=== PATIENT | male | born 1950 | race Caucasian/White ===

== ENCOUNTER 2016-08-21 09:06 | Outpatient (CLI) | payer MEDICARE, MEDICAID ==
[~2016-08-21] VITALS: Ht 180.3 cm; Wt 83.9 kg
[~2016-08-21 09:06] MED LIST: ALBU8.5H2 IH; ASP81TEC PO; ASPI-84; BETA15CR3 TP; CALC60CR3 TP; CHOL100011 PO; FISH1CAP15 PO; FLUT1DIS28 IH; NIAC125C3; OMG1KC; PRD20T PO; TMSL.4C PO; VITA400T9 PO
[2016-08-21] MEDS ORDERED: DEXAMETHASONE PF 10 MG/ML (DECADRON) VIAL ONE (09:23)
[2016-08-21 09:55] VITALS: BP 164/111
[2016-08-21 10:28] VITALS: BP 166/106
--- NOTE | 2016-08-21 12:09 | Pain Medicine-Procedure ---
Procedure Pre-Op/Post-Op Diagnosis Diagnosis: disc disorder with radiculopathy, cervical Indications for Operation Neck pain Attending Surgeon Arslan Procedure Date of Service: Aug 21, 2016 Procedure: Cervical Epidural Steroid Injection at the C7-T1 Level under Fluoroscopic Guidance Procedure: Pt was identified in the holding area. After risks, benefits, and alternatives were discussed with the patient, informed consent was obtained. An IV was placed by nursing staff prior to procedure. Patient was brought to the fluoroscopy suite and placed prone on the operating table. A time out was performed. Vital signs were monitored throughout the procedure. The patients neck was prepped and draped in the usual sterile fashion. The patients skin was anesthetized using 1% Lidocaine. A 18 gauge tuohy needle was inserted and advanced to the C7-T1 epidural space under fluoroscopic guidance using the loss of resistance technique. The needle position was confirmed in the AP and lateral view. After negative aspiration 2 ml of non-ionic contrast was injected under live fluoroscopy which showed good spread of the contrast in the epidural space at the appropriate level, there was no intravascular or subarachnoid spread. Again, after negative aspiration, 3 ml of preservative free normal saline and 10 mg of dexamethasone was injected. The needle was removed and the patient was transferred to the recovery area in stable condition. And after a brief period of observation was discharged to home in stable condition with no new neurologic deficits. Complications None KALLIE BERNARD MD Aug 21, 2016 12:08 pm
== END 2016-08-21 10:35 | disposition home or self-care (01) ==
LOC: CARD 09:06
PROVIDERS: ATTEND Pain Medicine Pain Medicine
DX: M50.13 Cervical disc disorder with radiculopathy, cervicothoracic region (principal); Z79.899 Other long term (current) drug therapy
CPT/HCPCS: 62321

== ENCOUNTER 2016-10-21 22:48 | Emergency (ER) | payer MEDICARE, MEDICAID ==
[~2016-10-21] VITALS: Ht 185.4 cm; Wt 85.3 kg
[2016-10-21 23:24] LABS: BASOPHILS % (AUTO) 0 % (0-10); EOSINOPHILS % (AUTO) 0 % (0-10); LYMPHOCYTES % (AUTO) 14 % (12-44); MEAN CORPUSCULAR HEMOGLOBIN 32 PG (25-34); MEAN CORPUSCULAR HGB CONC 35 G/DL (32-36); MEAN CORPUSCULAR VOLUME 90 FL (80-99); MEAN PLATELET VOLUME 10.2 FL (7.4-10.4); MONOCYTES # (AUTO) 0.8 X 10^3 (0.0-1.0); MONOCYTES % (AUTO) 11 % (0-12); NEUTROPHILS # (AUTO) 5.6 X 10^3 (1.8-7.8); NEUTROPHILS % (AUTO) 76 % (42-75); PLATELET COUNT 217 10^3/uL (130-400); RED BLOOD COUNT 5.18 10^6/uL (4.35-5.85); RED CELL DISTRIBUTION WIDTH 12.5 % (10.0-14.5); WHITE BLOOD COUNT 7.4 10^3/uL (4.3-11.0)
[2016-10-21] MEDS ORDERED: SCOPOLAMINE 1.5 MG (TRANSDERM-SCOP) PATCH TD ONE (23:30)
[2016-10-21 23:32] LABS: PROTHROMBIN TIME PATIENT 13.1 SEC (12.2-14.7)
[2016-10-21 23:40] LABS: ALANINE AMINOTRANSFERASE 15 U/L (0-55); ANION GAP 9 MMOL/L (5-14); ASPARTATE AMINO TRANSFERASE 17 U/L (5-34); BILIRUBIN,TOTAL 0.6 MG/DL (0.1-1.0); BLOOD UREA NITROGEN 14 MG/DL (7-18); BUN/CREATININE RATIO 16; CALCIUM 9.1 MG/DL (8.5-10.1); CARBON DIOXIDE 23 MMOL/L (21-32); CHLORIDE 109 MMOL/L (98-107); CREATINE KINASE 51 U/L (30-200); CREATININE SERUM 0.85 MG/DL (0.60-1.30); GFR ESTIMATED > 60; GLUCOSE 113 MG/DL (70-105); POTASSIUM 4.2 MMOL/L (3.6-5.0); SODIUM 141 MMOL/L (135-145); TOTAL PROTEIN 6.7 G/DL (6.4-8.2)
[2016-10-21 23:46] LABS: TROPONIN I < 0.30 NG/ML (<0.30)
[2016-10-22] MEDS ORDERED: cloNIDine 0.1 MG (CATAPRES) TAB PO ONE
[2016-10-22] MEDS ORDERED: SCOP1PAT TD (00:12)
[2016-10-22] MEDS ORDERED: MECL-106 PO (00:12)
--- NOTE | 2016-10-22 00:12 | ED General ---
General Chief Complaint: Cardiac/General Problems Stated Complaint: ELEVATED BLOOD PRESSURE Nursing Triage Note: PT CO OF BEING HYPERTENSION TODAY AT DRS OFFICE AND HAS DIZZINESS FOR A COUPLE MONTHS. PT STATES HAD EARS CLEANED OUT TODAY Nursing Sepsis Screen: No Definite Risk Source of Information: Patient (VERY DIFFICULT HISTORIAN) History of Present Illness Time Seen by Provider: 22:57 Initial Comments PT ARRIVES VIA POV FROM HOME C/O DIZZINESS--STATES "FOR A COUPLE OF MONTHS" , STATES WORSE WHEN BENDING OVER STATES HE SAW ASSISTANT PORTFOLIO MANAGER ANGEL LUIS OVALLE LAST WEDNESDAY FOR THIS AND WAS GIVEN RX FOR PREDNISONE, FOR FLUID IN EARS. NO TESTS DONE WENT BACK TODAY TO [facility] TO HAVE EARS CLEANED OUT, BUT HAD EKG AND LAB DONE TODAY ALSO, BUT PT CANNOT STATE WHY THOSE TESTS WERE DONE. PT HAD BEEN PRESCRIBED MECLIZINE 05/2016 BY [facility] PT STATES HIS BLOOD PRESSURE "HAS BEEN RUNNING HIGH FOR A COUPLE OF MONTHS" STATES HE CHECKED IT TONIGHT AND WAS 160/106 SO CAME HERE HOWEVER, PT HAS NO IDEA WHAT HIS BP NORMALLY RUNS. STATES THAT TODAY THE ASSISTANT PORTFOLIO MANAGER INCREASED HIS BP MEDICATION FROM 10 MG TO 20 MG, BUT HE HAS NO IDEA WHICH MEDICATION THAT IS--?LISINOPRIL?--STATES HE DID TAKE THE HIGHER DOSE THIS EVENING NO HEADACHE NO VISION CHANGES NO CHEST PAIN NO CHANGE IN CHRONIC SHORTNESS OF BREATH--HAS COPD NO NAUSEA/VOMITING NO SWEATS NO SWELLING OF LEGS/FEET OR PAIN IN [place] STATES OCCASIONALLY IT FEELS LIKE HIS HEART IS BEATING FAST, BUT NOT NOW [facility] Allergies and Home Medications Allergies Coded Allergies: No Known Drug Allergies (Unverified , 11/05/09) Home Medications Albuterol 8.5 Gm Hfa.aer.ad, 2 PUFF IH Q6H PRN for SHORTNESS OF BREATH, ( Reported) 2 PUFFS Aspirin 81 Mg Tabec, 81 MG PO DAILY, (Reported) Betamethasone Valerate 15 Gm Cream.gm., 1 APPLIC TP BID ON ,, (Reported) Calcipotriene 60 Gm Cream..g., 1 GM TP BID ,,,,WED, (Reported) Cholecalciferol 1,000 Unit Capsule, 1,000 UNITS PO DAILY, (Reported) Fish Oil/Dha/Epa 1 Each Capsule, 2,400 MG PO DAILY, (Reported) TAKE 2 (1,200 MG) CAPSULES DAILY Fluticasone/Salmeterol 1 Disk Inhp, 1 PUFF IH BID, (Reported) 1 PUFF Meclizine HCl 25 Mg Tablet, 25-50 MG PO Q6H, #30 Prescribed by: TOM MURDOCK on 10/22/16 0012 Prednisone 20 Mg Tab, 40 MG PO UD, #11 40MG EVERY AM AFTER BREAKFAST FOR 4 DAYS; THEN 20MG EVERY AM AFTER BREAKFAST UNTIL GONE Prescribed by: ELIZABETH MARLOW on 06/18/13 1101 Scopolamine 1 Each Patch.td72, 1 EACH TD Q72 HOURS, #3 Prescribed by: TOM MURDOCK on 10/22/16 0012 Tamsulosin Hcl 0.4 Mg Cap, 0.4 MG PO DAILY, (Reported) Vitamin E Mixed 400 Unit Tablet, 800 UNIT PO DAILY, (Reported) TAKE 2 (400 MG) TABLETS DAILY Constitutional: see HPI, No chills, No diaphoresis, dizziness, No fever, No malaise, No weakness EENTM: see HPI Respiratory: see HPI Cardiovascular: no symptoms reported Gastrointestinal: no symptoms reported Genitourinary: no symptoms reported Musculoskeletal: no symptoms reported Skin: no symptoms reported Psychiatric/Neurological: No Symptoms Reported Hematologic/Lymphatic: No Symptoms Reported Immunological/Allergic: no symptoms reported Past Ovoryzg-Ncjsyv-Oaybvy Hx Patient Social History Alcohol Use: Denies Use Recreational Drug Use: No Smoking Status: Former Smoker (2 PPD, QUIT 2 YEARS AGO, PER PT ON 10/21/16) Recent Foreign Travel: No Contact w/Someone Who Travel: No Recent Infectious Disease Expo: No Recent Hopitalizations: No Immunizations Up To Date Tetanus Booster (TDap): More than 5yrs Surgeries HX Surgeries: Yes (LEFT EYE REMOVED. ) Surgeries: Eye Surgery Respiratory Hx Respiratory Disorders: Yes Respiratory Disorders: COPD Cardiovascular Hx Cardiac Disorders: Yes Cardiac Disorders: Hypertension Neurological Hx Neurological Disorders: Yes (DIZZINESS) Neurological Disorders: Vertigo Reproductive System Hx Reproductive Disorders: No Sexually Transmitted Disease: No Genitourinary Hx Genitourinary Disorders: Yes (URGENCY) Genitourinary Disorders: Prostate Problems Gastrointestinal Hx Gastrointestinal Disorders: No Musculoskeletal Hx Musculoskeletal Disorders: Yes (CHRONIC NECK PAIN ) Endocrine Hx Endocrine Disorders: No HEENT HX ENT Disorders: Yes (LEFT GLASS EYE) Cancer Hx Cancer: No Psychosocial Hx Psychiatric Problems: No Integumentary HX Skin/Integumentary Disorder: Yes Skin/Integumentary Disorders: Psoriasis Blood Transfusions Hx Blood Disorders: No Adverse Reaction to a Blood Tr: No Family Medical History Family Medial History: Abdominal aortic aneurysm 03 FATHER, Onset:60 years & older Cancer 03 FATHER (NECK) 03 MOTHER (LUNGS) History of drug abuse DAUGHTERS (DAUGHTER) Physical Exam Vital Signs Vital Sign - Last 12Hours 10/21/16 10/22/16 22:55 01:18 Temp 97.7 Pulse 81 Resp 18 B/P (MAP) 158/109 Pulse Ox 96 O2 Delivery Room Air Capillary Refill : Less Than 3 Seconds General Appearance: No Apparent Distress, WD/WN HEENT: Normal ENT Inspection, Other (PROSTHETIC LEFT EYE) Neck: Full Range of Motion, Normal Inspection, Non Tender, Supple, No Carotid Bruit, No JVD Respiratory: Normal Breath Sounds, No Accessory Muscle Use, No Respiratory Distress Cardiovascular: Regular Rate, Rhythm, No Edema, No JVD, No Murmur, Normal Peripheral Pulses Gastrointestinal: Normal Bowel Sounds, No Organomegaly, No Pulsatile Mass, Non Tender, Soft Extremity: Normal Capillary Refill, Normal Inspection, Normal Range of Motion, Non Tender, No Calf Tenderness, No Pedal Edema Neurologic/Psychiatric: Alert, Oriented x3, No Motor/Sensory Deficits, Normal Mood/Affect, 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 fitter II-XII Norm as Tested, No Abnormal Cerebellar Tests Skin: Normal Color, Warm/Dry Progress/Results/Core Measures Results/Orders Lab Results Laboratory Tests Test 10/21/16 22:57 10/21/16 23:05 Range/Units Prothrombin Time 13.1 12.2-14.7 SEC INR Comment 1.0 0.8-1.4 Activated Partial Thromboplast Time 29 24-35 SEC White Blood Count 7.4 4.3-11.0 10^3/uL Red Blood Count 5.18 4.35-5.85 10^6/uL Hemoglobin 16.4 13.3-17.7 G/DL Hematocrit 47 40-54 % Mean Corpuscular Volume 90 80-99 FL Mean Corpuscular Hemoglobin 32 25-34 PG Mean Corpuscular Hemoglobin Concent 35 32-36 G/DL Red Cell Distribution Width 12.5 10.0-14.5 % Platelet Count 217 130-400 10^3/uL Mean Platelet Volume 10.2 7.4-10.4 FL Neutrophils (%) (Auto) 76 H 42-75 % Lymphocytes (%) (Auto) 14 12-44 % Monocytes (%) (Auto) 11 0-12 % Eosinophils (%) (Auto) 0 0-10 % Basophils (%) (Auto) 0 0-10 % Neutrophils # (Auto) 5.6 1.8-7.8 X 10^3 Lymphocytes # (Auto) 1.0 1.0-4.0 X 10^3 Monocytes # (Auto) 0.8 0.0-1.0 X 10^3 Eosinophils # (Auto) 0.0 0.0-0.3 10^3/uL Basophils # (Auto) 0.0 0.0-0.1 10^3/uL Sodium Level 141 135-145 MMOL/L Potassium Level 4.2 3.6-5.0 MMOL/L Chloride Level 109 H 98-107 MMOL/L Carbon Dioxide Level 23 21-32 MMOL/L Anion Gap 9 5-14 MMOL/L Blood Urea Nitrogen 14 7-18 MG/DL Creatinine 0.85 0.60-1.30 MG/DL Estimat Glomerular Filtration Rate > 60 BUN/Creatinine Ratio 16 Glucose Level 113 H 70-105 MG/DL Calcium Level 9.1 8.5-10.1 MG/DL Total Bilirubin 0.6 0.1-1.0 MG/DL Aspartate Amino Transf (AST/SGOT) 17 5-34 U/L Alanine Aminotransferase (ALT/SGPT) 15 0-55 U/L Alkaline Phosphatase 100 40-136 U/L Total Creatine Kinase 51 30-200 U/L Creatine Kinase MB 1.1 <6.6 NG/ML Troponin I < 0.30 <0.30 NG/ML B-Type Natriuretic Peptide 35.9 <100.0 PG/ML Total Protein 6.7 6.4-8.2 G/DL Albumin 4.0 3.2-4.5 G/DL My Orders Orders - TOM MURDOCK DO Cbc With Automated Diff (10/21/16 22:57) Comprehensive Metabolic Panel (10/21/16 22:57) Creatine Kinase (10/21/16 22:57) Creatine Kinase Mb (10/21/16 22:57) Partial Thromboplastin Time (10/21/16 22:57) Protime With Inr (10/21/16 22:57) Troponin I (10/21/16 22:57) Chest 1 View, Ap/Pa Only (10/21/16 22:57) Ekg Tracing (10/21/16 22:57) BNP (10/21/16 22:57) Monitor-Rhythm Ecg Trace Only (10/21/16 22:57) Scopolamine Patch (Transderm-Scop Patch) (10/21/16 23:30) Clonidine Tablet (Catapres Tablet) (10/22/16 00:00) Ct Head Wo (10/22/16 00:01) Medications Given in ED Current Medications Medications Dose Ordered Sig/Irma Route Start Time Stop Time Status Last Admin Dose Admin Clonidine HCl 0.1 mg ONCE ONCE PO 10/22/16 00:00 10/22/16 00:01 DC 10/22/16 00:08 0.1 MG Scopolamine 1.5 mg ONCE ONCE TD 10/21/16 23:30 10/21/16 23:31 DC 10/21/16 23:53 1.5 MG Vital Signs/I&O Vital Sign - Last 12Hours 10/21/16 10/22/16 22:55 01:18 Temp 97.7 Pulse 81 67 Resp 18 10 B/P (MAP) 158/109 Pulse Ox 96 O2 Delivery Room Air Blood Pressure Mean: 125 Progress Note : Progress Note DIZZINESS IMPROVED WITH SCOPOLAMINE PATCH UNEVENTFUL ER STAY ECG Initial ECG Impression Time: 23:04 Initial ECG Rate: 72 Initial ECG Rhythm: Normal Sinus Initial ECG Comparisson: No Previous ECG Available Diagnostic Imaging Comments CT HEAD-- NO ACUTE PROCESS, 7 MM HYPERDENSE LESION AT LEFT SUPERFRONTAL GYRUS OF UNDETERMINED SIGNIFICANCE. --PER [facility] VIA FAX @ 1051 Reviewed: Reviewed by Me Departure Impression Impression: Primary Impression: HTN (hypertension) Additional Impressions: Vertigo ABNORMAL FINDING ON HEAD CT Disposition: HOME, SELF-CARE Condition: Stable Departure-Patient Inst. Referrals: [facility] (PCP/Family) Primary Care Physician Patient Instructions: DASH Diet, Heart Healthy Diet, High Blood Pressure (DC), VERTIGO Add. Discharge Instructions: CONTINUE YOUR LISINOPRIL AT 20 MG DAILY SLOW POSITION CHANGES FOLLOW UP WITH [facility] IN 2-3 DAYS FOR FURTHER CARE All discharge instructions reviewed with patient and/or family. Voiced understanding. Scripts Meclizine HCl (Meclizine HCl) 25 Mg Tablet 25-50 MG PO Q6H for Dizziness, #30 TAB Prov: TOM MURDOCK DO 10/22/16 Scopolamine (Transderm-Scop) 1 Each Patch.td72 1 EACH TD Q72 HOURS for Dizziness, #3 PATCH Prov: TOM MURDOCK DO 10/22/16 TOM MURDOCK DO Oct 22, 2016 00:12
[2016-10-22 01:18] VITALS: BP 168/99
--- NOTE | 2016-10-22 06:04 | Diagnostic Imaging Report ---
Clinical indication: Patient with hypertension and dizziness. Patient has left glass eye and stents. Exam: Axial CT scan of the brain performed without IV contrast. Comparison: MRI of the brain performed without and with IV contrast dated 07/06/2016. Findings: There is a 7 mm high-density area involving the posterior left frontal lobe parasagittal region seen on series 2, image 28. This area correlates with an area on the comparison MRI of the brain. Otherwise, there is no evidence of acute cerebral infarct, acute lobar intracranial hemorrhage, or gross mass effect. There is normal cochran-white matter distinction. The brain parenchymal volume appears appropriate for patient's age. There is no significant midline shift or herniation. There is no evidence of hydrocephalus. The basal cisterns are unremarkable. The skull, extracranial soft tissue, and orbits are unremarkable. The paranasal sinuses are unremarkable. Impression: 1: There is no evidence of interval acute intracranial process. 2: Stable 7 mm lesion in the parasagittal posterior left frontal lobe which likely represents a cavernous hemangioma versus and area of calcification. I agree with [facility] report. Dictated by: Dictated on workstation # [id number]
--- NOTE | 2016-10-22 06:48 | Diagnostic Imaging Report ---
Clinical indication: Patient with complaints of hypertension and dizziness. Exam: Portable chest x-ray upright view. Comparisons: Chest x-ray dated 06/16/2013. Findings: Lungs/pleura: There is interval mild bibasilar atelectasis or scarring. There is stable scarring in both lung apices. There is no definite interval lung infiltrate seen. Lungs are clear. There is no pneumothorax. There is no pleural effusion. Mediastinum: Unremarkable. Pulmonary vasculature: Unremarkable. Heart: Unremarkable. Bones/extrathoracic soft tissue: Unremarkable. Impression: 1: There is interval development of mild bibasilar atelectasis or scarring. 2: Otherwise, stable chest x-ray exam with no radiographic evidence of acute cardiopulmonary process. Dictated by: Dictated on workstation # [id number]
--- OUTSIDE RECORDS SUMMARY | 2016-11-22 18:26 | XMS REPORT ---
Author Author ANGEL LUIS OVALLE [facility] eClinicalWorks Address Unknown Phone Unavailable Care Team Providers Care Instrument Maker Name Role Phone ANGEL LUIS OVALLE Unavailable Allergies, Adverse Reactions, Alerts Substance Reaction Event Type N.K.D.A. Info Not Available Non Drug Allergy Problems Problem Type Condition ICD-9 Code Onset Dates Condition Status Problem Elevated prostate specific antigen (PSA) 790.93 Active Problem Sleep related hypoventilation/hypoxemia in conditions classifiable elsewhere 327.26 Active Problem Contact dermatitis and other eczema due to plants (except food) 692.6 Active Problem Diabetes with other specified manifestations, type II or unspecified type, not stated as uncontrolled 250.80 Active Assessment Elevated PSA 790.93 Active Problem Hypertrophy (benign) of prostate without urinary obstruction and other lower urinary tract symptoms [LUTS] 600.00 Active Assessment Incontinence of urine 788.30 Active Problem Deviated nasal septum 470 Active Problem Nondependent tobacco use disorder 305.1 Active Problem 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 Active Problem Acute upper respiratory infections of unspecified site 465.9 Active Problem Other and unspecified hyperlipidemia 272.4 Active Assessment Nocturnal hypoxia 327.24 Active Assessment COPD (chronic obstructive pulmonary disease) 496 Active Assessment BPH (benign prostatic hyperplasia) 600.00 Active Assessment Rib pain on left side 786.50 Active Problem Other, multiple, and unspecified sites, insect bite, nonvenomous, without mention of infection 919.4 Active Problem Cervicalgia 723.1 Active Assessment Dizziness 780.4 Active Problem Other malaise and fatigue 780.79 Active Problem Chest pain, unspecified 786.50 Active Problem Loss of weight 783.21 Active Medications Medication Code System Code Instructions Start Date End Date Status Dosage Flomax [facility] [address]-92 0.4 mg May 22, 2014 1 capsule by Oral route 1 time per day Symbicort [facility] [address]-15 160-4.5 mcg/actuation Sep 10, 2014 inhale 2 puffs by inhalation route 2 times per day in the morning and evening Albuterol NDC 0 90 mcg/actuation December 13, 2013 2 puffs by Inhalation route 4 times per day PRN Albuterol Sulfate NDC [address]-04 2.5 mg /3 mL (0.083 %) Sep 10, 2014 1 Each by Inhalation route every 4 hours for cough and wheeze PRN for wheezing or cough Procedures Procedure Coding System Code Date LAB NOT BILLED BY [facility] CPT-4 NOBLL Mar 05, 2015 CHEST X-RAY CPT-4 28862 Mar 05, 2015 ASSAY OF PSA, TOTAL CPT-4 88417 Mar 05, 2015 Office Visit, Est Pt., Level 4 CPT-4 71943 Mar 05, 2015 [facility] VISIT ESTABLISHED PATIENT CPT-4 G0467 Mar 05, 2015 VENIPUNCT, ROUTINE* CPT-4 87232 Mar 05, 2015 Vital Signs Date/Time: Mar 05, 2015 Temperature 96.8 F Weight 155.0 lbs Height 70 in BMI 22.24 Index Blood Pressure Diastolic 78 mmHg Blood Pressure Systolic 118 mmHg Cardiac Monitoring Heart Rate 76 bpm Results Name Result Date Reference Range Unit Abnormality Flag Carotid Ultrasound ROUTINE VENIPUNCTURE CBC Summary Purpose eClinicalWorks Submission
--- OUTSIDE RECORDS SUMMARY | 2016-11-22 18:26 | XMS REPORT ---
Author ANGEL LUIS Maddox Organization e[employer] Address Unknown Phone Unavailable Care Team Providers Care Logistic Manager Name Role Phone ANGEL LUIS OVALLE CP Unavailable Allergies No Known Allergies Problems Problem Type Condition Code Onset Dates Condition Status Problem Enlarged prostate with lower urinary tract symptoms N40.1 Active Problem Elevated PSA R97.2 Active Problem Obstructive sleep apnea G47.33 Active Problem Obstructive sleep apnea syndrome G47.33 Active Problem Diabetes with other specified manifestations, type II or unspecified type, not stated as uncontrolled 250.80 Active Medications No Known Medications Results No Known Results Summary Purpose eClinicalWorks Submission
--- OUTSIDE RECORDS SUMMARY | 2016-11-22 18:26 | XMS REPORT ---
Author Author ANGEL LUIS OVALLE [facility] eClinical[employer] Address Unknown Phone Unavailable Care Team Providers Care Metallic Yarn Slitting Machine Operator Name Role Phone ANGEL LUIS OVALLE Unavailable Allergies, Adverse Reactions, Alerts Substance Reaction Event Type N.K.D.A. Info Not Available Non Drug Allergy Problems Problem Type Condition Code Onset Dates Condition Status Assessment Enlarged prostate with lower urinary tract symptoms N40.1 Active Assessment Elevated PSA R97.2 Active Problem Enlarged prostate with lower urinary tract symptoms N40.1 Active Problem Elevated PSA R97.2 Active Problem Obstructive sleep apnea G47.33 Active Assessment Obstructive sleep apnea G47.33 Active Assessment Hyperkalemia E87.5 Active Problem Obstructive sleep apnea syndrome G47.33 Active Problem Diabetes with other specified manifestations, type II or unspecified type, not stated as uncontrolled 250.80 Active Medications Medication Code System Code Instructions Start Date End Date Status Dosage Symbicort NDC [address]-23 160-4.5 mcg/actuation Sep 10, 2014 inhale 2 puffs by inhalation route 2 times per day in the morning and evening Flomax NDC [address]-56 0.4 mg May 22, 2014 1 capsule by Oral route 1 time per day Albuterol Sulfate NDC [address]-39 2.5 mg /3 mL (0.083 %) Sep 10, 2014 1 Each by Inhalation route every 4 hours for cough and wheeze PRN for wheezing or cough Albuterol NDC 0 90 mcg/actuation December 13, 2013 2 puffs by Inhalation route 4 times per day PRN Procedures Procedure Coding System Code Date VENIPELYSE, ROUTINE* CPT-4 80057 Jun 25, 2015 [facility] VISIT ESTABLISHED PATIENT CPT-4 G0467 Jun 25, 2015 LAB NOT BILLED BY [facility] CPT-4 NOBLL Jun 25, 2015 Office Visit, Est Pt., Level 4 CPT-4 73430 Jun 25, 2015 Vital Signs Date/Time: Jun 25, 2015 Temperature 98.5 F Weight 166.5 lbs Height 70 in BMI 23.89 Index Blood Pressure Diastolic 72 mmHg Blood Pressure Systolic 116 mmHg Cardiac Monitoring Heart Rate 78 bpm Results Name Result Date Reference Range Unit Abnormality Flag ROUTINE VENIPUNCTURE Summary Purpose eClinicalWorks Submission
--- OUTSIDE RECORDS SUMMARY | 2016-11-22 18:27 | XMS REPORT ---
Author Author AILYN SHERWOOD Organization eClinicalWorks Address Unknown Phone Unavailable Care Team Providers Care Aws Software Development Engineer Name Role Phone AILYN SHERWOOD CP Unavailable Allergies No Known Allergies Problems Problem Type Condition ICD-9 Code Onset Dates Condition Status Problem Elevated prostate specific antigen (PSA) 790.93 Active Problem Sleep related hypoventilation/hypoxemia in conditions classifiable elsewhere 327.26 Active Problem Contact dermatitis and other eczema due to plants (except food) 692.6 Active Problem Diabetes with other specified manifestations, type II or unspecified type, not stated as uncontrolled 250.80 Active Problem Hypertrophy (benign) of prostate without urinary obstruction and other lower urinary tract symptoms [LUTS] 600.00 Active Problem Deviated nasal septum 470 Active Problem Nondependent tobacco use disorder 305.1 Active Problem 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 Active Problem Acute upper respiratory infections of unspecified site 465.9 Active Problem Other and unspecified hyperlipidemia 272.4 Active Assessment BPH (benign prostatic hyperplasia) 600.00 Active Problem Other, multiple, and unspecified sites, insect bite, nonvenomous, without mention of infection 919.4 Active Problem Cervicalgia 723.1 Active Assessment Elevated PSA 790.93 Active Problem Other malaise and fatigue 780.79 Active Problem Chest pain, unspecified 786.50 Active Problem Loss of weight 783.21 Active Medications No Known Medications Results No Known Results Summary Purpose eClinicalWorks Submission
--- OUTSIDE RECORDS SUMMARY | 2016-11-22 18:27 | XMS REPORT ---
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 Active Problem Diabetes with other specified manifestations, type II or unspecified type, not stated as uncontrolled 250.80 Active Problem Spinal stenosis in cervical region M48.02 Active Problem Incontinence R32 Active Problem Cyst on ear L72.9 Active Problem Cardiac arrhythmia, unspecified cardiac arrhythmia type I49.9 Active Problem Elevated PSA R97.2 Active Problem Obstructive sleep apnea syndrome G47.33 Active Problem Obstructive sleep apnea G47.33 Active Problem Enlarged prostate with lower urinary tract symptoms N40.1 Active Assessment Cardiac arrhythmia, unspecified cardiac arrhythmia type I49.9 Active Assessment Dizziness R42 Active Problem Abnormal MRI of head R93.0 Active Medications No Known Medications Procedures Procedure Coding System Code Date VENIPUNCT, ROUTINE* CPT-4 46771 Jun 15, 2016 LAB NOT BILLED BY [facility] CPT-4 NOBLL Jun 15, 2016 Results Name Result Date Reference Range Unit Abnormality Flag ROUTINE VENIPUNCTURE CMP ----Sodium, Serum 141 [id number] 136-144 mmol/L ----BUN/Creatinine Ratio 12 [id number] 10-22 ----Chloride, Serum 101 [id number] 97-106 mmol/L ----Potassium, Serum 4.9 34877422 3.5-5.2 mmol/L ----Calcium, Serum 9.3 20160615 8.6-10.2 mg/dL ----Protein, Total, Serum 6.7 23874300 6.0-8.5 g/dL ----Carbon Dioxide, Total 28 20160615 18-29 mmol/L ----A/G Ratio 1.7 20160615 1.1-2.5 ----eGFR If NonAfricn Am 79 [id number] >59 mL/min/1.73 ----Bilirubin, Total 0.4 20160615 0.0-1.2 mg/dL ----eGFR If Africn Am 91 20160615 >59 mL/min/1.73 ----BUN 12 20160615 8-27 mg/dL ----Albumin, Serum 4.2 20160615 3.6-4.8 g/dL ----Globulin, Total 2.5 20160615 1.5-4.5 g/dL ----Creatinine, Serum 1.00 20160615 0.76-1.27 mg/dL ----ALT (SGPT) 20 20160615 0-44 IU/L ----Glucose, Serum 104 20160615 65-99 mg/dL H ----Alkaline Phosphatase, S 98 20160615 39-117 IU/L ----AST (SGOT) 19 20160615 0-40 IU/L Summary Purpose eClinicalWorks Submission
--- OUTSIDE RECORDS SUMMARY | 2016-11-22 18:27 | XMS REPORT ---
Author Author ANGEL LUIS OVALLE Organization [employer] Address Unknown Phone Unavailable Care Team Providers Care Raiser Helper Name Role Phone ANGEL LUIS OVALLE CP [...] Problem Other and unspecified hyperlipidemia 272.4 Active Problem Other, multiple, and unspecified sites, insect bite, nonvenomous, without mention of infection 919.4 Active Problem Cervicalgia 723.1 Active Problem Other malaise and fatigue 780.79 Active Problem Chest pain, unspecified 786.50 Active Problem Loss of weight 783.21 Active Medications No Known Medications Results No Known Results Summary Purpose [employer] Submission
--- OUTSIDE RECORDS SUMMARY | 2016-11-22 18:27 | XMS REPORT ---
Author Author AILYN SHERWOOD Organization [employer] Address Unknown Phone Unavailable Care Team Providers Care Bit Setter Name Role Phone AILYN SHERWOOD CP Unavailable Allergies No Known Allergies Problems Problem Type Condition Code Onset Dates Condition Status Problem Elevated [...]
--- OUTSIDE RECORDS SUMMARY | 2016-11-22 18:27 | XMS REPORT ---
Author Author ANGEL LUIS OVALLE [facility] [employer] Address Unknown Phone Unavailable Care Team Providers Care Practice Billing Associate Name Role Phone ANGEL LUIS OVALLE CP Unavailable Allergies, Adverse Reactions, Alerts Substance Reaction Event Type N.K.D.A. 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 Problem Sleep related hypoventilation/hypoxemia in conditions classifiable elsewhere 327.26 Active Problem Deviated nasal septum 470 Active Problem Diabetes with other specified manifestations, type II or unspecified type, not stated as uncontrolled 250.80 Active Problem Obstructive sleep apnea syndrome G47.33 Active Problem Other and unspecified hyperlipidemia 272.4 Active Problem Nondependent tobacco use disorder 305.1 Active Problem Hypertrophy (benign) of prostate without urinary obstruction and other lower urinary tract symptoms [LUTS] 600.00 Active Problem Acute upper respiratory infections of unspecified site 465.9 Active Assessment Obstructive sleep apnea syndrome G47.33 Active Problem Cervicalgia 723.1 Active Problem Other malaise and fatigue 780.79 Active Problem Chest pain, unspecified 786.50 Active Problem Loss of weight 783.21 Active Problem Other, multiple, and unspecified sites, insect bite, nonvenomous, without mention of infection 919.4 Active Problem Elevated prostate specific antigen (PSA) 790.93 Active Medications Medication Code System Code Instructions Start Date End Date Status Dosage Albuterol NDC 0 90 mcg/actuation December 13, 2013 2 puffs by Inhalation route 4 times per day PRN Symbicort [facility] [address]-08 160-4.5 mcg/actuation Sep 10, 2014 inhale 2 puffs by inhalation route 2 times per day in the [place] [address]-18 0.4 mg May 22, 2014 1 capsule by Oral route 1 time per day Albuterol Sulfate [facility] [address]-96 2.5 mg /3 mL (0.083 %) Sep 10, 2014 1 Each by Inhalation route every 4 hours for cough and wheeze PRN for wheezing or cough Procedures Procedure Coding System Code Date Office Visit, Est Pt., Level 3 CPT-4 21508 May 15, 2015 [facility] V[facility]IT ESTABLISHED PATIENT CPT-4 G0467 May 15, 2015 Vital Signs Date/Time: May 15, 2015 Temperature 98.4 F Weight 156.7 lbs Height 70 in BMI 22.48 Index Blood Pressure Diastolic 68 mmHg Blood Pressure Systolic 112 mmHg Cardiac Monitoring Heart Rate 80 bpm Results No Known Results Summary Purpose [employer] Submission
--- OUTSIDE RECORDS SUMMARY | 2016-11-22 18:27 | XMS REPORT ---
Author Author ANGEL LUIS OVALLE Organization [employer] Address Unknown Phone Unavailable Care Team Providers Care Magisterial District Judge Name Role Phone ANGEL LUIS OVALLE CP [...] Instructions Start Date End Date Status Dosage Oxybutynin Chloride [facility] [address]-85 5 MG Orally Twice a day Aug 06, 2015 Sep 05, 2015 1 tablet Triamcinolone Acetonide [facility] [address]-72 0.5 % Externally Twice a day as needed Aug 06, 2015 1 application to affected area Flomax [facility] [address]-26 0.4 MG May 22, 2014 1 capsule by Oral route 1 time per day Results No Known Results Summary Purpose [employer] Submission
--- OUTSIDE RECORDS SUMMARY | 2016-11-22 18:28 | XMS REPORT ---
Author Author ANGEL LUIS OVALLE Organization [employer] Address Unknown Phone Unavailable Care Team Providers Care Physician Anesthesiologist Name Role Phone ANGEL LUIS OVALLE CP [...]
--- OUTSIDE RECORDS SUMMARY | 2016-11-22 18:28 | XMS REPORT ---
Author Author ANGEL LUIS OVALLE Organization [employer] Address Unknown Phone Unavailable Care Team Providers Care Order Processing Manager Name Role Phone ANGEL LUIS OVALLE CP Unavailable Allergies No Known Allergies Problems Problem Type Condition Code Onset Dates Condition Status Problem Cyst on ear L72.9 Active Problem Obstructive sleep apnea G47.33 Active Problem Incontinence R32 Active Problem Obstructive sleep apnea syndrome G47.33 Active Problem Diabetes with other specified manifestations, type II or unspecified type, not stated as uncontrolled 250.80 Active Problem Enlarged prostate with lower urinary tract symptoms N40.1 Active Problem Elevated PSA R97.2 Active Medications Medication Code System Code Instructions Start Date End Date Status Dosage Oxybutynin Chloride [facility] [address]-53 15 mg ER Oral Once a day 1 tablet Flomax [facility] [address]-21 0.4 MG May 22, 2014 1 capsule by Oral route 1 time per day Results No Known Results Summary Purpose [employer] Submission
--- OUTSIDE RECORDS SUMMARY | 2016-11-22 18:28 | XMS REPORT | Continuity of Care Document ---
Author Author [facility] Address Unknown Phone Unavailable Allergies Active Description Code Type Severity Reaction Onset Reported/Identified Relationship to Patient Clinical Status Yes No Known Drug Allergies [id number] Drug Allergy Mild N/A 11/05/2009 Medications Problems Date Dx Coded Attending Type Code Diagnosis Diagnosed By 10/11/2009 173.9 OTHER MALIGNANT NEOPLASM OF SKIN, SITE UNSPECIFIED 10/11/2009 496 CHRONIC OBSTRUCTIVE PULMONARY DISEASE 10/11/2009 696.1 PSORIASIS 10/11/2009 V76.44 visit for: screening exam malignant neoplasm prostate 10/11/2009 GIORGI SO MD 173.9 OTHER MALIGNANT NEOPLASM OF SKIN, SITE UNSPECIFIED 10/11/2009 GIORGI SO MD 496 CHRONIC OBSTRUCTIVE PULMONARY DISEASE 10/11/2009 GIORGI SO MD 696.1 PSORIASIS 10/11/2009 GIORGI SO MD V76.44 visit for: screening exam malignant neoplasm prostate 10/11/2009 173.9 OTHER MALIGNANT NEOPLASM OF SKIN, SITE UNSPECIFIED 10/11/2009 496 CHRONIC OBSTRUCTIVE PULMONARY DISEASE 10/11/2009 696.1 PSORIASIS 10/11/2009 V76.44 visit for: screening exam malignant neoplasm prostate 10/11/2009 173.9 OTHER MALIGNANT NEOPLASM OF SKIN, SITE UNSPECIFIED 10/11/2009 496 CHRONIC OBSTRUCTIVE PULMONARY DISEASE 10/11/2009 696.1 PSORIASIS 10/11/2009 V76.44 visit for: screening exam malignant neoplasm prostate 10/11/2009 173.9 OTHER MALIGNANT NEOPLASM OF SKIN, SITE UNSPECIFIED 10/11/2009 496 CHRONIC OBSTRUCTIVE PULMONARY DISEASE 10/11/2009 696.1 PSORIASIS 10/11/2009 V76.44 visit for: screening exam malignant neoplasm prostate 10/11/2009 173.9 OTHER MALIGNANT NEOPLASM OF SKIN, SITE UNSPECIFIED 10/11/2009 496 CHRONIC OBSTRUCTIVE PULMONARY DISEASE 10/11/2009 696.1 PSORIASIS 10/11/2009 V76.44 visit for: screening exam malignant neoplasm prostate 10/11/2009 173.9 OTHER MALIGNANT NEOPLASM OF SKIN, SITE UNSPECIFIED 10/11/2009 496 CHRONIC OBSTRUCTIVE PULMONARY DISEASE 10/11/2009 696.1 PSORIASIS 10/11/2009 V76.44 visit for: screening exam malignant neoplasm prostate 10/11/2009 SUZIE PAVON MD 173.9 OTHER MALIGNANT NEOPLASM OF SKIN, SITE UNSPECIFIED 10/11/2009 SUZIE PAVON MD 496 CHRONIC OBSTRUCTIVE PULMONARY DISEASE 10/11/2009 SUZIE PAVON MD 696.1 PSORIASIS 10/11/2009 SUZIE PAVON MD V76.44 visit for: screening exam malignant neoplasm prostate 10/11/2009 GIORGI SO MD 173.9 OTHER MALIGNANT NEOPLASM OF SKIN, SITE UNSPECIFIED 10/11/2009 GIORGI SO MD 496 CHRONIC OBSTRUCTIVE PULMONARY DISEASE 10/11/2009 GIORGI SO MD 696.1 PSORIASIS 10/11/2009 GIORGI SO MD V76.44 visit for: screening exam malignant neoplasm prostate 10/11/2009 MARIE DO, RUPERT K 173.9 OTHER MALIGNANT NEOPLASM OF SKIN, SITE UNSPECIFIED 10/11/2009 MARIE DO, RUPERT K 496 CHRONIC OBSTRUCTIVE PULMONARY DISEASE 10/11/2009 MARIE DO, RUPERT K 696.1 PSORIASIS 10/11/2009 MARIE DO, RUPERT K V76.44 visit for: screening exam malignant neoplasm prostate 10/11/2009 MADL UNDERWATER TRAPPER, ANGEL LUIS L 173.9 OTHER MALIGNANT NEOPLASM OF SKIN, SITE UNSPECIFIED 10/11/2009 MADL UNDERWATER TRAPPER, ANGEL LUIS L 496 CHRONIC OBSTRUCTIVE PULMONARY DISEASE 10/11/2009 MADL UNDERWATER TRAPPER, ANGEL LUIS L 696.1 PSORIASIS 10/11/2009 MADL UNDERWATER TRAPPER, ANGEL LUIS L V76.44 visit for: screening exam malignant neoplasm prostate 10/11/2009 MADL UNDERWATER TRAPPER, ANGEL LUIS L 173.9 OTHER MALIGNANT NEOPLASM OF SKIN, SITE UNSPECIFIED 10/11/2009 MADL UNDERWATER TRAPPER, ANGEL LUIS L 496 CHRONIC OBSTRUCTIVE PULMONARY DISEASE 10/11/2009 MADL UNDERWATER TRAPPER, ANGEL LUIS L 696.1 PSORIASIS 10/11/2009 MADL UNDERWATER TRAPPER, ANGEL LUIS L V76.44 visit for: screening exam malignant neoplasm prostate 10/11/2009 MADL UNDERWATER TRAPPER, ANGEL LUIS L 173.9 OTHER MALIGNANT NEOPLASM OF SKIN, SITE UNSPECIFIED 10/11/2009 MADL UNDERWATER TRAPPER, ANGEL LUIS L 496 CHRONIC OBSTRUCTIVE PULMONARY DISEASE 10/11/2009 MADL UNDERWATER TRAPPER, ANGEL LUIS L 696.1 PSORIASIS 10/11/2009 MADL UNDERWATER TRAPPER, ANGEL LUIS L V76.44 visit for: screening exam malignant neoplasm prostate 10/11/2009 MARIE DO, RUPERT K 173.9 OTHER MALIGNANT NEOPLASM OF SKIN, SITE UNSPECIFIED 10/11/2009 MARIE DO, RUPERT K 496 CHRONIC OBSTRUCTIVE PULMONARY DISEASE 10/11/2009 MARIE DO, RUPERT K 696.1 PSORIASIS 10/11/2009 MARIE DO, RUPERT K V76.44 visit for: screening exam malignant neoplasm prostate 10/11/2009 MARTINEZ UNDERWATER TRAPPER, MARTA R 173.9 OTHER MALIGNANT NEOPLASM OF SKIN, SITE UNSPECIFIED 10/11/2009 MARTINEZ UNDERWATER TRAPPER, MARTA R 496 CHRONIC OBSTRUCTIVE PULMONARY DISEASE 10/11/2009 MARTINEZ UNDERWATER TRAPPER, MARTA R 696.1 PSORIASIS 10/11/2009 MARTINEZ UNDERWATER TRAPPER, MARTA R V76.44 visit for: screening exam malignant neoplasm prostate 10/11/2009 MADL UNDERWATER TRAPPER, ANGEL LUIS L 173.9 OTHER MALIGNANT NEOPLASM OF SKIN, SITE UNSPECIFIED 10/11/2009 MADL UNDERWATER TRAPPER, ANGEL LUIS L 496 CHRONIC OBSTRUCTIVE PULMONARY DISEASE 10/11/2009 MADL UNDERWATER TRAPPER, ANGEL LUIS L 696.1 PSORIASIS 10/11/2009 MADL UNDERWATER TRAPPER, ANGEL LUIS L V76.44 visit for: screening exam malignant neoplasm prostate 10/11/2009 MARIE DO, RUPERT K 173.9 OTHER MALIGNANT NEOPLASM OF SKIN, SITE UNSPECIFIED 10/11/2009 MARIE DO, RUPERT K 496 CHRONIC OBSTRUCTIVE PULMONARY DISEASE 10/11/2009 MARIE DO, RUPERT K 696.1 PSORIASIS 10/11/2009 MARIE DO, RUPERT K V76.44 visit for: screening exam malignant neoplasm prostate 10/15/2009 380.4 IMPACTED CERUMEN 10/15/2009 SARAY MAIER, GIORGI 380.4 IMPACTED CERUMEN 10/15/2009 380.4 IMPACTED CERUMEN 10/15/2009 380.4 IMPACTED CERUMEN 10/15/2009 380.4 IMPACTED CERUMEN 10/15/2009 380.4 IMPACTED CERUMEN 10/15/2009 380.4 IMPACTED CERUMEN 10/15/2009 SAVANAH MAIER, SUZIE M 380.4 IMPACTED CERUMEN 10/15/2009 GIORGI SO MD 380.4 IMPACTED CERUMEN 10/15/2009 MARIE DO, RUPERT K 380.4 IMPACTED CERUMEN 10/15/2009 MADL UNDERWATER TRAPPER, ANGEL LUIS L 380.4 IMPACTED CERUMEN 10/15/2009 MADL UNDERWATER TRAPPER, ANGEL LUIS L 380.4 IMPACTED CERUMEN 10/15/2009 MADL UNDERWATER TRAPPER, ANGEL LUIS L 380.4 IMPACTED CERUMEN 10/15/2009 MARIE DO, RUPERT K 380.4 IMPACTED CERUMEN 10/15/2009 MARTINEZ UNDERWATER TRAPPER, MARTA R 380.4 IMPACTED CERUMEN 10/15/2009 MADL UNDERWATER TRAPPER, ANGEL LUIS L 380.4 IMPACTED CERUMEN 10/15/2009 MARIE DO, RUPERT K 380.4 IMPACTED CERUMEN 11/07/2009 Ot 173.3 MAL JESSI SKIN FACE NEC 12/12/2009 Ot 786.09 12/12/2009 Ot 786.50 12/13/2009 Ot 786.09 12/13/2009 Ot 786.50 12/18/2009 Ot 305.1 12/18/2009 Ot 425.4 12/18/2009 Ot 729.5 12/18/2009 Ot 785.9 12/18/2009 Ot 786.09 12/18/2009 Ot 786.50 12/18/2009 Ot V10.83 12/18/2009 Ot V58.66 12/18/2009 Ot V58.69 04/21/2012 272.4 HYPERLIPIDEMIA 04/21/2012 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 04/21/2012 425.4 CARDIOMYOPATHY 04/21/2012 GIORGI SO MD 272.4 HYPERLIPIDEMIA 04/21/2012 GIORGI SO MD 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 04/21/2012 GIORGI SO MD 425.4 CARDIOMYOPATHY 04/21/2012 272.4 HYPERLIPIDEMIA 04/21/2012 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 04/21/2012 425.4 CARDIOMYOPATHY 04/21/2012 272.4 HYPERLIPIDEMIA 04/21/2012 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 04/21/2012 425.4 CARDIOMYOPATHY 04/21/2012 272.4 HYPERLIPIDEMIA 04/21/2012 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 04/21/2012 425.4 CARDIOMYOPATHY 04/21/2012 272.4 HYPERLIPIDEMIA 04/21/2012 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 04/21/2012 425.4 CARDIOMYOPATHY 04/21/2012 272.4 HYPERLIPIDEMIA 04/21/2012 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 04/21/2012 425.4 CARDIOMYOPATHY 04/21/2012 SUZIE PAVON MD 272.4 HYPERLIPIDEMIA 04/21/2012 SUZIE PAVON MD 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 04/21/2012 SUZIE PAVON MD 425.4 CARDIOMYOPATHY 04/21/2012 GIORGI SO MD 272.4 HYPERLIPIDEMIA 04/21/2012 GIORGI SO MD 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 04/21/2012 GIORGI SO MD 425.4 CARDIOMYOPATHY 04/21/2012 MARIE DO, RUPERT K 272.4 HYPERLIPIDEMIA 04/21/2012 MARIE DO, RUPERT K 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 04/21/2012 MARIE DO, RUPERT K 425.4 CARDIOMYOPATHY 04/21/2012 MADL UNDERWATER TRAPPER, ANGEL LUIS L 272.4 HYPERLIPIDEMIA 04/21/2012 MADL UNDERWATER TRAPPER, ANGEL LUIS L 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 04/21/2012 MADL UNDERWATER TRAPPER, ANGEL LUIS L 425.4 CARDIOMYOPATHY 04/21/2012 MADL UNDERWATER TRAPPER, ANGEL LUIS L 272.4 HYPERLIPIDEMIA 04/21/2012 MADL UNDERWATER TRAPPER, ANGEL LUIS L 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 04/21/2012 MADL UNDERWATER TRAPPER, ANGEL LUIS L 425.4 CARDIOMYOPATHY 04/21/2012 MADL UNDERWATER TRAPPER, ANGEL LUIS L 272.4 HYPERLIPIDEMIA 04/21/2012 MADL UNDERWATER TRAPPER, ANGEL LUIS L 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 04/21/2012 MADL UNDERWATER TRAPPER, ANGEL LUIS L 425.4 CARDIOMYOPATHY 04/21/2012 MARIE DO, RUPERT K 272.4 HYPERLIPIDEMIA 04/21/2012 MARIE DO, RUPERT K 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 04/21/2012 MARIE DO, RUPERT K 425.4 CARDIOMYOPATHY 04/21/2012 MARTINEZ UNDERWATER TRAPPER, MARTA R 272.4 HYPERLIPIDEMIA 04/21/2012 MARTINEZ UNDERWATER TRAPPER, MARTA R 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 04/21/2012 MARTINEZ UNDERWATER TRAPPER, MARTA R 425.4 CARDIOMYOPATHY 04/21/2012 MADL UNDERWATER TRAPPER, ANGEL LUIS L 272.4 HYPERLIPIDEMIA 04/21/2012 MADL UNDERWATER TRAPPER, ANGEL LUIS L 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 04/21/2012 YAMILE UNDERWATER TRAPPER, ANGEL LUIS L 425.4 CARDIOMYOPATHY 04/21/2012 RUPERT MARIE DO K 272.4 HYPERLIPIDEMIA 04/21/2012 RUPERT MARIE DO K 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 04/21/2012 RUPERT MARIE DO K 425.4 CARDIOMYOPATHY 08/02/2012 GIORGI SO MD 784.42 hoarseness 08/02/2012 GIORGI SO MD 790.93 PSA ELEVATED 08/02/2012 784.42 hoarseness 08/02/2012 790.93 PSA ELEVATED 08/02/2012 784.42 hoarseness 08/02/2012 790.93 PSA ELEVATED 08/02/2012 784.42 hoarseness 08/02/2012 790.93 Serology Prostate-specific Antigen (PSA) Elevated 08/02/2012 784.42 hoarseness 08/02/2012 790.93 Serology Prostate-specific Antigen (PSA) Elevated 08/02/2012 784.42 hoarseness 08/02/2012 790.93 Serology Prostate-specific Antigen (PSA) Elevated 08/02/2012 SUZIE PAVON MD 784.42 hoarseness 08/02/2012 SUZIE PAVON MD 790.93 Serology Prostate-specific Antigen ( PSA) Elevated 08/02/2012 GIORGI SO MD 784.42 hoarseness 08/02/2012 GIORGI SO MD 790.93 Serology Prostate-specific Antigen (PSA) Elevated 08/02/2012 RUPERT MARIE DO K 784.42 hoarseness 08/02/2012 RUPERT MARIE DO K 790.93 Serology Prostate-specific Antigen (PSA) Elevated 08/02/2012 MADL UNDERWATER TRAPPER, ANGEL LUIS L 784.42 hoarseness 08/02/2012 MADL UNDERWATER TRAPPER, ANGEL LUIS L 790.93 Serology Prostate-specific Antigen (PSA) Elevated 08/02/2012 MADL UNDERWATER TRAPPER, ANGEL LUIS L 784.42 hoarseness 08/02/2012 MADL UNDERWATER TRAPPER, ANGEL LUIS L 790.93 Serology Prostate-specific Antigen (PSA) Elevated 08/02/2012 MADL UNDERWATER TRAPPER, ANGEL LUIS L 784.42 hoarseness 08/02/2012 MADL UNDERWATER TRAPPER, ANGEL LUIS L 790.93 Serology Prostate-specific Antigen (PSA) Elevated 08/02/2012 MARIE DO, RUPERT K 784.42 hoarseness 08/02/2012 MARIE DO, RUPERT K 790.93 Serology Prostate-specific Antigen (PSA) Elevated 08/02/2012 MARTINEZ UNDERWATER TRAPPER, MARTA R 784.42 hoarseness 08/02/2012 MARTINEZ UNDERWATER TRAPPER, MARTA R 790.93 Serology Prostate-specific Antigen ( PSA) Elevated 08/02/2012 MADL UNDERWATER TRAPPER, ANGEL LUIS L 784.42 hoarseness 08/02/2012 MADL UNDERWATER TRAPPER, ANGEL LUIS L 790.93 Serology Prostate-specific Antigen (PSA) Elevated 08/02/2012 MARIE DO, RUPERT K 784.42 hoarseness 08/02/2012 MARIE DO, RUPERT K 790.93 Serology Prostate-specific Antigen (PSA) Elevated 08/19/2012 250.80 DIABETIC FOOT ULCER 08/19/2012 470 DEVIATED NASAL SEPTUM 08/19/2012 250.80 DIABETIC FOOT ULCER 08/19/2012 470 DEVIATED NASAL SEPTUM 08/19/2012 250.80 DIABETIC FOOT ULCER 08/19/2012 470 DEVIATED NASAL SEPTUM 08/19/2012 250.80 DIABETIC FOOT ULCER 08/19/2012 470 DEVIATED NASAL SEPTUM 08/19/2012 250.80 DIABETIC FOOT ULCER 08/19/2012 470 DEVIATED NASAL SEPTUM 08/19/2012 SUZIE PAVON MD 250.80 DIABETIC FOOT ULCER 08/19/2012 SUZIE PAVON MD 470 DEVIATED NASAL SEPTUM 08/19/2012 GIORGI SO MD 250.80 DIABETIC FOOT ULCER 08/19/2012 GIORGI SO MD 470 DEVIATED NASAL SEPTUM 08/19/2012 MARIE DO, RUPERT K 250.80 DIABETIC FOOT ULCER 08/19/2012 MARIE DO, RUPERT K 470 DEVIATED NASAL SEPTUM 08/19/2012 MADL UNDERWATER TRAPPER, ANGEL LUIS L 250.80 DIABETIC FOOT ULCER 08/19/2012 MADL UNDERWATER TRAPPER, ANGEL LUIS L 470 DEVIATED NASAL SEPTUM 08/19/2012 MADL UNDERWATER TRAPPER, ANGEL LUIS L 250.80 DIABETIC FOOT ULCER 08/19/2012 MADL UNDERWATER TRAPPER, ANGEL LUIS L 470 DEVIATED NASAL SEPTUM 08/19/2012 MADL UNDERWATER TRAPPER, ANGEL LUIS L 250.80 DIABETIC FOOT ULCER 08/19/2012 MADL UNDERWATER TRAPPER, ANGEL LUIS L 470 DEVIATED NASAL SEPTUM 08/19/2012 MARIE DO, RUPERT K 250.80 DIABETIC FOOT ULCER 08/19/2012 MARIE DO, RUPERT K 470 DEVIATED NASAL SEPTUM 08/19/2012 MARTINEZ UNDERWATER TRAPPER, MARTA R 250.80 DIABETIC FOOT ULCER 08/19/2012 MARTINEZ UNDERWATER TRAPPER, MARTA R 470 DEVIATED NASAL SEPTUM 08/19/2012 MADL UNDERWATER TRAPPER, ANGEL LUIS L 250.80 DIABETIC FOOT ULCER 08/19/2012 MADL UNDERWATER TRAPPER, ANGEL LUIS L 470 DEVIATED NASAL SEPTUM 08/19/2012 MARIE DO, RUPERT K 250.80 DIABETIC FOOT ULCER 08/19/2012 MARIE DO, RUPERT K 470 DEVIATED NASAL SEPTUM 01/18/2013 600.00 BPH W/O OBSTRUCTUION 01/18/2013 SAVANAH MAIER, SZUIE Dale 600.00 BPH W/O OBSTRUCTUION 01/18/2013 GIORGI SO MD 600.00 BPH W/O OBSTRUCTUION 01/18/2013 MARIE DO, RUPERT K 600.00 BPH W/O OBSTRUCTUION 01/18/2013 MADL UNDERWATER TRAPPER, ANGEL LUIS L 600.00 BPH W/O OBSTRUCTUION 01/18/2013 MADL UNDERWATER TRAPPER, ANGEL LUIS L 600.00 BPH W/O OBSTRUCTUION 01/18/2013 MADL UNDERWATER TRAPPER, ANGEL LUIS L 600.00 BPH W/O OBSTRUCTUION 01/18/2013 MARIE DO, RUPERT K 600.00 BPH W/O OBSTRUCTUION 01/18/2013 MARTINEZ UNDERWATER TRAPPER, MARTA R 600.00 BPH W/O OBSTRUCTUION 01/18/2013 MADL UNDERWATER TRAPPER, ANGEL LUIS L 600.00 BPH W/O OBSTRUCTUION 01/18/2013 MARIE , RUPERT K 600.00 BPH W/O OBSTRUCTUION 06/16/2013 SAVANAH MAIER, SUZIE Dale 786.50 UNSPECIFIED CHEST PAIN 06/16/2013 GIORGI SO MD 786.50 UNSPECIFIED CHEST PAIN 06/16/2013 RUPERT MARIE DO K 786.50 UNSPECIFIED CHEST PAIN 06/16/2013 MADL UNDERWATER TRAPPER, ANGEL LUIS L 786.50 UNSPECIFIED CHEST PAIN 06/16/2013 SUNGL UNDERWATER TRAPPER, ANGEL LUIS L 786.50 UNSPECIFIED CHEST PAIN 06/16/2013 MADL UNDERWATER TRAPPER, ANGEL LUIS L 786.50 UNSPECIFIED CHEST PAIN 06/16/2013 MARIE DO, RUPERT K 786.50 UNSPECIFIED CHEST PAIN 06/16/2013 MARTA MARTINEZ APRN R 786.50 UNSPECIFIED CHEST PAIN 06/16/2013 MADL UNDERWATER TRAPPEROTILIO MaryANGEL LUIS L 786.50 UNSPECIFIED CHEST PAIN 06/16/2013 MARIE DO, RUPERT K 786.50 UNSPECIFIED CHEST PAIN 06/18/2013 SARAY MAIER, GIORGI Alba Ot 272.4 HYPERLIPIDEMIA NEC/NOS 06/18/2013 SARAY MAIER, GIORGI Alba Ot 305.1 TOBACCO USE DISORDER 06/18/2013 GIORGI SO MD Ot 425.4 PRIM CARDIOMYOPATHY NEC 06/18/2013 GIORGI SO MD Ot 427.89 CARDIAC DYSRHYTHMIAS NEC 06/18/2013 GIORGI SO MD Ot 491.21 OBSTR CHRONIC BRONCHITIS, W (ACUTE) EXAC 06/18/2013 SARAY MAIER, GIORGI Alba Ot 786.50 CHEST PAIN NOS 12/06/2013 MADL UNDERWATER TRAPPER, ANGEL LUIS L 723.1 CERVICALGIA 12/06/2013 MADL UNDERWATER TRAPPER, ANGEL LUIS L 780.79 OTHER MALAISE AND FATIGUE 12/06/2013 MADL UNDERWATER TRAPPER, ANGEL LUIS L 783.21 LOSS OF WEIGHT 12/06/2013 MADL UNDERWATER TRAPPER, ANGEL LUIS L 723.1 CERVICALGIA 12/06/2013 MADL UNDERWATER TRAPPER, ANGEL LUIS L 780.79 OTHER MALAISE AND FATIGUE 12/06/2013 MADL UNDERWATER TRAPPER, ANGEL LUIS L 783.21 LOSS OF WEIGHT 12/06/2013 MADL UNDERWATER TRAPPER, ANGEL LUIS L 723.1 CERVICALGIA 12/06/2013 MADL UNDERWATER TRAPPER, ANGEL LUIS L 780.79 OTHER MALAISE AND FATIGUE 12/06/2013 MADL UNDERWATER TRAPPER, ANGEL LUIS L 783.21 LOSS OF WEIGHT 12/06/2013 MARIE DO, RUPERT K 723.1 CERVICALGIA 12/06/2013 MARIE DO, RUEPRT K 780.79 OTHER MALAISE AND FATIGUE 12/06/2013 MARIE DO, RUPERT K 783.21 LOSS OF WEIGHT 12/06/2013 JUAN BAEZAERIC MaryMARTA R 723.1 CERVICALGIA 12/06/2013 JUAN BAEZATyra MARTA R 780.79 OTHER MALAISE AND FATIGUE 12/06/2013 MARTINEZ UNDERWATER TRAPPER MARTA R 783.21 LOSS OF WEIGHT 12/06/2013 SUNGL UNDERWATER TRAPPER, ANGEL LUIS L 723.1 CERVICALGIA 12/06/2013 SUNGL UNDERWATER TRAPPER, ANGEL LUIS L 780.79 OTHER MALAISE AND FATIGUE 12/06/2013 MADL UNDERWATER TRAPPER, ANGEL LUIS L 783.21 LOSS OF WEIGHT 12/06/2013 MARIE DO, RUPERT K 723.1 CERVICALGIA 12/06/2013 MARIE DO, RUPERT K 780.79 OTHER MALAISE AND FATIGUE 12/06/2013 MARIE DO, RUPERT K 783.21 LOSS OF WEIGHT 12/13/2013 YAMILE BAEZAN, ANGEL LUIS L 919.4 INSECT BITE NONVENOMOUS OF OTHER MULTIPLE AND UNSPECIFIED SITES WITHOUT INFECTION 12/13/2013 SUNGL UNDERWATER TRAPPER, ANGEL LUIS L 919.4 INSECT BITE NONVENOMOUS OF OTHER MULTIPLE AND UNSPECIFIED SITES WITHOUT INFECTION 12/13/2013 MARIE DO, RUPERT K 919.4 INSECT BITE NONVENOMOUS OF OTHER MULTIPLE AND UNSPECIFIED SITES WITHOUT INFECTION 12/13/2013 MARTINEZ UNDERWATER TRAPPERERIC MaryMARTA R 919.4 INSECT BITE NONVENOMOUS OF OTHER MULTIPLE AND UNSPECIFIED SITES WITHOUT INFECTION 12/13/2013 SUNGL UNDERWATER TRAPPER, ANGEL LUIS L 919.4 INSECT BITE NONVENOMOUS OF OTHER MULTIPLE AND UNSPECIFIED SITES WITHOUT INFECTION 12/13/2013 MARIE DO, RUPERT K 919.4 INSECT BITE NONVENOMOUS OF OTHER MULTIPLE AND UNSPECIFIED SITES WITHOUT INFECTION 12/28/2013 ERIC MARTINEZ APRNRICIA R 692.6 CONTACT DERMATITIS AND OTHER ECZEMA DUE TO PLANTS (EXCEPT FOOD) 12/28/2013 SUNGL UNDERWATER TRAPPERNEREIDA MaryNYA L 692.6 CONTACT DERMATITIS AND OTHER ECZEMA DUE TO PLANTS (EXCEPT FOOD) 12/28/2013 MARIE DO, RUPERT K 692.6 CONTACT DERMATITIS AND OTHER ECZEMA DUE TO PLANTS (EXCEPT FOOD) 05/22/2014 SCOTTY OVALLE APRNA L 465.9 UPPER RESPIRATORY INFECTION 05/22/2014 MARIE DO, RUPERT K 465.9 UPPER RESPIRATORY INFECTION 2014 RUPERT MARIE DO 327.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 10/31/2014 Ot 173.3 10/31/2014 Ot V72.81 10/31/2014 Ot V74.8 10/31/2014 Ot 492.8 10/31/2014 Ot 786.05 10/31/2014 Ot 786.50 10/31/2014 Ot 794.39 10/31/2014 Ot V72.63 10/31/2014 Ot V72.81 10/31/2014 Ot V74.8 10/31/2014 Ot 433.10 10/31/2014 Ot 443.9 10/31/2014 Ot 729.5 10/31/2014 Ot V68.01 10/31/2014 Ot V82.89 10/31/2014 Ot V68.01 10/31/2014 Ot V82.89 10/31/2014 Ot 305.1 10/31/2014 Ot 496 11/18/2014 ANDRY YATESISIDRA Ot 305.1 11/18/2014 ANDRY ISIDRA YATES M Ot 496 12/28/2014 ANDRY ISIDRA YATES Ot 305.1 12/28/2014 ANDRY YATESISIDRA M Ot 496 01/23/2015 ANDRY YATESISIDRA Ot 305.1 01/23/2015 ANDRY YATESISIDRA Ot 496 04/02/2015 YAMILE ANGEL LUIS L SOLUTION MANAGER Ot 780.4 04/15/2015 ANGEL LUIS OVALLE SOLUTION MANAGER Ot 780.4 05/08/2015 Ot 492.8 05/08/2015 Ot 786.05 05/08/2015 Ot 786.50 05/08/2015 Ot 794.39 05/08/2015 Ot V72.63 05/08/2015 Ot V72.81 05/08/2015 Ot V74.8 05/08/2015 Ot 433.10 05/08/2015 Ot 443.9 05/08/2015 Ot 729.5 05/08/2015 Ot V68.01 05/08/2015 Ot V82.89 05/08/2015 Ot V68.01 05/08/2015 Ot V82.89 05/08/2015 Ot 305.1 05/08/2015 Ot 496 05/08/2015 ISIDRA WILDE DO Ot 305.1 05/08/2015 ISIDRA WILDE DO Ot 496 05/08/2015 ANGEL LUIS OVALLE L SOLUTION MANAGER Ot 780.4 05/09/2015 MADLOTILIOANGEL LUIS L SOLUTION MANAGER Ot G47.33 OBSTRUCTIVE SLEEP APNEA (ADULT) (PEDIATR 05/09/2015 MADLOTILIOANGEL LUIS L SOLUTION MANAGER Ot I10 ESSENTIAL (PRIMARY) HYPERTENSION 06/12/2015 MADL, ANGEL LUIS L SOLUTION MANAGER Ot G47.33 OBSTRUCTIVE SLEEP APNEA (ADULT) (PEDIATR 01/14/2016 Ot V68.01 DISABILITY EXAMINATION 01/14/2016 Ot V82.89 SCREEN FOR OTH SPECIF CONDITIONS 01/14/2016 Ot V68.01 DISABILITY EXAMINATION 01/14/2016 Ot V82.89 SCREEN FOR OTH SPECIF CONDITIONS 01/14/2016 Ot 305.1 TOBACCO USE DISORDER 01/14/2016 Ot 496 CHR AIRWAY OBSTRUCT NEC 01/14/2016 ISIDRA WILDE DO Ot 305.1 TOBACCO USE DISORDER 01/14/2016 ISIDRA WILDE DO Ot 496 CHR AIRWAY OBSTRUCT NEC 01/14/2016 SCOTTY OVALLEA L SOLUTION MANAGER Ot 780.4 DIZZINESS AND GIDDINESS 01/14/2016 MADL ANGEL LUIS L SOLUTION MANAGER Ot M54.2 CERVICALGIA 01/15/2016 MADL, ANGEL LUIS L SOLUTION MANAGER Ot 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 01/15/2016 MADL, ANGEL LUIS L SOLUTION MANAGER Ot M47.812 SPONDYLOSIS W/O MYELOPATHY OR RADICULOPA 01/15/2016 MADL, ANGEL LUIS L SOLUTION MANAGER Ot M48.02 SPINAL STENOSIS, CERVICAL REGION 01/17/2016 MADL, ANGEL LUIS L SOLUTION MANAGER Ot 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 01/17/2016 MADL, ANGEL LUIS L SOLUTION MANAGER Ot M47.812 SPONDYLOSIS W/O MYELOPATHY OR RADICULOPA 01/17/2016 MADL, ANGEL LUIS L SOLUTION MANAGER Ot M48.02 SPINAL STENOSIS, CERVICAL REGION 02/06/2016 MADL, ANGEL LUIS L SOLUTION MANAGER Ot 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 02/06/2016 MADL, ANGEL LUIS L SOLUTION MANAGER Ot M47.812 SPONDYLOSIS W/O MYELOPATHY OR RADICULOPA 02/06/2016 MADLANGEL LUIS L SOLUTION MANAGER Ot M48.02 SPINAL STENOSIS, CERVICAL REGION 02/14/2016 MADLANGEL LUIS L SOLUTION MANAGER Ot 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 02/14/2016 MADLSCOTTYA L SOLUTION MANAGER Ot M47.812 SPONDYLOSIS W/O MYELOPATHY OR RADICULOPA 02/14/2016 MADLSCOTTYA L SOLUTION MANAGER Ot M48.02 SPINAL STENOSIS, CERVICAL REGION 07/06/2016 Ot 305.1 TOBACCO USE DISORDER 07/06/2016 Ot 496 CHR AIRWAY OBSTRUCT NEC 07/06/2016 ISIDRA WILDE DO Ot 305.1 TOBACCO USE DISORDER 07/06/2016 ISIDRA WILDE DO Ot 496 CHR AIRWAY OBSTRUCT NEC 07/06/2016 MADL, ANGEL LUIS L SOLUTION MANAGER Ot 780.4 DIZZINESS AND GIDDINESS 07/06/2016 MADL, ANGEL LUIS L SOLUTION MANAGER Ot 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 07/06/2016 MADLSCOTTYA L SOLUTION MANAGER Ot M47.812 SPONDYLOSIS W/O MYELOPATHY OR RADICULOPA 07/06/2016 MADLSCOTTYA L SOLUTION MANAGER Ot M48.02 SPINAL STENOSIS, CERVICAL REGION 07/31/2016 MADSCOTTY EdmondsA L SOLUTION MANAGER Ot G93.9 DISORDER OF BRAIN, UNSPECIFIED 07/31/2016 SCOTTY OVALLEA L SOLUTION MANAGER Ot R93.0 ABNORMAL FINDINGS ON DX IMAGING OF SKULL 08/21/2016 Ot 305.1 TOBACCO USE DISORDER 08/21/2016 Ot 496 CHR AIRWAY OBSTRUCT NEC 08/21/2016 ISIDRA WILDE DO Ot 305.1 TOBACCO USE DISORDER 08/21/2016 ISIDRA WILDE DO Ot 496 CHR AIRWAY OBSTRUCT NEC 08/21/2016 MADLSCOTTYA L SOLUTION MANAGER Ot 780.4 DIZZINESS AND GIDDINESS 08/21/2016 MADL, ANGEL LUIS L SOLUTION MANAGER Ot 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 08/21/2016 MADLSCOTTYA L SOLUTION MANAGER Ot M47.812 SPONDYLOSIS W/O MYELOPATHY OR RADICULOPA 08/21/2016 ANGEL LUIS OVALLE SOLUTION MANAGER Ot M48.02 SPINAL STENOSIS, CERVICAL REGION 08/21/2016 ANGEL LUIS OVALLE SOLUTION MANAGER Ot G93.9 DISORDER OF BRAIN, UNSPECIFIED 08/21/2016 ANGEL LUIS OVALLE SOLUTION MANAGER Ot R93.0 ABNORMAL FINDINGS ON DX IMAGING OF SKULL 08/21/2016 KALLIE BERNARD MD Ot M50.13 CERVICAL DISC DISORDER W RADICULOPATHY, 08/21/2016 KALLIE BERNARD MD Ot Z79.899 OTHER ASSORTMENT PLANNER (CURRENT) DRUG THERAPY 10/22/2016 MATHIEU DO TOM K Ot I10 ESSENTIAL (PRIMARY) HYPERTENSION 10/22/2016 MATHIEU DO TOM K Ot J44.9 CHRONIC OBSTRUCTIVE PULMONARY DISEASE, U 10/22/2016 MATHIEU DO TOM K Ot R42 DIZZINESS AND GIDDINESS 10/22/2016 DIMITRIOS MURDOCK DOA K Ot Z79.82 HALFWAY (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 10/22/2016 MATHIEU DIMITRIOS YATESA K Ot Z79.899 OTHER ASSORTMENT PLANNER (CURRENT) DRUG THERAPY 10/22/2016 MATHIEU DO TOM K Ot Z87.891 PERSONAL HISTORY OF NICOTINE DEPENDENCE 11/14/2016 MATHIEU DIMITRIOS YATESA K Ot I10 ESSENTIAL (PRIMARY) HYPERTENSION 11/14/2016 MATHIEU DIMITRIOS YATESA K Ot J44.9 CHRONIC OBSTRUCTIVE PULMONARY DISEASE, U 11/14/2016 MATHIEU DO TOM K Ot R42 DIZZINESS AND GIDDINESS 11/14/2016 MATHIEU DIMITRIOS YATESA K Ot Z79.82 ASSORTMENT PLANNER (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 11/14/2016 MATHIEU DO TOM K Ot Z79.899 OTHER HALFWAY (CURRENT) DRUG THERAPY 11/14/2016 MATHIEU DO TOM K Ot Z87.891 PERSONAL HISTORY OF NICOTINE DEPENDENCE Procedures Code Description [place] [address] ROUTINE VENIPUNCTURE 08/02/2012 98217 MEASURE BLOOD OXYGEN LEVEL 08/02/2012 [facility] Conigianluca Elisa 08/02/2012 81305 A1C (IN-HOUSE) 10035 CBC 08/02/2012 08924 CMP 08/02/2012 74123 LIPID PANEL 08/02 40173 MAGNESIUM 2012 [id number] GFR CALC (RESULT ONLY) 08/02/2012 57099 PSA FREE AND TOTAL 08/03/2012 10890 ROUTINE VENIPUNCTURE 09/02/2012 82309 BMP 09/02/2012 [id number] GFR CALC (RESULT ONLY) 09/02/[address] NECK, SOFT TISSUE NECK W/DYE 09/05/[address] CHEST W/DYE 57632 OXIMETRY 2012 00813 ROUTINE VENIPUNCTURE 11/01/2012 59247 CMP 11/01/2012 37733 LIPID PANEL 11/01 [id number] GFR CALC (RESULT ONLY) 11/01/2012 UROLO Ciarra, [place] 68841 ROUTINE VENIPUNCTURE 01/18/2013 43904 CMP 01/18/2013 62332 MAGNESIUM 2012 [id number] GFR CALC (RESULT ONLY) 01/18/2013 57426 EKG, TRACING (IN-HOUSE) 06/16/2013 42703 ROUTINE VENIPUNCTURE 10/13/2013 [id number] CMP 10/13/2013 57376 MAGNESIUM 2013 [id number] CBC 10/13/2013 14266 ROUTINE VENIPUNCTURE 12/06/2013 50656 XRAY CHEST 2 VIEW 12/06/2013 31310 XRAY CERVICAL SPINE, 2 OR 3 VIEWS 12/06/2013 23740 CBC 12/06/2013 [id number] GFR CALC (RESULT ONLY) 12/06/2013 03456 CMP 12/06/2013 60520 CPK 12/06/2013 29858 TSH 12/06/2013 46966 VITAMIN D 25-HYDROXY (D2,D3, TOTAL) 12/06/2013 54526 ROUTINE VENIPUNCTURE 12/13/2013 32475 LYME EIA W/WEST BLOT 12/13/2013 60588 EHRLICHIA ANTIBODY 12/13/2013 12357 TULAREMIA ANTIBODY 12/13/2013 47865 SAGRARIO MT SPOT FEVER 12/13/2013 57596 OXIMETRY 2013 04675 HEMOCCULT 2013 18241 HEMOCCULT 2013 [id number] DEPO MEDROL 80 MG INJ 12/28/2013 66637 THERAPUTIC INJ SQ/IM 12/28/2013 79224 OXIMETRY 2013 Results Test Result Range PT panel in platelet poor plasma by coagulation assay - 10/21/16 22:57 Prothrombin time (PT) in platelet poor plasma by coagulation assay 13.1 s 12.2-14.7 INR in platelet poor plasma or blood by coagulation assay 1.0 0.8-1.4 Activated partial thromboplastin time (aPTT) in platelet poor plasma bycoagulation assay - 10/21/16 22:57 Activated partial thromboplastin time (aPTT) in platelet poor plasma bycoagulation assay 29 s 24-35 Complete blood count (CBC) with automated white blood cell (WBC) differential - 10/21/16 23:05 Blood leukocytes automated count (number/volume) 7.4 10*3/ uL 4.3-11.0 Blood erythrocytes automated count (number/volume) 5.18 10*6 /uL 4.35-5.85 Venous blood hemoglobin measurement (mass/volume) 16.4 g/dL 13.3-17.7 Blood hematocrit (volume fraction) 47 % 40-54 Automated erythrocyte mean corpuscular volume 90 [foz_us] 80-99 Automated erythrocyte mean corpuscular hemoglobin (mass per erythrocyte) 32 pg 25-34 Automated erythrocyte mean corpuscular hemoglobin concentration measurement ( mass/volume) 35 g/dL 32-36 Automated erythrocyte distribution width ratio 12.5 % 10.0-14.5 Automated blood platelet count (count/volume) 217 10*3/uL 130-400 Automated blood platelet mean volume measurement 10.2 [foz_ us] 7.4-10.4 Automated blood neutrophils/100 leukocytes 76 % 42-75 Automated blood lymphocytes/100 leukocytes 14 % 12-44 Blood monocytes/100 leukocytes 11 % 0-12 Automated blood eosinophils/100 leukocytes 0 % 0-10 Automated blood basophils/100 leukocytes 0 % 0-10 Blood neutrophils automated count (number/volume) 5.6 10*3 1.8-7.8 Blood lymphocytes automated count (number/volume) 1.0 10*3 1.0-4.0 Blood monocytes automated count (number/volume) 0.8 10*3 0.0-1.0 Automated eosinophil count 0.0 10*3/uL 0.0-0.3 Automated blood basophil count (count/volume) 0.0 10*3/uL 0.0-0.1 Comprehensive metabolic panel - 10/21/16 23:05 Serum or plasma sodium measurement (moles/volume) 141 mmol/ L 135-145 Serum or plasma potassium measurement (moles/volume) 4.2 mmol/L 3.6-5.0 Serum or plasma chloride measurement (moles/volume) 109 mmol /L 98-107 Carbon dioxide 23 mmol/L 21-32 Serum or plasma anion gap determination (moles/volume) 9 mmol/L 5-14 Serum or plasma urea nitrogen measurement (mass/volume) 14 mg/dL 7-18 Serum or plasma creatinine measurement (mass/volume) 0.85 mg /dL 0.60-1.30 Serum or plasma urea nitrogen/creatinine mass ratio 16 NRG Serum or plasma creatinine measurement with calculation of estimated glomerular filtration rate > NRG Serum or plasma glucose measurement (mass/volume) 113 mg/dL 70-105 Serum or plasma calcium measurement (mass/volume) 9.1 mg/dL 8.5-10.1 Serum or plasma total bilirubin measurement (mass/volume) 0.6 mg/dL 0.1-1.0 Serum or plasma alkaline phosphatase measurement (enzymatic activity/volume) 100 U/L 40-136 Serum or plasma aspartate aminotransferase measurement (enzymatic activity/ volume) 17 U/L 5-34 Serum or plasma alanine aminotransferase measurement (enzymatic activity/volume ) 15 U/L 0-55 Serum or plasma protein measurement (mass/volume) 6.7 g/dL 6.4-8.2 Serum or plasma albumin measurement (mass/volume) 4.0 g/dL 3.2-4.5 Serum or plasma creatine kinase measurement (enzymatic activity/volume) - 10/21 23:05 Serum or plasma creatine kinase measurement (enzymatic activity/volume) 51 U/L 30-200 Serum or plasma creatine kinase MB measurement (enzymatic activity/volume) - 23:05 Serum or plasma creatine kinase MB measurement (enzymatic activity/volume) 1.1 ng/mL <6.6 Serum or plasma troponin i.cardiac measurement (mass/volume) - 10/21/16 23:05 Serum or plasma troponin i.cardiac measurement (mass/volume) < ng/mL <0.30 Serum or plasma lithium measurement (moles/volume) - 10/21/16 23:05 BNP level 35.9 pg/mL <100.0 Encounters ACCT No. Visit Date/Time Discharge Status Pt. Type Provider Facility Loc./Unit Complaint [id number] 2014 10:29:00 2014 23: 59:59 CLS Outpatient RUPERT MARIE DO [id number] 05/22/2014 15:34:00 05/22/2014 23: 59:59 CLS Outpatient ANGEL LUIS OVALLE APRN [id number] 12/28/2013 13:18:00 12/28/2013 23: 59:59 CLS Outpatient MARTA MARTINEZ APRN [id number] 12/15/2013 11:19:00 12/15/2013 23: 59:59 CLS Outpatient ANGEL LUIS OVALLE APRN [id number] 12/13/2013 11:19:00 12/13/2013 23: 59:59 CLS Outpatient ANGEL LUIS OVALLE APRN [id number] 12/06/2013 14:53:00 12/06/2013 23: 59:59 CLS Outpatient RUPERT MARIE DO [id number] 12/06/2013 14:53:00 12/06/2013 23: 59:59 CLS Outpatient ANGEL LUIS OVALLE APRN [id number] 10/13/2013 09:30:00 10/13/2013 23: 59:59 CLS Outpatient RUPERT MARIE DO [place] [id number] 07/13/2013 10:36:00 07/13/2013 23: 59:59 CLS Outpatient GIORGI SO MD [id number] 06/16/2013 13:49:00 06/16/2013 23: 59:59 CLS Outpatient SUZIE PAVON MD [id number] 09/02/2012 09:47:00 09/02/2012 23: 59:59 CLS Outpatient [id number] 08/19/2012 08:12:00 08/19/2012 23: 59:59 CLS Outpatient [id number] 08/02/2012 11:14:00 08/02/2012 23: 59:59 CLS Outpatient GIORGI SO MD [id number] 04/21/2012 16:12:00 04/21/2012 23: 59:59 CLS Outpatient [id number] 01/18/2013 14:50:00 Document Registration [id number] 11/01/2012 09:32:00 Document Registration [id number] 11/01/2012 09:32:00 Document Registration
--- OUTSIDE RECORDS SUMMARY | 2016-11-22 18:28 | XMS REPORT ---
Author Author ANGEL LUIS OVALLE Organization [employer] Address Unknown Phone Unavailable Care Team Providers Care Brand Representative Name Role Phone ANGEL LUIS OVALLE CP [...] Active Problem Elevated PSA R97.2 Active Medications No Known Medications Results No Known Results Summary Purpose [employer] Submission
--- OUTSIDE RECORDS SUMMARY | 2016-11-22 18:28 | XMS REPORT ---
Author Author AILYN SHERWOOD Organization [employer] Address Unknown Phone Unavailable Care Team Providers Care Rattling Machine Tender Name Role Phone AILYN SHERWOOD CP Unavailable [...] 919.4 Active Problem Cervicalgia 723.1 Active Assessment BPH (benign prostatic hyperplasia) 600.00 Active Problem Other malaise and fatigue 780.79 Active Problem Chest pain, unspecified 786.50 Active Problem Loss of weight 783.21 Active Medications No Known Medications Results No Known Results Summary Purpose [employer] Submission
== END 2016-10-22 01:19 | disposition home or self-care (01) ==
LOC: EDUNIT# 22:48 → ER 22:50
DX: I10 Essential (primary) hypertension (principal); R42 Dizziness and giddiness; J44.9 Chronic obstructive pulmonary disease, unspecified; Z79.82 Long term (current) use of aspirin; Z79.899 Other long term (current) drug therapy; Z87.891 Personal history of nicotine dependence
CPT/HCPCS: 36415; 70450; 71010; 80053; 82550; 82553; 83880; 84484; 85025; 85610; 85730; 93005; 93041

== ENCOUNTER → 2016-12-01 | Outpatient (CLI) | payer MEDICARE, MEDICAID ==
[~2016-12-01] MED LIST changes: +CATHETER FLUSH 10 ML SYR IV PRN; +MECL-106 PO; +REGADENOSON 0.4 MG/5 ML SYR (LEXISCAN) IV ONE; +SCOP1PAT TD
[2016-12-01 13:30] VITALS: BP 129/81
--- NOTE | 2016-12-03 06:14 | STRESS TEST ---
DATE OF SERVICE: 12/01/2016 RESTING AND POST REGADENOSON TECHNETIUM 99M TETROFOSMIN SPECT CT IMAGING DATE OF SERVICE: 12/01/2016 ORDERING PHYSICIAN: Dr. Vargas. PRIMARY PHYSICIAN: [facility]. PROCEDURE: Resting and post regadenoson technetium 99m tetrofosmin spect CT imaging CLINICAL DIAGNOSIS: Chest discomfort. Baseline images were carried out after injection of 10.64 mCi of technetium-99m tetrofosmin. This was followed by 0.4 mg regadenoson and 29.5 mCi of technetium-99m tetrofosmin for stress imaging. The electrocardiogram showed sinus rhythm at baseline. There was subtle nonspecific ST abnormality throughout the study. The electrocardiogram did not change significantly with the regadenoson infusion. Review of images at rest and following stress does not indicate any significant perfusion defects consistent with any significant myocardial ischemia or infarction. Gated images showed normal global left ventricular systolic function with normal regional wall motion. Left ventricular ejection fraction is calculated to be 55%. Left ventricular end-diastolic volume 81 mL. TID is absent (1.16). CONCLUSIONS: 1. No evidence of any significant myocardial ischemia or infarction on this study. 2. Normal regional wall motion. 3. Normal global left ventricular systolic function with a calculated ejection fraction of 55%. 4. Normal left ventricular cavity size. Job ID: [id number] DocumentID: [id number] Dictated Date: 12/02/2016 09:15:54 Riverboat Master Date: 12/02/2016 19:25:26 Dictated By: SHAWN VARGAS MD, MA, FACP, FACC,
== END ==
LOC: CARD 11:55
PROVIDERS: ATTEND Internal Medicine Cardiovascular Disease
DX: R07.89 Other chest pain (principal)
CPT/HCPCS: 78452; 93017

== ENCOUNTER → 2016-12-10 | Outpatient (CLI) | payer MEDICARE, MEDICAID ==
[~2016-12-10] MED LIST changes: -CATHETER FLUSH 10 ML SYR IV PRN; -REGADENOSON 0.4 MG/5 ML SYR (LEXISCAN) IV ONE
--- NOTE | 2016-12-10 13:12 | ECHOCARDIOGRAPHY REPORT ---
DATE OF SERVICE: 12/10/2016 ECHOCARDIOGRAPHY REPORT ORDERING PHYSICIAN: Dr. Vargas. REFERRING PHYSICIAN: [facility]. CLINICAL DIAGNOSES: Shortness of breath, chest discomfort. MEASUREMENTS: LV diameter diastolic 4.7, IVS thickness diastolic 0.9, LVPW thickness diastolic 0.9, aortic root 3.5, left atrium 3.3. DESCRIPTION: Two-dimensional echocardiography shows normal global left ventricular systolic function with normal regional wall motion. There is no significant pericardial effusion. There is mild aortic valve sclerosis and calcification. There appears to be mild mitral annular calcification. Aortic, mitral and tricuspid valve leaflets show good leaflet excursion. Doppler imaging shows mild mitral and tricuspid regurgitation. Pulmonary artery systolic pressure is estimated to be approximately 35 mmHg. There is no Doppler evidence of any significant valvular stenosis. There is no evidence of significant intracardiac shunt on this transthoracic echocardiographic study. Inferior vena cava does not appear to be dilated. CONCLUSIONS: 1. Normal global left ventricular systolic function with an ejection fraction of 60%-65%. 2. Mild mitral and tricuspid regurgitation. 3. Mild aortic valve sclerosis without significant valvular stenosis. 4. Pulmonary artery systolic pressure is estimated to be approximately 35 mmHg. Job ID: [id number] DocumentID: [id number] Dictated Date: 12/10/2016 11:29:09 Hse Advisor Date: 12/10/2016 12:22:47 Dictated By: SHAWN VARGAS MD, MA, FACP, FACC,
== END ==
LOC: CARD 09:42
PROVIDERS: ATTEND Internal Medicine Cardiovascular Disease
DX: R07.89 Other chest pain (principal); I08.3 Combined rheumatic disorders of mitral, aortic and tricuspid valves
CPT/HCPCS: 93306

== ENCOUNTER → 2017-03-30 | Outpatient (CLI) | payer MEDICARE, MEDICAID ==
--- NOTE | 2017-03-30 13:45 | Diagnostic Imaging Report ---
PROCEDURE: CT chest without contrast. TECHNIQUE: Multiple contiguous axial images were obtained through the chest without the use of intravenous contrast. INDICATION: COPD. FINDINGS: There are prominent emphysema changes mostly involving the upper lobes with bulla seen in both apices. There are also areas of chronic consolidation compatible with scarring in the apices unchanged from 2015 exam. There is no significant consolidation, mass or suspicious pulmonary nodule seen. The heart size is normal. There is no pericardial or pleural effusion. There is no mediastinal mass or significantly enlarged mediastinal or axillary lymph node seen. The hilar vessels are not opacified with no obvious hilar mass seen. Sections in the upper abdomen demonstrate no significant abnormality. The osseous structures demonstrate mild right convexity scoliotic curvature in the mid thoracic spine with left convexity curvature in the lower thoracic spine and mild degenerative changes. IMPRESSION: Prominent upper lobe predominant emphysema changes with bilateral apical bullae. Dictated by: Dictated on workstation # [id number]
== END ==
LOC: RAD 09:34
PROVIDERS: ATTEND Nurse Practitioner Family
DX: J43.9 Emphysema, unspecified (principal); F17.201 Nicotine dependence, unspecified, in remission
CPT/HCPCS: 71250

== ENCOUNTER → 2017-04-13 | Outpatient (CLI) | payer MEDICARE, MEDICAID ==
--- NOTE | 2017-04-13 14:07 | Diagnostic Imaging Report ---
CLINICAL INDICATION: Patient is a smoker for 40+ years. EXAM: Ultrasound of the abdominal aorta. COMPARISON STUDY: None. FINDINGS: Of note, proximal abdominal aorta is secured by bowel gas. There are small areas of scattered atherosclerotic plaque involving the abdominal aorta. The abdominal aorta has normal caliber without evidence of aneurysms. The maximum AP and transverse diameters for the mid and distal abdominal aorta are 1.8 cm x 1.7 cm, and 1.3 cm x 1.5 cm, respectively. The proximal abdominal aorta is unable to be evaluated. Both common iliac artery contours are smooth with normal caliber with the right and left measuring 0.6 cm and 0.8 cm in greatest AP dimension. IMPRESSION: 1: Of note, the proximal abdominal aorta is unable to be evaluated due to overlying bowel gas. 2: Otherwise, there is no evidence of aneurysmal dilation of the abdominal aorta or bilateral common iliac arteries. Dictated by: Dictated on workstation # [id number]
== END ==
LOC: RAD 08:04
PROVIDERS: ATTEND Nurse Practitioner Family
DX: F17.210 Nicotine dependence, cigarettes, uncomplicated (principal)
CPT/HCPCS: 93978

== ENCOUNTER 2017-04-20 20:24 | Outpatient (CLI) | payer MEDICARE, MEDICAID | END 2017-04-21 05:50 | disposition home or self-care (01) | LOC: SLEEP 20:24 | PROVIDERS: ATTEND Nurse Practitioner Family | DX: G47.33 Obstructive sleep apnea (adult) (pediatric) (principal) | CPT/HCPCS: 95811 ==

== ENCOUNTER 2017-08-14 15:35 | Emergency (ER) | payer MEDICARE, MEDICAID ==
[~2017-08-14] VITALS: Ht 180.3 cm; Wt 78.9 kg
[~2017-08-14 15:35] MED LIST changes: +CYCL10TA9; +MELO7.5T46; +MIRA50TA; +OMEP40CA36; +PENT400T2; +TRAM50TA2 PO
[2017-08-14] MEDS ORDERED: LIDOCAINE UROJET 2% GEL 10 ML PKG TOP ONE (16:00)
--- NOTE | 2017-08-14 16:05 | ED GI ---
General Chief Complaint: Abdominal/GI Problems Stated Complaint: STOMACH PAIN/GALLSTONES Source of Information: Patient Exam Limitations: No Limitations History of Present Illness Date Seen by Provider: Aug 14, 2017 Time Seen by Provider: 16:03 Initial Comments To ER with suprapubic abdominal pain since yesterday and inability to urinate since yesterday. He has intermittently had this trouble for about 2 months. History of enlarged prostate. His brother has a history of gallstones and he thought this might be the problem. Allergies and Home Medications Allergies Coded Allergies: No Known Drug Allergies (Unverified , 11/05/09) Home Medications Albuterol 8.5 Gm Hfa.aer.ad, 2 PUFF IH Q6H PRN for SHORTNESS OF BREATH, ( Reported) 2 PUFFS Aspirin 81 Mg Tabec, 81 MG PO DAILY, (Reported) Cholecalciferol 1,000 Unit Capsule, 1,000 UNITS PO DAILY, (Reported) Ciprofloxacin HCl 500 Mg Tablet, 500 MG PO BID, #10 Prescribed by: ARMIN EASON on 08/14/17 1707 Cyclobenzaprine HCl 10 Mg Tablet, (Reported) Fish Oil/Dha/Epa 1 Each Capsule, 2,400 MG PO DAILY, (Reported) TAKE 2 (1,200 MG) CAPSULES DAILY Fluticasone/Salmeterol 1 Disk Inhp, 1 PUFF IH BID, (Reported) 1 PUFF Meclizine HCl 25 Mg Tablet, 25-50 MG PO Q6H, #30 Prescribed by: TOM MURDOCK on 10/22/16 0012 Meloxicam 7.5 Mg Tablet, (Reported) Mirabegron 50 Mg Tab.er.24h, (Reported) Omeprazole 40 Mg Capsule.dr, (Reported) Pentoxifylline 400 Mg Tablet.er, (Reported) Scopolamine 1 Each Patch.td72, 1 EACH TD Q72 HOURS, #3 Prescribed by: TOM MURDOCK on 10/22/16 0012 Tamsulosin Hcl 0.4 Mg Cap, 0.4 MG PO DAILY, (Reported) Tramadol HCl 50 Mg Tablet, 50 MG PO Q4H PRN for pain, #14 Ref 0 Prescribed by: MILY ROJAS on 05/21/176 Vitamin E Mixed 400 Unit Tablet, 800 UNIT PO DAILY, (Reported) TAKE 2 (400 MG) TABLETS DAILY Review of Systems Constitutional: see HPI, No chills, No fever EENTM: No Symptoms Reported Respiratory: No Symptoms Reported Cardiovascular: No Symptoms Reported Gastrointestinal: See HPI, Abdominal Pain Genitourinary: No Symptoms Reported Musculoskeletal: no symptoms reported Skin: no symptoms reported Psychiatric/Neurological: No Symptoms Reported Endocrine: No Symptoms Reported Past Grhnlgp-Vrbrqp-Wgvske Hx Patient Social History Former Smoker, Quit: Apr 18, 2015 2nd Hand Smoke Exposure: No Recent Foreign Travel: No Contact w/Someone Who Travel: No Recent Hopitalizations: No Immunizations Up To Date Tetanus Booster (TDap): More than 5yrs Seasonal Allergies Seasonal Allergies: No Surgeries History of Surgeries: Yes (LEFT EYE REMOVED. ) Surgeries: Eye Surgery, Orthopedic Respiratory History of Respiratory Disorde: Yes Respiratory Disorders: COPD Cardiovascular History of Cardiac Disorders: Yes Cardiac Disorders: Hypertension Neurological History of Neurological Disord: Yes (DIZZINESS) Neurological Disorders: Vertigo Reproductive System Hx Reproductive Disorders: No Sexually Transmitted Disease: No Genitourinary History of Genitourinary Disor: Yes Genitourinary Disorders: Prostate Problems Gastrointestinal History of Gastrointestinal Di: Yes Gastrointestinal Disorders: Gastroesophageal Reflux Musculoskeletal History of Musculoskeletal Dis: Yes (CHRONIC NECK PAIN ) Endocrine History of Endocrine Disorders: No HEENT History of HEENT Disorders: Yes Loss of Vision: Left Cancer History of Cancer: No Psychosocial History of Psychiatric Problem: No Integumentary History of Skin or Integumenta: Yes Skin/Integumentary Disorders: Psoriasis Blood Transfusions History of Blood Disorders: No Adverse Reaction to a Blood Tr: No Family Medical History Significant Family History: No Pertinent Family Hx Family Medial History: Abdominal aortic aneurysm 03 FATHER, Onset:60 years & older Cancer 03 FATHER (NECK) 03 MOTHER (LUNGS) History of drug abuse DAUGHTERS (DAUGHTER) Physical Exam Vital Signs VS - Last 72 Hours, by Label 08/14/17 16:07 Temp 98.2 Pulse 98 Resp 20 B/P (MAP) 146/95 (112) Pulse Ox 97 Capillary Refill : General Appearance: WD/WN, no apparent distress HEENT: PERRL/EOMI, normal ENT inspection Neck: non-tender, full range of motion Respiratory: normal breath sounds, no respiratory distress, no accessory muscle use Gastrointestinal: normal bowel sounds, soft, tenderness (suprapubic) Extremities: normal range of motion, non-tender Neurologic/Psychiatric: alert, normal mood/affect, oriented x 3 Skin: normal color, warm/dry Progress/Results/Core Measures Results/Orders Lab Results Laboratory Tests Test 08/14/17 16:04 08/14/17 16:15 Range/Units Urine Color YELLOW Urine Clarity CLEAR Urine pH 6.5 5-9 Urine Specific [place]ier 1.020 1.016-1.022 Urine Protein NEGATIVE NEGATIVE Urine Glucose (UA) NEGATIVE NEGATIVE Urine Ketones NEGATIVE NEGATIVE Urine Nitrite NEGATIVE NEGATIVE Urine Bilirubin NEGATIVE NEGATIVE Urine Urobilinogen NORMAL NORMAL MG/DL Urine Leukocyte Esterase NEGATIVE NEGATIVE Urine RBC (Auto) 1+ H NEGATIVE Urine RBC 2-5 H /HPF Urine WBC NONE /HPF Urine Squamous Epithelial Cells RARE /HPF Urine Crystals NONE /LPF Urine Bacteria NONE /HPF Urine Casts NONE /LPF Urine Mucus NEGATIVE /LPF Urine Culture Indicated NO White Blood Count 8.0 4.3-11.0 10^3/uL Red Blood Count 5.31 4.35-5.85 10^6/uL Hemoglobin 16.7 13.3-17.7 G/DL Hematocrit 48 40-54 % Mean Corpuscular Volume 90 80-99 FL Mean Corpuscular Hemoglobin 32 25-34 PG Mean Corpuscular Hemoglobin Concent 35 32-36 G/DL Red Cell Distribution Width 12.7 10.0-14.5 % Platelet Count 197 130-400 10^3/uL Mean Platelet Volume 10.1 7.4-10.4 FL Neutrophils (%) (Auto) 69 42-75 % Lymphocytes (%) (Auto) 21 12-44 % Monocytes (%) (Auto) 9 0-12 % Eosinophils (%) (Auto) 2 0-10 % Basophils (%) (Auto) 0 0-10 % Neutrophils # (Auto) 5.5 1.8-7.8 X 10^3 Lymphocytes # (Auto) 1.7 1.0-4.0 X 10^3 Monocytes # (Auto) 0.7 0.0-1.0 X 10^3 Eosinophils # (Auto) 0.1 0.0-0.3 10^3/uL Basophils # (Auto) 0.0 0.0-0.1 10^3/uL Sodium Level 140 135-145 MMOL/L Potassium Level 4.3 3.6-5.0 MMOL/L Chloride Level 105 98-107 MMOL/L Carbon Dioxide Level 26 21-32 MMOL/L Anion Gap 9 5-14 MMOL/L Blood Urea Nitrogen 17 7-18 MG/DL Creatinine 0.96 0.60-1.30 MG/DL Estimat Glomerular Filtration Rate > 60 BUN/Creatinine Ratio 18 Glucose Level 104 70-105 MG/DL Calcium Level 9.1 8.5-10.1 MG/DL Total Bilirubin 0.4 0.1-1.0 MG/DL Aspartate Amino Transf (AST/SGOT) 16 5-34 U/L Alanine Aminotransferase (ALT/SGPT) 18 0-55 U/L Alkaline Phosphatase 92 40-136 U/L Total Protein 6.8 6.4-8.2 GM/DL Albumin 4.0 3.2-4.5 GM/DL My Orders Orders - ARMIN EASON APRN Cbc With Automated Diff (08/14/17 15:53) Comprehensive Metabolic Panel (08/14/17 15:53) Ua Culture If Indicated (08/14/17 15:53) Saline Lock/Iv-Start (08/14/17 15:53) Ybarra Cath Insertion (08/14/17 15:53) Lidocaine 2% (Urojet) (Xylocaine Urojet) (08/14/17 16:00) Ct Abdomen/Pelvis W (08/14/17 16:08) Saline Lock/Iv-Start (08/14/17 16:08) Iohexol Injection (Omnipaque 350 Mg/Ml 1 (08/14/17 16:45) Sodium Chloride Flush (Catheter Flush Sy (08/14/17 16:45) Medications Given in ED Current Medications Medications Dose Ordered Sig/Irma Route Start Time Stop Time Status Last Admin Dose Admin Iohexol 100 ml ONCE ONCE IV 08/14/17 16:45 08/14/17 16:46 DC 08/14/17 17:11 100 ML Sodium Chloride 10 ml NEEDED PRN IV 08/14/17 16:45 08/14/17 17:11 10 ML Vital Signs/I&O Vital Sign - Last 12Hours 08/14/17 16:07 Temp 98.2 Pulse 98 Resp 20 B/P (MAP) 146/95 (112) Pulse Ox 97 Diagnostic Imaging Diagonstic Imaging: Xray Comments NAME: LORNA TRUONG [facility] REC#: [id number] PT STATUS: REG ER : 1950 PHYSICIAN: ARMIN EASON APRN ADMIT DATE: 08/14/17/ER Draft Date of Exam:08/14/17 CT ABDOMEN/PELVIS W PROCEDURE: CT abdomen and pelvis with contrast. TECHNIQUE: Multiple contiguous axial images were obtained through the abdomen and pelvis after administration of intravenous contrast. INDICATION: Difficulty urinating. Lower abdominal pain. COMPARISON: 05/21/2017 FINDINGS: Lower chest: Emphysema within lung bases is noted. Otherwise, lungs are clear. Peritoneum: No free intraperitoneal air or fluid. Liver and biliary system: The liver is normal. The gallbladder is normal. No biliary duct dilation. Spleen and Pancreas: Spleen is normal. The pancreas enhances normally without mass lesion or peripancreatic inflammatory changes. Adrenals: Normal. tract: The kidneys enhance normally without suspicious mass or obstruction. Unchanged benign cysts within the left kidney. Urinary bladder is decompressed by Ybarra catheter. The prostate is enlarged, similar to prior exam. GI tract: Stomach is decompressed. No bowel obstruction. No pericolonic inflammatory changes. Appendix is not seen with certainty although there are no inflammatory changes in the right lower quadrant to suggest acute appendicitis. Vasculature and Lymph nodes: Normal caliber aorta with extensive atherosclerotic plaquing. No abdominal or pelvic lymphadenopathy. Musculoskeletal: No concerning osseous lesion. Stable nonaggressive in perforate sclerotic lesion in the right ilium adjacent to SI joint. There are subacute fractures of the right lower 8 through 11th ribs. IMPRESSION: 1. No acute inflammatory or obstructive process in the abdomen and pelvis. 2. Urinary bladder is decompressed by Ybarra catheter. Prostatomegaly is present. 3. Subacute/healing fractures of the right eighth through 11th ribs. Dictated on workstation # [id number] Dict: 08/14/17 1729 Trans: 08/14/17 1737 [id number] Interpreted by: LEONEL STATON MD Electronically signed by: Departure Communication (Admissions) Progress Notes 1702- 16 [place] coud Ybarra catheter placed as we were unable to pass a regular Ybarra catheter with between 900-1,000 mL of clear yellow urine output immediately.. This will be attached to a leg bag, follow up with Dr. Melo. Started on Flomax, Cipro. Impression Impression: Primary Impression: Bladder outlet obstruction Additional Impression: Urinary retention Disposition: HOME, SELF-CARE Condition: Stable Departure-Patient Inst. Referrals: RUPERT MARIE DO (PCP) Primary Care Physician ANGEL LUIS OVALLE (Family) Primary Care Physician DARLEEN MELO MD Patient Instructions: Urinary Retention Add. Discharge Instructions: 1. Leave the Ybarra catheter in place for at least one week. He may have this removed in primary care clinic or in follow-up with Dr. Melo. You should call Dr. Melo on Wednesday morning to make an appointment to be seen. Scripts Ciprofloxacin HCl (Cipro) 500 Mg Tablet 500 MG PO BID, #10 TAB Prov: ARMIN EASON APRN 08/14/17 Copy Copies To 1: RUPERT MARIE DO; DARLEEN MELO MD, PETER J APRN Aug 14, 2017 16:05
[2017-08-14 16:10] LABS: BILIRUBIN,URINE NEGATIVE (NEGATIVE); CLARITY,URINE CLEAR; COLOR,URINE YELLOW; GLUCOSE, URINE (UA) NEGATIVE (NEGATIVE); KETONES,URINE NEGATIVE (NEGATIVE); LEUKOCYTE ESTERASE ,URINE NEGATIVE (NEGATIVE); NITRITE,URINE NEGATIVE (NEGATIVE); PH,URINE 6.5 (5-9); PROTEIN,URINE NEGATIVE (NEGATIVE); UROBILINOGEN,URINE NORMAL (NORMAL)
[2017-08-14 16:16] LABS: SQUAMOUS EPITHELIAL CELL,UR RARE /HPF
[2017-08-14 16:27] LABS: BASOPHILS % (AUTO) 0 % (0-10); EOSINOPHILS # (AUTO) 0.1 10^3/uL (0.0-0.3); EOSINOPHILS % (AUTO) 2 % (0-10); HEMATOCRIT 48 % (40-54); HEMOGLOBIN 16.7 G/DL (13.3-17.7); LYMPHOCYTES # (AUTO) 1.7 X 10^3 (1.0-4.0); LYMPHOCYTES % (AUTO) 21 % (12-44); MEAN CORPUSCULAR HEMOGLOBIN 32 PG (25-34); MEAN CORPUSCULAR HGB CONC 35 G/DL (32-36); MEAN CORPUSCULAR VOLUME 90 FL (80-99); MEAN PLATELET VOLUME 10.1 FL (7.4-10.4); MONOCYTES # (AUTO) 0.7 X 10^3 (0.0-1.0); MONOCYTES % (AUTO) 9 % (0-12); NEUTROPHILS # (AUTO) 5.5 X 10^3 (1.8-7.8); NEUTROPHILS % (AUTO) 69 % (42-75); PLATELET COUNT 197 10^3/uL (130-400); RED BLOOD COUNT 5.31 10^6/uL (4.35-5.85); RED CELL DISTRIBUTION WIDTH 12.7 % (10.0-14.5)
[2017-08-14] MEDS ORDERED: CATHETER FLUSH 10 ML SYR IV PRN (16:45)
[2017-08-14] MEDS ORDERED: IOHEXOL 350 MG/ML 100 ML (OMNIPAQUE 350) VIAL IV ONE (16:45)
[2017-08-14 16:47] LABS: ALANINE AMINOTRANSFERASE 18 U/L (0-55); ALKALINE PHOSPHATASE 92 U/L (40-136); BILIRUBIN,TOTAL 0.4 MG/DL (0.1-1.0); BUN/CREATININE RATIO 18; CALCIUM 9.1 MG/DL (8.5-10.1); CARBON DIOXIDE 26 MMOL/L (21-32); CHLORIDE 105 MMOL/L (98-107); CREATININE SERUM 0.96 MG/DL (0.60-1.30); GFR ESTIMATED > 60; GLUCOSE 104 MG/DL (70-105); POTASSIUM 4.3 MMOL/L (3.6-5.0); SODIUM 140 MMOL/L (135-145); TOTAL PROTEIN 6.8 GM/DL (6.4-8.2)
[2017-08-14] MEDS ORDERED: CIPR-225 PO (17:07)
--- NOTE | 2017-08-14 17:38 | Diagnostic Imaging Report ---
PROCEDURE: CT abdomen and pelvis with contrast. TECHNIQUE: Multiple contiguous axial images were obtained through the abdomen and pelvis after administration of intravenous contrast. INDICATION: Difficulty urinating. Lower abdominal pain. COMPARISON: 05/21/2017 FINDINGS: Lower chest: Emphysema within lung bases is noted. Otherwise, lungs are clear. Peritoneum: No free intraperitoneal air or fluid. Liver and biliary system: The liver is normal. The gallbladder is normal. No biliary duct dilation. Spleen and Pancreas: Spleen is normal. The pancreas enhances normally without mass lesion or peripancreatic inflammatory changes. Adrenals: Normal. tract: The kidneys enhance normally without suspicious mass or obstruction. Unchanged benign cysts within the left kidney. Urinary bladder is decompressed by Ybarra catheter. The prostate is enlarged, similar to prior exam. GI tract: Stomach is decompressed. No bowel obstruction. No pericolonic inflammatory changes. Appendix is not seen with certainty although there are no inflammatory changes in the right lower quadrant to suggest acute appendicitis. Vasculature and Lymph nodes: Normal caliber aorta with extensive atherosclerotic plaquing. No abdominal or pelvic lymphadenopathy. Musculoskeletal: No concerning osseous lesion. Stable nonaggressive in perforate sclerotic lesion in the right ilium adjacent to SI joint. There are subacute fractures of the right lower 8 through 11th ribs. IMPRESSION: 1. No acute inflammatory or obstructive process in the abdomen and pelvis. 2. Urinary bladder is decompressed by Ybarra catheter. Prostatomegaly is present. 3. Subacute/healing fractures of the right eighth through 11th ribs. Dictated by: Dictated on workstation # [id number]
[2017-08-14 17:56] VITALS: BP 154/97
== END 2017-08-14 17:56 | disposition home or self-care (01) ==
LOC: EDUNIT# 15:35 → ER 15:36
DX: N32.0 Bladder-neck obstruction (principal); J44.9 Chronic obstructive pulmonary disease, unspecified; I10 Essential (primary) hypertension; K21.9 Gastro-esophageal reflux disease without esophagitis; Z80.1 Family history of malignant neoplasm of trachea, bronchus and lung; Z80.8 Family history of malignant neoplasm of other organs or systems; Z79.82 Long term (current) use of aspirin
CPT/HCPCS: 36415; 51702; 74177; 80053; 81000; 85025

== ENCOUNTER 2017-08-15 11:37 | Emergency (ER) | payer MEDICARE, MEDICAID ==
[~2017-08-15] VITALS: Ht 177.8 cm; Wt 78.9 kg
[~2017-08-15 11:37] MED LIST changes: +CIPR-225 PO
--- NOTE | 2017-08-15 12:34 | ED GU-Male ---
General Chief Complaint: Catheter/Drain/Tube Problems Stated Complaint: CATHETER FELL OUT Nursing Triage Note: PT TO ROOM 6 PT STATES PULLED CATHETER OUT DURING NITE, PT HAS BEEN VOIDING THIS AM, STATES HURTS WHEN URINATES. DOES NOT KNOW IF NEEDS CATH PUT BACK IN History of Present Illness Date Seen by Provider: Aug 15, 2017 Time Seen by Provider: 12:28 Initial Comments The patient is a 66-year-old white male who was here yesterday with inability to urinate. Ultimately a Ybarra catheter and leg bag were placed. This required daily to pass the Ybarra. He reports that during the night he turned over and it came out. Nursing had interpreted this to mean that the Ybarra had come out. He stated that he had had urine 3 or 4 times. Bladder sonography showed minimum of urine within the bladder. After additional questioning it was determined that the Ybarra had not come out. Timing/Duration: this morning Allergies and Home Medications Allergies Coded Allergies: No Known Drug Allergies (Unverified , 11/05/09) Home Medications Albuterol 8.5 Gm Hfa.aer.ad, 2 PUFF IH Q6H PRN for SHORTNESS OF BREATH, ( Reported) 2 PUFFS Aspirin 81 Mg Tabec, 81 MG PO DAILY, (Reported) Cholecalciferol 1,000 Unit Capsule, 1,000 UNITS PO DAILY, (Reported) Ciprofloxacin HCl 500 Mg Tablet, 500 MG PO BID, #10 Prescribed by: ARMIN EASON on 08/14/17 1707 Cyclobenzaprine HCl 10 Mg Tablet, (Reported) Fish Oil/Dha/Epa 1 Each Capsule, 2,400 MG PO DAILY, (Reported) TAKE 2 (1,200 MG) CAPSULES DAILY Fluticasone/Salmeterol 1 Disk Inhp, 1 PUFF IH BID, (Reported) 1 PUFF Meclizine HCl 25 Mg Tablet, 25-50 MG PO Q6H, #30 Prescribed by: TOM MURDOCK on 10/22/16 001 Meloxicam 7.5 Mg Tablet, (Reported) Mirabegron 50 Mg Tab.er.24h, (Reported) Omeprazole 40 Mg Capsule.dr, (Reported) Pentoxifylline 400 Mg Tablet.er, (Reported) Scopolamine 1 Each Patch.td72, 1 EACH TD Q72 HOURS, #3 Prescribed by: TOM MURDOCK on 10/22/1611 Tamsulosin Hcl 0.4 Mg Cap, 0.4 MG PO DAILY, (Reported) Tramadol HCl 50 Mg Tablet, 50 MG PO Q4H PRN for pain, #14 Ref 0 Prescribed by: MILY ROJAS on 05/21/17 2146 Vitamin E Mixed 400 Unit Tablet, 800 UNIT PO DAILY, (Reported) TAKE 2 (400 MG) TABLETS DAILY Constitutional: see HPI EENTM: no symptoms reported Respiratory: no symptoms reported Cardiovascular: no symptoms reported Genitourinary: see HPI Musculoskeletal: no symptoms reported Skin: no symptoms reported Psychiatric/Neurological: No Symptoms Reported Endocrine: No Symptoms Reported Hematologic/Lymphatic: No Symptoms Reported Past Lonfxta-Atcfex-Fxusyr Hx Patient Social History Alcohol Use: Denies Use Recreational Drug Use: No Smoking Status: Former Smoker Former Smoker, Quit: Apr 18, 2015 2nd Hand Smoke Exposure: No Recent Foreign Travel: No Contact w/Someone Who Travel: No Recent Infectious Disease Expo: No Recent Hopitalizations: No Physical Abuse: No Sexual Abuse: No Immunizations Up To Date Tetanus Booster (TDap): More than 5yrs Seasonal Allergies Seasonal Allergies: No Surgeries History of Surgeries: Yes (LEFT EYE REMOVED. ) Surgeries: Appendectomy, Eye Surgery, Orthopedic Respiratory History of Respiratory Disorde: Yes Respiratory Disorders: COPD Cardiovascular History of Cardiac Disorders: Yes Cardiac Disorders: Hypertension Neurological History of Neurological Disord: Yes (DIZZINESS) Neurological Disorders: Vertigo Reproductive System Hx Reproductive Disorders: No Sexually Transmitted Disease: No Genitourinary History of Genitourinary Disor: Yes Genitourinary Disorders: Prostate Problems Gastrointestinal History of Gastrointestinal Di: Yes Gastrointestinal Disorders: Gastroesophageal Reflux Musculoskeletal History of Musculoskeletal Dis: Yes (CHRONIC NECK PAIN ) Endocrine History of Endocrine Disorders: No HEENT History of HEENT Disorders: Yes Loss of Vision: Left Cancer History of Cancer: No Psychosocial History of Psychiatric Problem: No Suicide Risk Score: 0 Integumentary History of Skin or Integumenta: Yes Skin/Integumentary Disorders: Psoriasis Blood Transfusions History of Blood Disorders: No Adverse Reaction to a Blood Tr: No Family Medical History Significant Family History: No Pertinent Family Hx Family Medial History: Abdominal aortic aneurysm 03 FATHER, Onset:60 years & older Cancer 03 FATHER (NECK) 03 MOTHER (LUNGS) History of drug abuse DAUGHTERS (DAUGHTER) Physical Exam Vital Signs Vital Sign - Last 12Hours 08/15/17 11:40 Temp 98.7 Pulse 103 Resp 18 B/P (MAP) 124/87 (99) Pulse Ox 99 Capillary Refill : Less Than 3 Seconds General Appearance: mild distress HEENT: normal ENT inspection Neck: full range of motion Cardiovascular: normal peripheral pulses, regular rate, rhythm, no edema, no gallop, no JVD, no murmur Comments An attempt was made initially to get further visualization of the penis and catheter. He was wearing tight blue jeans and difficulty was encountered in pulling them down. When this finally was accomplished it was determined that both the Ybarra and the leg bag were intact. The penis and the Ybarra were clearly under traction. Nursing then reorganizes the set up with an anchor and leg bag placement higher on the thigh. There was immediate return of fluid consistent with urine Progress/Results/Core Measures Suspected Sepsis Recent Fever Within 48 Hours: No Infection Criteria Present: None New/Unexplained Altered Menta: No Sepsis Screen: No Definite Risk Sepsis Diagnosis: SIRS Temperature:98.7 Pulse: 103 Respiratory Rate: 18 Blood Pressure 124 /87 Mean: 99 Results/Orders Vital Signs/I&O Vital Sign - Last 12Hours 08/15/17 11:40 Temp 98.7 Pulse 103 Resp 18 B/P (MAP) 124/87 (99) Pulse Ox 99 Capillary Refill : Less Than 3 Seconds Blood Pressure Mean: 99 Departure Impression Impression: Primary Impression: malfunction indwelling Ybarra catheter Disposition: 01 HOME, SELF-CARE Condition: Improved Departure-Patient Inst. Decision time for Depature: 12:33 Referrals: RUPERT MARIE DO (PCP) Primary Care Physician ANGEL LUIS OVALLE (Family) Primary Care Physician Patient Instructions: How to Care for Your Ybarra Catheter, Male Add. Discharge Instructions: All discharge instructions reviewed with patient and/or family. Voiced understanding. Keep appointment with Dr. Lafleur tomorrow DORIE CUEVAS MD Aug 15, 2017 12:34
[2017-08-15 12:48] VITALS: BP 124/87
--- OUTSIDE RECORDS SUMMARY | 2017-08-15 12:55 | XMS REPORT ---
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 Active 57586451 Problem Smoking greater than 40 pack years F17.210 Active 59796581 Problem Carotid disease, bilateral I77.9 Active 356078561 Problem Non-ischemic cardiomyopathy I42.8 Active 69844945 Problem Non-rheumatic mitral regurgitation I34.0 Active 513140778 Problem Non-rheumatic tricuspid valve insufficiency I36.1 Active 814882426 Problem Spinal stenosis in cervical region M48.02 Active 39044986 Problem Obstructive sleep apnea syndrome G47.33 Active 08288812 Problem Abnormal MRI of head R93.0 Active 725121008379382 Problem Mixed stress and urge urinary incontinence N39.46 Active 266714231 Problem Elevated PSA R97.2 Active 970627387 Problem Cyst on ear L72.9 Active 22656265 Problem Obstructive sleep apnea G47.33 Active 43356604 Problem Incontinence R32 Active 25617290 Problem Enlarged prostate with lower urinary tract symptoms N40.1 Active 593284696198836 Problem Cardiac arrhythmia, unspecified cardiac arrhythmia type I49.9 Active 51909627 ALLERGIES No Known Allergies SOCIAL HISTORY Never Assessed PLAN OF CARE Activity Details Follow Up 2 Months Reason:BP VITAL SIGNS Height 70 in 2016-12-09 Weight 181.7 lbs 2016-12-09 Temperature 97.6 degrees Fahrenheit 2016-12-09 Heart Rate 70 bpm 2016-12-09 Respiratory Rate 18 2016-12-09 BMI 26.07 kg/m2 2016-12-09 Blood pressure systolic 116 mmHg 2016-12-09 Blood pressure diastolic 80 mmHg 2016-12-09 MEDICATIONS Medication Instructions Dosage Frequency Start Date End Date Duration Status Symbicort 160-4.5 mcg/act Inhalation Twice a day 2 puffs 12h Active Albuterol 108 (90 Base) mcg/act by inhalation route 4 times a day prn 2 puffs Active Myrbetriq 50 mg Orally Once a day 1 tablet 24h Jul, 30 day(s) Active Gentamicin Sulfate 0.3 % 1 drop intoleft ear 6h November, 07 days Active Triamcinolone Acetonide 0.5 % Externally Twice a day as needed 1 application to affected area Jul, Active Promethazine-Codeine 6.25-10 MG/5ML Orally every 8 hrs prn 5-10 ml as needed Active Meloxicam 7.5 MG Orally Once a day 1 tablet 24h Active Flomax 0.4 MG Orally Once a day 1 capsule 24h May, Active Omeprazole 40 mg Orally Once a day 1 capsule 24h 30 Active Albuterol Sulfate 2.5 mg /3 mL (0.083 %) 1 Each by Inhalation route every 4 hours for cough and wheeze PRN for wheezing or cough Aug, Active RESULTS No Results PROCEDURES Procedure Date Ordered Result [facility] December 09, 2016 IMMUNIZATIONS No Known Immunizations MEDICAL (GENERAL) HISTORY Type Description Date Medical History dysphagia, hoarseness- seen 2013 by ENT Medical History CT neck 10/2012 no mass Medical History cardiomyopathy Medical History emphysema Medical History Elevated PSA 03/[address] Lafleur Medical History BPH Medical History Psoriasis Medical History 10/2010 excision of basal cell carcinoma of the nose Medical History COPD/emphysema Medical History Hypoxia nocturnal Has home oxygen Medical History Deviated nasal septum Medical History Hypertrophy (benign) of prostate without urinary obstruction and other lower urinary tract symptoms [LUTS] Medical History Other and unspecified hyperlipidemia Medical History Nondependent tobacco use disorder Medical History Other primary cardiomyopathies Medical History Elevated prostate specific antigen (PSA) Medical History ISMAEL with CPAP Melissa Surgical History appendectomy Surgical History hemorrhoidectomy Surgical History hernia repair Surgical History eye surgery 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
--- OUTSIDE RECORDS SUMMARY | 2017-08-15 12:55 | XMS REPORT ---
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 Active 39141315 Problem Smoking greater than 40 pack years F17.210 Active 18634927 Problem Carotid disease, bilateral I77.9 Active 921987599 Problem Non-ischemic cardiomyopathy I42.8 Active 59765125 Problem Non-rheumatic mitral regurgitation I34.0 Active 848855860 Problem Non-rheumatic tricuspid valve insufficiency I36.1 Active 384386833 Problem Spinal stenosis in cervical region M48.02 Active 91169078 Problem Obstructive sleep apnea syndrome G47.33 Active 75268383 Problem Abnormal MRI of head R93.0 Active 533122283497086 Problem Mixed stress and urge urinary incontinence N39.46 Active 454979263 Problem Elevated PSA R97.2 Active 535373395 Problem Cyst on ear L72.9 Active 90573887 Problem Obstructive sleep apnea G47.33 Active 10169007 Problem Incontinence R32 Active 63288842 Problem Enlarged prostate with lower urinary tract symptoms N40.1 Active 026768706977736 Problem Cardiac arrhythmia, unspecified cardiac arrhythmia type I49.9 Active 62171975 ALLERGIES No Information SOCIAL HISTORY Never Assessed PLAN OF CARE VITAL SIGNS MEDICATIONS Medication Instructions Dosage Frequency Start Date End Date Duration Status Ciprofloxacin HCl 0.3 % Ophthalmic every 12 hrs 5 drops into the affected ear 12h 30 Nov, 2016 10 days Active RESULTS No Results PROCEDURES No Known procedures IMMUNIZATIONS No Known Immunizations MEDICAL (GENERAL) HISTORY [...]
--- OUTSIDE RECORDS SUMMARY | 2017-08-15 12:57 | XMS REPORT | Continuity of Care Document ---
Author Author [facility] Ctr of [facility] of [facility] Address Unknown Phone Unavailable Allergies Active Description Code Type Severity Reaction Onset Reported/Identified Relationship to Patient Clinical Status Yes No Known Drug Allergies [id number] Drug Allergy Mild N/A 11/05/2009 Medications There is no data. Problems Date Dx Coded Attending Type Code [...] DO, RUPERT K 696.1 PSORIASIS 10/11/2009 MARIE DO RUPERT K V76.44 visit for: screening exam malignant neoplasm prostate 10/11/2009 MADL MARINE CARGO SURVEYOR, ANGEL LUIS L 173.9 OTHER MALIGNANT NEOPLASM OF SKIN, SITE UNSPECIFIED 10/11/2009 MADL MARINE CARGO SURVEYOR, ANGEL LUIS L 496 CHRONIC OBSTRUCTIVE PULMONARY DISEASE 10/11/2009 MADL MARINE CARGO SURVEYOR, ANGEL LUIS L 696.1 PSORIASIS 10/11/2009 MADL MARINE CARGO SURVEYOR, ANGEL LUIS L V76.44 visit for: screening exam malignant neoplasm prostate 10/11/2009 MADL MARINE CARGO SURVEYOR, ANGEL LUIS L 173.9 OTHER MALIGNANT NEOPLASM OF SKIN, SITE UNSPECIFIED 10/11/2009 MADL MARINE CARGO SURVEYOR, ANGEL LUIS L 496 CHRONIC OBSTRUCTIVE PULMONARY DISEASE 10/11/2009 MADL MARINE CARGO SURVEYOR, ANGEL LUIS L 696.1 PSORIASIS 10/11/2009 MADL MARINE CARGO SURVEYOR, ANGEL LUIS L V76.44 visit for: screening exam malignant neoplasm prostate 10/11/2009 MADL MARINE CARGO SURVEYOR, ANGEL LUIS L 173.9 OTHER MALIGNANT NEOPLASM OF SKIN, SITE UNSPECIFIED 10/11/2009 MADL MARINE CARGO SURVEYOR, ANGEL LUIS L 496 CHRONIC OBSTRUCTIVE PULMONARY DISEASE 10/11/2009 MADL MARINE CARGO SURVEYOR, ANGEL LUIS L 696.1 PSORIASIS 10/11/2009 MADL MARINE CARGO SURVEYOR, ANGEL LUIS L V76.44 visit for: screening exam malignant neoplasm prostate 10/11/2009 MARIE DO, RUPERT K 173.9 OTHER MALIGNANT NEOPLASM OF SKIN, SITE UNSPECIFIED 10/11/2009 MARIE DO, RUPERT K 496 CHRONIC OBSTRUCTIVE PULMONARY DISEASE 10/11/2009 MARIE DO, RUPERT K 696.1 PSORIASIS 10/11/2009 MARIE DO, RUPERT K V76.44 visit for: screening exam malignant neoplasm prostate 10/11/2009 MARTINEZ MARINE CARGO SURVEYOR, MARTA R 173.9 OTHER MALIGNANT NEOPLASM OF SKIN, SITE UNSPECIFIED 10/11/2009 MARTINEZ MARINE CARGO SURVEYOR, MARTA R 496 CHRONIC OBSTRUCTIVE PULMONARY DISEASE 10/11/2009 MARTINEZ MARINE CARGO SURVEYOR, MARTA R 696.1 PSORIASIS 10/11/2009 MARTINEZ MARINE CARGO SURVEYOR, MARTA R V76.44 visit for: screening exam malignant neoplasm prostate 10/11/2009 MADL MARINE CARGO SURVEYOR, ANGEL LUIS L 173.9 OTHER MALIGNANT NEOPLASM OF SKIN, SITE UNSPECIFIED 10/11/2009 MADL MARINE CARGO SURVEYOR, ANGEL LUIS L 496 CHRONIC OBSTRUCTIVE PULMONARY DISEASE 10/11/2009 MADL MARINE CARGO SURVEYOR, ANGEL LUIS L 696.1 PSORIASIS 10/11/2009 MADL MARINE CARGO SURVEYOR, ANGEL LUIS L V76.44 visit for: screening exam malignant neoplasm prostate 10/11/2009 MARIE DO, RUPERT K 173.9 OTHER MALIGNANT NEOPLASM OF SKIN, SITE UNSPECIFIED 10/11/2009 MARIE DO, RUPERT K 496 CHRONIC OBSTRUCTIVE PULMONARY DISEASE 10/11/2009 MARIE DO, RUPERT K 696.1 PSORIASIS 10/11/2009 MARIE DO, RUPERT K V76.44 visit for: screening exam malignant neoplasm prostate 10/15/2009 380.4 IMPACTED CERUMEN 10/15/2009 GIORGI SO MD 380.4 IMPACTED CERUMEN 10/15/2009 380.4 IMPACTED CERUMEN 10/15/2009 380.4 IMPACTED CERUMEN 10/15/2009 380.4 IMPACTED CERUMEN 10/15/2009 380.4 IMPACTED CERUMEN 10/15/2009 380.4 IMPACTED CERUMEN 10/15/2009 SAVANAH MAIER, SUZIE Dale 380.4 IMPACTED CERUMEN 10/15/2009 GIORGI SO MD 380.4 IMPACTED CERUMEN 10/15/2009 MARIE DO, RUPERT K 380.4 IMPACTED CERUMEN 10/15/2009 MADL MARINE CARGO SURVEYOR, ANGEL LUIS L 380.4 IMPACTED CERUMEN 10/15/2009 MADL MARINE CARGO SURVEYOR, ANGEL LUIS L 380.4 IMPACTED CERUMEN 10/15/2009 MADL MARINE CARGO SURVEYOR, ANGEL LUIS L 380.4 IMPACTED CERUMEN 10/15/2009 MARIE DO, RUPERT K 380.4 IMPACTED CERUMEN 10/15/2009 MARTINEZ MARINE CARGO SURVEYOR, MARTA R 380.4 IMPACTED CERUMEN 10/15/2009 MADL MARINE CARGO SURVEYOR, ANGEL LUIS L 380.4 IMPACTED CERUMEN 10/15/2009 [...] DO, RUPERT K 425.4 CARDIOMYOPATHY 04/21/2012 MADL MARINE CARGO SURVEYOR, ANGEL LUIS L 272.4 HYPERLIPIDEMIA 04/21/2012 MADL MARINE CARGO SURVEYOR, ANGEL LUIS L 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 04/21/2012 MADL MARINE CARGO SURVEYOR, ANGEL LUIS L 425.4 CARDIOMYOPATHY 04/21/2012 MADL MARINE CARGO SURVEYOR, ANGEL LUIS L 272.4 HYPERLIPIDEMIA 04/21/2012 MADL MARINE CARGO SURVEYOR, ANGEL LUIS L 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 04/21/2012 MADL MARINE CARGO SURVEYOR, ANGEL LUIS L 425.4 CARDIOMYOPATHY 04/21/2012 MADL MARINE CARGO SURVEYOR, ANGEL LUIS L 272.4 HYPERLIPIDEMIA 04/21/2012 MADL MARINE CARGO SURVEYOR, ANGEL LUIS L 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 04/21/2012 MADL MARINE CARGO SURVEYOR, ANGEL LUIS L 425.4 CARDIOMYOPATHY 04/21/2012 MARIE DO, RUPERT K 272.4 HYPERLIPIDEMIA 04/21/2012 MARIE DO, RUPERT K 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 04/21/2012 MARIE DO, RUPERT K 425.4 CARDIOMYOPATHY 04/21/2012 MARTINEZ [employer]INE [employer] SURVEYOR, MARTA R 272.4 HYPERLIPIDEMIA 04/21/2012 MARTINEZ MARINE CARGO SURVEYOR, MARTA R 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 04/21/2012 MARTINEZ MARINE CARGO SURVEYOR, MARTA R 425.4 CARDIOMYOPATHY 04/21/2012 MADL MARINE CARGO SURVEYOR, ANGEL LUIS L 272.4 HYPERLIPIDEMIA 04/21/2012 MADL MARINE CARGO SURVEYOR, ANGEL LUIS L 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 04/21/2012 YAMILE BOWDEN, ANGEL LUIS L 425.4 CARDIOMYOPATHY 04/21/2012 RUPERT [...] SUZIE PAVON MD 790.93 Serology Prostate-specific Antigen (PSA) Elevated 08/02/2012 GIORGI SO MD 784.42 hoarseness 08/02/2012 GIORGI SO MD 790.93 Serology Prostate-specific Antigen (PSA) Elevated 08/02/2012 RUPERT MARIE DO K 784.42 hoarseness 08/02/2012 RUPERT MARIE DO K 790.93 Serology Prostate-specific Antigen (PSA) Elevated 08/02/2012 MADL MARINE CARGO SURVEYOR, ANGEL LUIS L 784.42 hoarseness 08/02/2012 MADL MARINE CARGO SURVEYOR, ANGEL LUIS L 790.93 Serology Prostate-specific Antigen (PSA) Elevated 08/02/2012 MADL MARINE CARGO SURVEYOR, ANGEL LUIS L 784.42 hoarseness 08/02/2012 MADL MARINE CARGO SURVEYOR, ANGEL LUIS L 790.93 Serology Prostate-specific Antigen (PSA) Elevated 08/02/2012 MADL MARINE CARGO SURVEYOR, ANGEL LUIS L 784.42 hoarseness 08/02/2012 MADL MARINE CARGO SURVEYOR, ANGEL LUIS L 790.93 Serology Prostate-specific Antigen (PSA) Elevated 08/02/2012 MARIE DO, RUPERT K 784.42 hoarseness 08/02/2012 MARIE DO, RUPERT K 790.93 Serology Prostate-specific Antigen (PSA) Elevated 08/02/2012 MARTINEZ MARINE CARGO SURVEYOR, MARTA R 784.42 hoarseness 08/02/2012 MARTINEZ MARINE CARGO SURVEYOR, MARTA R 790.93 Serology Prostate-specific Antigen (PSA) Elevated 08/02/2012 MADL MARINE CARGO SURVEYOR, ANGEL LUIS L 784.42 hoarseness 08/02/2012 MADL MARINE CARGO SURVEYOR, ANGEL LUIS L 790.93 Serology Prostate-specific Antigen [...] MD 470 DEVIATED NASAL SEPTUM 08/19/2012 MARIE DO RUPERT K 250.80 DIABETIC FOOT ULCER 08/19/2012 MARIE DO RUPERT K 470 DEVIATED NASAL SEPTUM 08/19/2012 MADL MARINE CARGO SURVEYOR, ANGEL LUIS L 250.80 DIABETIC FOOT ULCER 08/19/2012 MADL MARINE CARGO SURVEYOR, ANGEL LUIS L 470 DEVIATED NASAL SEPTUM 08/19/2012 MADL MARINE CARGO SURVEYOR, ANGEL LUIS L 250.80 DIABETIC FOOT ULCER 08/19/2012 MADL MARINE CARGO SURVEYOR, ANGEL LUIS L 470 DEVIATED NASAL SEPTUM 08/19/2012 MADL MARINE CARGO SURVEYOR, ANGEL LUIS L 250.80 DIABETIC FOOT ULCER 08/19/2012 MADL MARINE CARGO SURVEYOR, ANGEL LUIS L 470 DEVIATED NASAL SEPTUM 08/19/2012 MARIE DO, RUPERT K 250.80 DIABETIC FOOT ULCER 08/19/2012 MARIE DO, RUPERT K 470 DEVIATED NASAL SEPTUM 08/19/2012 MARTINEZ MARINE CARGO SURVEYOR, MARTA R 250.80 DIABETIC FOOT ULCER 08/19/2012 MARTINEZ MARINE CARGO SURVEYOR, MARTA R 470 DEVIATED NASAL SEPTUM 08/19/2012 MADL MARINE CARGO SURVEYOR, ANGEL LUIS L 250.80 DIABETIC FOOT ULCER 08/19/2012 MADL MARINE CARGO SURVEYOR, ANGEL LUIS L 470 DEVIATED NASAL SEPTUM 08/19/2012 MARIE DO, RUPERT K 250.80 DIABETIC FOOT ULCER 08/19/2012 MARIE DO, RUPERT K 470 DEVIATED NASAL SEPTUM 01/18/2013 600.00 BPH W/O OBSTRUCTUION 01/18/2013 SUZIE PAVON MD 600.00 BPH W/O OBSTRUCTUION 01/18/2013 GIORGI OS MD 600.00 BPH W/O OBSTRUCTUION 01/18/2013 MARIE AKI YATESA K 600.00 BPH W/O OBSTRUCTUION 01/18/2013 MADL MARINE CARGO SURVEYOR, ANGEL LUIS L 600.00 BPH W/O OBSTRUCTUION 01/18/2013 MADL MARINE CARGO SURVEYOR, ANGEL LUIS L 600.00 BPH W/O OBSTRUCTUION 01/18/2013 MADL MARINE CARGO SURVEYOR, ANGEL LUIS L 600.00 BPH W/O OBSTRUCTUION 01/18/2013 MARIE , RUPERT K 600.00 BPH W/O OBSTRUCTUION 01/18/2013 MARTINEZ MARINE CARGO SURVEYOR, MARTA R 600.00 BPH W/O OBSTRUCTUION 01/18/2013 MADL MARINE CARGO SURVEYOR, ANGEL LUIS L 600.00 BPH W/O OBSTRUCTUION 01/18/2013 MARIE DO RUPERT K 600.00 BPH W/O OBSTRUCTUION 06/16/2013 SUZIE PAVON MD 786.50 UNSPECIFIED CHEST PAIN 06/16/2013 GIORGI SO MD 786.50 UNSPECIFIED CHEST PAIN 06/16/2013 RUPERT MARIE DO 786.50 UNSPECIFIED CHEST PAIN 06/16/2013 MADL MARINE CARGO SURVEYOR, ANGEL LUIS L 786.50 UNSPECIFIED CHEST PAIN 06/16/2013 MADL MARINE CARGO SURVEYOR, ANGEL LUIS L 786.50 UNSPECIFIED CHEST PAIN 06/16/2013 MADL MARINE CARGO SURVEYOR, ANGEL LUIS L 786.50 UNSPECIFIED CHEST PAIN 06/16/2013 MARIE DO, RUPERT K 786.50 UNSPECIFIED CHEST PAIN 06/16/2013 MARTA MARTINEZ APRN R 786.50 UNSPECIFIED CHEST PAIN 06/16/2013 MADL MARINE CARGO SURVEYOR, ANGEL LUIS L 786.50 UNSPECIFIED CHEST PAIN 06/16/2013 MARIE DO, RUPERT K 786.50 UNSPECIFIED CHEST PAIN 06/18/2013 SARAY MAIER, GIORGI Alba Ot 272.4 HYPERLIPIDEMIA NEC/NOS 06/18/2013 SARAY MAIER, GIORGI Alba Ot 305.1 TOBACCO USE DISORDER 06/18/2013 SARAY MAIER, GIORGI Alba Ot 425.4 PRIM CARDIOMYOPATHY NEC 06/18/2013 SARAY MAIER, GIORGI Alba Ot 427.89 CARDIAC DYSRHYTHMIAS NEC 06/18/2013 SARAY MAIER, GIORGI Alba Ot 491.21 OBSTR CHRONIC BRONCHITIS, W (ACUTE) EXAC 06/18/2013 SARAY MAIER, GIORGI Alba Ot 786.50 CHEST PAIN NOS 12/06/2013 MADL MARINE CARGO SURVEYOR, ANGEL LUIS L 723.1 CERVICALGIA 12/06/2013 MADL MARINE CARGO SURVEYOR, ANGEL LUIS L 780.79 OTHER MALAISE AND FATIGUE 12/06/2013 MADL MARINE CARGO SURVEYOR, ANGEL LUIS L 783.21 LOSS OF WEIGHT 12/06/2013 MADL MARINE CARGO SURVEYOR, ANGEL LUIS L 723.1 CERVICALGIA 12/06/2013 MADL MARINE CARGO SURVEYOR, ANGEL LUIS L 780.79 OTHER MALAISE AND FATIGUE 12/06/2013 MADL MARINE CARGO SURVEYOR, ANGEL LUIS L 783.21 LOSS OF WEIGHT 12/06/2013 MADL MARINE CARGO SURVEYOR, ANGEL LUIS L 723.1 CERVICALGIA 12/06/2013 MADL MARINE CARGO SURVEYOR, ANGEL LUIS L 780.79 OTHER MALAISE AND FATIGUE 12/06/2013 MADL MARINE CARGO SURVEYOR, ANGEL LUIS L 783.21 LOSS OF WEIGHT 12/06/2013 MARIE DO, RUPERT K 723.1 CERVICALGIA 12/06/2013 MARIE DO RUPERT K 780.79 OTHER MALAISE AND FATIGUE 12/06/2013 MARIE DO, RUPERT K 783.21 LOSS OF WEIGHT 12/06/2013 MARTINEZ MARINE CARGO SURVEYOR, MARTA R 723.1 CERVICALGIA 12/06/2013 MARTINEZ MARINE CARGO SURVEYOR, MARTA R 780.79 OTHER MALAISE AND FATIGUE 12/06/2013 MARTINEZ MARINE CARGO SURVEYOR, MARTA R 783.21 LOSS OF WEIGHT 12/06/2013 MADL MARINE CARGO SURVEYOR, ANGEL LUIS L 723.1 CERVICALGIA 12/06/2013 MADL MARINE CARGO SURVEYOR, ANGEL LUIS L 780.79 OTHER MALAISE AND FATIGUE 12/06/2013 MADL MARINE CARGO SURVEYOR, ANGEL LUIS L 783.21 LOSS OF WEIGHT 12/06/2013 MARIE DO, RUPERT K 723.1 CERVICALGIA 12/06/2013 MARIE DO, RUPERT K 780.79 OTHER MALAISE AND FATIGUE 12/06/2013 MARIE DO, RUPERT K 783.21 LOSS OF WEIGHT 12/13/2013 SUNGL MARINE CARGO SURVEYOR, ANGEL LUIS L 919.4 INSECT BITE NONVENOMOUS OF OTHER MULTIPLE AND UNSPECIFIED SITES WITHOUT INFECTION 12/13/2013 MADL MARINE CARGO SURVEYOR, ANGEL LUIS L 919.4 INSECT BITE NONVENOMOUS OF OTHER MULTIPLE AND UNSPECIFIED SITES WITHOUT INFECTION 12/13/2013 MARIE DO, RUPERT K 919.4 INSECT BITE NONVENOMOUS OF OTHER MULTIPLE AND UNSPECIFIED SITES WITHOUT INFECTION 12/13/2013 ERIC MARTINEZ APRNRICIA R 919.4 INSECT BITE NONVENOMOUS OF OTHER MULTIPLE AND UNSPECIFIED SITES WITHOUT INFECTION 12/13/2013 MADL MARINE CARGO SURVEYOR, ANGEL LUIS L 919.4 INSECT BITE NONVENOMOUS OF OTHER MULTIPLE AND UNSPECIFIED SITES WITHOUT INFECTION 12/13/2013 MARIE DO, RUPERT K 919.4 INSECT BITE NONVENOMOUS OF OTHER MULTIPLE AND UNSPECIFIED SITES WITHOUT INFECTION 12/28/2013 ERIC MARTINEZ APRNRICIA R 692.6 CONTACT DERMATITIS AND OTHER ECZEMA DUE TO PLANTS (EXCEPT FOOD) 12/28/2013 SUNGL MARINE CARGO SURVEYORNEREIDA MaryNYA L 692.6 CONTACT DERMATITIS AND OTHER ECZEMA DUE TO PLANTS (EXCEPT FOOD) 12/28/2013 MARIE DO, RUPERT K 692.6 CONTACT DERMATITIS AND OTHER ECZEMA DUE TO PLANTS (EXCEPT FOOD) 05/22/2014 SCOTTY OVALLE APRNA L 465.9 UPPER RESPIRATORY INFECTION 05/22/2014 RUPERT MARIE DO 465.9 UPPER RESPIRATORY INFECTION 2014 RUPERT MARIE [...] YATESISIDRA Ot 305.1 11/18/2014 ANDRY ISIDRA YATES Ot 496 12/28/2014 ANDRY ISIDRA YATES Ot 305.1 12/28/2014 ANDRY ISIDRA YATES M Ot 496 01/23/2015 ANDRY YATESISIDRA Ot 305.1 01/23/2015 ANDRY YATESISIDRA Ot 496 04/02/2015 YAMILE ANGEL LUIS L [employer]ARY [employer] SUPERVISOR Ot 780.4 04/15/2015 ANGEL LUIS OVALLE [employer] SUPERVISOR Ot 780.4 05/08/2015 Ot 492.8 05/08/2015 Ot 786.05 05/08/2015 Ot 786.50 05/08/2015 Ot 794.39 05/08/2015 Ot V72.63 05/08/2015 Ot V72.81 05/08/2015 Ot V74.8 05/08/2015 Ot 433.10 05/08/2015 Ot 443.9 05/08/2015 Ot 729.5 05/08/2015 Ot V68.01 05/08/2015 Ot V82.89 05/08/2015 Ot V68.01 05/08/2015 Ot V82.89 05/08/2015 Ot 305.1 05/08/2015 Ot 496 05/08/2015 ANDRY YATES ISIDRA M Ot 305.1 05/08/2015 ISIDRA WILDE DO Ot 496 05/08/2015 MADANGEL LUIS [place] L [employer] SUPERVISOR Ot 780.4 05/09/2015 MADL, ANGEL LUIS L [employer]IT[employer] SUPERVISOR Ot G47.33 OBSTRUCTIVE SLEEP APNEA (ADULT) (PEDIATR 05/09/2015 MADL, ANGEL LUIS L [employer]IT[employer] SUPERVISOR Ot I10 ESSENTIAL (PRIMARY) HYPERTENSION 06/12/2015 MADL, ANGEL LUIS L [employer]ITARY [employer] SUPERVISOR Ot G47.33 OBSTRUCTIVE SLEEP APNEA (ADULT) (PEDIATR [...] Ot 496 CHR AIRWAY OBSTRUCT NEC 01/14/2016 YAMILESCOTTYA L [employer]ITARY [employer] SUPERVISOR Ot 780.4 DIZZINESS AND GIDDINESS 01/14/2016 MADL, ANGEL LUIS L [employer]IT[employer] SUPERVISOR Ot M54.2 CERVICALGIA 01/15/2016 MADL, ANGEL LUIS L [employer]ITARY [employer] SUPERVISOR Ot 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 01/15/2016 MADL, ANGEL LUIS L [employer]ITARY [employer] SUPERVISOR Ot M47.812 SPONDYLOSIS W/O MYELOPATHY OR RADICULOPA 01/15/2016 MADL, ANGEL LUIS L [employer]IT[employer] SUPERVISOR Ot M48.02 SPINAL STENOSIS, CERVICAL REGION 01/17/2016 MADL, ANGEL LUIS L SANITARY [employer] SUPERVISOR Ot 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 01/17/2016 MADL, ANGEL LUIS L SANITARY [employer] SUPERVISOR Ot M47.812 SPONDYLOSIS W/O MYELOPATHY OR RADICULOPA 01/17/2016 MADL, ANGEL LUIS L SANITARY [employer] SUPERVISOR Ot M48.02 SPINAL STENOSIS, CERVICAL REGION 02/06/2016 MADL, ANGEL LUIS L SANITARY [employer] SUPERVISOR Ot 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 02/06/2016 MADL, ANGEL LUIS L SANITARY [employer] SUPERVISOR Ot M47.812 SPONDYLOSIS W/O MYELOPATHY OR RADICULOPA 02/06/2016 MADLSCOTTYA L SANITARY [employer]ANDFILL SUPERVISOR Ot M48.02 SPINAL STENOSIS, CERVICAL REGION 02/14/2016 MADLSCOTTYA L SANITARY [employer]FI[employer] SUPERVISOR Ot 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 02/14/2016 MADLSCOTTYA L SANITARY [employer] SUPERVISOR Ot M47.812 SPONDYLOSIS W/O MYELOPATHY OR RADICULOPA 02/14/2016 MADLSCOTTYA L SANITARY [employer] SUPERVISOR Ot M48.02 SPINAL STENOSIS, CERVICAL REGION 07/06/2016 Ot 305.1 TOBACCO USE DISORDER 07/06/2016 Ot 496 CHR AIRWAY OBSTRUCT NEC 07/06/2016 ISIDRA WILDE DO Ot 305.1 TOBACCO USE DISORDER 07/06/2016 ISIDRA WILDE DO Ot 496 CHR AIRWAY OBSTRUCT NEC 07/06/2016 MADL, ANGEL LUIS L [employer]IT[employer] SUPERVISOR Ot 780.4 DIZZINESS AND GIDDINESS 07/06/2016 MADL, ANGEL LUIS L SANITARY [employer] SUPERVISOR Ot 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 07/06/2016 MADLSCOTTYA L SANITARY [employer]FILL SUPERVISOR Ot M47.812 SPONDYLOSIS W/O MYELOPATHY OR RADICULOPA 07/06/2016 MADLSCOTTYA L SANITARY [employer]FI[employer] SUPERVISOR Ot M48.02 SPINAL STENOSIS, CERVICAL REGION 07/31/2016 MADSCOTTY EdmondsA L [employer]IT[employer] SUPERVISOR Ot G93.9 DISORDER OF BRAIN, UNSPECIFIED 07/31/2016 SUNGLSCOTTYA L SANITARY [employer] SUPERVISOR Ot R93.0 ABNORMAL FINDINGS ON DX IMAGING OF SKULL 08/21/2016 Ot 305.1 TOBACCO USE DISORDER 08/21/2016 Ot 496 CHR AIRWAY OBSTRUCT NEC 08/21/2016 IISDRA WILDE DO Ot 305.1 TOBACCO USE DISORDER 08/21/2016 ISIDRA WILDE DO Ot 496 CHR AIRWAY OBSTRUCT NEC 08/21/2016 MADL, ANGEL LUIS L SANITARY [employer] SUPERVISOR Ot 780.4 DIZZINESS AND GIDDINESS 08/21/2016 MADL, ANGEL LUIS L SANITARY [employer] SUPERVISOR Ot 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 08/21/2016 MADLSCOTTYA L SANITARY [employer]ANDFILL SUPERVISOR Ot M47.812 SPONDYLOSIS W/O MYELOPATHY OR RADICULOPA 08/21/2016 ANGEL LUIS OVALLE SANITARY LAND[employer]LL SUPERVISOR Ot M48.02 SPINAL STENOSIS, CERVICAL REGION 08/21/2016 ANGEL LUIS OVALLE SANITARY LANDFILL SUPERVISOR Ot G93.9 DISORDER OF BRAIN, UNSPECIFIED 08/21/2016 ANGEL LUIS OVALLE SANITARY [employer]AND[employer]LL SUPERVISOR Ot R93.0 ABNORMAL FINDINGS ON DX IMAGING OF SKULL 08/21/2016 KALLIE BERNARD MD Ot M50.13 CERVICAL DISC DISORDER W RADICULOPATHY, 08/21/2016 KALLIE BERNARD MD Ot Z79.899 OTHER GROUP HOME (CURRENT) DRUG THERAPY 10/22/2016 MATHIEU DO TOM K Ot I10 ESSENTIAL (PRIMARY) HYPERTENSION 10/22/2016 MATHIEU DO TOM K Ot J44.9 CHRONIC OBSTRUCTIVE PULMONARY DISEASE, U 10/22/2016 MATHIEU DO TOM K Ot R42 DIZZINESS AND GIDDINESS 10/22/2016 MATHIEU DO TOM K Ot Z79.82 GROUP HOME (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 10/22/2016 MATHIEU DO TOM K Ot Z79.899 OTHER INSTRUCTOR [employer] (CURRENT) DRUG THERAPY 10/22/2016 MATHIEU DO TOM K Ot Z87.891 PERSONAL HISTORY OF NICOTINE DEPENDENCE 10/22/2016 MATHIEU DO TOM K Ot I10 ESSENTIAL (PRIMARY) HYPERTENSION 10/22/2016 MATHIEU DO TOM K Ot J44.9 CHRONIC OBSTRUCTIVE PULMONARY DISEASE, U 10/22/2016 MATHIEU DO TOM K Ot R42 DIZZINESS AND GIDDINESS 10/22/2016 MATHIEU DO TOM K Ot 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 10/22/2016 MATHIEU DO TOM K Ot Z79.899 OTHER INSTRUCTOR [employer] (CURRENT) DRUG THERAPY 10/22/2016 MATHIEU DO TOM K Ot Z87.891 PERSONAL HISTORY OF NICOTINE DEPENDENCE 11/14/2016 MATHIEU DO TOM K Ot I10 ESSENTIAL (PRIMARY) HYPERTENSION 11/14/2016 MATHIEU DO TOM K Ot J44.9 CHRONIC OBSTRUCTIVE PULMONARY DISEASE, U 11/14/2016 MATHIEU DO TOM K Ot R42 DIZZINESS AND GIDDINESS 11/14/2016 MATHIEU DO TOM K Ot 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 11/14/2016 TOM MURDOCK DO Ot Z79.899 OTHER IN[employer]CTOR [employer] (CURRENT) DRUG THERAPY 11/14/2016 TOM MURDOCK DO Ot Z87.891 PERSONAL HISTORY OF NICOTINE DEPENDENCE 11/26/2016 Ot 305.1 TOBACCO USE DISORDER 11/26/2016 Ot 496 CHR AIRWAY OBSTRUCT NEC 11/26/2016 ISIDRA WILDE DO Ot 305.1 TOBACCO USE DISORDER 11/26/2016 ANDRYISIDRA RIVAS DO Ot 496 CHR AIRWAY OBSTRUCT NEC 11/26/2016 MADL, ANGEL LUIS L [employer] SUPERVISOR Ot 780.4 DIZZINESS AND GIDDINESS 11/26/2016 MADL, ANGEL LUIS L SANITARY [employer] SUPERVISOR Ot 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 11/26/2016 MADL, ANGEL LUIS L SANITARY [employer] SUPERVISOR Ot M47.812 SPONDYLOSIS W/O MYELOPATHY OR RADICULOPA 11/26/2016 MADL, ANGEL LUIS L SANITARY [employer] SUPERVISOR Ot M48.02 SPINAL STENOSIS, CERVICAL REGION 11/26/2016 MADL, ANGEL LUIS L SANITARY [employer] SUPERVISOR Ot G93.9 DISORDER OF BRAIN, UNSPECIFIED 11/26/2016 MADL, ANGEL LUIS L SANITARY [employer] SUPERVISOR Ot R93.0 ABNORMAL FINDINGS ON DX IMAGING OF SKULL 12/03/2016 Ot 305.1 TOBACCO USE DISORDER 12/03/2016 Ot 496 CHR AIRWAY OBSTRUCT NEC 12/03/2016 ISIDRA WILDE DO Ot 305.1 TOBACCO USE DISORDER 12/03/2016 ISIDRA WILDE DO Ot 496 CHR AIRWAY OBSTRUCT NEC 12/03/2016 MADL, ANGEL LUIS L [employer]ITARY [employer] SUPERVISOR Ot 780.4 DIZZINESS AND GIDDINESS 12/03/2016 MADL, ANGEL LUIS L SANITARY [employer] SUPERVISOR Ot 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 12/03/2016 MADL, ANGEL LUSI L SANITARY [employer] SUPERVISOR Ot M47.812 SPONDYLOSIS W/O MYELOPATHY OR RADICULOPA 12/03/2016 MADL, ANGEL LUIS L [employer] SUPERVISOR Ot M48.02 SPINAL STENOSIS, CERVICAL REGION 12/03/2016 MADL, ANGEL LUIS L [employer] SUPERVISOR Ot G93.9 DISORDER OF BRAIN, UNSPECIFIED 12/03/2016 MADL, ANGEL LUIS L [employer] SUPERVISOR Ot R93.0 ABNORMAL FINDINGS ON DX IMAGING OF SKULL 12/03/2016 MELISSA MAIER FACC, SHAWN FACP CCDS Ot R07.89 OTHER CHEST PAIN 12/10/2016 Ot 305.1 TOBACCO USE DISORDER 12/10/2016 Ot 496 CHR AIRWAY OBSTRUCT NEC 12/10/2016 ANDRY ISIDRA YATES Ot 305.1 TOBACCO USE DISORDER 12/10/2016 ANDRYISIDRA RIVAS DO Ot 496 CHR AIRWAY OBSTRUCT NEC 12/10/2016 MADL, ANGEL LUIS L [employer] SUPERVISOR Ot 780.4 DIZZINESS AND GIDDINESS 12/10/2016 MADL, ANGEL LUIS L [employer] SUPERVISOR Ot 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 12/10/2016 MADL, ANGEL LUIS L [employer] SUPERVISOR Ot M47.812 SPONDYLOSIS W/O MYELOPATHY OR RADICULOPA 12/10/2016 MADL, ANGEL LUIS L [employer] SUPERVISOR Ot M48.02 SPINAL STENOSIS, CERVICAL REGION 12/10/2016 MADL, ANGEL LUIS L [employer] SUPERVISOR Ot G93.9 DISORDER OF BRAIN, UNSPECIFIED 12/10/2016 MADL, ANGEL LUIS L [employer] SUPERVISOR Ot R93.0 ABNORMAL FINDINGS ON DX IMAGING OF SKULL 12/10/2016 MELISSA MAIER FACC, SHAWN FACP CCDS Ot R07.89 OTHER CHEST PAIN 12/11/2016 MELISSA MAIER FACC, SHAWN FACP CCDS Ot I08.3 COMB RHEUMATIC DISORD OF MITRAL, AORTIC 12/11/2016 MELISSA MAIER FACC, ALI FACP CCDS Ot R07.89 OTHER CHEST PAIN 12/28/2016 MELISSA MAIER FACC, ALI FACP CCDS Ot R07.89 OTHER CHEST PAIN 12/31/2016 MELISSA MAIER FACC, ALI FACP CCDS Ot I08.3 COMB RHEUMATIC DISORD OF MITRAL, AORTIC 12/31/2016 MELISSA MAIER FACC, ALI FACP CCDS Ot R07.89 OTHER CHEST PAIN 01/08/2017 MELISSA MAIER FACC ALI FACP CCDS Ot I08.3 COMB RHEUMATIC DISORD OF MITRAL, AORTIC 01/08/2017 MELISSA MAIER FACC, ALI FACP CCDS Ot R07.89 OTHER CHEST PAIN 03/31/2017 RICH ADAMS APRN Ot F17.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, UNSPECIFIED, IN REM 03/31/2017 RICH ADAMS APRN Ot J43.9 EMPHYSEMA, UNSPECIFIED 04/08/2017 MADLANGEL LUIS [employer] SUPERVISOR Ot 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 04/08/2017 MADL, ANGEL LUIS L [employer] SUPERVISOR Ot I72.0 ANEURYSM OF CAROTID ARTERY 04/08/2017 RICH ADAMS [employer]INE [employer] SURVEYOR Ot G47.33 OBSTRUCTIVE SLEEP APNEA (ADULT) (PEDIATR 04/12/2017 MADL, ANGEL LUIS L [employer] SUPERVISOR Ot I72.0 ANEURYSM OF CAROTID ARTERY 04/13/2017 MADL, ANGEL LUIS L [employer] SUPERVISOR Ot F17.210 NICOTINE DEPENDENCE, CIGARETTES, UNCOMPL 04/20/2017 RICH ADAMS [employer] SURVEYOR Ot F17.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, UNSPECIFIED, IN REM 04/20/2017 RICH ADAMS APRN Ot J43.9 EMPHYSEMA, UNSPECIFIED 04/21/2017 RICH ADAMS [employer] SURVEYOR Ot G47.33 OBSTRUCTIVE SLEEP APNEA (ADULT) (PEDIATR 04/27/2017 MADL, ANGEL LUIS [place] [employer] SUPERVISOR Ot F17.210 NICOTINE DEPENDENCE, CIGARETTES, UNCOMPL 04/30/2017 RICH ADAMS [employer] SURVEYOR Ot F17.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, UNSPECIFIED, IN REM 04/30/2017 RICH ADAMS APRN Ot J43.9 EMPHYSEMA, UNSPECIFIED 05/21/2017 MILY MAHAN Ot I10 ESSENTIAL (PRIMARY) HYPERTENSION 05/21/2017 MILY MAHAN Ot J44.9 CHRONIC OBSTRUCTIVE PULMONARY DISEASE, U 05/21/2017 MILY MAHAN Ot K21.9 GASTRO-ESOPHAGEAL REFLUX DISEASE WITHOUT 05/21/2017 MILY MAHAN Ot R07.89 OTHER CHEST PAIN 05/21/2017 MILY MAHAN Ot S20.211A CONTUSION OF RIGHT FRONT WALL OF THORAX, 05/21/2017 MILY MAHAN Ot S30.1XXA CONTUSION OF ABDOMINAL WALL, INITIAL ENC 05/21/2017 MILY MAHAN Ot W18.09XA STRIKING AGAINST OTH OBJECT W SUBSEQUENT 05/21/2017 MILY MAHAN Ot 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 05/21/2017 MILY MAHAN Ot Z87.891 PERSONAL HISTORY OF NICOTINE DEPENDENCE Procedures Code Description [place] [address] ROUTINE VENIPUNCTURE 08/02/2012 42950 MEASURE BLOOD OXYGEN LEVEL 08/02/2012 HEIKE GermanKarlene 08/02/2012 Urology Elisa Maciel 08/02/2012 12659 A1C (IN-HOUSE) 08/02/2012 27855 CBC 08/02/2012 57200 CMP 08/02/2012 63224 LIPID PANEL 08/02/2012 10534 MAGNESIUM 08/02/2012 [id number] GFR CALC (RESULT ONLY) 08/02/2012 38419 PSA FREE AND TOTAL 08/03/2012 53860 ROUTINE VENIPUNCTURE 09/02/2012 36841 BMP 09/02/2012 [id number] GFR CALC (RESULT ONLY) 09/02/[address] NECK, SOFT TISSUE NECK W/ DYE 09/05/[address] CHEST W/DYE 09/05/2012 04113 OXIMETRY 09/05/2012 07466 ROUTINE VENIPUNCTURE 11/01/2012 69628 CMP 11/01/2012 52192 LIPID PANEL 11/01/2012 [id number] GFR CALC (RESULT ONLY) 11/01/2012 UROLO Landen Lafleur 11/03/2012 45752 ROUTINE VENIPUNCTURE 01/18/2013 66571 CMP 01/18/2013 99114 MAGNESIUM 01/18/2013 [id number] GFR CALC (RESULT ONLY) 01/18/2013 56023 EKG, TRACING (IN-HOUSE) 06/16/2013 86713 ROUTINE VENIPUNCTURE 10/13/2013 70388 CMP 10/13/2013 70184 MAGNESIUM 10/13/2013 50832 CBC 10/13/2013 88071 ROUTINE VENIPUNCTURE 12/06/2013 87636 XRAY CHEST 2 VIEW 12/06/2013 64005 XRAY CERVICAL SPINE, 2 OR 3 VIEWS 12/06/2013 33676 CBC 12/06/2013 [id number] GFR CALC (RESULT ONLY) 12/06/2013 92954 CMP 12/06/2013 81787 CPK 12/06/2013 32242 TSH 12/06/2013 66680 VITAMIN D 25-HYDROXY (D2,D3 , TOTAL) 12/06/2013 37675 ROUTINE VENIPUNCTURE 12/13/2013 36164 LYME EIA W/WEST BLOT 12/13/2013 90342 EHRLICHIA ANTIBODY 12/13/2013 83450 TULAREMIA ANTIBODY 12/13/2013 21362 SAGRARIO MT SPOT FEVER 12/13/2013 79399 OXIMETRY 12/13/2013 59027 HEMOCCULT 12/15/2013 01819 HEMOCCULT 12/15/2013 J1040 DEPO MEDROL 80 MG INJ 12/28/2013 60581 THERAPUTIC INJ SQ/IM 12/28/2013 33710 OXIMETRY 05/22/2014 Results Test Result Range PT panel in [...] 23:05 Blood leukocytes automated count (number/volume) 7.4 10*3/uL 4.3-11.0 Blood erythrocytes automated count (number/volume) 5.18 10*6/uL 4.35-5.85 Venous blood hemoglobin measurement (mass/volume) 16.4 [...] Automated blood platelet mean volume measurement 10.2 [foz_us] 7.4-10.4 Automated blood neutrophils/100 leukocytes 76 % [...] Serum or plasma sodium measurement (moles/volume) 141 mmol/L 135-145 Serum or plasma potassium measurement (moles/volume) 4.2 mmol/L 3.6-5.0 Serum or plasma chloride measurement (moles/volume) 109 mmol/L 98-107 Carbon dioxide 23 mmol/L 21-32 Serum or plasma anion gap determination (moles/volume) 9 mmol/L 5-14 Serum or plasma urea nitrogen measurement (mass/volume) 14 mg/dL 7-18 Serum or plasma creatinine measurement (mass/volume) 0.85 mg/dL 0.60-1.30 Serum or plasma urea nitrogen/creatinine mass [...] or plasma troponin i.cardiac measurement (mass/volume) < ng/ mL <0.30 Serum or plasma lithium measurement (moles/volume) - 10/21/16 23:05 BNP level 35.9 pg/mL <100.0 Complete blood count (CBC) with automated white blood cell (WBC) differential - 05/21/17 19:50 Blood leukocytes automated count (number/volume) 8.6 10*3/uL 4.3-11.0 Blood erythrocytes automated count (number/volume) 5.07 10*6/uL 4.35-5.85 Venous blood hemoglobin measurement (mass/volume) 16.1 g/dL 13.3-17.7 Blood hematocrit (volume fraction) 47 % 40-54 Automated erythrocyte mean corpuscular volume 93 [foz_us] 80-99 Automated erythrocyte mean corpuscular hemoglobin (mass per erythrocyte) 32 pg 25-34 Automated erythrocyte mean corpuscular hemoglobin concentration measurement ( mass/volume) 34 g/dL 32-36 Automated erythrocyte distribution width ratio 13.1 % 10.0-14.5 Automated blood platelet count (count/volume) 194 10*3/uL 130-400 Automated blood platelet mean volume measurement 10.2 [foz_us] 7.4-10.4 Automated blood neutrophils/100 leukocytes 72 % 42-75 Automated blood lymphocytes/100 leukocytes 19 % 12-44 Blood monocytes/100 leukocytes 8 % 0-12 Automated blood eosinophils/100 leukocytes 1 % 0-10 Automated blood basophils/100 leukocytes 0 % 0-10 Blood neutrophils automated count (number/volume) 6.2 10*3 1.8-7.8 Blood lymphocytes automated count (number/volume) 1.6 10*3 1.0-4.0 Blood monocytes automated count (number/volume) 0.7 10*3 0.0-1.0 Automated eosinophil count 0.1 10*3/uL 0.0-0.3 Automated blood basophil count (count/volume) 0.0 10*3/uL 0.0-0.1 Comprehensive metabolic panel - 05/21/17 19:50 Serum or plasma sodium measurement (moles/volume) 141 mmol/L 135-145 Serum or plasma potassium measurement (moles/volume) 3.9 mmol/L 3.6-5.0 Serum or plasma chloride measurement (moles/volume) 106 mmol/L 98-107 Carbon dioxide 26 mmol/L 21-32 Serum or plasma anion gap determination (moles/volume) 9 mmol/L 5-14 Serum or plasma urea nitrogen measurement (mass/volume) 17 mg/dL 7-18 Serum or plasma creatinine measurement (mass/volume) 0.98 mg/dL 0.60-1.30 Serum or plasma urea nitrogen/creatinine mass ratio 17 NRG Serum or plasma creatinine measurement with calculation of estimated glomerular filtration rate > NRG Serum or plasma glucose measurement (mass/volume) 123 mg/dL 70-105 Serum or plasma calcium measurement (mass/volume) 8.9 mg/dL 8.5-10.1 Serum or plasma total bilirubin measurement (mass/volume) 0.4 mg/dL 0.1-1.0 Serum or plasma alkaline phosphatase measurement (enzymatic activity/volume) 89 U/L 40-136 Serum or plasma aspartate aminotransferase measurement (enzymatic activity/ volume) 15 U/L 5-34 Serum or plasma alanine aminotransferase measurement (enzymatic activity/volume ) 17 U/L 0-55 Serum or plasma protein measurement (mass/volume) 6.6 g/dL 6.4-8.2 Serum or plasma albumin measurement (mass/volume) 3.9 g/dL 3.2-4.5 Complete urinalysis with reflex to culture - 08/14/17 16:04 Urine color determination YELLOW NRG Urine clarity determination CLEAR NRG Urine pH measurement by test strip 6.5 5-9 Specific gravity of urine by test strip 1.020 1.016- 1.022 Urine protein assay by test strip, semi-quantitative NEGATIVE NEGATIVE Urine glucose detection by automated test strip NEGATIVE NEGATIVE Erythrocytes detection in urine sediment by light microscopy 1+ NEGATIVE Urine ketones detection by automated test strip NEGATIVE NEGATIVE Urine nitrite detection by test strip NEGATIVE NEGATIVE Urine total bilirubin detection by test strip NEGATIVE NEGATIVE Urine urobilinogen measurement by automated test strip (mass/volume) NORMAL NORMAL Urine leukocyte esterase detection by dipstick NEGATIVE NEGATIVE Automated urine sediment erythrocyte count by microscopy (number/high power field) [HPF] NRG Automated urine sediment leukocyte count by microscopy (number/high power field ) NONE NRG Bacteria detection in urine sediment by light microscopy NONE NRG Squamous epithelial cells detection in urine sediment by light microscopy RARE NRG Crystals detection in urine sediment by light microscopy NONE NRG Casts detection in urine sediment by light microscopy NONE NRG Mucus detection in urine sediment by light microscopy NEGATIVE NRG Complete urinalysis with reflex to culture NO NRG Complete blood count (CBC) with automated white blood cell (WBC) differential - 08/14/17 16:15 Blood leukocytes automated count (number/volume) 8.0 10*3/uL 4.3-11.0 Blood erythrocytes automated count (number/volume) 5.31 10*6/uL 4.35-5.85 Venous blood hemoglobin measurement (mass/volume) 16.7 g/dL 13.3-17.7 Blood hematocrit (volume fraction) 48 % 40-54 Automated erythrocyte mean corpuscular volume 90 [foz_us] 80-99 Automated erythrocyte mean corpuscular hemoglobin (mass per erythrocyte) 32 pg 25-34 Automated erythrocyte mean corpuscular hemoglobin concentration measurement ( mass/volume) 35 g/dL 32-36 Automated erythrocyte distribution width ratio 12.7 % 10.0-14.5 Automated blood platelet count (count/volume) 197 10*3/uL 130-400 Automated blood platelet mean volume measurement 10.1 [foz_us] 7.4-10.4 Automated blood neutrophils/100 leukocytes 69 % 42-75 Automated blood lymphocytes/100 leukocytes 21 % 12-44 Blood monocytes/100 leukocytes 9 % 0-12 Automated blood eosinophils/100 leukocytes 2 % 0-10 Automated blood basophils/100 leukocytes 0 % 0-10 Blood neutrophils automated count (number/volume) 5.5 10*3 1.8-7.8 Blood lymphocytes automated count (number/volume) 1.7 10*3 1.0-4.0 Blood monocytes automated count (number/volume) 0.7 10*3 0.0-1.0 Automated eosinophil count 0.1 10*3/uL 0.0-0.3 Automated blood basophil count (count/volume) 0.0 10*3/uL 0.0-0.1 Comprehensive metabolic panel - 08/14/17 16:15 Serum or plasma sodium measurement (moles/volume) 140 mmol/L 135-145 Serum or plasma potassium measurement (moles/volume) 4.3 mmol/L 3.6-5.0 Serum or plasma chloride measurement (moles/volume) 105 mmol/L 98-107 Carbon dioxide 26 mmol/L 21-32 Serum or plasma anion gap determination (moles/volume) 9 mmol/L 5-14 Serum or plasma urea nitrogen measurement (mass/volume) 17 mg/dL 7-18 Serum or plasma creatinine measurement (mass/volume) 0.96 mg/dL 0.60-1.30 Serum or plasma urea nitrogen/creatinine mass ratio 18 NRG Serum or plasma creatinine measurement with calculation of estimated glomerular filtration rate > NRG Serum or plasma glucose measurement (mass/volume) 104 mg/dL 70-105 Serum or plasma calcium measurement (mass/volume) 9.1 mg/dL 8.5-10.1 Serum or plasma total bilirubin measurement (mass/volume) 0.4 mg/dL 0.1-1.0 Serum or plasma alkaline phosphatase measurement (enzymatic activity/volume) 92 U/L 40-136 Serum or plasma aspartate aminotransferase measurement (enzymatic activity/ volume) 16 U/L 5-34 Serum or plasma alanine aminotransferase measurement (enzymatic activity/volume ) 18 U/L 0-55 Serum or plasma protein measurement (mass/volume) 6.8 g/dL 6.4-8.2 Serum or plasma albumin measurement (mass/volume) 4.0 g/dL 3.2-4.5 Encounters ACCT No. Visit Date/Time Discharge Status Pt. Type Provider Facility Loc./Unit Complaint [id number] 2014 10:29:00 2014 23:59:59 CLS Outpatient RUPERT MARIE DO [id number] 05/22/2014 15:34:00 05/22/2014 23:59:59 CLS Outpatient ANGEL LUIS OVALLE APRN [id number] 12/28/2013 13:18:00 12/28/2013 23:59:59 CLS Outpatient MRATA MARTINEZ APRN [id number] 12/15/2013 11:19:00 12/15/2013 23:59:59 CLS Outpatient ANGEL LUIS OVALLE APRN [id number] 12/13/2013 11:19:00 12/13/2013 23:59:59 CLS Outpatient ANGEL LUIS OVALLE APRN [id number] 12/06/2013 14:53:00 12/06/2013 23:59:59 CLS Outpatient RUPERT MARIE DO [id number] 12/06/2013 14:53:00 12/06/2013 23:59:59 CLS Outpatient MADANGEL LUIS Edmonds APRN [id number] 10/13/2013 09:30:00 10/13/2013 23:59:59 CLS Outpatient RUPERT MARIE DO [id number] 07/13/2013 10:36:00 07/13/2013 23:59:59 CLS Outpatient GIORGI SO MD [id number] 06/16/2013 13:49:00 06/16/2013 23:59:59 CLS Outpatient SUZIE PAVON MD [id number] 09/02/2012 09:47:00 09/02/2012 23:59:59 CLS Outpatient [id number] 08/19/2012 08:12:00 08/19/2012 23:59:59 CLS Outpatient [id number] 08/02/2012 11:14:00 08/02/2012 23:59:59 CLS Outpatient GIORGI SO MD [id number] 04/21/2012 16:12:00 04/21/2012 23:59:59 CLS Outpatient [id number] 01/18/2013 14:50:00 Document Registration [id number] 11/01/2012 09:32:00 Document Registration [id number] 11/01/2012 09:32:00 Document Registration [id number] 05/21/2017 18:46:00 05/21/2017 21:55:00 DIS Emergency MILY MAHAN [facility] ER PT FELL,RT SIDED RIB PAIN [id number] 04/20/2017 20:24:00 04/21/2017 05:50:00 DIS Outpatient RICH ADAMS APRN [facility] SLEEP G47.33 [id number] 04/14/2017 16:20:00 04/14/2017 23:59:59 CLS Preadmit MADLSCOTTYA L [employer] [facility] RAD SMOKING > 40 PACK YEARS [id number] 04/13/2017 08:04:00 04/13/2017 23:59:59 CLS Outpatient MADL, ANGEL LUIS L [employer] [facility] RAD F17.210 [id number] 03/30/2017 09:34:00 03/30/2017 23:59:59 CLS Outpatient RICH ADAMS APRN [facility] RAD COPD [id number] 12/10/2016 09:42:00 12/10/2016 23:59:59 CLS Outpatient MELISSA AMIER FACC, SHAWN FACP CCDS [facility] CARD R07.89 [id number] 12/01/2016 11:55:00 12/01/2016 23:59:59 CLS Outpatient MELISSA MAIER FACC, SHAWN FACP CCDS [facility] CARD R07.89 [id number] 10/21/2016 22:50:00 10/22/2016 01:19:00 DIS Emergency TOM MURDOCK DO [facility] ER ELEVATED BLOOD PRESSURE [id number] 08/21/2016 09:06:00 08/21/2016 10:35:00 DIS Outpatient KALLIE BERNARD MD [facility] CARD DISC DISORDER [id number] 07/06/2016 15:30:00 07/06/2016 23:59:59 CLS Outpatient MADL, ANGEL LUIS L [employer] [facility] RAD ABNORMAL MRI OF HEAD [id number] 01/14/2016 09:19:00 01/14/2016 23:59:59 CLS Outpatient MADL, ANGEL LUIS L [employer] [facility] RAD NECK PAIN, VERTIGO, FAM HX OF BRAIN CANCER [id number] 06/11/2015 21:00:00 06/12/2015 05:40:00 DIS Outpatient MADL, ANGEL LUIS L [employer] [facility] SLEEP NOCTUNAL HYPOXIA, DIZZINESS [id number] 05/08/2015 20:00:00 05/09/2015 06:20:00 DIS Outpatient MADL, ANGEL LUIS L [employer] [facility] SLEEP CHOKING AND GASPING, HYPERSOMINIA [id number] 03/11/2015 13:19:00 03/11/2015 23:59:59 CLS Outpatient MADL, ANGEL LUIS L [employer] [facility] RAD VERTIGO [id number] 10/31/2014 11:59:00 10/31/2014 23:59:59 CLS Outpatient ISIDRA WILDE DO [facility] RAD COPD,TOBACCO USE [id number] 06/16/2013 16:00:00 06/18/2013 11:30:00 DIS Inpatient SARAY MAIER, GIORGI Alba [facility] 4TH COPD [id number] 02/21/2013 11:19:00 02/21/2013 23:59:59 CLS Outpatient [id number] 08/14/2017 16:17:00 Document Registration [id number] 09/07/2012 08:19:00 Document Registration [id number] 10/29/2010 09:31:00 Document Registration [id number] 09/17/2010 09:15:00 Document Registration [id number] 12/18/2009 05:37:00 Document Registration [id number] 12/17/2009 12:53:00 Document Registration [id number] 12/17/2009 07:58:00 Document Registration [id number] 12/12/2009 14:24:00 Document Registration [id number] 12/11/2009 07:27:00 Document Registration [id number] 12/09/2009 09:18:00 Document Registration [id number] 11/07/2009 05:44:00 Document Registration [id number] 11/05/2009 09:12:00 Document Registration
== END 2017-08-15 12:56 | disposition home or self-care (01) ==
LOC: EDUNIT# 11:37 → ER 11:38
DX: T83.098A Other mechanical complication of other urinary catheter, initial encounter (principal); J44.9 Chronic obstructive pulmonary disease, unspecified; I10 Essential (primary) hypertension; K21.9 Gastro-esophageal reflux disease without esophagitis; Z80.1 Family history of malignant neoplasm of trachea, bronchus and lung; Z80.8 Family history of malignant neoplasm of other organs or systems; Z79.82 Long term (current) use of aspirin; Z87.891 Personal history of nicotine dependence; Z90.49 Acquired absence of other specified parts of digestive tract
CPT/HCPCS: 99281

== ENCOUNTER 2017-08-17 03:22 | Emergency (ER) | payer MEDICARE, MEDICAID ==
[~2017-08-17] VITALS: Ht 177.8 cm; Wt 78.9 kg
--- OUTSIDE RECORDS SUMMARY | 2017-08-17 03:30 | XMS REPORT | Continuity of Care Document ---
Author Author [facility] Address Unknown Phone Unavailable Allergies Active Description Code Type Severity Reaction Onset Reported/Identified Relationship to Patient Clinical Status Yes No Known Drug Allergies [id number] Drug Allergy Mild N/A 11/05/2009 Medications There [...] screening exam malignant neoplasm prostate 10/11/2009 MADL LITERACY CONSULTANT, ANGEL LUIS L 173.9 OTHER MALIGNANT NEOPLASM OF SKIN, SITE UNSPECIFIED 10/11/2009 MADL LITERACY CONSULTANT, ANGEL LUIS L 496 CHRONIC OBSTRUCTIVE PULMONARY DISEASE 10/11/2009 MADL LITERACY CONSULTANT, ANGEL LUIS L 696.1 PSORIASIS 10/11/2009 MADL LITERACY CONSULTANT, ANGEL LUIS L V76.44 visit for: screening exam malignant neoplasm prostate 10/11/2009 MADL LITERACY CONSULTANT, ANGEL LUIS L 173.9 OTHER MALIGNANT NEOPLASM OF SKIN, SITE UNSPECIFIED 10/11/2009 MADL LITERACY CONSULTANT, ANGEL LUIS L 496 CHRONIC OBSTRUCTIVE PULMONARY DISEASE 10/11/2009 MADL LITERACY CONSULTANT, ANGEL LUIS L 696.1 PSORIASIS 10/11/2009 MADL LITERACY CONSULTANT, ANGEL LUIS L V76.44 visit for: screening exam malignant neoplasm prostate 10/11/2009 MADL LITERACY CONSULTANT, ANGEL LUIS L 173.9 OTHER MALIGNANT NEOPLASM OF SKIN, SITE UNSPECIFIED 10/11/2009 MADL LITERACY CONSULTANT, ANGEL LUIS L 496 CHRONIC OBSTRUCTIVE PULMONARY DISEASE 10/11/2009 MADL LITERACY CONSULTANT, ANGEL LUIS L 696.1 PSORIASIS 10/11/2009 MADL LITERACY CONSULTANT, ANGEL LUIS L V76.44 visit for: screening exam malignant neoplasm prostate 10/11/2009 MARIE DO, RUPERT K 173.9 OTHER MALIGNANT NEOPLASM OF SKIN, SITE UNSPECIFIED 10/11/2009 MARIE DO, RUPERT K 496 CHRONIC OBSTRUCTIVE PULMONARY DISEASE 10/11/2009 MARIE DO, RUPERT K 696.1 PSORIASIS 10/11/2009 MARIE DO, RUPERT K V76.44 visit for: screening exam malignant neoplasm prostate 10/11/2009 MARTINEZ LITERACY CONSULTANT, MARTA R 173.9 OTHER MALIGNANT NEOPLASM OF SKIN, SITE UNSPECIFIED 10/11/2009 MARTINEZ LITERACY CONSULTANT, MARTA R 496 CHRONIC OBSTRUCTIVE PULMONARY DISEASE 10/11/2009 MARTINEZ LITERACY CONSULTANT, MARTA R 696.1 PSORIASIS 10/11/2009 MARTINEZ LITERACY CONSULTANT, MARTA R V76.44 visit for: screening exam malignant neoplasm prostate 10/11/2009 MADL LITERACY CONSULTANT, ANGEL LUIS L 173.9 OTHER MALIGNANT NEOPLASM OF SKIN, SITE UNSPECIFIED 10/11/2009 MADL LITERACY CONSULTANT, ANGEL LUIS L 496 CHRONIC OBSTRUCTIVE PULMONARY DISEASE 10/11/2009 MADL LITERACY CONSULTANT, ANGEL LUIS L 696.1 PSORIASIS 10/11/2009 MADL LITERACY CONSULTANT, ANGEL LUIS L V76.44 visit for: screening [...] RUPERT K 380.4 IMPACTED CERUMEN 10/15/2009 MADL LITERACY CONSULTANT, ANGEL LUIS L 380.4 IMPACTED CERUMEN 10/15/2009 MADL LITERACY CONSULTANT, ANGEL LUIS L 380.4 IMPACTED CERUMEN 10/15/2009 MADL LITERACY CONSULTANT, ANGEL LUIS L 380.4 IMPACTED CERUMEN 10/15/2009 MARIE DO, RUPERT K 380.4 IMPACTED CERUMEN 10/15/2009 MARTINEZ LITERACY CONSULTANT, MARTA R 380.4 IMPACTED CERUMEN 10/15/2009 MADL LITERACY CONSULTANT, ANGEL LUIS L 380.4 IMPACTED CERUMEN 10/15/2009 [...] DO, RUPERT K 425.4 CARDIOMYOPATHY 04/21/2012 MADL LITERACY CONSULTANT, ANGEL LUIS L 272.4 HYPERLIPIDEMIA 04/21/2012 MADL LITERACY CONSULTANT, ANGEL LUIS L 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 04/21/2012 MADL LITERACY CONSULTANT, ANGEL LUIS L 425.4 CARDIOMYOPATHY 04/21/2012 MADL LITERACY CONSULTANT, ANGEL LUIS L 272.4 HYPERLIPIDEMIA 04/21/2012 MADL LITERACY CONSULTANT, ANGEL LUIS L 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 04/21/2012 MADL LITERACY CONSULTANT, ANGEL LUIS L 425.4 CARDIOMYOPATHY 04/21/2012 MADL LITERACY CONSULTANT, ANGEL LUIS L 272.4 HYPERLIPIDEMIA 04/21/2012 MADL LITERACY CONSULTANT, ANGEL LUIS L 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 04/21/2012 MADL LITERACY CONSULTANT, ANGEL LUIS L 425.4 CARDIOMYOPATHY 04/21/2012 MARIE DO, RUPERT K 272.4 HYPERLIPIDEMIA 04/21/2012 MARIE DO, RUPERT K 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 04/21/2012 MARIE DO, RUPERT K 425.4 CARDIOMYOPATHY 04/21/2012 MARTINEZ LITERACY CONSULTANT, MARTA R 272.4 HYPERLIPIDEMIA 04/21/2012 MARTINEZ LITERACY CONSULTANT, MARTA R 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 04/21/2012 MARTINEZ LITERACY CONSULTANT, MARTA R 425.4 CARDIOMYOPATHY 04/21/2012 MADL LITERACY CONSULTANT, ANGEL LUIS L 272.4 HYPERLIPIDEMIA 04/21/2012 MADL LITERACY CONSULTANT, ANGEL LUIS L 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 04/21/2012 [...] Serology Prostate-specific Antigen (PSA) Elevated 08/02/2012 MADL LITERACY CONSULTANT, ANGEL LUIS L 784.42 hoarseness 08/02/2012 MADL LITERACY CONSULTANT, ANGEL LUIS L 790.93 Serology Prostate-specific Antigen (PSA) Elevated 08/02/2012 MADL LITERACY CONSULTANT, ANGEL LUIS L 784.42 hoarseness 08/02/2012 MADL LITERACY CONSULTANT, ANGEL LUIS L 790.93 Serology Prostate-specific Antigen (PSA) Elevated 08/02/2012 MADL LITERACY CONSULTANT, ANGEL LUIS L 784.42 hoarseness 08/02/2012 MADL LITERACY CONSULTANT, ANGEL LUIS L 790.93 Serology Prostate-specific Antigen (PSA) Elevated 08/02/2012 MARIE DO, RUPERT K 784.42 hoarseness 08/02/2012 MARIE DO, RUPERT K 790.93 Serology Prostate-specific Antigen (PSA) Elevated 08/02/2012 MARTINEZ LITERACY CONSULTANT, MARTA R 784.42 hoarseness 08/02/2012 MARTINEZ LITERACY CONSULTANT, MARTA R 790.93 Serology Prostate-specific Antigen (PSA) Elevated 08/02/2012 MADL LITERACY CONSULTANT, ANGEL LUIS L 784.42 hoarseness 08/02/2012 MADL LITERACY CONSULTANT, ANGEL LUIS L 790.93 Serology Prostate-specific Antigen [...] 470 DEVIATED NASAL SEPTUM 08/19/2012 MARIE DO RUPRET K 250.80 DIABETIC FOOT ULCER 08/19/2012 MARIE DO RUPERT K 470 DEVIATED NASAL SEPTUM 08/19/2012 MADL LITERACY CONSULTANT, ANGEL LUIS L 250.80 DIABETIC FOOT ULCER 08/19/2012 MADL LITERACY CONSULTANT, ANGEL LUIS L 470 DEVIATED NASAL SEPTUM 08/19/2012 MADL LITERACY CONSULTANT, ANGEL LUIS L 250.80 DIABETIC FOOT ULCER 08/19/2012 MADL LITERACY CONSULTANT, ANGEL LUIS L 470 DEVIATED NASAL SEPTUM 08/19/2012 MADL LITERACY CONSULTANT, ANGEL LUIS L 250.80 DIABETIC FOOT ULCER 08/19/2012 MADL LITERACY CONSULTANT, ANGEL LUIS L 470 DEVIATED NASAL SEPTUM 08/19/2012 MARIE DO, RUPERT K 250.80 DIABETIC FOOT ULCER 08/19/2012 MARIE DO, RUPERT K 470 DEVIATED NASAL SEPTUM 08/19/2012 MARTINEZ LITERACY CONSULTANT, MARTA R 250.80 DIABETIC FOOT ULCER 08/19/2012 MARTINEZ LITERACY CONSULTANT, MARTA R 470 DEVIATED NASAL SEPTUM 08/19/2012 MADL LITERACY CONSULTANT, ANGEL LUIS L 250.80 DIABETIC FOOT ULCER 08/19/2012 MADL LITERACY CONSULTANT, ANGEL LUIS L 470 DEVIATED NASAL SEPTUM 08/19/2012 MARIE DO, RUPERT K 250.80 DIABETIC FOOT ULCER 08/19/2012 MARIE DO, RUPERT K 470 DEVIATED NASAL SEPTUM 01/18/2013 600.00 BPH W/O OBSTRUCTUION 01/18/2013 SUZIE PAVON MD 600.00 BPH W/O OBSTRUCTUION 01/18/2013 GIORGI SO MD 600.00 BPH W/O OBSTRUCTUION 01/18/2013 MARIE AKI YATESA K 600.00 BPH W/O OBSTRUCTUION 01/18/2013 MADL LITERACY CONSULTANT, ANGEL LUIS L 600.00 BPH W/O OBSTRUCTUION 01/18/2013 MADL LITERACY CONSULTANT, ANGEL LUIS L 600.00 BPH W/O OBSTRUCTUION 01/18/2013 MADL LITERACY CONSULTANT, ANGEL LUIS L 600.00 BPH W/O OBSTRUCTUION 01/18/2013 MARIE , RUPERT K 600.00 BPH W/O OBSTRUCTUION 01/18/2013 MARTINEZ LITERACY CONSULTANT, MARTA R 600.00 BPH W/O OBSTRUCTUION 01/18/2013 MADL LITERACY CONSULTANT, ANGEL LUIS L 600.00 BPH W/O OBSTRUCTUION 01/18/2013 MARIE DO RUPERT K 600.00 BPH W/O OBSTRUCTUION 06/16/2013 SUZIE PAVON MD 786.50 UNSPECIFIED CHEST PAIN 06/16/2013 GIORGI SO MD 786.50 UNSPECIFIED CHEST PAIN 06/16/2013 RUPERT MARIE DO 786.50 UNSPECIFIED CHEST PAIN 06/16/2013 MADL LITERACY CONSULTANT, ANGEL LUIS L 786.50 UNSPECIFIED CHEST PAIN 06/16/2013 MADL LITERACY CONSULTANT, ANGEL LUIS L 786.50 UNSPECIFIED CHEST PAIN 06/16/2013 MADL LITERACY CONSULTANT, ANGEL LUIS L 786.50 UNSPECIFIED CHEST PAIN 06/16/2013 MARIE DO, RUPERT K 786.50 UNSPECIFIED CHEST PAIN 06/16/2013 MARTA MARTINEZ APRN R 786.50 UNSPECIFIED CHEST PAIN 06/16/2013 MADL LITERACY CONSULTANT, ANGEL LUIS L 786.50 UNSPECIFIED CHEST PAIN [...] Ot 786.50 CHEST PAIN NOS 12/06/2013 MADL LITERACY CONSULTANT, ANGEL LUIS L 723.1 CERVICALGIA 12/06/2013 MADL LITERACY CONSULTANT, ANGEL LUIS L 780.79 OTHER MALAISE AND FATIGUE 12/06/2013 MADL LITERACY CONSULTANT, ANGEL LUIS L 783.21 LOSS OF WEIGHT 12/06/2013 MADL LITERACY CONSULTANT, ANGEL LUIS L 723.1 CERVICALGIA 12/06/2013 MADL LITERACY CONSULTANT, ANGEL LUIS L 780.79 OTHER MALAISE AND FATIGUE 12/06/2013 MADL LITERACY CONSULTANT, ANGEL LUIS L 783.21 LOSS OF WEIGHT 12/06/2013 MADL LITERACY CONSULTANT, ANGEL LUIS L 723.1 CERVICALGIA 12/06/2013 MADL LITERACY CONSULTANT, ANGEL LUIS L 780.79 OTHER MALAISE AND FATIGUE 12/06/2013 MADL LITERACY CONSULTANT, ANGEL LUIS L 783.21 LOSS OF WEIGHT 12/06/2013 MARIE DO, RUPERT K 723.1 CERVICALGIA 12/06/2013 MARIE DO RUPERT K 780.79 OTHER MALAISE AND FATIGUE 12/06/2013 MARIE DO, RUPERT K 783.21 LOSS OF WEIGHT 12/06/2013 MARTINEZ LITERACY CONSULTANT, MARTA R 723.1 CERVICALGIA 12/06/2013 MARTINEZ LITERACY CONSULTANT, MARTA R 780.79 OTHER MALAISE AND FATIGUE 12/06/2013 MARTINEZ LITERACY CONSULTANT, MARTA R 783.21 LOSS OF WEIGHT 12/06/2013 MADL LITERACY CONSULTANT, ANGEL LUIS L 723.1 CERVICALGIA 12/06/2013 MADL LITERACY CONSULTANT, ANGEL LUIS L 780.79 OTHER MALAISE AND FATIGUE 12/06/2013 MADL LITERACY CONSULTANT, ANGEL LUIS L 783.21 LOSS OF WEIGHT 12/06/2013 MARIE DO, RUPERT K 723.1 CERVICALGIA 12/06/2013 MARIE DO, RUPERT K 780.79 OTHER MALAISE AND FATIGUE 12/06/2013 MARIE DO, RUPERT K 783.21 LOSS OF WEIGHT 12/13/2013 SUNGL LITERACY CONSULTANT, ANGEL LUIS L 919.4 INSECT BITE NONVENOMOUS OF OTHER MULTIPLE AND UNSPECIFIED SITES WITHOUT INFECTION 12/13/2013 MADL LITERACY CONSULTANT, ANGEL LUIS L 919.4 INSECT BITE NONVENOMOUS OF OTHER MULTIPLE AND UNSPECIFIED SITES WITHOUT INFECTION 12/13/2013 MARIE DO, RUPERT K 919.4 INSECT BITE NONVENOMOUS OF OTHER MULTIPLE AND UNSPECIFIED SITES WITHOUT INFECTION 12/13/2013 ERIC MARTINEZ APRNRICIA R 919.4 INSECT BITE NONVENOMOUS OF OTHER MULTIPLE AND UNSPECIFIED SITES WITHOUT INFECTION 12/13/2013 MADL LITERACY CONSULTANT, ANGEL LUIS L 919.4 INSECT BITE NONVENOMOUS OF OTHER MULTIPLE AND UNSPECIFIED SITES WITHOUT INFECTION 12/13/2013 MARIE DO, RUPERT K 919.4 INSECT BITE NONVENOMOUS OF OTHER MULTIPLE AND UNSPECIFIED SITES WITHOUT INFECTION 12/28/2013 ERIC MARTINEZ APRNRICIA R 692.6 CONTACT DERMATITIS AND OTHER ECZEMA DUE TO PLANTS (EXCEPT FOOD) 12/28/2013 SUNGL LITERACY CONSULTANTNEREIDA MaryNYA L 692.6 CONTACT DERMATITIS AND OTHER [...] Ot 496 04/02/2015 YAMILE ANGEL LUIS 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 Ot 780.4 04/15/2015 ANGEL LUIS OVALLE EXTENSION COURSE COORDINATOR Ot 780.4 05/08/2015 Ot 492.8 05/08/2015 Ot [...] Ot 496 05/08/2015 MADANGEL LUIS Edmonds 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 Ot 780.4 05/09/2015 MADL, ANGEL LUIS 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 Ot G47.33 OBSTRUCTIVE SLEEP APNEA (ADULT) (PEDIATR 05/09/2015 MADL, ANGEL LUIS 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 Ot I10 ESSENTIAL (PRIMARY) HYPERTENSION 06/12/2015 MADL, ANGEL LUIS 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 Ot G47.33 OBSTRUCTIVE SLEEP APNEA (ADULT) (PEDIATR [...] CHR AIRWAY OBSTRUCT NEC 01/14/2016 YAMILESCOTTYA 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 Ot 780.4 DIZZINESS AND GIDDINESS 01/14/2016 MADL, ANGEL LUIS 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 Ot M54.2 CERVICALGIA 01/15/2016 MADL, ANGEL LUIS 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 Ot 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 01/15/2016 MADL, ANGEL LUIS 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 Ot M47.812 SPONDYLOSIS W/O MYELOPATHY OR RADICULOPA 01/15/2016 MADL, ANGEL LUIS 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 Ot M48.02 SPINAL STENOSIS, CERVICAL REGION 01/17/2016 MADL, ANGEL LUIS 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 Ot 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 01/17/2016 MADL, ANGEL LUIS 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 Ot M47.812 SPONDYLOSIS W/O MYELOPATHY OR RADICULOPA 01/17/2016 MADL, ANGEL LUIS 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 Ot M48.02 SPINAL STENOSIS, CERVICAL REGION 02/06/2016 MADL, ANGEL LUIS 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 Ot 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 02/06/2016 MADL, ANGEL LUIS 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 Ot M47.812 SPONDYLOSIS W/O MYELOPATHY OR RADICULOPA 02/06/2016 MADLSCOTTYA 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 Ot M48.02 SPINAL STENOSIS, CERVICAL REGION 02/14/2016 MADLSCOTTYA 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 Ot 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 02/14/2016 MADLSCOTTYA 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 Ot M47.812 SPONDYLOSIS W/O MYELOPATHY OR RADICULOPA 02/14/2016 MADLSCOTTYA 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 Ot M48.02 SPINAL STENOSIS, CERVICAL REGION 07/06/2016 Ot 305.1 TOBACCO USE DISORDER 07/06/2016 Ot 496 CHR AIRWAY OBSTRUCT NEC 07/06/2016 ISIDRA WILDE DO Ot 305.1 TOBACCO USE DISORDER 07/06/2016 ISIDRA WILDE DO Ot 496 CHR AIRWAY OBSTRUCT NEC 07/06/2016 MADL, ANGEL LUIS 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 Ot 780.4 DIZZINESS AND GIDDINESS 07/06/2016 MADL, ANGEL LUIS 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 Ot 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 07/06/2016 MADLSCOTTYA 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 Ot M47.812 SPONDYLOSIS W/O MYELOPATHY OR RADICULOPA 07/06/2016 MADLSCOTTYA 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 Ot M48.02 SPINAL STENOSIS, CERVICAL REGION 07/31/2016 MADSCOTTY EdmondsA 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 Ot G93.9 DISORDER OF BRAIN, UNSPECIFIED 07/31/2016 SUNGLSCOTTYA 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 Ot R93.0 ABNORMAL FINDINGS ON DX IMAGING OF SKULL 08/21/2016 Ot 305.1 TOBACCO USE DISORDER 08/21/2016 Ot 496 CHR AIRWAY OBSTRUCT NEC 08/21/2016 ISIDRA WILDE DO Ot 305.1 TOBACCO USE DISORDER 08/21/2016 ISIDRA WILDE DO Ot 496 CHR AIRWAY OBSTRUCT NEC 08/21/2016 MADL, ANGEL LUIS 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 Ot 780.4 DIZZINESS AND GIDDINESS 08/21/2016 MADL, ANGEL LUIS 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 Ot 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 08/21/2016 MADLSCOTTYA 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 Ot M47.812 SPONDYLOSIS W/O MYELOPATHY OR RADICULOPA 08/21/2016 ANGEL LUIS OVALLE EXTENSION COURSE COORDINATOR Ot M48.02 SPINAL STENOSIS, CERVICAL REGION 08/21/2016 ANGEL LUIS OVALLE EXTENSION COURSE COORDINATOR Ot G93.9 DISORDER OF BRAIN, UNSPECIFIED 08/21/2016 ANGEL LUIS OVALLE EXTENSION COURSE COORDINATOR Ot R93.0 ABNORMAL FINDINGS ON DX IMAGING OF SKULL 08/21/2016 KALLIE BERNARD MD Ot M50.13 CERVICAL DISC DISORDER W RADICULOPATHY, 08/21/2016 KALLIE BERNARD MD Ot Z79.899 OTHER ASSISTED (CURRENT) DRUG THERAPY 10/22/2016 MATHIEU DO TOM K Ot I10 ESSENTIAL (PRIMARY) HYPERTENSION 10/22/2016 MATHIEU DO TOM K Ot J44.9 CHRONIC OBSTRUCTIVE PULMONARY DISEASE, U 10/22/2016 MATHIEU DO TOM K Ot R42 DIZZINESS AND GIDDINESS 10/22/2016 MATHIEU DO TOM K Ot Z79.82 ASSISTED (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 10/22/2016 MATHIEU DO TOM K Ot Z79.899 OTHER PATIENT FINANCIAL SERVICES COORDINATOR (CURRENT) DRUG THERAPY 10/22/2016 MATHIEU DO TOM K Ot Z87.891 PERSONAL HISTORY OF NICOTINE DEPENDENCE 10/22/2016 MATHIEU DO TOM K Ot I10 ESSENTIAL (PRIMARY) HYPERTENSION 10/22/2016 MATHIEU DO TOM K Ot J44.9 CHRONIC OBSTRUCTIVE PULMONARY DISEASE, U 10/22/2016 MATHIEU DO TOM K Ot R42 DIZZINESS AND GIDDINESS 10/22/2016 MATHIEU DO TOM K Ot Z79.82 PATIENT FINANCIAL SERVICES COORDINATOR (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 10/22/2016 MATHIEU DO TOM K Ot Z79.899 OTHER PATIENT FINANCIAL SERVICES COORDINATOR (CURRENT) DRUG THERAPY 10/22/2016 MATHIEU DO TOM K Ot Z87.891 PERSONAL HISTORY OF NICOTINE DEPENDENCE 11/14/2016 MATHIEU DO TOM K Ot I10 ESSENTIAL (PRIMARY) HYPERTENSION 11/14/2016 MATHIEU DO TOM K Ot J44.9 CHRONIC OBSTRUCTIVE PULMONARY DISEASE, U 11/14/2016 MATHIEU DO TOM K Ot R42 DIZZINESS AND GIDDINESS 11/14/2016 MATHIEU DO TOM K Ot Z79.82 PATIENT FINANCIAL SERVICES COORDINATOR (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 11/14/2016 TOM MURDOCK DO Ot Z79.899 OTHER PATIENT FINANCIAL SERVICES COORDINATOR (CURRENT) DRUG THERAPY 11/14/2016 TOM MURDOCK DO Ot Z87.891 PERSONAL HISTORY OF NICOTINE DEPENDENCE 11/26/2016 Ot 305.1 TOBACCO USE DISORDER 11/26/2016 Ot 496 CHR AIRWAY OBSTRUCT NEC 11/26/2016 ISIDRA WILDE DO Ot 305.1 TOBACCO USE DISORDER 11/26/2016 ANDRYISIDRA RIVAS DO Ot 496 CHR AIRWAY OBSTRUCT NEC 11/26/2016 MADL, ANGEL LUIS 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 Ot 780.4 DIZZINESS AND GIDDINESS 11/26/2016 MADL, ANGEL LUIS 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 Ot 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 11/26/2016 MADL, ANGEL LUIS 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 Ot M47.812 SPONDYLOSIS W/O MYELOPATHY OR RADICULOPA 11/26/2016 MADL, ANGEL LUIS 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 Ot M48.02 SPINAL STENOSIS, CERVICAL REGION 11/26/2016 MADL, ANGEL LUIS 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 Ot G93.9 DISORDER OF BRAIN, UNSPECIFIED 11/26/2016 MADL, ANGEL LUIS 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 Ot R93.0 ABNORMAL FINDINGS ON DX IMAGING OF SKULL 12/03/2016 Ot 305.1 TOBACCO USE DISORDER 12/03/2016 Ot 496 CHR AIRWAY OBSTRUCT NEC 12/03/2016 ISIDRA WILDE DO Ot 305.1 TOBACCO USE DISORDER 12/03/2016 ISIDRA WILDE DO Ot 496 CHR AIRWAY OBSTRUCT NEC 12/03/2016 MADL, ANGEL LUIS 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 Ot 780.4 DIZZINESS AND GIDDINESS 12/03/2016 MADL, ANGEL LUIS 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 Ot 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 12/03/2016 MADL, ANGEL LUIS 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 Ot M47.812 SPONDYLOSIS W/O MYELOPATHY OR RADICULOPA 12/03/2016 MADL, ANGEL LUIS 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 Ot M48.02 SPINAL STENOSIS, CERVICAL REGION 12/03/2016 MADL, ANGEL LUIS 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 Ot G93.9 DISORDER OF BRAIN, UNSPECIFIED 12/03/2016 MADL, ANGEL LUIS 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 Ot R93.0 ABNORMAL FINDINGS ON DX IMAGING OF SKULL 12/03/2016 MELISSA MAIER FACC, SHAWN FACP CCDS Ot R07.89 OTHER CHEST PAIN 12/10/2016 Ot 305.1 TOBACCO USE DISORDER 12/10/2016 Ot 496 CHR AIRWAY OBSTRUCT NEC 12/10/2016 ANDRY ISIDRA YATES Ot 305.1 TOBACCO USE DISORDER 12/10/2016 ANDRYISIDRA RIVAS DO Ot 496 CHR AIRWAY OBSTRUCT NEC 12/10/2016 MADL, ANGEL LUIS 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 Ot 780.4 DIZZINESS AND GIDDINESS 12/10/2016 MADL, ANGEL LUIS 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 Ot 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 12/10/2016 MADL, ANGEL LUIS 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 Ot M47.812 SPONDYLOSIS W/O MYELOPATHY OR RADICULOPA 12/10/2016 MADL, ANGEL LUIS 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 Ot M48.02 SPINAL STENOSIS, CERVICAL REGION 12/10/2016 MADL, ANGEL LUIS 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 Ot G93.9 DISORDER OF BRAIN, UNSPECIFIED 12/10/2016 MADL, ANGEL LUIS 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 Ot R93.0 ABNORMAL FINDINGS ON DX IMAGING [...] Ot J43.9 EMPHYSEMA, UNSPECIFIED 04/08/2017 MADLANGEL LUIS EXTENSION COURSE COORDINATOR Ot 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 04/08/2017 MADL, ANGEL LUIS 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 Ot I72.0 ANEURYSM OF CAROTID ARTERY 04/08/2017 RICH ADAMS LITERACY CONSULTANT Ot G47.33 OBSTRUCTIVE SLEEP APNEA (ADULT) (PEDIATR 04/12/2017 MADL, ANGEL LUIS 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 Ot I72.0 ANEURYSM OF CAROTID ARTERY 04/13/2017 MADL, ANGEL LUIS 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 Ot F17.210 NICOTINE DEPENDENCE, CIGARETTES, UNCOMPL 04/20/2017 RICH ADAMS LITERACY CONSULTANT Ot F17.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, UNSPECIFIED, IN REM 04/20/2017 RICH ADAMS APRN Ot J43.9 EMPHYSEMA, UNSPECIFIED 04/21/2017 RICH ADAMS LITERACY CONSULTANT Ot G47.33 OBSTRUCTIVE SLEEP APNEA (ADULT) (PEDIATR 04/27/2017 MADL, ANGEL LUIS Edmonds EXTENSION COURSE COORDINATOR Ot F17.210 NICOTINE DEPENDENCE, CIGARETTES, UNCOMPL 04/30/2017 RICH ADAMS LITERACY CONSULTANT Ot F17.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, UNSPECIFIED, IN REM 04/30/2017 RICH ADASM APRN Ot J43.9 EMPHYSEMA, UNSPECIFIED 05/21/2017 MILY [...] W SUBSEQUENT 05/21/2017 MILY MAHAN Ot Z79.82 PATIENT FINANCIAL SERVICES COORDINATOR (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 05/21/2017 MILY MAHAN Ot Z87.891 PERSONAL HISTORY OF NICOTINE DEPENDENCE Procedures Code Description [place] [address] ROUTINE VENIPUNCTURE 08/02/2012 23306 MEASURE BLOOD OXYGEN LEVEL 08/02/2012 HEIKE GermanKarlene 08/02/2012 Urology Elisa Maciel 08/02/2012 63998 A1C (IN-HOUSE) 08/02/2012 53694 CBC 08/02/2012 88878 CMP 08/02/2012 38838 LIPID PANEL 08/02/2012 52185 MAGNESIUM 08/02/2012 0113361 GFR CALC (RESULT ONLY) 08/02/2012 50824 PSA FREE AND TOTAL 08/03/2012 38274 ROUTINE VENIPUNCTURE 09/02/2012 05176 BMP 09/02/2012 4088708 GFR CALC (RESULT ONLY) 09/02/[address] NECK, SOFT TISSUE NECK W/ DYE 09/05/[address] CHEST W/DYE 09/05/2012 61198 OXIMETRY 09/05/2012 78923 ROUTINE VENIPUNCTURE 11/01/2012 87674 CMP 11/01/2012 09801 LIPID PANEL 11/01/2012 9926078 GFR CALC (RESULT ONLY) 11/01/2012 UROLO Landen Lafleur 11/03/2012 10558 ROUTINE VENIPUNCTURE 01/18/2013 42445 CMP 01/18/2013 59956 MAGNESIUM 01/18/2013 8172297 GFR CALC (RESULT ONLY) 01/18/2013 84526 EKG, TRACING (IN-HOUSE) 06/16/2013 24904 ROUTINE VENIPUNCTURE 10/13/2013 34903 CMP 10/13/2013 74473 MAGNESIUM 10/13/2013 13571 CBC 10/13/2013 20784 ROUTINE VENIPUNCTURE 12/06/2013 19430 XRAY CHEST 2 VIEW 12/06/2013 69483 XRAY CERVICAL SPINE, 2 OR 3 VIEWS 12/06/2013 87603 CBC 12/06/2013 6683345 GFR CALC (RESULT ONLY) 12/06/2013 42519 CMP 12/06/2013 88637 CPK 12/06/2013 69684 TSH 12/06/2013 81410 VITAMIN D 25-HYDROXY (D2,D3 , TOTAL) 12/06/2013 23561 ROUTINE VENIPUNCTURE 12/13/2013 00065 LYME EIA W/WEST BLOT 12/13/2013 57410 EHRLICHIA ANTIBODY 12/13/2013 85640 TULAREMIA ANTIBODY 12/13/2013 22659 S[place] MT SPOT FEVER 12/13/2013 71031 OXIMETRY 12/13/2013 58107 HEMOCCULT 12/15/2013 32378 HEMOCCULT 12/15/2013 J1040 DEPO MEDROL 80 MG INJ 12/28/2013 40707 THERAPUTIC INJ SQ/IM 12/28/2013 09561 OXIMETRY 05/22/2014 Results Test Result Range PT [...] Status Pt. Type Provider Facility Loc./Unit Complaint [id number] 2014 10:29:00 2014 23:59:59 CLS Outpatient RUPERT MARIE DO [id number] 05/22/2014 15:34:00 05/22/2014 23:59:59 CLS Outpatient ANGEL LUIS OVALLE APRN [id number] 12/28/2013 13:18:00 12/28/2013 23:59:59 CLS Outpatient MARTA MARTINEZ APRN [id number] 12/15/2013 11:19:00 12/15/2013 23:59:59 CLS Outpatient ANGEL LUIS OVALLE APRN [id number] 12/13/2013 11:19:00 12/13/2013 23:59:59 CLS Outpatient ANGEL LUIS OVALLE APRN [id number] 12/06/2013 14:53:00 12/06/2013 23:59:59 CLS Outpatient RUPERT MARIE DO [id number] 12/06/2013 14:53:00 12/06/2013 23:59:59 CLS Outpatient MADANGEL LUIS Edmonds APRN [id number] 10/13/2013 09:30:00 10/13/2013 23:59:59 CLS Outpatient RUPERT MARIE DO [id number] 07/13/2013 10:36:00 07/13/2013 23:59:59 CLS Outpatient GIORGI SO MD [id number] 06/16/2013 13:49:00 06/16/2013 23:59:59 CLS Outpatient SUZIE PAVON MD [id number] 09/02/2012 09:47:00 09/02/2012 23:59:59 CLS Outpatient [id number] 08/19/2012 08:12:00 08/19/2012 23:59:59 CLS Outpatient [id number] 08/02/2012 11:14:00 08/02/2012 23:59:59 CLS Outpatient GIORGI SO MD [id number] 04/21/2012 16:12:00 04/21/2012 23:59:59 CLS Outpatient [id number] 01/18/2013 14:50:00 Document Registration [id number] 11/01/2012 09:32:00 Document Registration [id number] 11/01/2012 09:32:00 Document Registration [id number] 05/21/2017 18:46:00 05/21/2017 21:55:00 DIS Emergency MILY MAHAN [facility] ER PT FELL,RT SIDED RIB PAIN [id number] 04/20/2017 20:24:00 04/21/2017 05:50:00 DIS Outpatient RICH ADAMS APRN [facility] SLEEP G47.33 [id number] 04/14/2017 16:20:00 04/14/2017 23:59:59 CLS Preadmit MADLSCOTTYA 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 [facility] RAD SMOKING > 40 PACK YEARS [id number] 04/13/2017 08:04:00 04/13/2017 23:59:59 CLS Outpatient MADL, ANGEL LUIS 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 [facility] RAD F17.210 [id number] 03/30/2017 09:34:00 03/30/2017 23:59:59 CLS Outpatient RICH ADAMS APRN [facility] RAD COPD [id number] 12/10/2016 09:42:00 12/10/2016 23:59:59 CLS Outpatient MELISSA MAIER FACC, SHAWN FACP CCDS [facility] CARD R07.89 [id number] 12/01/2016 11:55:00 12/01/2016 23:59:59 CLS Outpatient MELISSA MAIER FACC, SHAWN FACP CCDS [facility] CARD R07.89 [id number] 10/21/2016 22:50:00 10/22/2016 01:19:00 DIS Emergency TOM MURDOCK DO [facility] ER ELEVATED BLOOD PRESSURE [id number] 08/21/2016 09:06:00 08/21/2016 10:35:00 DIS Outpatient KALLIE BERNARD MD [facility] CARD DISC DISORDER [id number] 07/06/2016 15:30:00 07/06/2016 23:59:59 CLS Outpatient MADL, ANGEL LUIS 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 [facility] RAD ABNORMAL MRI OF HEAD [id number] 01/14/2016 09:19:00 01/14/2016 23:59:59 CLS Outpatient MADL, ANGEL LUIS 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 [facility] RAD NECK PAIN, VERTIGO, FAM HX OF BRAIN CANCER [id number] 06/11/2015 21:00:00 06/12/2015 05:40:00 DIS Outpatient MADL, ANGEL LUIS 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 [facility] SLEEP NOCTUNAL HYPOXIA, DIZZINESS [id number] 05/08/2015 20:00:00 05/09/2015 06:20:00 DIS Outpatient MADL, ANGEL LUIS 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 [facility] SLEEP CHOKING AND GASPING, HYPERSOMINIA [id number] 03/11/2015 13:19:00 03/11/2015 23:59:59 CLS Outpatient MADL, ANGEL LUIS 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 [facility] RAD VERTIGO [id number] 10/31/2014 11:59:00 10/31/2014 23:59:59 CLS Outpatient ISIDRA WILDE DO [facility] RAD COPD,TOBACCO USE [id number] 06/16/2013 16:00:00 06/18/2013 11:30:00 DIS Inpatient SARAY MAIER, GIORGI Alba [facility] 4TH COPD [id number] 02/21/2013 11:19:00 02/21/2013 23:59:59 CLS Outpatient [id number] 08/14/2017 16:17:00 Document Registration [id number] 09/07/2012 08:19:00 Document Registration [id number] 10/29/2010 09:31:00 Document Registration [id number] 09/17/2010 09:15:00 Document Registration [id number] 12/18/2009 05:37:00 Document Registration [id number] 12/17/2009 12:53:00 Document Registration [id number] 12/17/2009 07:58:00 Document Registration [id number] 12/12/2009 14:24:00 Document Registration [id number] 12/11/2009 07:27:00 Document Registration [id number] 12/09/2009 09:18:00 Document Registration [id number] 11/07/2009 05:44:00 Document Registration [id number] 11/05/2009 09:12:00 Document Registration
--- NOTE | 2017-08-17 03:37 | ED Abdominal Pain ---
General Stated Complaint: ABD PAIN Source of Information: Patient (PT IS LIMITED HISTORIAN AND APPEARS TO HAVE KNONWLEDGE DEFICIT. NO FAMILY MEMBERS ARE WITH PT OR CALL TO CHECK ON PT DURING ER STAY) History of Present Illness Date Seen by Provider: Aug 17, 2017 Time Seen by Provider: 03:20 Initial Comments PT ARRIVES VIA EMS FROM HOME C/O LOWER ABDOMINAL PAIN AND CRAMPING X 1 HOUR PT SEEN IN ER 08/14/17 FOR INABILITY TO URINATE SINCE Wednesday08/13/17 AND HAD A LOYD CATHETER PLACED. PT RETURNED 08/15 FOR CATHETER MALFUNCTIONING--RELATED TO TIGHT CLOTHING PULLING ON TUBING. PT ARRIVES WITH LEG BAG IN PLACE AND NO CAP ON END, SO URINE IS FREELY FLOWING FROM THE BOTTOM OF THE BAG AND CLOTHING IS SOAKED. THERE IS NO LEAKAGE OF URINE FROM PENIS/AROUND THE CATHETER. URINE IS BLOOD-TINGED PT CLAIMS HE HAS EMPTIED THE LEG BAG 'AT LEAST HALF A DOZEN TIMES TONIGHT" PT STATES HE "NEEDS TO URINATE RIGHT NOW" AND WANTS TO USE TOILET PT ALSO STATES HE HAS NOT HAD A BM SINCE Wednesday08/12/17, BUT HAS NOT TAKEN ANYTHING FOR CONSTIPATION PT ALSO STATES HE NEEDS TO HAVE A BM "RIGHT NOW" --PT NOTED TO HAVE SEEPAGE OF LIQUID/SOFT STOOL FROM [facility] STATE THAT PT IS SUPPOSED TO SEE DR. MELO TODAY PCP: SULAIMAN, PORSHA OVALLE Allergies and Home Medications Allergies Coded Allergies: No Known Drug Allergies (Unverified , 11/05/09) Home Medications Albuterol 8.5 Gm Hfa.aer.ad, 2 PUFF IH Q6H PRN for SHORTNESS OF BREATH, ( Reported) 2 PUFFS Aspirin 81 Mg Tabec, 81 MG PO DAILY, (Reported) Cholecalciferol 1,000 Unit Capsule, 1,000 UNITS PO DAILY, (Reported) Ciprofloxacin HCl 500 Mg Tablet, 500 MG PO BID, #10 Prescribed by: ARMIN EASON on 08/14/17 1707 Cyclobenzaprine HCl 10 Mg Tablet, (Reported) Fish Oil/Dha/Epa 1 Each Capsule, 2,400 MG PO DAILY, (Reported) TAKE 2 (1,200 MG) CAPSULES DAILY Fluticasone/Salmeterol 1 Disk Inhp, 1 PUFF IH BID, (Reported) 1 PUFF Meclizine HCl 25 Mg Tablet, 25-50 MG PO Q6H, #30 Prescribed by: TOM MURDOCK on 10/22/16 0012 Meloxicam 7.5 Mg Tablet, (Reported) Mirabegron 50 Mg Tab.er.24h, (Reported) Omeprazole 40 Mg Capsule.dr, (Reported) Pentoxifylline 400 Mg Tablet.er, (Reported) Scopolamine 1 Each Patch.td72, 1 EACH TD Q72 HOURS, #3 Prescribed by: TOM MURDOCK on 10/22/16 0012 Tamsulosin Hcl 0.4 Mg Cap, 0.4 MG PO DAILY, (Reported) Tramadol HCl 50 Mg Tablet, 50 MG PO Q4H PRN for pain, #14 Ref 0 Prescribed by: MILY ROJAS on 05/21/172145 Vitamin E Mixed 400 Unit Tablet, 800 UNIT PO DAILY, (Reported) TAKE 2 (400 MG) TABLETS DAILY Review of Systems Constitutional: no symptoms reported Cardiovascular: No Symptoms Reported Gastrointestinal: See HPI, Abdominal Pain, Constipated, Denies Diarrhea, Denies Nausea, Denies Poor Fluid Intake, Denies Rectal Bleeding, Denies Vomiting Genitourinary: See HPI Musculoskeletal: no symptoms reported Skin: no symptoms reported Psychiatric/Neurological: Anxiety Endocrine: No Symptoms Reported Hematologic/Lymphatic: No Symptoms Reported Past Rjedvkn-Donpjc-Kxhnov Hx Patient Social History Former Smoker, Quit: Apr 18, 2015 2nd Hand Smoke Exposure: No Recent Foreign Travel: No Contact w/Someone Who Travel: No Recent Hopitalizations: No Immunizations Up To Date Tetanus Booster (TDap): More than 5yrs Seasonal Allergies Seasonal Allergies: No Surgeries History of Surgeries: Yes (LEFT EYE REMOVED. ) Surgeries: Appendectomy, Eye Surgery, Orthopedic Respiratory History of Respiratory Disorde: Yes Respiratory Disorders: COPD Cardiovascular History of Cardiac Disorders: Yes Cardiac Disorders: Hypertension Neurological History of Neurological Disord: Yes (DIZZINESS) Neurological Disorders: Vertigo Reproductive System Hx Reproductive Disorders: No Sexually Transmitted Disease: No Genitourinary History of Genitourinary Disor: Yes Genitourinary Disorders: Prostate Problems Gastrointestinal History of Gastrointestinal Di: Yes Gastrointestinal Disorders: Gastroesophageal Reflux Musculoskeletal History of Musculoskeletal Dis: Yes (CHRONIC NECK PAIN ) Endocrine History of Endocrine Disorders: No HEENT History of HEENT Disorders: Yes Loss of Vision: Left Cancer History of Cancer: No Psychosocial History of Psychiatric Problem: No Integumentary History of Skin or Integumenta: Yes Skin/Integumentary Disorders: Psoriasis Blood Transfusions History of Blood Disorders: No Adverse Reaction to a Blood Tr: No Family Medical History Significant Family History: No Pertinent Family Hx Family Medial History: Abdominal aortic aneurysm 03 FATHER, Onset:60 years & older Cancer 03 FATHER (NECK) 03 MOTHER (LUNGS) History of drug abuse DAUGHTERS (DAUGHTER) Physical Exam Vital Signs VS - Last 72 Hours, by Label 08/17/17 03:40 Temp 98.1 Pulse 82 Resp 16 B/P (MAP) 191/114 (139) Pulse Ox 97 O2 Delivery Room Air Capillary Refill : General Appearance: WD/WN, no apparent distress, other (ANXIOUS. ) Neck: normal inspection Respiratory: normal breath sounds, no respiratory distress Cardiovascular: regular rate, rhythm, no murmur Gastrointestinal: normal bowel sounds, tenderness (DIFFUSE LOWER ABDOMINAL TENDERNESS, AND TENSES ABDOMEN ON EXAM. ), No mass Extremities: normal inspection Back: no CVA tenderness Male: other (LOYD CATHETER IN PLACE AND IS DRAINING WELL. HAS MACERATION/SKIN BREAKDOWN TO RIGHT SCROTAL AREA WITH SLIGHT OOZING OF BLOOD. NO BLOOD FROM PENIS. 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 ) Skin: normal color, warm/dry, rash (PATCHY MACULOPAPULAR RASH ON THIGHS) Progress/Results/Core Measures Results/Orders My Orders Orders - TOM MURDOCK DO Abdomen, Flat & Upright/Decub (08/17/17 03:31) Vital Signs/I&O Vital Sign - Last 12Hours 08/17/17 03:40 Temp 98.1 Pulse 82 Resp 16 B/P (MAP) 191/114 (139) Pulse Ox 97 O2 Delivery Room Air Progress Note : Progress Note LEG BAG REPLACED. SENT TO FLOOR FOR OUTPATIENT SOAP SUDS ENEMAS Diagnostic Imaging Comments ABDOMEN XRAYS--NO OBSTRUCTION. + CONSTIPATION WITH RECTAL IMPACTION Reviewed: Reviewed by Me Departure Impression Impression: Primary Impression: CONSTIPATION WITH IMPACTION Additional Impression: Loyd catheter problem Disposition: 01 HOME, SELF-CARE Condition: Stable Departure-Patient Inst. Referrals: RUPERT MARIE DO (PCP) Primary Care Physician ANGEL LUIS OVALLE (Family) Primary Care Physician Patient Instructions: Constipation, Adult (DC), Fecal Impaction (DC), High Fiber Diet, How to Care for Your Loyd Catheter, Male Add. Discharge Instructions: TAKE MIRALAX EVERY DAY TAKE YOUR REGULAR MEDICATIONS PRESCRIBED FOLLOW UP WITH DR. MELO TODAY PREVIOUSLY ADVISED. TOM MURDOCK DO Aug 17, 2017 03:37
[2017-08-17 05:02] VITALS: BP 147/103
--- NOTE | 2017-08-17 08:14 | Diagnostic Imaging Report ---
INDICATION: Abdominal pain. FINDINGS: The lung bases are clear. Bowel gas pattern is nonspecific. There is no free air. There is moderate amount of retained fecal material in the colon which may reflect constipation. There appears to be either a Ybarra or suprapubic catheter in place. IMPRESSION: Moderate amount of retained fecal material, which may reflect some degree of constipation. Otherwise nonspecific bowel gas pattern. Ybarra catheter or suprapubic catheter in place. Dictated by: Dictated on workstation # [id number]
== END 2017-08-17 05:02 | disposition home or self-care (01) ==
LOC: EDUNIT# 03:22 → ER 03:23
DX: T83.098A Other mechanical complication of other urinary catheter, initial encounter (principal); K59.00 Constipation, unspecified; J44.9 Chronic obstructive pulmonary disease, unspecified; I10 Essential (primary) hypertension; K21.9 Gastro-esophageal reflux disease without esophagitis; Z80.1 Family history of malignant neoplasm of trachea, bronchus and lung; Z79.82 Long term (current) use of aspirin; Z96.0 Presence of urogenital implants; Z87.891 Personal history of nicotine dependence; Z90.49 Acquired absence of other specified parts of digestive tract
CPT/HCPCS: 74019; 99283

== ENCOUNTER 2017-08-17 04:50 | Outpatient (CLI) | payer MEDICARE, MEDICAID ==
[~2017-08-17] VITALS: Ht 177.8 cm; Wt 78.9 kg
[2017-08-17 05:13] VITALS: BP 160/89
[2017-08-17 08:32] VITALS: BP 142/82
== END 2017-08-17 08:40 ==
LOC: 4THo 04:50 → 4TH 04:53 → 4THo 08:40
PROVIDERS: ATTEND Emergency Medicine
DX: K56.41 Fecal impaction (principal)
CPT/HCPCS: 99212

== ENCOUNTER 2017-09-21 11:31 | Outpatient (CLI) | payer MEDICARE, MEDICAID ==
[~2017-09-21] VITALS: Ht 177.8 cm; Wt 77.6 kg
[~2017-09-21 11:31] MED LIST changes: -CYCL10TA9; +CYCL10TA9 PO; -MELO7.5T46; +MELO7.5T46 PO; -MIRA50TA; +MIRA50TA PO; -OMEP40CA36; +OMEP40CA36 PO; -PENT400T2; +PENT400T2 PO; -SCOP1PAT TD; +SCOP1PAT11 TD
[2017-09-21 11:41] VITALS: BP 116/76
[2017-09-21] MEDS ORDERED: BUDE10.2 IH (13:07)
[2017-09-21] MEDS ORDERED: TAMS0.4C2 PO (13:07)
[2017-09-21] MEDS ORDERED: RT-ALBUINH IH ×2 (13:07)
[2017-09-21] MEDS ORDERED: ASPI-999 PO (13:07)
[2017-09-21] MEDS ORDERED: OMG1KC PO (13:07)
[2017-09-21] MEDS ORDERED: CHOL500044 PO (13:07)
[2017-09-21] MEDS ORDERED: CARB1TAB6 PO (13:07)
[2017-09-21] MEDS ORDERED: VITA400T9 PO (13:07)
[2017-09-22] MEDS ORDERED: CARB1TAB40 PO (13:51)
== END 2017-09-21 12:00 | disposition home or self-care (01) ==
LOC: PREOP 11:31
PROVIDERS: ATTEND Urology
DX: Z01.818 Encounter for other preprocedural examination (principal); Z11.2 Encounter for screening for other bacterial diseases; N40.1 Benign prostatic hyperplasia with lower urinary tract symptoms; R33.9 Retention of urine, unspecified
CPT/HCPCS: 87081

== ENCOUNTER 2017-09-22 06:06 | Day surgery (SDC) | payer MEDICARE, MEDICAID ==
[~2017-09-22] VITALS: Ht 177.8 cm; Wt 77.6 kg
[~2017-09-22 06:06] MED LIST changes: +ASPI-999 PO; +BUDE10.2 IH; +CARB1TAB6 PO; +CHOL500044 PO; +OMG1KC PO; +RT-ALBUINH IH; +TAMS0.4C2 PO
--- OUTSIDE RECORDS SUMMARY | 2017-09-22 06:14 | XMS REPORT | Continuity of Care Document ---
Author Author [facility] Address Unknown Phone Unavailable Allergies Active Description Code Type Severity Reaction Onset Reported/Identified Relationship to Patient Clinical Status Yes No Known Drug Allergies [id number] Drug Allergy Mild N/A 11/05/2009 Medications There [...] screening exam malignant neoplasm prostate 10/11/2009 MADL RESIDENCY PROGRAM COORDINATOR, ANGEL LUIS L 173.9 OTHER MALIGNANT NEOPLASM OF SKIN, SITE UNSPECIFIED 10/11/2009 MADL RESIDENCY PROGRAM COORDINATOR, ANGEL LUIS L 496 CHRONIC OBSTRUCTIVE PULMONARY DISEASE 10/11/2009 MADL RESIDENCY PROGRAM COORDINATOR, ANGEL LUIS L 696.1 PSORIASIS 10/11/2009 MADL RESIDENCY PROGRAM COORDINATOR, ANGEL LUIS L V76.44 visit for: screening exam malignant neoplasm prostate 10/11/2009 MADL RESIDENCY PROGRAM COORDINATOR, ANGEL LUIS L 173.9 OTHER MALIGNANT NEOPLASM OF SKIN, SITE UNSPECIFIED 10/11/2009 MADL RESIDENCY PROGRAM COORDINATOR, ANGEL LUIS L 496 CHRONIC OBSTRUCTIVE PULMONARY DISEASE 10/11/2009 MADL RESIDENCY PROGRAM COORDINATOR, ANGEL LUIS L 696.1 PSORIASIS 10/11/2009 MADL RESIDENCY PROGRAM COORDINATOR, ANGEL LUIS L V76.44 visit for: screening exam malignant neoplasm prostate 10/11/2009 MADL RESIDENCY PROGRAM COORDINATOR, ANGEL LUIS L 173.9 OTHER MALIGNANT NEOPLASM OF SKIN, SITE UNSPECIFIED 10/11/2009 MADL RESIDENCY PROGRAM COORDINATOR, ANGEL LUIS L 496 CHRONIC OBSTRUCTIVE PULMONARY DISEASE 10/11/2009 MADL RESIDENCY PROGRAM COORDINATOR, ANGEL LUIS L 696.1 PSORIASIS 10/11/2009 MADL RESIDENCY PROGRAM COORDINATOR, ANGEL LUIS L V76.44 visit for: screening exam malignant neoplasm prostate 10/11/2009 MARIE DO, RUPERT K 173.9 OTHER MALIGNANT NEOPLASM OF SKIN, SITE UNSPECIFIED 10/11/2009 MARIE DO, RUPERT K 496 CHRONIC OBSTRUCTIVE PULMONARY DISEASE 10/11/2009 MARIE DO, RUPERT K 696.1 PSORIASIS 10/11/2009 MARIE DO, RUPERT K V76.44 visit for: screening exam malignant neoplasm prostate 10/11/2009 MARTINEZ RESIDENCY PROGRAM COORDINATOR, MARTA R 173.9 OTHER MALIGNANT NEOPLASM OF SKIN, SITE UNSPECIFIED 10/11/2009 MARTINEZ RESIDENCY PROGRAM COORDINATOR, MARTA R 496 CHRONIC OBSTRUCTIVE PULMONARY DISEASE 10/11/2009 MARTINEZ RESIDENCY PROGRAM COORDINATOR, MARTA R 696.1 PSORIASIS 10/11/2009 MARTINEZ RESIDENCY PROGRAM COORDINATOR, MARTA R V76.44 visit for: screening exam malignant neoplasm prostate 10/11/2009 MADL RESIDENCY PROGRAM COORDINATOR, ANGEL LUIS L 173.9 OTHER MALIGNANT NEOPLASM OF SKIN, SITE UNSPECIFIED 10/11/2009 MADL RESIDENCY PROGRAM COORDINATOR, ANGEL LUIS L 496 CHRONIC OBSTRUCTIVE PULMONARY DISEASE 10/11/2009 MADL RESIDENCY PROGRAM COORDINATOR, ANGEL LUIS L 696.1 PSORIASIS 10/11/2009 MADL RESIDENCY PROGRAM COORDINATOR, ANGEL LUIS L V76.44 visit for: screening [...] RUPERT K 380.4 IMPACTED CERUMEN 10/15/2009 MADL RESIDENCY PROGRAM COORDINATOR, ANGEL LUIS L 380.4 IMPACTED CERUMEN 10/15/2009 MADL RESIDENCY PROGRAM COORDINATOR, ANGEL LUIS L 380.4 IMPACTED CERUMEN 10/15/2009 MADL RESIDENCY PROGRAM COORDINATOR, ANGEL LUIS L 380.4 IMPACTED CERUMEN 10/15/2009 MARIE DO, RUPERT K 380.4 IMPACTED CERUMEN 10/15/2009 MARTINEZ RESIDENCY PROGRAM COORDINATOR, MARTA R 380.4 IMPACTED CERUMEN 10/15/2009 MADL RESIDENCY PROGRAM COORDINATOR, ANGEL LUIS L 380.4 IMPACTED CERUMEN 10/15/2009 [...] DO, RUPERT K 425.4 CARDIOMYOPATHY 04/21/2012 MADL RESIDENCY PROGRAM COORDINATOR, ANGEL LUIS L 272.4 HYPERLIPIDEMIA 04/21/2012 MADL RESIDENCY PROGRAM COORDINATOR, ANGEL LUIS L 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 04/21/2012 MADL RESIDENCY PROGRAM COORDINATOR, ANGEL LUIS L 425.4 CARDIOMYOPATHY 04/21/2012 MADL RESIDENCY PROGRAM COORDINATOR, ANGEL LUIS L 272.4 HYPERLIPIDEMIA 04/21/2012 MADL RESIDENCY PROGRAM COORDINATOR, ANGEL LUIS L 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 04/21/2012 MADL RESIDENCY PROGRAM COORDINATOR, ANGEL LUIS L 425.4 CARDIOMYOPATHY 04/21/2012 MADL RESIDENCY PROGRAM COORDINATOR, ANGEL LUIS L 272.4 HYPERLIPIDEMIA 04/21/2012 MADL RESIDENCY PROGRAM COORDINATOR, ANGEL LUIS L 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 04/21/2012 MADL RESIDENCY PROGRAM COORDINATOR, ANGEL LUIS L 425.4 CARDIOMYOPATHY 04/21/2012 MARIE DO, RUPERT K 272.4 HYPERLIPIDEMIA 04/21/2012 MARIE DO, RUPERT K 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 04/21/2012 MARIE DO, RUPERT K 425.4 CARDIOMYOPATHY 04/21/2012 MARTINEZ RESIDENCY PROGRAM COORDINATOR, MARTA R 272.4 HYPERLIPIDEMIA 04/21/2012 MARTINEZ RESIDENCY PROGRAM COORDINATOR, MARTA R 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 04/21/2012 MARTINEZ RESIDENCY PROGRAM COORDINATOR, MARTA R 425.4 CARDIOMYOPATHY 04/21/2012 MADL RESIDENCY PROGRAM COORDINATOR, ANGEL LUIS L 272.4 HYPERLIPIDEMIA 04/21/2012 MADL RESIDENCY PROGRAM COORDINATOR, ANGEL LUIS L 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 04/21/2012 [...] Serology Prostate-specific Antigen (PSA) Elevated 08/02/2012 MADL RESIDENCY PROGRAM COORDINATOR, ANGEL LUIS L 784.42 hoarseness 08/02/2012 MADL RESIDENCY PROGRAM COORDINATOR, ANGEL LUIS L 790.93 Serology Prostate-specific Antigen (PSA) Elevated 08/02/2012 MADL RESIDENCY PROGRAM COORDINATOR, ANGEL LUIS L 784.42 hoarseness 08/02/2012 MADL RESIDENCY PROGRAM COORDINATOR, ANGEL LUIS L 790.93 Serology Prostate-specific Antigen (PSA) Elevated 08/02/2012 MADL RESIDENCY PROGRAM COORDINATOR, ANGEL LUIS L 784.42 hoarseness 08/02/2012 MADL RESIDENCY PROGRAM COORDINATOR, ANGEL LUIS L 790.93 Serology Prostate-specific Antigen (PSA) Elevated 08/02/2012 MARIE DO, RUPERT K 784.42 hoarseness 08/02/2012 MARIE DO, RUPERT K 790.93 Serology Prostate-specific Antigen (PSA) Elevated 08/02/2012 MARTINEZ RESIDENCY PROGRAM COORDINATOR, MARTA R 784.42 hoarseness 08/02/2012 MARTINEZ RESIDENCY PROGRAM COORDINATOR, MARTA R 790.93 Serology Prostate-specific Antigen (PSA) Elevated 08/02/2012 MADL RESIDENCY PROGRAM COORDINATOR, ANGEL LUIS L 784.42 hoarseness 08/02/2012 MADL RESIDENCY PROGRAM COORDINATOR, ANGEL LUIS L 790.93 Serology Prostate-specific Antigen [...] K 470 DEVIATED NASAL SEPTUM 08/19/2012 MADL RESIDENCY PROGRAM COORDINATOR, ANGEL LUIS L 250.80 DIABETIC FOOT ULCER 08/19/2012 MADL RESIDENCY PROGRAM COORDINATOR, ANGEL LUIS L 470 DEVIATED NASAL SEPTUM 08/19/2012 MADL RESIDENCY PROGRAM COORDINATOR, ANGEL LUIS L 250.80 DIABETIC FOOT ULCER 08/19/2012 MADL RESIDENCY PROGRAM COORDINATOR, ANGEL LUIS L 470 DEVIATED NASAL SEPTUM 08/19/2012 MADL RESIDENCY PROGRAM COORDINATOR, ANGEL LUIS L 250.80 DIABETIC FOOT ULCER 08/19/2012 MADL RESIDENCY PROGRAM COORDINATOR, ANGEL LUIS L 470 DEVIATED NASAL SEPTUM 08/19/2012 MARIE DO, RUPERT K 250.80 DIABETIC FOOT ULCER 08/19/2012 MARIE DO, RUPERT K 470 DEVIATED NASAL SEPTUM 08/19/2012 MARTINEZ RESIDENCY PROGRAM COORDINATOR, MARTA R 250.80 DIABETIC FOOT ULCER 08/19/2012 MARTINEZ RESIDENCY PROGRAM COORDINATOR, MARTA R 470 DEVIATED NASAL SEPTUM 08/19/2012 MADL RESIDENCY PROGRAM COORDINATOR, ANGEL LUIS L 250.80 DIABETIC FOOT ULCER 08/19/2012 MADL RESIDENCY PROGRAM COORDINATOR, ANGEL LUIS L 470 DEVIATED NASAL SEPTUM 08/19/2012 MARIE DO, RUPERT K 250.80 DIABETIC FOOT ULCER 08/19/2012 MARIE DO, RUPERT K 470 DEVIATED NASAL SEPTUM 01/18/2013 600.00 BPH W/O OBSTRUCTUION 01/18/2013 SUZIE PAVON MD 600.00 BPH W/O OBSTRUCTUION 01/18/2013 GIORGI SO MD 600.00 BPH W/O OBSTRUCTUION 01/18/2013 MARIE AKI YATESA K 600.00 BPH W/O OBSTRUCTUION 01/18/2013 MADL RESIDENCY PROGRAM COORDINATOR, ANGEL LUIS L 600.00 BPH W/O OBSTRUCTUION 01/18/2013 MADL RESIDENCY PROGRAM COORDINATOR, ANGEL LUIS L 600.00 BPH W/O OBSTRUCTUION 01/18/2013 MADL RESIDENCY PROGRAM COORDINATOR, ANGEL LUIS L 600.00 BPH W/O OBSTRUCTUION 01/18/2013 MARIE , RUPERT K 600.00 BPH W/O OBSTRUCTUION 01/18/2013 MARTINEZ RESIDENCY PROGRAM COORDINATOR, MARTA R 600.00 BPH W/O OBSTRUCTUION 01/18/2013 MADL RESIDENCY PROGRAM COORDINATOR, ANGEL LUIS L 600.00 BPH W/O OBSTRUCTUION 01/18/2013 MARIE DO RUPERT K 600.00 BPH W/O OBSTRUCTUION 06/16/2013 SUZIE PAVON MD 786.50 UNSPECIFIED CHEST PAIN 06/16/2013 GIORGI SO MD 786.50 UNSPECIFIED CHEST PAIN 06/16/2013 RUPERT MARIE DO 786.50 UNSPECIFIED CHEST PAIN 06/16/2013 MADL RESIDENCY PROGRAM COORDINATOR, ANGEL LUIS L 786.50 UNSPECIFIED CHEST PAIN 06/16/2013 MADL RESIDENCY PROGRAM COORDINATOR, ANGEL LUIS L 786.50 UNSPECIFIED CHEST PAIN 06/16/2013 MADL RESIDENCY PROGRAM COORDINATOR, ANGEL LUIS L 786.50 UNSPECIFIED CHEST PAIN 06/16/2013 MARIE DO, RUPERT K 786.50 UNSPECIFIED CHEST PAIN 06/16/2013 MARTA MARTINEZ APRN R 786.50 UNSPECIFIED CHEST PAIN 06/16/2013 MADL RESIDENCY PROGRAM COORDINATOR, ANGEL LUIS L 786.50 UNSPECIFIED CHEST PAIN 06/16/2013 MARIE DO, RUPERT K 786.50 UNSPECIFIED CHEST PAIN 06/18/2013 SARAY MAIER, GIOGRI Alba Ot 272.4 HYPERLIPIDEMIA NEC/NOS 06/18/2013 SARAY MAIER, GIORGI Alba Ot 305.1 TOBACCO USE DISORDER 06/18/2013 SARAY MAIER, GIORGI Alba Ot 425.4 PRIM CARDIOMYOPATHY NEC 06/18/2013 SARAY MAIER, GIORGI Alba Ot 427.89 CARDIAC DYSRHYTHMIAS NEC 06/18/2013 SARAY MAIER, GIORGI Alba Ot 491.21 OBSTR CHRONIC BRONCHITIS, W (ACUTE) EXAC 06/18/2013 SARAY MAIER, GIORGI Alba Ot 786.50 CHEST PAIN NOS 12/06/2013 MADL RESIDENCY PROGRAM COORDINATOR, ANGEL LUIS L 723.1 CERVICALGIA 12/06/2013 MADL RESIDENCY PROGRAM COORDINATOR, ANGEL LUIS L 780.79 OTHER MALAISE AND FATIGUE 12/06/2013 MADL RESIDENCY PROGRAM COORDINATOR, ANGEL LUIS L 783.21 LOSS OF WEIGHT 12/06/2013 MADL RESIDENCY PROGRAM COORDINATOR, ANGEL LUIS L 723.1 CERVICALGIA 12/06/2013 MADL RESIDENCY PROGRAM COORDINATOR, ANGEL LUIS L 780.79 OTHER MALAISE AND FATIGUE 12/06/2013 MADL RESIDENCY PROGRAM COORDINATOR, ANGEL LUIS L 783.21 LOSS OF WEIGHT 12/06/2013 MADL RESIDENCY PROGRAM COORDINATOR, ANGEL LUIS L 723.1 CERVICALGIA 12/06/2013 MADL RESIDENCY PROGRAM COORDINATOR, ANGEL LUIS L 780.79 OTHER MALAISE AND FATIGUE 12/06/2013 MADL RESIDENCY PROGRAM COORDINATOR, ANGEL LUIS L 783.21 LOSS OF WEIGHT 12/06/2013 MARIE DO, RUPERT K 723.1 CERVICALGIA 12/06/2013 MARIE DO RUPERT K 780.79 OTHER MALAISE AND FATIGUE 12/06/2013 MARIE DO, RUPERT K 783.21 LOSS OF WEIGHT 12/06/2013 MARTINEZ RESIDENCY PROGRAM COORDINATOR, MARTA R 723.1 CERVICALGIA 12/06/2013 MARTINEZ RESIDENCY PROGRAM COORDINATOR, MARTA R 780.79 OTHER MALAISE AND FATIGUE 12/06/2013 MARTINEZ RESIDENCY PROGRAM COORDINATOR, MARTA R 783.21 LOSS OF WEIGHT 12/06/2013 MADL RESIDENCY PROGRAM COORDINATOR, ANGEL LUIS L 723.1 CERVICALGIA 12/06/2013 MADL RESIDENCY PROGRAM COORDINATOR, ANGEL LUIS L 780.79 OTHER MALAISE AND FATIGUE 12/06/2013 MADL RESIDENCY PROGRAM COORDINATOR, ANGEL LUIS L 783.21 LOSS OF WEIGHT 12/06/2013 MARIE DO, RUPERT K 723.1 CERVICALGIA 12/06/2013 MARIE DO, RUPERT K 780.79 OTHER MALAISE AND FATIGUE 12/06/2013 MARIE DO, RUPERT K 783.21 LOSS OF WEIGHT 12/13/2013 SUNGL RESIDENCY PROGRAM COORDINATOR, ANGEL LUIS L 919.4 INSECT BITE NONVENOMOUS OF OTHER MULTIPLE AND UNSPECIFIED SITES WITHOUT INFECTION 12/13/2013 MADL RESIDENCY PROGRAM COORDINATOR, ANGEL LUIS L 919.4 INSECT BITE NONVENOMOUS OF OTHER MULTIPLE AND UNSPECIFIED SITES WITHOUT INFECTION 12/13/2013 MARIE DO, RUPERT K 919.4 INSECT BITE NONVENOMOUS OF OTHER MULTIPLE AND UNSPECIFIED SITES WITHOUT INFECTION 12/13/2013 ERIC MARTINEZ APRNRICIA R 919.4 INSECT BITE NONVENOMOUS OF OTHER MULTIPLE AND UNSPECIFIED SITES WITHOUT INFECTION 12/13/2013 MADL RESIDENCY PROGRAM COORDINATOR, ANGEL LUIS L 919.4 INSECT BITE NONVENOMOUS OF OTHER MULTIPLE AND UNSPECIFIED SITES WITHOUT INFECTION 12/13/2013 MARIE DO, RUPERT K 919.4 INSECT BITE NONVENOMOUS OF OTHER MULTIPLE AND UNSPECIFIED SITES WITHOUT INFECTION 12/28/2013 ERIC MARTINEZ APRNRICIA R 692.6 CONTACT DERMATITIS AND OTHER ECZEMA DUE TO PLANTS (EXCEPT FOOD) 12/28/2013 SUNGL RESIDENCY PROGRAM COORDINATORNEREIDA MaryNYA L 692.6 CONTACT DERMATITIS AND OTHER [...] 305.1 01/23/2015 ANDRY YATESISIDRA Ot 496 04/02/2015 AYMILE ANGEL LUIS L MFT Ot 780.4 04/15/2015 ANGEL LUIS OVALLE MFT Ot 780.4 05/08/2015 Ot 492.8 05/08/2015 Ot [...] Ot 496 05/08/2015 MADANGEL LUIS Edmonds L MFT Ot 780.4 05/09/2015 MADL, ANGEL LUIS L MFT Ot G47.33 OBSTRUCTIVE SLEEP APNEA (ADULT) (PEDIATR 05/09/2015 MADL, ANGEL LUIS L MFT Ot I10 ESSENTIAL (PRIMARY) HYPERTENSION 06/12/2015 MADL, ANGEL LUIS L MFT Ot G47.33 OBSTRUCTIVE SLEEP APNEA (ADULT) (PEDIATR [...] CHR AIRWAY OBSTRUCT NEC 01/14/2016 YAMILESCOTTYA L MFT Ot 780.4 DIZZINESS AND GIDDINESS 01/14/2016 MADL, ANGEL LUIS L MFT Ot M54.2 CERVICALGIA 01/15/2016 MADL, ANGEL LUIS L MFT Ot 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 01/15/2016 MADL, ANGEL LUIS L MFT Ot M47.812 SPONDYLOSIS W/O MYELOPATHY OR RADICULOPA 01/15/2016 MADL, ANGEL LUIS L MFT Ot M48.02 SPINAL STENOSIS, CERVICAL REGION 01/17/2016 MADL, ANGEL LUIS L MFT Ot 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 01/17/2016 MADL, ANGEL LUIS L MFT Ot M47.812 SPONDYLOSIS W/O MYELOPATHY OR RADICULOPA 01/17/2016 MADL, ANGEL LUIS L MFT Ot M48.02 SPINAL STENOSIS, CERVICAL REGION 02/06/2016 MADL, ANGEL LUIS L MFT Ot 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 02/06/2016 MADL, ANGEL LUIS L MFT Ot M47.812 SPONDYLOSIS W/O MYELOPATHY OR RADICULOPA 02/06/2016 MADLSCOTTYA L MFT Ot M48.02 SPINAL STENOSIS, CERVICAL REGION 02/14/2016 MADLSCOTTYA L MFT Ot 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 02/14/2016 MADLSCOTTYA L MFT Ot M47.812 SPONDYLOSIS W/O MYELOPATHY OR RADICULOPA 02/14/2016 MADLSCOTTYA L MFT Ot M48.02 SPINAL STENOSIS, CERVICAL REGION 07/06/2016 Ot 305.1 TOBACCO USE DISORDER 07/06/2016 Ot 496 CHR AIRWAY OBSTRUCT NEC 07/06/2016 ISIDRA WILDE DO Ot 305.1 TOBACCO USE DISORDER 07/06/2016 ISIDRA WILDE DO Ot 496 CHR AIRWAY OBSTRUCT NEC 07/06/2016 MADL, ANGEL LUIS L MFT Ot 780.4 DIZZINESS AND GIDDINESS 07/06/2016 MADL, ANGEL LUIS L MFT Ot 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 07/06/2016 MADLSCOTTYA L MFT Ot M47.812 SPONDYLOSIS W/O MYELOPATHY OR RADICULOPA 07/06/2016 MADLSCOTTYA L MFT Ot M48.02 SPINAL STENOSIS, CERVICAL REGION 07/31/2016 MADSCOTTY EdmondsA L MFT Ot G93.9 DISORDER OF BRAIN, UNSPECIFIED 07/31/2016 SUNGLSCOTTYA L MFT Ot R93.0 ABNORMAL FINDINGS ON DX IMAGING OF SKULL 08/21/2016 Ot 305.1 TOBACCO USE DISORDER 08/21/2016 Ot 496 CHR AIRWAY OBSTRUCT NEC 08/21/2016 ISIDRA WILDE DO Ot 305.1 TOBACCO USE DISORDER 08/21/2016 ISIDRA WILDE DO Ot 496 CHR AIRWAY OBSTRUCT NEC 08/21/2016 MADL, ANGEL LUIS L MFT Ot 780.4 DIZZINESS AND GIDDINESS 08/21/2016 MADL, ANGEL LUIS L MFT Ot 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 08/21/2016 MADLSCOTTYA L MFT Ot M47.812 SPONDYLOSIS W/O MYELOPATHY OR RADICULOPA 08/21/2016 ANGEL LUIS OVALLE MFT Ot M48.02 SPINAL STENOSIS, CERVICAL REGION 08/21/2016 ANGEL LUIS OVALLE MFT Ot G93.9 DISORDER OF BRAIN, UNSPECIFIED 08/21/2016 ANGEL LUIS OVALLE MFT Ot R93.0 ABNORMAL FINDINGS ON DX IMAGING OF SKULL 08/21/2016 KALLIE BERNARD MD Ot M50.13 CERVICAL DISC DISORDER W RADICULOPATHY, 08/21/2016 KALLIE BERNARD MD Ot Z79.899 OTHER [facility] (CURRENT) DRUG THERAPY 10/22/2016 MATHIEU DO TOM K Ot I10 ESSENTIAL (PRIMARY) HYPERTENSION 10/22/2016 MATHIEU DO TOM K Ot J44.9 CHRONIC OBSTRUCTIVE PULMONARY DISEASE, U 10/22/2016 MATHIEU DO TOM K Ot R42 DIZZINESS AND GIDDINESS 10/22/2016 MATHIEU DO TOM K Ot Z79.82 [facility] (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 10/22/2016 MATHIEU DO TOM K Ot Z79.899 OTHER [facility] (CURRENT) DRUG THERAPY 10/22/2016 MATHIEU DO TOM K Ot Z87.891 PERSONAL HISTORY OF NICOTINE DEPENDENCE 10/22/2016 MATHIEU DO TOM K Ot I10 ESSENTIAL (PRIMARY) HYPERTENSION 10/22/2016 MATHIEU DO TOM K Ot J44.9 CHRONIC OBSTRUCTIVE PULMONARY DISEASE, U 10/22/2016 MATHIEU DO TOM K Ot R42 DIZZINESS AND GIDDINESS 10/22/2016 MATHIEU DO TOM K Ot 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 SETTER (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 10/22/2016 MATHIEU DO TOM K Ot Z79.899 OTHER JO[facility]TER (CURRENT) DRUG THERAPY 10/22/2016 MATHIEU DO TOM K Ot Z87.891 PERSONAL HISTORY OF NICOTINE DEPENDENCE 11/14/2016 MATHIEU DO TOM K Ot I10 ESSENTIAL (PRIMARY) HYPERTENSION 11/14/2016 MATHIEU DO TOM K Ot J44.9 CHRONIC OBSTRUCTIVE PULMONARY DISEASE, U 11/14/2016 MATHIEU DO TOM K Ot R42 DIZZINESS AND GIDDINESS 11/14/2016 MATHIEU DO TOM K Ot 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 SETTER (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 11/14/2016 TOM MURDOCK DO Ot Z79.899 OTHER JOINT SETTER (CURRENT) DRUG THERAPY 11/14/2016 TOM MURDOCK DO Ot Z87.891 PERSONAL HISTORY OF NICOTINE DEPENDENCE 11/26/2016 Ot 305.1 TOBACCO USE DISORDER 11/26/2016 Ot 496 CHR AIRWAY OBSTRUCT NEC 11/26/2016 ISIDRA WILDE DO Ot 305.1 TOBACCO USE DISORDER 11/26/2016 ANDRYISIDRA RIVAS DO Ot 496 CHR AIRWAY OBSTRUCT NEC 11/26/2016 MADL, ANGEL LUIS L MFT Ot 780.4 DIZZINESS AND GIDDINESS 11/26/2016 MADL, ANGEL LUIS L MFT Ot 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 11/26/2016 MADL, ANGEL LUIS L MFT Ot M47.812 SPONDYLOSIS W/O MYELOPATHY OR RADICULOPA 11/26/2016 MADL, ANGEL LUIS L MFT Ot M48.02 SPINAL STENOSIS, CERVICAL REGION 11/26/2016 MADL, ANGEL LUIS L MFT Ot G93.9 DISORDER OF BRAIN, UNSPECIFIED 11/26/2016 MADL, ANGEL LUIS L MFT Ot R93.0 ABNORMAL FINDINGS ON DX IMAGING OF SKULL 12/03/2016 Ot 305.1 TOBACCO USE DISORDER 12/03/2016 Ot 496 CHR AIRWAY OBSTRUCT NEC 12/03/2016 ISIDRA WILDE DO Ot 305.1 TOBACCO USE DISORDER 12/03/2016 ISIDRA WILDE DO Ot 496 CHR AIRWAY OBSTRUCT NEC 12/03/2016 MADL, ANGEL LUIS L MFT Ot 780.4 DIZZINESS AND GIDDINESS 12/03/2016 MADL, ANGEL LUIS L MFT Ot 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 12/03/2016 MADL, ANGEL LUIS L MFT Ot M47.812 SPONDYLOSIS W/O MYELOPATHY OR RADICULOPA 12/03/2016 MADL, ANGEL LUIS L MFT Ot M48.02 SPINAL STENOSIS, CERVICAL REGION 12/03/2016 MADL, ANGEL LUIS L MFT Ot G93.9 DISORDER OF BRAIN, UNSPECIFIED 12/03/2016 MADL, ANEGL LUIS L MFT Ot R93.0 ABNORMAL FINDINGS ON DX IMAGING OF SKULL 12/03/2016 MELISSA MAIER FACC, SHAWN FACP CCDS Ot R07.89 OTHER CHEST PAIN 12/10/2016 Ot 305.1 TOBACCO USE DISORDER 12/10/2016 Ot 496 CHR AIRWAY OBSTRUCT NEC 12/10/2016 ANDRY ISIDRA YATES Ot 305.1 TOBACCO USE DISORDER 12/10/2016 ANDRYISIDRA RIVAS DO Ot 496 CHR AIRWAY OBSTRUCT NEC 12/10/2016 MADL, ANGEL LUIS L MFT Ot 780.4 DIZZINESS AND GIDDINESS 12/10/2016 MADL, ANGEL LUIS L MFT Ot 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 12/10/2016 MADL, ANGEL LUIS L MFT Ot M47.812 SPONDYLOSIS W/O MYELOPATHY OR RADICULOPA 12/10/2016 MADL, ANGEL LUIS L MFT Ot M48.02 SPINAL STENOSIS, CERVICAL REGION 12/10/2016 MADL, ANGEL LUIS L MFT Ot G93.9 DISORDER OF BRAIN, UNSPECIFIED 12/10/2016 MADL, ANGEL LUIS L MFT Ot R93.0 ABNORMAL FINDINGS ON DX IMAGING [...] Ot J43.9 EMPHYSEMA, UNSPECIFIED 04/08/2017 MADLANGEL LUIS MFT Ot 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 04/08/2017 MADL, ANGEL LUIS L MFT Ot I72.0 ANEURYSM OF CAROTID ARTERY 04/08/2017 RICH ADAMS RESIDENCY PROGRAM COORDINATOR Ot G47.33 OBSTRUCTIVE SLEEP APNEA (ADULT) (PEDIATR 04/12/2017 MADL, ANGEL LUIS L MFT Ot I72.0 ANEURYSM OF CAROTID ARTERY 04/13/2017 MADL, ANGEL LUIS L MFT Ot F17.210 NICOTINE DEPENDENCE, CIGARETTES, UNCOMPL 04/20/2017 RICH ADAMS APRN Ot F17.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, UNSPECIFIED, IN REM 04/20/2017 RICH ADAMS APRN Ot J43.9 EMPHYSEMA, UNSPECIFIED 04/21/2017 RICH ADAMS APRN Ot G47.33 OBSTRUCTIVE SLEEP APNEA (ADULT) (PEDIATR 04/27/2017 MADL, ANGEL LUIS Edmonds MFT Ot F17.210 NICOTINE DEPENDENCE, CIGARETTES, UNCOMPL 04/30/2017 RICH ADAMS APRN Ot F17.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, [...] W SUBSEQUENT 05/21/2017 MILY MAHAN Ot Z79.82 [facility] (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 05/21/2017 MILY MAHAN Ot Z87.891 PERSONAL HISTORY OF NICOTINE DEPENDENCE 08/14/2017 ARMIN EASON APRN Ot I10 ESSENTIAL (PRIMARY) HYPERTENSION 08/14/2017 ARMIN EASON APRN Ot J44.9 CHRONIC OBSTRUCTIVE PULMONARY DISEASE, U 08/14/2017 ARMIN EASON APRN Ot K21.9 GASTRO-ESOPHAGEAL REFLUX DISEASE WITHOUT 08/14/2017 ARMIN EASON APRN Ot N32.0 BLADDER-NECK OBSTRUCTION 08/14/2017 ARMIN EASON APRN Ot R10.30 LOWER ABDOMINAL PAIN, UNSPECIFIED 08/14/2017 ARMIN EASON APRN Ot Z79.82 [facility] (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 08/14/2017 ARMIN EASON APRN Ot Z80.1 FAMILY HISTORY OF MALIG NEOPLASM OF TRAC 08/14/2017 ARMIN EASON APRN Ot Z80.8 FAMILY HISTORY OF MALIGNANT NEOPLASM OF 08/15/2017 MILY MAHAN Ot I10 ESSENTIAL (PRIMARY) HYPERTENSION 08/15/2017 MILY MAHAN Ot J44.9 CHRONIC OBSTRUCTIVE PULMONARY DISEASE, U 08/15/2017 MILY MAHAN Ot K21.9 GASTRO-ESOPHAGEAL REFLUX DISEASE WITHOUT 08/15/2017 MILY MAHAN Ot T83.098A [facility] COMPL OF OTHER URINARY CATHETER, [place] 08/15/2017 MILY MAHAN Ot Z79.82 [facility] (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 08/15/2017 MILY MAHAN Ot Z80.1 FAMILY HISTORY OF MALIG NEOPLASM OF TRAC 08/15/2017 MILY MAHAN Ot Z80.8 FAMILY HISTORY OF MALIGNANT NEOPLASM OF 08/15/2017 MILY MAHAN Ot Z87.891 PERSONAL HISTORY OF NICOTINE DEPENDENCE 08/15/2017 MILY MAHAN Ot Z90.49 ACQUIRED ABSENCE OF OTHER SPECIFIED PART 08/17/2017 ARMIN EASON APRN Ot I10 ESSENTIAL (PRIMARY) HYPERTENSION 08/17/2017 ARMIN EASON APRN Ot J44.9 CHRONIC OBSTRUCTIVE PULMONARY DISEASE, U 08/17/2017 ARMIN EASON APRN Ot K21.9 GASTRO-ESOPHAGEAL REFLUX DISEASE WITHOUT 08/17/2017 ARMIN EASON APRN Ot N32.0 BLADDER-NECK OBSTRUCTION 08/17/2017 ARMIN EASON APRN Ot R10.30 LOWER ABDOMINAL PAIN, UNSPECIFIED 08/17/2017 ARMIN EASON APRN Ot Z79.82 [facility] (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 08/17/2017 ARMIN EASON APRN Ot Z80.1 FAMILY HISTORY OF MALIG NEOPLASM OF TRAC 08/17/2017 ARMIN EASON RESIDENCY PROGRAM COORDINATOR Ot Z80.8 FAMILY HISTORY OF MALIGNANT NEOPLASM OF 08/17/2017 MATHIEU DO, TOM K Ot I10 ESSENTIAL (PRIMARY) HYPERTENSION 08/17/2017 MATHIEU DO, TOM K Ot J44.9 CHRONIC OBSTRUCTIVE PULMONARY DISEASE, U 08/17/2017 MATHIEU DO, TOM K Ot K21.9 GASTRO-ESOPHAGEAL REFLUX DISEASE WITHOUT 08/17/2017 MATHIEU DO, TOM K Ot K59.00 CONSTIPATION, UNSPECIFIED 08/17/2017 MATHIEU DO, TOM K Ot R10.30 LOWER ABDOMINAL PAIN, UNSPECIFIED 08/17/2017 MATHIEU DO, TOM K Ot T83.098A [facility] COMPL OF OTHER URINARY CATHETER, [place] 08/17/2017 MATHIEU DO, TOM K Ot Z79.82 [facility] (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 08/17/2017 MATHIEU DO, TOM K Ot Z80.1 FAMILY HISTORY OF MALIG NEOPLASM OF TRAC 08/17/2017 MATHIEU DO, TOM K Ot Z87.891 PERSONAL HISTORY OF NICOTINE DEPENDENCE 08/17/2017 MATHIEU DO, TOM K Ot Z90.49 ACQUIRED ABSENCE OF OTHER SPECIFIED PART 08/17/2017 MATHIEU DO, TOM K Ot Z96.0 PRESENCE OF UROGENITAL IMPLANTS 08/17/2017 MILY MAHAN Ot I10 ESSENTIAL (PRIMARY) HYPERTENSION 08/17/2017 MILY MAHAN Ot J44.9 CHRONIC OBSTRUCTIVE PULMONARY DISEASE, U 08/17/2017 MILY MAHAN Ot K21.9 GASTRO-ESOPHAGEAL REFLUX DISEASE WITHOUT 08/17/2017 MILY MAHAN Ot T83.098A [facility] COMPL OF OTHER URINARY CATHETER, [place] 08/17/2017 MILY MAHAN Ot Z79.82 [facility] (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 08/17/2017 MILY MAHAN Ot Z80.1 FAMILY HISTORY OF MALIG NEOPLASM OF TRAC 08/17/2017 MILY MAHAN Ot Z80.8 FAMILY HISTORY OF MALIGNANT NEOPLASM OF 08/17/2017 MILY MAHAN Ot Z87.891 PERSONAL HISTORY OF NICOTINE DEPENDENCE 08/17/2017 MILY MAHAN Ot Z90.49 ACQUIRED ABSENCE OF OTHER SPECIFIED PART 08/17/2017 MATHIEU DO TOM Troy Ot K56.41 FECAL IMPACTION 08/17/2017 MATHIEU TOM K Ot K56.41 FECAL IMPACTION 08/19/2017 MATHIEU TOM K Ot I10 ESSENTIAL (PRIMARY) HYPERTENSION 08/19/2017 MATHIEU DO TOM K Ot J44.9 CHRONIC OBSTRUCTIVE PULMONARY DISEASE, U 08/19/2017 MATHIEU DO TOM K Ot K21.9 GASTRO-ESOPHAGEAL REFLUX DISEASE WITHOUT 08/19/2017 MATHIEU DO TOM K Ot K59.00 CONSTIPATION, UNSPECIFIED 08/19/2017 MATHIEU TOM K Ot R10.30 LOWER ABDOMINAL PAIN, UNSPECIFIED 08/19/2017 MATHIEU TOM K Ot T83.098A [facility] COMPL OF OTHER URINARY CATHETER, [place] 08/19/2017 MATHIEU DO TOM K Ot Z79.82 [facility] (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 08/19/2017 MATHIEU YATES TOM K Ot Z80.1 FAMILY HISTORY OF MALIG NEOPLASM OF TRAC 08/19/2017 MATHIEU YATES TOM K Ot Z87.891 PERSONAL HISTORY OF NICOTINE DEPENDENCE 08/19/2017 MATHIEU YATES TOM K Ot Z90.49 ACQUIRED ABSENCE OF OTHER SPECIFIED PART 08/19/2017 MATHIEU TOM K Ot Z96.0 PRESENCE OF UROGENITAL IMPLANTS 08/23/2017 MATHIEU TOM K Ot K56.41 FECAL IMPACTION Procedures Code Description [place] [address] ROUTINE VENIPUNCTURE 08/02/2012 67740 MEASURE BLOOD OXYGEN LEVEL 08/02/2012 Karlene Mtz 08/02/2012 Urology Elisa Maciel 08/02/2012 45748 A1C (IN-HOUSE) 08/02/2012 07571 CBC 08/02/2012 06189 CMP 08/02/2012 20816 LIPID PANEL 08/02/2012 50503 MAGNESIUM 08/02/2012 [id number] GFR CALC (RESULT ONLY) 08/02/2012 60115 PSA FREE AND TOTAL 08/03/2012 05797 ROUTINE VENIPUNCTURE 09/02/2012 62875 BMP 09/02/2012 [id number] GFR CALC (RESULT ONLY) 09/02/[address] NECK, SOFT TISSUE NECK W/ DYE 09/05/[address] CHEST W/DYE 09/05/2012 11878 OXIMETRY 09/05/2012 [id number] ROUTINE VENIPUNCTURE 11/01/2012 76832 CMP 11/01/2012 52416 LIPID PANEL 11/01/2012 1598877 GFR CALC (RESULT ONLY) 11/01/2012 UROLO Ciarra, Darleen 11/03/2012 42530 ROUTINE VENIPUNCTURE 01/18/2013 00089 CMP 01/18/2013 71549 MAGNESIUM 01/18/2013 8024348 GFR CALC (RESULT ONLY) 01/18/2013 98871 EKG, TRACING (IN-HOUSE) 06/16/2013 71721 ROUTINE VENIPUNCTURE 10/13/2013 10415 CMP 10/13/2013 57689 MAGNESIUM 10/13/2013 94469 CBC 10/13/2013 51113 ROUTINE VENIPUNCTURE 12/06/2013 20892 XRAY CHEST 2 VIEW 12/06/2013 72699 XRAY CERVICAL SPINE, 2 OR 3 VIEWS 12/06/2013 04247 CBC 12/06/2013 8468089 GFR CALC (RESULT ONLY) 12/06/2013 97352 CMP 12/06/2013 85463 CPK 12/06/2013 62127 TSH 12/06/2013 93614 VITAMIN D 25-HYDROXY (D2,D3 , TOTAL) 12/06/2013 99574 ROUTINE VENIPUNCTURE 12/13/2013 74770 LYME EIA W/WEST BLOT 12/13/2013 08979 EHRLICHIA ANTIBODY 12/13/2013 24377 TULAREMIA ANTIBODY 12/13/2013 33451 [facility] SPOT FEVER 12/13/2013 60215 OXIMETRY 12/13/2013 61810 HEMOCCULT 12/15/2013 27265 HEMOCCULT 12/15/2013 J1040 DEPO MEDROL 80 MG INJ 12/28/2013 80140 THERAPUTIC INJ SQ/IM 12/28/2013 99676 OXIMETRY 05/22/2014 Results Test Result Range PT [...] Status Pt. Type Provider Facility Loc./Unit Complaint [id number] 2014 10:29:00 2014 23:59:59 CLS Outpatient RUPERT MARIE DO [id number] 05/22/2014 15:34:00 05/22/2014 23:59:59 CLS Outpatient MADANGEL LUIS Edmonds APRN [place]al [id number] 12/28/2013 13:18:00 12/28/2013 23:59:59 CLS Outpatient MARTA MARTINEZ APRN [id number] 12/15/2013 11:19:00 12/15/2013 23:59:59 CLS Outpatient ANGEL LUIS OVALLE APRN L [id number] 12/13/2013 11:19:00 12/13/2013 23:59:59 CLS Outpatient YAMILE BAEZANANGEL LUIS L [id number] 12/06/2013 14:53:00 12/06/2013 23:59:59 CLS Outpatient RUPERT MARIE DO [id number] 12/06/2013 14:53:00 12/06/2013 23:59:59 CLS Outpatient MADL RESIDENCY PROGRAM COORDINATORSCOTTYA L [id number] 10/13/2013 09:30:00 10/13/2013 23:59:59 CLS Outpatient RUPERT MARIE DO [id number] 07/13/2013 10:36:00 07/13/2013 23:59:59 CLS Outpatient GIORGI SO MD [id number] 06/16/2013 13:49:00 06/16/2013 23:59:59 CLS Outpatient SUZIE PAVON MD [id number] 09/02/2012 09:47:00 09/02/2012 23:59:59 CLS Outpatient [id number] 08/19/2012 08:12:00 08/19/2012 23:59:59 CLS Outpatient [id number] 08/02/2012 11:14:00 08/02/2012 23:59:59 CLS Outpatient GIORGI SO MD [id number] 04/21/2012 16:12:00 04/21/2012 23:59:59 CLS Outpatient [id number] 01/18/2013 14:50:00 Document Registration [id number] 11/01/2012 09:32:00 Document Registration [id number] 11/01/2012 09:32:00 Document Registration [id number] 09/21/2017 11:31:00 09/21/2017 12:00:00 DIS Outpatient DARLEEN MELO MD [facility] PREOP BPH, RETENTION [id number] 08/24/2017 10:00:00 08/24/2017 23:59:59 CLS Preadmit DARLEEN MELO MD [facility] SDC BPH, RETENTION [id number] 08/17/2017 04:50:00 08/17/2017 08:40:00 DIS Outpatient TOM MURDOCK DO [facility] 4THo CONSTIPATION,RECTAL IMPACTION [id number] 08/17/2017 03:23:00 08/17/2017 05:02:00 DIS Emergency TOM MURDOCK DO [facility] ER ABD PAIN [id number] 08/15/2017 11:38:00 08/15/2017 12:56:00 DIS Emergency MILY MAHAN [facility] ER CATHETER FELL OUT [id number] 08/14/2017 15:36:00 08/14/2017 17:56:00 DIS Emergency ARMIN EASON RESIDENCY PROGRAM COORDINATOR [facility] ER STOMACH PAIN/GALLSTONES [id number] 05/21/2017 18:46:00 05/21/2017 21:55:00 DIS Emergency MILY MAHAN [facility] ER PT FELL,RT SIDED RIB PAIN [id number] 04/20/2017 20:24:00 04/21/2017 05:50:00 DIS Outpatient RICH ADAMS RESIDENCY PROGRAM COORDINATOR [facility] SLEEP G47.33 [id number] 04/14/2017 16:20:00 04/14/2017 23:59:59 CLS Preadmit MADL, ANGEL LUIS L MFT [facility] RAD SMOKING > 40 PACK YEARS [id number] 04/13/2017 08:04:00 04/13/2017 23:59:59 CLS Outpatient MADL, ANGEL LUIS L MFT [facility] RAD F17.210 [id number] 03/30/2017 09:34:00 03/30/2017 23:59:59 CLS Outpatient RICH ADAMS APRN [facility] RAD COPD [id number] 12/10/2016 09:42:00 12/10/2016 23:59:59 CLS Outpatient MELISSA MAIER FACC, SHAWN WOLFF CCDS [facility] CARD R07.89 [id number] 12/01/2016 11:55:00 12/01/2016 23:59:59 CLS Outpatient MELISSA MAIER FACC, ALI FACP CCDS [facility] CARD R07.89 [id number] 10/21/2016 22:50:00 10/22/2016 01:19:00 DIS Emergency MATHIEU DOTOM [facility] ER ELEVATED BLOOD PRESSURE [id number] 08/21/2016 09:06:00 08/21/2016 10:35:00 DIS Outpatient KALLIE BERNARD MD [facility] CARD DISC DISORDER [id number] 07/06/2016 15:30:00 07/06/2016 23:59:59 CLS Outpatient MADL, ANGEL LUIS L MFT [facility] RAD ABNORMAL MRI OF HEAD [id number] 01/14/2016 09:19:00 01/14/2016 23:59:59 CLS Outpatient MADL, ANGEL LUIS L MFT [facility] RAD NECK PAIN, VERTIGO, FAM HX OF BRAIN CANCER [id number] 06/11/2015 21:00:00 06/12/2015 05:40:00 DIS Outpatient MADL, ANGEL LUIS L MFT [facility] SLEEP NOCTUNAL HYPOXIA, DIZZINESS [id number] 05/08/2015 20:00:00 05/09/2015 06:20:00 DIS Outpatient ANGEL LUIS OVALLE MFT [facility] SLEEP CHOKING AND GASPING, HYPERSOMINIA [id number] 03/11/2015 13:19:00 03/11/2015 23:59:59 CLS Outpatient ANGEL LUIS OVALLE [facility] RAD VERTIGO [id number] 10/31/2014 11:59:00 10/31/2014 23:59:59 CLS Outpatient ISIDRA WILDE DO [facility] RAD COPD,TOBACCO USE [id number] 06/16/2013 16:00:00 06/18/2013 11:30:00 DIS Inpatient SARAY MAIER, GIORGI Alba [facility] 4TH COPD [id number] 02/21/2013 11:19:00 02/21/2013 23:59:59 CLS Outpatient [id number] 09/07/2012 08:19:00 Document Registration [id number] 10/29/2010 09:31:00 Document Registration [id number] 09/17/2010 09:15:00 Document Registration [id number] 12/18/2009 05:37:00 Document Registration [id number] 12/17/2009 12:53:00 Document Registration [id number] 12/17/2009 07:58:00 Document Registration [id number] 12/12/2009 14:24:00 Document Registration [id number] 12/11/2009 07:27:00 Document Registration [id number] 12/09/2009 09:18:00 Document Registration [id number] 11/07/2009 05:44:00 Document Registration [id number] 11/05/2009 09:12:00 Document Registration
[2017-09-22 06:30] VITALS: BP 158/106
[2017-09-22] MEDS ORDERED: FAMOTIDINE 20MG/2ML IV (PEPCID) ONE (06:37)
[2017-09-22] MEDS ORDERED: FAMOTIDINE 20MG/2ML IV (PEPCID) IV ONE (06:45)
[2017-09-22] MEDS ORDERED: cefTRIAXone INJECTION 1,000 MG in NS (IVPB) 100 ML IV ONE (06:45)
[2017-09-22] MEDS: LACTATED RINGERS 1,000 ML IV PRN ×2 (06:48→07:23)
[2017-09-22] MEDS ORDERED: PROPOFOL INJECTION 50 ML IV ONE (06:56)
[2017-09-22] MEDS ORDERED: MIDAZOLAM 10 MG/2 ML (VERSED) VIAL ONE (06:57)
[2017-09-22] MEDS ORDERED: MIDAZOLAM 2 MG/2 ML (VERSED) VIAL ONE (06:57)
--- NOTE | 2017-09-22 06:57 | Progress Note-Pre Operative ---
Pre-Operative Progress Note H&P Reviewed The H&P was reviewed, patient examined and no changes noted. Date Seen by Provider: Sep 22, 2017 Time Seen by Provider: 06:57 Date H&P Reviewed: Sep 22, 2017 Time H&P Reviewed: 06:57 Pre-Operative Diagnosis: BPH WITH RETENTION AND NEUROGENIC BLADDER DARLEEN MELO MD Sep 22, 2017 6:57 am
--- NOTE | 2017-09-22 06:58 | Progress Note-Post Operative ---
Post-Operative Progess Note Surgeon (s)/Orchestrator (s) Surgeon DARLEEN MELO MD Orchestrator: N/A Pre-Operative Diagnosis BPH WITH RETENTION AND NEUROGENIC BLADDER Post-Operative Diagnosis SAME Procedure & Operative Findings Date of Procedure 09/22/17 Procedure Performed/Findings TURP Anesthesia Type SPINAL Estimated Blood Loss Estimated blood loss (mL): LESS THAN 100CC Specimens/Packing Specimens Removed PROSTATE CHIPS Packing: N/A DARLEEN MELO MD Sep 22, 2017 6:58 am
[2017-09-22] MEDS ORDERED: ZOLPIDEM 5 MG (AMBIEN) TAB PO PRN (07:00)
[2017-09-22] MEDS ORDERED: MILK OF MAGNESIA 400 MG/5 ML 30 ML UDC PO PRN (07:00)
[2017-09-22] MEDS ORDERED: HYDROcodone/APAP 10 MG/325 MG (LORTAB) TAB PO PRN (07:00)
[2017-09-22] MEDS ORDERED: BELLADONNA ALK/OPIUM (B & O) 30 MG SUPP PR PRN (07:00)
[2017-09-22] MEDS ORDERED: fentaNYL INJECTION 100 MCG/2 ML AMP ONE (07:03)
[2017-09-22] MEDS ORDERED: ONDANSETRON 4 MG/2 ML (SDV) Z0FRAN IVP PRN (09:00)
[2017-09-22] MEDS: DOCUSATE SODIUM 100 MG (COLACE) CAP PO SCH ×2 (11:43→21:04)
[2017-09-22] MEDS: LACTATED RINGERS 1,000 ML IV SCH ×3 (11:43→19:49)
[2017-09-22 12:00] VITALS: BP 167/98
[2017-09-22] MEDS ORDERED: INFLUENZA TRIvalent 2017-2018 0.5 ML/45 MCG SYR IM ONE (12:15)
--- NOTE | 2017-09-22 13:35 | OPERATIVE REPORT ---
DATE OF SERVICE: 09/22/2017 PREOPERATIVE DIAGNOSES: Benign prostatic hypertrophy and urinary bladder with retention. POSTOPERATIVE DIAGNOSES: Benign prostatic hypertrophy and urinary bladder with retention. OPERATION PERFORMED: Transurethral resection of the prostate. SURGEON: Darleen Melo MD. ANESTHESIA: Spinal. COMPLICATIONS: None. PROCEDURE: Under satisfactory spinal anesthesia, the patient in lithotomy position, genitalia were prepped and draped in the usual sterile fashion. Urethra was dilated with Karina sound to #30 Israeli easily to accommodate the 27-Israeli EUDOWEB resectoscope. Resection was started first in the medial lobe, which was leveled. Then, the right lateral lobe from 1 to 6 o'clock position and followed by the left one. The capsule was visualized in many areas. Bleeders were cauterized as dissection was proceeding. Prostatic chips were evacuated. Cystoscopy confirmed intact ureteric orifices with uterine sphincter with good reflux. The resection was a very adequate and hemostasis as well. The resectoscope was then removed and a 22-Israeli 3-way 30 mL balloon catheter was inserted. The balloon inflated to 30 mL connected to continuous bladder irrigation with normal saline, the return of which was pinkish. Estimated blood loss less than 100 mL, none of which was replaced. The patient tolerated the procedure and anesthesia well and was sent to recovery room in stable condition. Job ID: [id number] DocumentID: [id number] Dictated Date: 09/22/2017 08:53:12 [employer] Date: 09/22/2017 13:34:40 Dictated By: DARLEEN MELO MD [facility]
[2017-09-22] MEDS ORDERED: CARB1TAB40 PO (13:51)
--- NOTE | 2017-09-22 14:27 | Anesthesia-Regional Post-Op ---
Regional Patient Condition Mental Status: Alert, Oriented x3 Circulation: Same as Pre-Op Headache: Absent Sensation: Full Recovery Motor Block: Absent Post Op Complications Complications None Follow Up Care/Instructions Patient Instructions None needed. Anesthesia/Patient Condition Patient is doing well, no complaints, stable vital signs, no apparent adverse anesthesia problems. No complications reported per nursing. SYLVESTER BOLANOS CRNA Sep 22, 2017 14:27
[2017-09-22 16:48] VITALS: BP 147/80
[2017-09-22 20:25] VITALS: BP 139/89
[2017-09-23 00:09] VITALS: BP 128/91
[2017-09-23 04:00] VITALS: BP 160/100
[2017-09-23] MEDS ORDERED: LEVOFLOXACIN 500 MG/100 ML IV 100 ML IV NR (07:00)
[2017-09-23] MEDS: LACTATED RINGERS 1,000 ML IV SCH ×4 (07:53→16:53)
[2017-09-23 08:00] VITALS: BP 145/88
[2017-09-23] MEDS ORDERED: CYCLOBENZAPRINE 10 MG (FLEXERIL) TAB PO PRN (08:00)
[2017-09-23] MEDS ORDERED: RT-ADVAIR HFA 115/21 MCG PER PUFF IH SCH (08:00)
[2017-09-23] MEDS ORDERED: RT-ALBUTEROL SULF 2.5 MG/3 ML PRE-MIX VIAL IH PRN (08:15)
[2017-09-23] MEDS ORDERED: PANTOPRAZOLE 40 MG (PROTONIX) TAB PO SCH (08:21)
[2017-09-23] MEDS: SINEMET 25/100 (CARBIDOPA/LEVODOPA) TAB PO SCH ×2 (08:43→13:57)
[2017-09-23] MEDS: PENTOXIFYLLINE 400 MG (TRENtal) TAB PO SCH ×2 (08:43→13:57)
[2017-09-23] MEDS: DOCUSATE SODIUM 100 MG (COLACE) CAP PO SCH (08:43)
[2017-09-23] MEDS ORDERED: OMEGA 3 (FISH OIL) 1000 MG CAP PO SCH (09:00)
[2017-09-23] MEDS ORDERED: VITAMIN D3 5,000 UNITS (CHOLECALCIFEROL ) CAPSULE PO SCH (09:00)
--- NOTE | 2017-09-23 10:54 | Progress Note-Urology ---
Progress Note-Urology Progress Notes/Assess & Plan Progress/Assessment & Plan AFEBRILE, VSS. DOING WELL. URINE TINGED, DC LOYD Final Diagnosis BPH, NEUROGENIC BLADDER, AND RETENTION DARLEEN MELO MD Sep 23, 2017 10:54
[2017-09-23 12:00] VITALS: BP 127/92
[2017-09-23 16:24] VITALS: BP 147/89
[2017-09-23] MEDS ORDERED: CIPR-225 PO (17:07)
== END 2017-09-23 17:20 | disposition home or self-care (01) ==
LOC: SDC 06:06 → 4TH 11:38 → SDC 09-23 17:20
PROVIDERS: ATTEND Urology
DX: N40.1 Benign prostatic hyperplasia with lower urinary tract symptoms (principal); R33.9 Retention of urine, unspecified; J44.9 Chronic obstructive pulmonary disease, unspecified; G47.33 Obstructive sleep apnea (adult) (pediatric); E78.00 Pure hypercholesterolemia, unspecified; L40.9 Psoriasis, unspecified; E78.5 Hyperlipidemia, unspecified; Z87.891 Personal history of nicotine dependence; K21.9 Gastro-esophageal reflux disease without esophagitis; Z79.899 Other long term (current) drug therapy
CPT/HCPCS: 86850; 86900; 86901; 94664

== ENCOUNTER → 2018-03-01 | Outpatient (CLI) | payer MEDICARE, MEDICAID ==
[~2018-03-01] MED LIST changes: +CARB1TAB40 PO; +IOHEXOL 350 MG/ML 100 ML (OMNIPAQUE 350) VIAL IV ONE; +NS 250 ML (IVPB) BAG IV ONE; -PENT400T2 PO; +PENT400T9 PO
[2018-03-01 09:54] LABS: BUN/CREATININE RATIO 23; CREATININE SERUM 0.91 MG/DL (0.60-1.30); GFR ESTIMATED > 60
--- NOTE | 2018-03-01 11:18 | Diagnostic Imaging Report ---
PROCEDURE: CT chest with contrast only. TECHNIQUE: Multiple contiguous axial images were obtained through the chest after administration of intravenous contrast. INDICATION: Shortness of breath. Comparison made with prior examination 05/21/2017. FINDINGS: There is minimal scarring and atelectasis in the right lower lobe. There is bullous emphysematous disease and scarring in both lung apices. There is no pleural or pericardial fluid. There is no pneumothorax. Heart size is normal. There is no pathologically enlarged adenopathy in the chest. The visualized intra-abdominal structures are unremarkable. There are mild degenerative changes in the spine. IMPRESSION: Biapical bullous disease with some scarring as well as right basilar atelectasis and pneumonitis. No other acute abnormality in the chest. Dictated by: Dictated on workstation # [id number]
== END ==
LOC: RAD 08:40
PROVIDERS: ATTEND Nurse Practitioner Family
DX: L13.8 Other specified bullous disorders (principal); J44.9 Chronic obstructive pulmonary disease, unspecified; J98.11 Atelectasis; J18.9 Pneumonia, unspecified organism; R49.0 Dysphonia
CPT/HCPCS: 36415; 71260; 82565; 84520

== ENCOUNTER → 2018-03-02 | Outpatient (CLI) | payer MEDICARE, MEDICAID ==
[~2018-03-02] MED LIST changes: -IOHEXOL 350 MG/ML 100 ML (OMNIPAQUE 350) VIAL IV ONE; -NS 250 ML (IVPB) BAG IV ONE; +RT-ALBUTEROL SULF 2.5 MG/3 ML PRE-MIX VIAL INH ONE
== END ==
LOC: RT 12:47
PROVIDERS: ATTEND Nurse Practitioner Family
DX: J44.9 Chronic obstructive pulmonary disease, unspecified (principal)
CPT/HCPCS: 94060; 94726; 94729

== ENCOUNTER 2018-03-28 07:38 | Outpatient (RCR) | payer MEDICARE, MEDICAID ==
[~2018-03-28 07:38] MED LIST changes: -RT-ALBUTEROL SULF 2.5 MG/3 ML PRE-MIX VIAL INH ONE
[2018-04-12 14:00] VITALS: BP 120/60
[2018-04-12 15:00] VITALS: BP 130/60
[2018-04-14 14:00] VITALS: BP 115/50
[2018-04-14 15:00] VITALS: BP 120/87
[2018-04-19 14:00] VITALS: BP 114/60
[2018-04-19 15:00] VITALS: BP 117/60
== END 2018-04-17 | disposition home or self-care (01) ==
LOC: PULM 07:38
PROVIDERS: ATTEND Nurse Practitioner Family
DX: J44.9 Chronic obstructive pulmonary disease, unspecified (principal); R06.02 Shortness of breath
CPT/HCPCS: 99211

== ENCOUNTER 2018-04-21 08:00 | Outpatient (RCR) | payer MEDICARE, MEDICAID ==
[2018-04-21 14:00] VITALS: BP 120/60
[2018-04-21 15:00] VITALS: BP 123/50
[2018-04-26 14:00] VITALS: BP 113/40
[2018-04-26 15:00] VITALS: BP 130/55
[2018-04-28 14:00] VITALS: BP 120/70
[2018-04-28 15:00] VITALS: BP 132/60
[2018-05-03 14:00] VITALS: BP 92/60
[2018-05-03 15:00] VITALS: BP 106/70
[2018-05-05 15:00] VITALS: BP_SYST 100; BP_SYST 120; BP_DIAS 50; BP_DIAS 60
[2018-05-19 14:00] VITALS: BP 116/80
[2018-05-19 14:58] VITALS: BP 120/60
[2018-05-26 14:00] VITALS: BP 130/60
[2018-05-26 15:00] VITALS: BP 140/60
[2018-06-07 14:00] VITALS: BP 116/60
[2018-06-07 14:48] VITALS: BP 91/70
[2018-06-14 14:00] VITALS: BP 120/60
[2018-06-14 15:00] VITALS: BP 115/60
[2018-06-21 14:00] VITALS: BP 115/68
[2018-06-21 15:00] VITALS: BP 110/60
[2018-06-23 14:10] VITALS: BP 131/84
[2018-06-23 14:56] VITALS: BP 130/70
== END 2018-07-20 | disposition home or self-care (01) ==
LOC: PULM 08:00
PROVIDERS: ATTEND Nurse Practitioner Family
DX: J44.9 Chronic obstructive pulmonary disease, unspecified (principal); R06.02 Shortness of breath

== ENCOUNTER → 2018-07-06 | Outpatient (CLI) | payer MEDICARE, MEDICAID ==
--- NOTE | 2018-07-06 15:12 | Diagnostic Imaging Report ---
INDICATION: History of kidney stones. COMPARISON: 07/21/2017 FINDINGS: Single supine radiographic view of the abdomen was obtained. Small bowel loops are nondistended. Thre is no large collection of free intraperitoneal air. No unexpected extraosseous calcifications or radiopaque foreign bodies are seen. Bony structures show no gross acute abnormalities. IMPRESSION: 1. Nonobstructive small bowel gas pattern. 2. No unexpected extraosseous calcifications or radiopaque foreign bodies. Dictated by: Dictated on workstation # [id number]
== END ==
LOC: RAD 14:27
PROVIDERS: ATTEND Urology
DX: N20.1 Calculus of ureter (principal)
CPT/HCPCS: 74018

== ENCOUNTER → 2018-07-07 | Outpatient (CLI) | payer MEDICARE, MEDICAID | END | disposition home or self-care (01) | LOC: PREOP 12:32 | PROVIDERS: ATTEND Urology | DX: Z01.818 Encounter for other preprocedural examination (principal) ==

== ENCOUNTER 2018-07-08 10:14 | Day surgery (SDC) | payer MEDICARE, MEDICAID ==
[~2018-07-08] VITALS: Ht 177.8 cm; Wt 76.7 kg
--- NOTE | 2018-07-08 09:28 | Progress Note-Pre Operative ---
Pre-Operative Progress Note H&P Reviewed The H&P was reviewed, patient examined and no changes noted. Date Seen by Provider: Jul 08, 2018 Time Seen by Provider: 12:16 Date H&P Reviewed: Jul 08, 2018 Time H&P Reviewed: 12:16 Pre-Operative Diagnosis: RT DISTAL URETERAL STONE DARLEEN MELO MD Jul 08, 2018 09:28
--- OUTSIDE RECORDS SUMMARY | 2018-07-08 10:18 | XMS REPORT ---
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 Name Role Phone ANGEL LUIS OVALLE Unavailable PROBLEMS Type Condition ICD9-CM Code CZJ49-MP Code Onset Dates Condition Status SNOMED Code Problem Essential hypertension I10 Active 50609428 Problem Non-ischemic cardiomyopathy I42.8 Active 86617097 Problem Chronic obstructive pulmonary disease, unspecified COPD type J44.9 Active 27792312 Problem Benign prostatic hyperplasia with lower urinary tract symptoms N40.1 Active 699201450 Problem Abnormal MRI of head R93.0 Active 214585932319586 Problem Nocturnal hypoxemia G47.34 Active 891921329 Problem 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 Active 73636116 Problem Non-rheumatic tricuspid valve insufficiency I36.1 Active 070499023 Problem Carotid disease, bilateral I77.9 Active 631164280 Problem Smoking greater than 40 pack years F17.210 Active 83877843 Problem Non-rheumatic mitral regurgitation I34.0 Active 696349074 Problem Obstructive sleep apnea syndrome G47.33 Active 12488989 Problem Obstructive sleep apnea G47.33 Active 81153407 Problem Mixed stress and urge urinary incontinence N39.46 Active 674584859 Problem Spinal stenosis in cervical region M48.02 Active 79127817 Problem Cyst on ear L72.9 Active 51891923 Problem Incontinence R32 Active 94602950 Problem Enlarged prostate with lower urinary tract symptoms N40.1 Active 938792583509944 Problem Cardiac arrhythmia, unspecified cardiac arrhythmia type I49.9 Active 33605075 Problem Elevated PSA R97.2 Active 744166034 Problem GERD without esophagitis K21.9 Active 545299151 ALLERGIES No Information ENCOUNTERS Encounter Location Date Diagnosis [facility] [place] [address] [facility] [id number] [address] 19 Aug, 2017 [facility] [place] [address] [place] [id number] [place] [address] 93202- 8759 12 Aug, 2017 [place] [address] [place] [id number] [place] [address] 40141- 3868 Jul, [facility] [place] [address] [place] [id number] [place] [address] 57532 -9054 Jul, Other retention of urine R33.8 and Benign prostatic hyperplasia with lower urinary tract symptoms N40.1 [place] [address] 61897- 1288 Jul, Enlarged prostate with lower urinary tract symptoms N40.1 [place] [address] 54379- 7188 Jun, Dyspnea on exertion R06.09 ; Obstructive sleep apnea G47.33 ; Chronic obstructive pulmonary disease, unspecified COPD type J44.9 ; Non- rheumatic mitral regurgitation I34.0 and Non-rheumatic tricuspid valve insufficiency I36.1 [place] [address] 25137- 6143 May, [place] [address] [place] [id number] [place] [address] 15774- 5039 May, [facility] [place] [address] [place] [id number] [place] [address] 65957 -6311 May, Chest wall contusion, right, initial encounter S20.211A [place] [address] [place] [id number] [place] [address] 39709- 0497 Apr, Fatigue, unspecified type R53.83 ; Obstructive sleep apnea G47.33 and Nocturnal hypoxemia G47.34 [facility] [address] [place] [id number] [place] [address] 53800 -6247 Apr, [place] [address] [place] [id number] [place] [address] 82439- 6970 Apr, [place] [address] [place] [id number] [place] [address] 39469- 4399 Mar, Medicare welcome exam Z00.00 ; Medicare annual wellness visit, initial Z00.00 ; Medicare annual wellness visit, subsequent Z00.00 ; Smoking greater than 40 pack years F17.210 and Encounter for immunization Z23 [place] [address] 43493- 5542 Feb, Acute bilateral low back pain without sciatica M54.[address] 19183- 0691 Feb, Dyspnea on exertion R06.09 ; Obstructive sleep apnea G47.33 ; Chronic obstructive pulmonary disease, unspecified COPD type J44.9 ; Non- rheumatic mitral regurgitation I34.0 and Non-rheumatic tricuspid valve insufficiency I36.[address] 23732- 9179 14 Dec, 2016 Dyspnea on exertion R06.09 ; Chronic obstructive pulmonary disease, unspecified COPD type J44.9 ; Non-rheumatic mitral regurgitation I34.0 ; Non-rheumatic tricuspid valve insufficiency I36.1 ; Obstructive sleep apnea G47.33 and Carotid disease, bilateral I77.[address] 98616- 6559 November, [address] 77766- 7541 November, Chronic obstructive pulmonary disease, unspecified COPD type J44.9 ; Non-ischemic cardiomyopathy I42.8 and Otitis media, unspecified, left ear H66.[address] 95468- 1315 November, Chest discomfort R07.89 ; Non-ischemic cardiomyopathy I42.8 ; Shortness of breath R06.02 and History of tobacco use Z87.[address] 04389- 2640 Oct, Chronic obstructive pulmonary disease, unspecified COPD type J44.9 ; Essential hypertension I10 and Acute diffuse otitis externa of left ear H60.[address] [place] [address]- 5008 Oct, Chest discomfort R07.89 ; Obstructive sleep apnea G47.33 ; Essential hypertension I10 ; Eustachian tube dysfunction, bilateral H69.83 ; Dyshidrosis L30.1 ; Acute diffuse otitis externa of left ear H60.312 and Mixed stress and urge urinary incontinence N39.[address] 81523- 5036 Oct, [place] [address] [place] [id number]- 0770 Oct, Essential hypertension I10 [place]3562- 9259 Oct, Chest discomfort R07.89 ; Obstructive sleep apnea G47.33 ; Essential hypertension I10 ; Eustachian tube dysfunction, bilateral H69.83 and Bilateral impacted cerumen H61.[address] 49692- 6056 Oct, [place] [address] 69432- 5175 Sep, [place] [address]- [address] Sep, [address] [address]49- 0747 Aug, Noncompliance with medication regimen Z91.[address] 98012- 4070 Aug, Noncompliance with medication regimen Z91.[address] [address] Aug, [place] [address]40698- 5632 Jul, Spinal stenosis in cervical region M48.02 ; GERD without esophagitis K21.9 ; Enlarged prostate with lower urinary tract symptoms N40.1 and Incontinence R32 [place] [address] [place] [id number] [place] [address] 22421- 0258 Jul, Neck pain M54.2 and Dizziness R42 [place] [address] 06231- 1338 Jun, Abnormal MRI of head R93.0 [place] [address] 48378- 3161 14 Jun, 2016 Right ear impacted cerumen H61.21 ; Spinal stenosis in cervical region M48.02 ; Abnormal MRI of head R93.0 and Vertigo R42 [facility] [place] [address] 58363 -7916 07 Jun, 2016 Recurrent acute suppurative otitis media without spontaneous rupture of left tympanic membrane H66.005 [place] [address] [place] [id number] [place] [address] 84202- 5272 May, Dizziness R42 and Cardiac arrhythmia, unspecified cardiac arrhythmia type I49.9 [facility] [place] [address] [place] [id number] [place] [address] 23911 -8370 May, Acute suppurative otitis media of left ear without spontaneous rupture of tympanic membrane, recurrence not specified H66.002 ; Dizziness R42 and Cardiac arrhythmia, unspecified cardiac arrhythmia type I49.9 [place] [address] [place] [id number] [place] [address] 26257- 6286 Mar, [place] [address] [place] [id number] [place] [address] 79563- 1792 Jan, Cervical spinal stenosis M48.02 and Cerebral cavernoma Q28.3 [place] [address] [place] [id number] [place] [address] 58922- 4226 Dec, Neck pain M54.2 ; Vertigo R42 and Family history of brain cancer Z80.8 [facility] [place] [address] [place] [id number] [place] [address] 85038 -0665 Dec, Dizziness R42 [place] [address] [place] [address]- 6783 Dec, [facility] [place] [address] [place] [id number] [place] [address] 68090- 0955 Oct, [facility] [place] [address] 07216- 2727 Oct, [facility] [place] [address] 51540- 1674 Oct, [facility] [place] [address] 81464- 8007 Oct, Sebaceous cyst L72.3 [place] [address] 07288- 3177 Sep, Obstructive sleep apnea G47.33 ; Incontinence R32 and Cyst on ear L72.9 [place] [address] 73586- 6977 Aug, Diarrhea R19.7 and Nausea & vomiting R11.2 [place] [address] [place] [id number] [place] [address] 87418- 0164 Jul, [facility] [place] [address] 77126- 9023 Jun, [place] [address] [place] [id number] [place] [address] 33035- 5945 Jun, Obstructive sleep apnea G47.33 ; Hyperkalemia E87.5 ; Enlarged prostate with lower urinary tract symptoms N40.1 and Elevated PSA R97.2 [facility] [place] [address] [place] [id number] [place] [address] 27902- 9480 Apr, Obstructive sleep apnea syndrome G47.33 [place] [address] 72432- 4875 Apr, [facility] [place] [address] [place] [id number] [place] [address] 62291- 2234 Mar, BPH (benign prostatic hyperplasia) 600.00 [place] [address] [place] [id number] [place] [address] 58448- 9151 Mar, Elevated PSA 790.93 and BPH (benign prostatic hyperplasia) 600.00 [facility] [place] [address] [place] [id number] [place] [address] 05875- 2282 Feb, [facility] [place] [address] [place] [id number] [place] [address] 65150- 9522 Feb, [facility] [place] [address] [place] [id number] [place] [address] 31396- 7020 Feb, Dizziness 780.4 ; COPD (chronic obstructive pulmonary disease) 496 ; Nocturnal hypoxia 327.24 ; Rib pain on left side 786.50 ; BPH ( benign prostatic hyperplasia) 600.00 ; Elevated PSA 790.93 and Incontinence of urine 788.30 [facility] [place] [address] [place] [id number] [place] [address] 19660- 0989 Dec, Upper respiratory infection 465.9 and Psoriasis 696.1 [facility] [place] [address] [place] [id number] [place] [address] 33717- 0784 Oct, [facility] [place] [address] [place] [id number] [place] [address] 13973- 8513 Oct, [facility] [place] [address] [place] [id number] [place] [address] 98569- 1925 Sep, [facility] [place] [address] [place] [id number] [place] [address] 91596- 2719 Sep, [facility] [place] [address] [place] [id number] [place] [address] 13189- 8306 Aug, [facility] [place] [address] [place] [id number] [place] [address] 034135- 2753 Aug, [facility] [place] [address] [place] [id number] [place] [address] 139728- 7100 May, [facility] [place] [address] [place] [id number] [place] [address] 673850- 0999 May, [facility] [place] [facility] [address] [id number] [place] [address]- 2170 Dec, [facility] [place] [facility] [address] [id number] [place] [address]- 1733 Dec, [facility] [place] [facility] [address] [id number] [place] [address]- 9177 Dec, [facility] [place] [facility] [address] [id number] [place] [address]- 9776 Dec, [facility] [place] [facility] [address] [id number] [place] [address]- 4560 Dec, [facility] [place] [facility] [address] [id number] [place] [address]- 7952 Dec, [facility] [place] [facility] [address] [id number] [place] [address]- 9777 Dec, [facility] [place] [facility] [address] [id number] [place] [address]- 9086 November, [facility] [place] [facility] [address] [id number] [place] [address]- 4304 November, [facility] [place] [facility] [address] [id number] [place] [address]- 6849 November, [facility] [place] [facility] [address] [id number] [place] [address]- 9178 November, [facility] [place] [facility] [address] [id number] [place] [address]- 1932 November, [facility] [place] [facility] [address] [id number] [place] [address]- 5580 November, [facility] [place] [facility] [address] [id number] [place] [address]- 6661 November, [facility] [place] [facility] [address] [id number] [place] [address]- 6222 November, [facility] [place] [facility] [address] [id number] [place] [address]- 3919 November, [facility] [place] [facility] [address] [id number] [place] [address]- 4078 November, [facility] [place] [facility] [address] [id number] [place] [address]- 2049 November, [facility] [place] [facility] [address] [id number] [place] [address]- 3024 November, [facility] [place] [facility] [address] [id number] [place] [address]- 1146 November, [facility] [place] [facility] [address] [id number] [place] [address]- 6542 Sep, [facility] [place] [facility] [address] [id number] [place] [address]- 5216 Sep, [facility] [place] [facility] [address] [id number] [place] [address]- 9944 Sep, [facility] [place] [facility] [address] [id number] [place] [address]- 1811 Sep, [facility] [place] [facility] [address] [id number] [place] [address]- 0264 Sep, [facility] [place] [facility] [address] [id number] [place] [address]- 4929 Sep, [facility] [place] [facility] [address] [id number] [place] [address]- 9350 Jun, [facility] [place] [facility] [address] [id number] [place] [address]- 3738 Jun, [facility] [place] [facility] [address] [id number] [place] [address]- 8152 Jun, [facility] [place] [facility] [address] [id number] [place] [address]- 1251 May, [facility] [place] [facility] [address] [id number] [place] [address]- 4244 May, [facility] [place] [facility] [address] [id number] [place] [address]- 9437 05 Jan, 2013 [facility] [facility] [address] [id number] [place] [address]- 5924 Jan, [facility] [place] [facility] [address] [id number] [place] [address]- 6819 05 Dec, 2012 [facility] [address] [id number] [place] [address]- 4416 Oct, [facility] [place] [facility] [address] [id number] [place] [address]- 5922 16 Oct, 2012 [facility] [address] [id number] [place] [address]- 9165 Oct, [facility] [place] [facility] [address] [id number] [place] [address]- 8421 Aug, [facility] [address] [id number] [place] [address]- 9607 Aug, [facility] [address] [id number] [place] [address]- 8505 Jul, [facility] [place] [facility] [address] [id number] [place] [address]- 9451 Jul, [facility] [address] [id number] [place] [address]- 3337 Jul, [facility] [address] [id number] [place] [address]- 1579 Jun, [facility] [place] [facility] [address] [id number] [place] [address]- 3136 Jun, [facility] [place] [facility] [address] [id number] [place] [address]- 6425 Jun, [facility] [place] [facility] [address] [id number] [place] [address]- 2646 Jun, [facility] [place] [facility] [address] [id number] [place] [address]- 3309 Apr, [facility] [place] [address] [facility] [id number] [place] [address]- 4710 Apr, [facility] [place] [address] [facility] [id number] [place] [address]- 3417 Apr, IMMUNIZATIONS No Known Immunizations SOCIAL HISTORY Never Assessed REASON FOR VISIT Phone Call PLAN OF CARE VITAL SIGNS MEDICATIONS Unknown Medications RESULTS No Results PROCEDURES No Known procedures INSTRUCTIONS MEDICATIONS ADMINISTERED No Known Medications MEDICAL (GENERAL) HISTORY Type Description Date Medical [...]
--- OUTSIDE RECORDS SUMMARY | 2018-07-08 10:19 | XMS REPORT ---
Author Author ANGEL LUIS OVALLE [facility] Address [address] [place] [address] Care Team Providers Care Advanced Seal Delivery System Name Role Phone ANGEL LUIS OVALLE Unavailable PROBLEMS Type Condition ICD9-CM Code FWN32-GB Code Onset Dates Condition Status SNOMED Code Problem Essential hypertension I10 Active 07660054 Problem Non-ischemic cardiomyopathy I42.8 Active 73918851 Problem Chronic obstructive pulmonary disease, unspecified COPD type J44.9 Active 51404958 Problem Benign prostatic hyperplasia with lower urinary tract symptoms N40.1 Active 700266739 Problem Abnormal MRI of head R93.0 Active 431268011212199 Problem Nocturnal hypoxemia G47.34 Active 971991517 Problem 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 Active 13030011 Problem Non-rheumatic tricuspid valve insufficiency I36.1 Active 781794935 Problem Carotid disease, bilateral I77.9 Active 059957118 Problem Smoking greater than 40 pack years F17.210 Active 43750956 Problem Non-rheumatic mitral regurgitation I34.0 Active 513109581 Problem Obstructive sleep apnea syndrome G47.33 Active 92509368 Problem Obstructive sleep apnea G47.33 Active 95545400 Problem Mixed stress and urge urinary incontinence N39.46 Active 360147864 Problem Spinal stenosis in cervical region M48.02 Active 75318032 Problem Cyst on ear L72.9 Active 86554120 Problem Incontinence R32 Active 14039506 Problem Enlarged prostate with lower urinary tract symptoms N40.1 Active 939196664618675 Problem Cardiac arrhythmia, unspecified cardiac arrhythmia type I49.9 Active 72938761 Problem Elevated PSA R97.2 Active 156999344 Problem GERD without esophagitis K21.9 Active 204985835 ALLERGIES No Information ENCOUNTERS Encounter Location Date Diagnosis [facility] [address] [facility] [id number] [address] Aug, [facility] [address] [place] [id number] [place] [address] 89795- 9782 12 Aug, 2017 [place] [address] [place] [id number] [place] [address] 43320- 2369 Jul, [facility] [place] [address] [place] [id number] [place] [address]5430 Jul, Other retention of urine R33.8 and Benign prostatic hyperplasia with lower urinary tract symptoms N40.1 [place] [address] [address]- 3490 Jul, Enlarged prostate with lower urinary tract symptoms N40.1 [place] [address] [address]- 8946 Jun, Dyspnea on exertion R06.09 ; Obstructive sleep apnea G47.33 ; Chronic obstructive pulmonary disease, unspecified COPD type J44.9 ; Non- rheumatic mitral regurgitation I34.0 and Non-rheumatic tricuspid valve insufficiency I36.1 [place] [address] [address]- 3558 May, [place] [address] [place] [id number] [place] [address] 21008- 4433 May, [facility] [place] [address] [place] [id number] [place] [address] 82295 -6354 May, Chest wall contusion, right, initial encounter S20.211A [place] [address] [place] [id number] [place] [address] 67918- 5462 Apr, Fatigue, unspecified type R53.83 ; Obstructive sleep apnea G47.33 and Nocturnal hypoxemia G47.34 [facility] [address] [place] [id number] [place] [address] 68098 -7844 Apr, [place] [address] [place] [id number] [place] [address] 99305- 0638 Apr, [place] [address] [place] [id number] [place] [address] 41890- 9141 Mar, Medicare welcome exam Z00.00 ; Medicare annual wellness visit, initial Z00.00 ; Medicare annual wellness visit, subsequent Z00.00 ; Smoking greater than 40 pack years F17.210 and Encounter for immunization Z23 [place] [address] 64[address]- 6760 Feb, Acute bilateral low back pain without sciatica M54.[address] 38589- 9642 Feb, Dyspnea on exertion R06.09 ; Obstructive sleep apnea G47.33 ; Chronic obstructive pulmonary disease, unspecified COPD type J44.9 ; Non- rheumatic mitral regurgitation I34.0 and Non-rheumatic tricuspid valve insufficiency I36.[address] [address]- [address] 14 Dec, 2016 Dyspnea on exertion R06.09 ; Chronic obstructive pulmonary disease, unspecified COPD type J44.9 ; Non-rheumatic mitral regurgitation I34.0 ; Non-rheumatic tricuspid valve insufficiency I36.1 ; Obstructive sleep apnea G47.33 and Carotid disease, bilateral I77.[address] [address]- 4214 November, [address] [address]71- 9911 November, Chronic obstructive pulmonary disease, unspecified COPD type J44.9 ; Non-ischemic cardiomyopathy I42.8 and Otitis media, unspecified, left ear H66.[address] 24556- 6597 November, Chest discomfort R07.89 ; Non-ischemic cardiomyopathy I42.8 ; Shortness of breath R06.02 and History of tobacco use Z87.[address] [address]- 2408 Oct, Chronic obstructive pulmonary disease, unspecified COPD type J44.9 ; Essential hypertension I10 and Acute diffuse otitis externa of left ear H60.[address] [place] [address]- 3686 Oct, Chest discomfort R07.89 ; Obstructive sleep apnea G47.33 ; Essential hypertension I10 ; Eustachian tube dysfunction, bilateral H69.83 ; Dyshidrosis L30.1 ; Acute diffuse otitis externa of left ear H60.312 and Mixed stress and urge urinary incontinence N39.[address] [address]- 58[address] Oct, [place] [address] [place] [id number]- 4480 Oct, Essential hypertension I10 [place]- 2265 Oct, Chest discomfort R07.89 ; Obstructive sleep apnea G47.33 ; Essential hypertension I10 ; Eustachian tube dysfunction, bilateral H69.83 and Bilateral impacted cerumen H61.[address] 30211- 4068 Oct, [place] [address] 98548- 5361 Sep, [place] [id number]- [address]77 Sep, [address] [address]- [address] Aug, Noncompliance with medication regimen Z91.[address] 02206- 6508 Aug, Noncompliance with medication regimen Z91.[address] [address] Aug, [place] [id number]- 9921 Jul, Spinal stenosis in cervical region M48.02 ; GERD without esophagitis K21.9 ; Enlarged prostate with lower urinary tract symptoms N40.1 and Incontinence R32 [place] [address] [place] [id number] [place] [address] 43632- 4191 Jul, Neck pain M54.2 and Dizziness R42 [place] [address] 05287- 6110 Jun, Abnormal MRI of head R93.0 [place] [address] [address]- [address]95 14 Jun, 2016 Right ear impacted cerumen H61.21 ; Spinal stenosis in cervical region M48.02 ; Abnormal MRI of head R93.0 and Vertigo R42 [facility] [place] [address] [address] 07 Jun, 2016 Recurrent acute suppurative otitis media without spontaneous rupture of left tympanic membrane H66.005 [place] [address] [place] [id number] [place] [address] 99122- 8499 May, Dizziness R42 and Cardiac arrhythmia, unspecified cardiac arrhythmia type I49.9 [facility] [place] [address] [place] [id number] [place] [address] May, Acute suppurative otitis media of left ear without spontaneous rupture of tympanic membrane, recurrence not specified H66.002 ; Dizziness R42 and Cardiac arrhythmia, unspecified cardiac arrhythmia type I49.9 [place] [address] [place] [id number] [place] [address] 50222- 2842 Mar, [place] [address] [place] [id number] [place] [address] 83558- 5596 Jan, Cervical spinal stenosis M48.02 and Cerebral cavernoma Q28.3 [place] [address] [place] [id number] [place] [address] 37388- 8731 Dec, Neck pain M54.2 ; Vertigo R42 and Family history of brain cancer Z80.8 [facility] [place] [address] [place] [id number] [place] [address] 60[address]2381 Dec, Dizziness R42 [place] [address] [place] [address]- 1474 Dec, [facility] [address] [place] [id number] [place] [address] 74892- 5124 Oct, [facility] [address] 39263- 5576 Oct, [facility] [address] 14928- 4981 Oct, [facility] [address] 73711- 9406 Oct, Sebaceous cyst L72.3 [place] [address] 95592- 7061 Sep, Obstructive sleep apnea G47.33 ; Incontinence R32 and Cyst on ear L72.9 [place] [address] 10824- 9791 Aug, Diarrhea R19.7 and Nausea & vomiting R11.2 [place] [address] [place] [id number] [place] [address] 43411- 5766 Jul, [facility] [address] 69468- 2638 Jun, [place] [address] [place] [id number] [place] [address] 62087- 0668 Jun, Obstructive sleep apnea G47.33 ; Hyperkalemia E87.5 ; Enlarged prostate with lower urinary tract symptoms N40.1 and Elevated PSA R97.2 [facility] [address] [place] [id number] [place] [address] 17604- 7802 Apr, Obstructive sleep apnea syndrome G47.33 [place] [address] 86195- 4038 Apr, [facility] [address] [place] [id number] [place] [address] 17301- 9930 Mar, BPH (benign prostatic hyperplasia) 600.00 [place] [address] [place] [id number] [place] [address] 37979- 8428 Mar, Elevated PSA 790.93 and BPH (benign prostatic hyperplasia) 600.00 [facility] [address] [place] [id number] [place] [address] 62622- 9127 Feb, [facility] [address] [place] [id number] [place] [address] 02032- 1642 Feb, [facility] [address] [place] [id number] [place] [address] 73523- 0606 Feb, Dizziness 780.4 ; COPD (chronic obstructive pulmonary disease) 496 ; Nocturnal hypoxia 327.24 ; Rib pain on left side 786.50 ; BPH ( benign prostatic hyperplasia) 600.00 ; Elevated PSA 790.93 and Incontinence of urine 788.30 [facility] [address] [place] [id number] [place] [address] 31642- 6823 Dec, Upper respiratory infection 465.9 and Psoriasis 696.1 [facility] [address] [place] [id number] [place] [address] 85133- 4318 Oct, [facility] [address] [place] [id number] [place] [address] 91482- 4673 Oct, [facility] [address] [place] [id number] [place] [address] 66983- 5953 Sep, [facility] [address] [place] [id number] [place] [address] 85093- 7381 Sep, [facility] [address] [place] [id number] [place] [address] 42692- 4155 Aug, [facility] [address] [place] [id number] [place] [address] 334015- 2682 Aug, [facility] [address] [place] [id number] [place] [address] 166525- 0673 May, [facility] [address] [place] [id number] [place] [address] 371631- 4696 May, [facility] [place] [facility] [address] [id number] [place] [address]- 1703 Dec, [facility] [place] [facility] [address] [id number] [place] [address]- 9329 Dec, [facility] [place] [facility] [address] [id number] [place] [address]- 8666 Dec, [facility] [place] [facility] [address] [id number] [place] [address]- 1273 Dec, [facility] [place] [facility] [address] [id number] [place] [address]- 6010 Dec, [facility] [place] [facility] [address] [id number] [place] [address]- 1730 Dec, [facility] [place] [facility] [address] [id number] [place] [address]- 1033 Dec, [facility] [place] [facility] [address] [id number] [place] [address]- 1524 November, [facility] [place] [facility] [address] [id number] [place] [address]- 1545 November, [facility] [place] [facility] [address] [id number] [place] [address]- 5068 November, [facility] [place] [facility] [address] [id number] [place] [address]- 1826 November, [facility] [place] [facility] [address] [id number] [place] [address]- 6953 November, [facility] [place] [facility] [address] [id number] [place] [address]- 0743 November, [facility] [place] [facility] [address] [id number] [place] [address]- 3467 November, [facility] [place] [facility] [address] [id number] [place] [address]- 0427 November, [facility] [place] [facility] [address] [id number] [place] [address]- 5509 November, [facility] [place] [facility] [address] [id number] [place] [address]- 9584 November, [facility] [place] [facility] [address] [id number] [place] [address]- 0748 November, [facility] [place] [facility] [address] [id number] [place] [address]- 4829 November, [facility] [place] [facility] [address] [id number] [place] [address]- 0689 November, [facility] [place] [facility] [address] [id number] [place] [address]- 6346 Sep, [facility] [place] [facility] [address] [id number] [place] [address]- 8703 Sep, [facility] [place] [facility] [address] [id number] [place] [address]- 5568 Sep, [facility] [place] [facility] [address] [id number] [place] [address]- 8249 Sep, [facility] [place] [facility] [address] [id number] [place] [address]- 0931 Sep, [facility] [place] [facility] [address] [id number] [place] [address]- 1506 Sep, [facility] [place] [facility] [address] [id number] [place] [address]- 3528 Jun, [facility] [place] [facility] [address] [id number] [place] [address]- 7832 Jun, [facility] [place] [facility] [address] [id number] [place] [address]- 4603 Jun, [facility] [place] [facility] [address] [id number] [place] [address]- 8181 May, [facility] [place] [facility] [address] [id number] [place] [address]- 7613 May, [facility] [place] [facility] [address] [id number] [place] [address]- 5508 05 Jan, 2013 [facility] [place] [facility] [address] [id number] [place] [address]- 1341 Jan, [facility] [place] [facility] [address] [id number] [place] [address]- 3779 05 Dec, 2012 [facility] [place] [facility] [address] [id number] [place] [address]- 9481 Oct, [facility] [place] [facility] [address] [id number] [place] [address]- 7578 16 Oct, 2012 [facility] [place] [facility] [address] [id number] [place] [address]- 9943 Oct, [facility] [place] [facility] [address] [id number] [place] [address]- 2509 Aug, [facility] [place] [facility] [address] [id number] [place] [address]- 7042 Aug, [facility] [place] [facility] [address] [id number] [place] [address]- 9604 Jul, [facility] [place] [facility] [address] [id number] [place] [address]- 2522 Jul, [facility] [place] [facility] [address] [id number] [place] [address]- 1685 Jul, [facility] [address] [id number] [place] [address]- 0337 Jun, [facility] [place] [facility] [address] [id number] [place] [address]- 4101 Jun, [facility] [place] [facility] [address] [id number] [place] [address]- 8634 Jun, [facility] [place] [facility] [address] [id number] [place] [address]- 2166 Jun, [facility] [place] [facility] [address] [id number] [place] [address]- 7849 Apr, [facility] [address] [facility] [id number] [place] [address]- 1699 Apr, [facility] [address] [facility] [id number] [place] [address]- 8037 Apr, IMMUNIZATIONS No Known Immunizations SOCIAL HISTORY Never Assessed REASON FOR VISIT Triage PLAN OF CARE VITAL SIGNS MEDICATIONS Unknown [...]
--- OUTSIDE RECORDS SUMMARY | 2018-07-08 10:19 | XMS REPORT ---
Author Author ANGEL LUIS OVALLE [facility] Address [address] [place] [address] Care Team Providers Care Marketing Production Coordinator Name Role Phone ANGEL LUIS OVALLE Unavailable PROBLEMS Type Condition ICD9-CM Code BAS04-YK Code Onset Dates Condition Status SNOMED Code Problem Essential hypertension I10 Active 29198929 Problem Non-ischemic cardiomyopathy I42.8 Active 11633649 Problem Chronic obstructive pulmonary disease, unspecified COPD type J44.9 Active 84388568 Problem Benign prostatic hyperplasia with lower urinary tract symptoms N40.1 Active 519203554 Problem Abnormal MRI of head R93.0 Active 887904439793480 Problem Nocturnal hypoxemia G47.34 Active 482738883 Problem 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 Active 71745961 Problem Non-rheumatic tricuspid valve insufficiency I36.1 Active 287500605 Problem Carotid disease, bilateral I77.9 Active 241740477 Problem Smoking greater than 40 pack years F17.210 Active 47545899 Problem Non-rheumatic mitral regurgitation I34.0 Active 889592304 Problem Obstructive sleep apnea syndrome G47.33 Active 11280180 Problem Obstructive sleep apnea G47.33 Active 99555133 Problem Mixed stress and urge urinary incontinence N39.46 Active 864546464 Problem Spinal stenosis in cervical region M48.02 Active 59444505 Problem Cyst on ear L72.9 Active 95824181 Problem Incontinence R32 Active 23286907 Problem Enlarged prostate with lower urinary tract symptoms N40.1 Active 047585808102816 Problem Cardiac arrhythmia, unspecified cardiac arrhythmia type I49.9 Active 70021374 Problem Elevated PSA R97.2 Active 866132626 Problem GERD without esophagitis K21.9 Active 062435593 ALLERGIES No Information ENCOUNTERS Encounter Location Date Diagnosis [facility] [address] [facility] [id number] [address] 19 Aug, 2017 [facility] [address] [place] [id number] [place] [address] 08321- 6550 12 Aug, 2017 [place] [address] [place] [id number] [place] [address] 64787- 7384 Jul, [facility] [place] [address] [place] [id number] [place] [address] 19798 -7616 Jul, Other retention of urine R33.8 and Benign prostatic hyperplasia with lower urinary tract symptoms N40.1 [place] [address] 8[address]54- 0098 Jul, Enlarged prostate with lower urinary tract symptoms N40.1 [place] [address] 30359- 7137 Jun, Dyspnea on exertion R06.09 ; Obstructive sleep apnea G47.33 ; Chronic obstructive pulmonary disease, unspecified COPD type J44.9 ; Non- rheumatic mitral regurgitation I34.0 and Non-rheumatic tricuspid valve insufficiency I36.1 [place] [address] [address]697- 5429 May, [place] [address] [place] [id number] [place] [address] 03023- 4129 May, [facility] [place] [address] [place] [id number] [place] [address] 92179 -0805 May, Chest wall contusion, right, initial encounter S20.211A [place] [address] [place] [id number] [place] [address] 05538- 8988 Apr, Fatigue, unspecified type R53.83 ; Obstructive sleep apnea G47.33 and Nocturnal hypoxemia G47.[address] [facility] [address] [place] [id number] [place] [address] 13265 -6622 Apr, [place] [address] [place] [id number] [place] [address] 12401- 0038 Apr, [place] [address] [place] [id number] [place] [address] 19472- 5546 Mar, Medicare welcome exam Z00.00 ; Medicare annual wellness visit, initial Z00.00 ; Medicare annual wellness visit, subsequent Z00.00 ; Smoking greater than 40 pack years F17.210 and Encounter for immunization Z23 [place] [address] [address]85- [address]77 Feb, Acute bilateral low back pain without sciatica M54.[address] 559[address]- 0378 Feb, Dyspnea on exertion R06.09 ; Obstructive sleep apnea G47.33 ; Chronic obstructive pulmonary disease, unspecified COPD type J44.9 ; Non- rheumatic mitral regurgitation I34.0 and Non-rheumatic tricuspid valve insufficiency I36.[address] [address]- 7846 14 Dec, 2016 Dyspnea on exertion R06.09 ; Chronic obstructive pulmonary disease, unspecified COPD type J44.9 ; Non-rheumatic mitral regurgitation I34.0 ; Non-rheumatic tricuspid valve insufficiency I36.1 ; Obstructive sleep apnea G47.33 and Carotid disease, bilateral I77.[address] 38[address]- 5838 November, [address] [address]- 5212 November, Chronic obstructive pulmonary disease, unspecified COPD type J44.9 ; Non-ischemic cardiomyopathy I42.8 and Otitis media, unspecified, left ear H66.[address] 66795- 6931 November, Chest discomfort R07.89 ; Non-ischemic cardiomyopathy I42.8 ; Shortness of breath R06.02 and History of tobacco use Z87.[address] 17[address]- 1415 Oct, Chronic obstructive pulmonary disease, unspecified COPD type J44.9 ; Essential hypertension I10 and Acute diffuse otitis externa of left ear H60.[address] [place] [address]- 3587 Oct, Chest discomfort R07.89 ; Obstructive sleep apnea G47.33 ; Essential hypertension I10 ; Eustachian tube dysfunction, bilateral H69.83 ; Dyshidrosis L30.1 ; Acute diffuse otitis externa of left ear H60.312 and Mixed stress and urge urinary incontinence N39.[address] 84263- 5187 Oct, [place] [address] [place] [id number]- 6864 Oct, Essential hypertension I10 [place] 267742- 7475 Oct, Chest discomfort R07.89 ; Obstructive sleep apnea G47.33 ; Essential hypertension I10 ; Eustachian tube dysfunction, bilateral H69.83 and Bilateral impacted cerumen H61.[address] 46[address]- 5434 Oct, [place] [address] 30967- 3824 Sep, [place] [id number]- [address]90 Sep, [address] [address]- 8920 Aug, Noncompliance with medication regimen Z91.[address] 37254- 6732 Aug, Noncompliance with medication regimen Z91.[address] [address] Aug, [place] [id number]- 6604 Jul, Spinal stenosis in cervical region M48.02 ; GERD without esophagitis K21.9 ; Enlarged prostate with lower urinary tract symptoms N40.1 and Incontinence R32 [place] [address] [place] [id number] [place] [address] 49865- 1163 Jul, Neck pain M54.2 and Dizziness R42 [place] [address] 07980- 5543 Jun, Abnormal MRI of head R93.0 [place] [address] 78884- 0345 14 Jun, 2016 Right ear impacted cerumen H61.21 ; Spinal stenosis in cervical region M48.02 ; Abnormal MRI of head R93.0 and Vertigo R42 [facility] [place] [address] 9[address]81 -4914 07 Jun, 2016 Recurrent acute suppurative otitis media without spontaneous rupture of left tympanic membrane H66.005 [place] [address] [place] [id number] [place] [address] 84372- 7261 May, Dizziness R42 and Cardiac arrhythmia, unspecified cardiac arrhythmia type I49.9 [facility] [place] [address] [place] [id number] [place] [address] 83000 -9583 May, Acute suppurative otitis media of left ear without spontaneous rupture of tympanic membrane, recurrence not specified H66.002 ; Dizziness R42 and Cardiac arrhythmia, unspecified cardiac arrhythmia type I49.9 [place] [address] [place] [id number] [place] [address] 26729- 7071 Mar, [place] [address] [place] [id number] [place] [address] 97615- 8819 Jan, Cervical spinal stenosis M48.02 and Cerebral cavernoma Q28.3 [place] [address] [place] [id number] [place] [address] 97493- 5126 Dec, Neck pain M54.2 ; Vertigo R42 and Family history of brain cancer Z80.8 [facility] [place] [address] [place] [id number] [place] [address] 32957 -3241 Dec, Dizziness R42 [place] [address] [place] [address]- 2018 Dec, [facility] [address] [place] [id number] [place] [address] 52191- 5014 Oct, [facility] [address] 43104- 4463 Oct, [facility] [address] 03702- 5681 Oct, [facility] [address] [address]114- 4740 Oct, Sebaceous cyst L72.3 [place] [address] 97978- 8668 Sep, Obstructive sleep apnea G47.33 ; Incontinence R32 and Cyst on ear L72.9 [place] [address] 05196- 7196 Aug, Diarrhea R19.7 and Nausea & vomiting R11.2 [place] [address] [place] [id number] [place] [address] 99325- 0696 Jul, [facility] [address] 59063- 2554 Jun, [place] [address] [place] [id number] [place] [address] 95768- 4759 Jun, Obstructive sleep apnea G47.33 ; Hyperkalemia E87.5 ; Enlarged prostate with lower urinary tract symptoms N40.1 and Elevated PSA R97.2 [facility] [address] [place] [id number] [place] [address] 85971- 9145 Apr, Obstructive sleep apnea syndrome G47.33 [place] [address] 15000- 9010 Apr, [facility] [address] [place] [id number] [place] [address] 60750- 2973 Mar, BPH (benign prostatic hyperplasia) 600.00 [place] [address] [place] [id number] [place] [address] 16067- 4991 Mar, Elevated PSA 790.93 and BPH (benign prostatic hyperplasia) 600.00 [facility] [address] [place] [id number] [place] [address] 41281- 2232 Feb, [facility] [address] [place] [id number] [place] [address] 89746- 2531 Feb, [facility] [address] [place] [id number] [place] [address] 29606- 2739 Feb, Dizziness 780.4 ; COPD (chronic obstructive pulmonary disease) 496 ; Nocturnal hypoxia 327.24 ; Rib pain on left side 786.50 ; BPH ( benign prostatic hyperplasia) 600.00 ; Elevated PSA 790.93 and Incontinence of urine 788.30 [facility] [address] [place] [id number] [place] [address] 44101- 0432 Dec, Upper respiratory infection 465.9 and Psoriasis 696.1 [facility] [address] [place] [id number] [place] [address] 74403- 7583 Oct, [facility] [address] [place] [id number] [place] [address] 57627- 1561 Oct, [facility] [address] [place] [id number] [place] [address] 01062- 0107 Sep, [facility] [address] [place] [id number] [place] [address] 78459- 2310 Sep, [facility] [address] [place] [id number] [place] [address] 58819- 4461 Aug, [facility] [address] [place] [id number] [place] [address] 244496- 8941 Aug, [facility] [address] [place] [id number] [place] [address] 199307- 9033 May, [facility] [address] [place] [id number] [place] [address] 386583- 8226 May, [facility] [place] [facility] [address] [id number] [place] [address]- 8697 Dec, [facility] [place] [facility] [address] [id number] [place] [address]- 9534 Dec, [facility] [place] [facility] [address] [id number] [place] [address]- 5072 Dec, [facility] [place] [facility] [address] [id number] [place] [address]- 2125 Dec, [facility] [place] [facility] [address] [id number] [place] [address]- 1574 Dec, [facility] [place] [facility] [address] [id number] [place] [address]- 1596 Dec, [facility] [place] [facility] [address] [id number] [place] [address]- 8444 Dec, [facility] [place] [facility] [address] [id number] [place] [address]- 7973 November, [facility] [place] [facility] [address] [id number] [place] [address]- 8233 November, [facility] [place] [facility] [address] [id number] [place] [address]- 4371 November, [facility] [place] [facility] [address] [id number] [place] [address]- 2132 November, [facility] [place] [facility] [address] [id number] [place] [address]- 4414 November, [facility] [place] [facility] [address] [id number] [place] [address]- 0254 November, [facility] [place] [facility] [address] [id number] [place] [address]- 0538 November, [facility] [place] [facility] [address] [id number] [place] [address]- 9411 November, [facility] [place] [facility] [address] [id number] [place] [address]- 6089 November, [facility] [place] [facility] [address] [id number] [place] [address]- 6146 November, [facility] [place] [facility] [address] [id number] [place] [address]- 5522 November, [facility] [place] [facility] [address] [id number] [place] [address]- 1523 November, [facility] [place] [facility] [address] [id number] [place] [address]- 6204 November, [facility] [place] [facility] [address] [id number] [place] [address]- 0815 Sep, [facility] [place] [facility] [address] [id number] [place] [address]- 8499 Sep, [facility] [place] [facility] [address] [id number] [place] [address]- 7835 Sep, [facility] [place] [facility] [address] [id number] [place] [address]- 4495 Sep, [facility] [place] [facility] [address] [id number] [place] [address]- 2762 Sep, [facility] [place] [facility] [address] [id number] [place] [address]- 1069 Sep, [facility] [place] [facility] [address] [id number] [place] [address]- 8030 Jun, [facility] [place] [facility] [address] [id number] [place] [address]- 6976 Jun, [facility] [place] [facility] [address] [id number] [place] [address]- 2869 Jun, [facility] [place] [facility] [address] [id number] [place] [address]- 9431 May, [facility] [place] [facility] [address] [id number] [place] [address]- 5532 May, [facility] [place] [facility] [address] [id number] [place] [address]- 4471 05 Jan, 2013 [facility] [place] [facility] [address] [id number] [place] [address]- 6484 Jan, [facility] [place] [facility] [address] [id number] [place] [address]- 3983 05 Dec, 2012 [facility] [place] [facility] [address] [id number] [place] [address]- 4112 Oct, [facility] [place] [facility] [address] [id number] [place] [address]- 0780 16 Oct, 2012 [facility] [place] [facility] [address] [id number] [place] [address]- 4469 Oct, [facility] [place] [facility] [address] [id number] [place] [address]- 9298 Aug, [facility] [place] [facility] [address] [id number] [place] [address]- 0824 Aug, [facility] [place] [facility] [address] [id number] [place] [address]- 4030 Jul, [facility] [place] [facility] [address] [id number] [place] [address]- 4876 Jul, [facility] [place] [facility] [address] [id number] [place] [address]- 0808 Jul, [facility] [address] [id number] [place] [address]- 8007 Jun, [facility] [place] [facility] [address] [id number] [place] [address]- 1362 Jun, [facility] [place] [facility] [address] [id number] [place] [address]- 7198 Jun, [facility] [place] [facility] [address] [id number] [place] [address]- 9216 Jun, [facility] [place] [facility] [address] [id number] [place] [address]- 6637 Apr, [facility] [address] [facility] [id number] [place] [address]- 4519 Apr, [facility] [address] [facility] [id number] [place] [address]- 3358 Apr, IMMUNIZATIONS No Known Immunizations SOCIAL HISTORY Never Assessed REASON FOR VISIT Inhaler note PLAN OF CARE VITAL SIGNS MEDICATIONS Medication Instructions Dosage Frequency Start Date End Date Duration Status Ventolin HFA 108 (90 Base) MCG/ACT Inhalation every 6 hrs 2 puffs as needed 6h Aug, Active RESULTS No Results PROCEDURES No Known [...]
--- OUTSIDE RECORDS SUMMARY | 2018-07-08 10:20 | XMS REPORT ---
Author Author ANGEL LUIS OVALLE [facility] Address [address] [place] [address] Care Team Providers Care Process Engineering Manager Name Role Phone ANGEL LUIS OVALLE Unavailable PROBLEMS Type Condition ICD9-CM Code SYE81-BN Code Onset Dates Condition Status SNOMED Code Problem Essential hypertension I10 Active 90377187 Problem Non-ischemic cardiomyopathy I42.8 Active 57949534 Problem Chronic obstructive pulmonary disease, unspecified COPD type J44.9 Active 34474595 Problem Benign prostatic hyperplasia with lower urinary tract symptoms N40.1 Active 616562317 Problem Abnormal MRI of head R93.0 Active 936241877428474 Problem Nocturnal hypoxemia G47.34 Active 258208100 Problem 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 Active 71869062 Problem Non-rheumatic tricuspid valve insufficiency I36.1 Active 353727250 Problem Carotid disease, bilateral I77.9 Active 315421634 Problem Smoking greater than 40 pack years F17.210 Active 47640416 Problem Non-rheumatic mitral regurgitation I34.0 Active 176526510 Problem Obstructive sleep apnea syndrome G47.33 Active 56747645 Problem Obstructive sleep apnea G47.33 Active 85072352 Problem Mixed stress and urge urinary incontinence N39.46 Active 054544427 Problem Spinal stenosis in cervical region M48.02 Active 88643916 Problem Cyst on ear L72.9 Active 00330677 Problem Incontinence R32 Active 77662570 Problem Enlarged prostate with lower urinary tract symptoms N40.1 Active 039894975652799 Problem Cardiac arrhythmia, unspecified cardiac arrhythmia type I49.9 Active 82122893 Problem Elevated PSA R97.2 Active 850510992 Problem GERD without esophagitis K21.9 Active 076917656 ALLERGIES No Known Allergies ENCOUNTERS Encounter Location Date Diagnosis [facility] [address] [facility] [id number] [address] Aug, [facility] [address] [place] [id number] [place] [address] 31284- 4305 12 Aug, 2017 [facility] [id number] [place] [address] 09047- 4290 Jul, [facility] [address] [place] [id number] [place] [address]65 -4713 Jul, Other retention of urine R33.8 and Benign prostatic hyperplasia with lower urinary tract symptoms N40.1 [place] [address] [address]- 8294 Jul, Enlarged prostate with lower urinary tract symptoms N40.1 [place] [address] 59326- 5548 Jun, Dyspnea on exertion R06.09 ; Obstructive sleep apnea G47.33 ; Chronic obstructive pulmonary disease, unspecified COPD type J44.9 ; Non- rheumatic mitral regurgitation I34.0 and Non-rheumatic tricuspid valve insufficiency I36.1 [place] [id number] [place] [address] 36143- 4856 May, [place] [id number] [place] [address] 54257- 0689 May, [facility] [place] [address] [id number] [place] [address] 26705 -3739 May, Chest wall contusion, right, initial encounter S20.211A [place] [id number] [place] [address] 96912- 7213 Apr, Fatigue, unspecified type R53.83 ; Obstructive sleep apnea G47.33 and Nocturnal hypoxemia G47.34 [facility] [address] [place] [id number] [place] [address] 68330 -1891 Apr, [place] [address] 47675- 2185 Apr, [place] [address] [id number] [place] [address] 68880- 5840 Mar, Medicare welcome exam Z00.00 ; Medicare annual wellness visit, initial Z00.00 ; Medicare annual wellness visit, subsequent Z00.00 ; Smoking greater than 40 pack years F17.210 and Encounter for immunization Z23 [place] [id number] [place] [address] 26760- 3784 09 Feb, 2017 Acute bilateral low back pain without sciatica M54.[address] [address]- [address] Feb, Dyspnea on exertion R06.09 ; Obstructive sleep apnea G47.33 ; Chronic obstructive pulmonary disease, unspecified COPD type J44.9 ; Non- rheumatic mitral regurgitation I34.0 and Non-rheumatic tricuspid valve insufficiency I36.[address] [address]81- 8474 14 Dec, 2016 Dyspnea on exertion R06.09 ; Chronic obstructive pulmonary disease, unspecified COPD type J44.9 ; Non-rheumatic mitral regurgitation I34.0 ; Non-rheumatic tricuspid valve insufficiency I36.1 ; Obstructive sleep apnea G47.33 and Carotid disease, bilateral I77.[address] [address]- 5903 November, [address] 65[address]- 4726 November, Chronic obstructive pulmonary disease, unspecified COPD type J44.9 ; Non-ischemic cardiomyopathy I42.8 and Otitis media, unspecified, left ear H66.[address] 05198- 1029 November, Chest discomfort R07.89 ; Non-ischemic cardiomyopathy I42.8 ; Shortness of breath R06.02 and History of tobacco use Z87.[address] 61352- 9536 Oct, Chronic obstructive pulmonary disease, unspecified COPD type J44.9 ; Essential hypertension I10 and Acute diffuse otitis externa of left ear H60.[address] [place] [address]- 1410 Oct, Chest discomfort R07.89 ; Obstructive sleep apnea G47.33 ; Essential hypertension I10 ; Eustachian tube dysfunction, bilateral H69.83 ; Dyshidrosis L30.1 ; Acute diffuse otitis externa of left ear H60.312 and Mixed stress and urge urinary incontinence N39.[address] 03328- 6899 Oct, [place] [address] 6[address]00- 0467 Oct, Essential hypertension I10 [place]4712- 3735 Oct, Chest discomfort R07.89 ; Obstructive sleep apnea G47.33 ; Essential hypertension I10 ; Eustachian tube dysfunction, bilateral H69.83 and Bilateral impacted cerumen H61.23 [place] [address] 54663- 4346 Oct, [place] [address] 45408- 3943 Sep, [place] [address] [place] [id number] 5379 Sep, [address] [address]- 2453 Aug, Noncompliance with medication regimen Z91.14 [place] [address] 01959- 3043 Aug, Noncompliance with medication regimen Z91.14 [place] [address] [place] [address] Aug, [place] [id number]- 1560 Jul, Spinal stenosis in cervical region M48.02 ; GERD without esophagitis K21.9 ; Enlarged prostate with lower urinary tract symptoms N40.1 and Incontinence R32 [place] [address] [id number] [place] [address] 83182- 4533 Jul, Neck pain M54.2 and Dizziness R42 [place] [address] [address] [id number] [place] [address] 75346- 2454 Jun, Abnormal MRI of head R93.0 [place] [address] [address] [id number] [place] [address] 89379- 7442 14 Jun, 2016 Right ear impacted cerumen H61.21 ; Spinal stenosis in cervical region M48.02 ; Abnormal MRI of head R93.0 and Vertigo R42 [facility] [place] [address] 58926 -9228 07 Jun, 2016 Recurrent acute suppurative otitis media without spontaneous rupture of left tympanic membrane H66.005 [place] [address] [address] [id number] [place] [address] 31063- 7182 May, Dizziness R42 and Cardiac arrhythmia, unspecified cardiac arrhythmia type I49.9 [facility] [place] [address] [address] [id number] [place] [address] 60889 -4946 May, Acute suppurative otitis media of left ear without spontaneous rupture of tympanic membrane, recurrence not specified H66.002 ; Dizziness R42 and Cardiac arrhythmia, unspecified cardiac arrhythmia type I49.9 [place] [address] [id number] [place] [address] 04568- 7374 Mar, [place] [address] [address] [id number] [place] [address] 81647- 8830 Jan, Cervical spinal stenosis M48.02 and Cerebral cavernoma Q28.3 [place] [address] [address] [id number] [place] [address] 18163- 7766 Dec, Neck pain M54.2 ; Vertigo R42 and Family history of brain cancer Z80.8 [facility] WALK IN [facility] [id number] [place] [address] 23671 -2674 Dec, Dizziness R42 [place] [address] [place] [address]- 3833 Dec, [facility] [id number] [place] [address] 94150- 1647 Oct, [facility] [address] [address] [id number] [place] [address] 61946- 7557 Oct, [facility] [address] 91639- 3032 Oct, [facility] [address] 07992- 4494 Oct, Sebaceous cyst L72.3 [place] [address] 71362- 3592 Sep, Obstructive sleep apnea G47.33 ; Incontinence R32 and Cyst on ear L72.9 [place] [address] 28257- 4531 Aug, Diarrhea R19.7 and Nausea & vomiting R11.2 [place] [address] 94695- 2162 Jul, [place] [address] 96560- 0565 Jun, [place] [address] [place] [id number] [place] [address] 21463- 7337 Jun, Obstructive sleep apnea G47.33 ; Hyperkalemia E87.5 ; Enlarged prostate with lower urinary tract symptoms N40.1 and Elevated PSA R97.2 [facility] [address] [address] [id number] [place] [address] 51392- 0486 Apr, Obstructive sleep apnea syndrome G47.33 [place] [address] 64477- 6769 Apr, [facility] [address] [address] [id number] [place] [address] 28108- 3969 Mar, BPH (benign prostatic hyperplasia) 600.00 [place] [address] [id number] [address] 0607 Mar, Elevated PSA 790.93 and BPH (benign prostatic hyperplasia) 600.00 [facility] [id number] [place] [address] 88023- 7298 Feb, [facility] [id number] [place] [address] 13156- 9919 Feb, [facility] [id number] [place] [address] 63105- 7647 Feb, Dizziness 780.4 ; COPD (chronic obstructive pulmonary disease) 496 ; Nocturnal hypoxia 327.24 ; Rib pain on left side 786.50 ; BPH ( benign prostatic hyperplasia) 600.00 ; Elevated PSA 790.93 and Incontinence of urine 788.30 [facility] [id number] [place] [address] 58246- 6239 Dec, Upper respiratory infection 465.9 and Psoriasis 696.1 [facility] [address] [id number] [place] [address] 43076- 4280 Oct, [facility] [id number] [place] [address] 71295- 4924 Oct, [facility] [id number] [place] [address] 82815- 0961 Sep, [facility] [address] [address] [id number] [place] [address] 75806- 3025 Sep, [facility] [id number] [place] [address] 03424- 7297 Aug, [facility] [id number] [place] [address] 115446- 7337 Aug, [facility] [id number] [place] [address] 775793- 2700 May, [facility] [id number] [place] [address] 482600- 3215 May, [facility] [place] [facility] [address] [id number] [place] [address]- 0689 Dec, [facility] [place] [facility] [address] [id number] [place] [address]- 6194 Dec, [facility] [place] [facility] [address] [id number] [place] [address]- 9701 Dec, [facility] [place] [facility] [address] [id number] [place] [address]- 8079 Dec, [facility] [place] [facility] [address] [id number] [place] [address]- 1615 Dec, [facility] [place] [facility] [address] [id number] [place] [address]- 9929 Dec, [facility] [place] [facility] [address] [id number] [place] [address]- 6738 Dec, [facility] [place] [facility] [address] [id number] [place] [address]- 1316 November, [facility] [place] [facility] [address] [id number] [place] [address]- 0677 November, [facility] [place] [facility] [address] [id number] [place] [address]- 9752 November, [facility] [place] [facility] [address] [id number] [place] [address]- 4204 November, [facility] [place] [facility] [address] [id number] [place] [address]- 4298 November, [facility] [place] [facility] [address] [id number] [place] [address]- 2203 November, [facility] [place] [facility] [address] [id number] [place] [address]- 0379 November, [facility] [place] [facility] [address] [id number] [place] [address]- 6510 November, [facility] [place] [facility] [address] [id number] [place] [address]- 1787 November, [facility] [place] [facility] [address] [id number] [place] [address]- 1724 November, [facility] [place] [facility] [address] [id number] [place] [address]- 2501 November, [facility] [place] [facility] [address] [id number] [place] [address]- 0853 November, [facility] [place] [facility] [address] [id number] [place] [address]- 7517 November, [facility] [place] [facility] [address] [id number] [place] [address]- 9324 Sep, [facility] [place] [facility] [address] [id number] [place] [address]- 6110 Sep, [facility] [place] [facility] [address] [id number] [place] [address]- 2966 Sep, [facility] [place] [facility] [address] [id number] [place] [address]- 8702 Sep, [facility] [place] [facility] [address] [id number] [place] [address]- 6973 Sep, [facility] [place] [facility] [address] [id number] [place] [address]- 8080 Sep, [facility] [place] [facility] [address] [id number] [place] [address]- 4702 Jun, [facility] [place] [facility] [address] [id number] [place] [address]- 6527 Jun, [facility] [place] [facility] [address] [id number] [place] [address]- 4528 Jun, [facility] [place] [facility] [address] [id number] [place] [address]- 8287 May, [facility] [place] [facility] [address] [id number] [place] [address]- 9613 May, [facility] [place] [facility] [address] [id number] [place] [address]- 3042 05 Jan, 2013 [facility] [address] [id number] [place] [address]- 8525 Jan, [facility] [address] [id number] [place] [address]- 4283 Dec, [facility] [address] [id number] [place] [address]- 3266 Oct, [facility] [address] [id number] [place] [address]- 6108 Oct, [facility] [address] [id number] [place] [address]- 6842 Oct, [facility] [address] [id number] [place] [address]- 8096 Aug, [facility] [address] [id number] [place] [address]- 0331 Aug, [facility] [address] [id number] [place] [address]- 2571 Jul, [facility] [address] [id number] [place] [address]- 6301 Jul, [facility] [address] [id number] [place] [address]- 4393 Jul, [facility] [address] [id number] [place] [address]- 7722 Jun, [facility] [address] [id number] [place] [address]- 0578 Jun, [facility] [address] [id number] [place] [address]- 1097 Jun, [facility] [address] [id number] [place] [address]- 3056 Jun, [facility] [address] [id number] [place] [address]- 2128 Apr, [facility] [address] [facility] [id number] [place] [address]- 4677 Apr, [facility] [address] [facility] [id number] [place] 2779 Apr, IMMUNIZATIONS No Known Immunizations SOCIAL HISTORY Never Assessed REASON FOR VISIT Worsening Fatigue, spouse feels that he needs oxygen, he is getting disoriented at night-Juliann PLAN OF CARE Activity Details Follow Up pending lab or with Dr. Torres Reason: VITAL SIGNS Height 70 in 2017-05-12 Weight 176.3 lbs 2017-05-12 Temperature 98.1 degrees Fahrenheit 2017-05-12 Heart Rate 78 bpm 2017-05-12 Respiratory Rate 20 2017-05-12 BMI 25.29 kg/m2 2017-05-12 Blood pressure systolic 130 mmHg 2017-05-12 Blood pressure diastolic 88 mmHg 2017-05-12 MEDICATIONS Medication Instructions Dosage Frequency Start Date End Date Duration Status Flomax 0.4 MG Orally Once a day 1 capsule 24h May, Active Triamcinolone Acetonide 0.5 % Externally Twice a day as needed 1 application to affected area Jul, Active Albuterol 108 (90 Base) mcg/act by inhalation route 4 times a day prn 2 puffs Active Albuterol Sulfate 2.5 mg /3 mL (0.083 %) 1 Each by Inhalation route every 4 hours for cough and wheeze PRN for wheezing or cough Aug, Active Omeprazole 40 mg Orally Once a day 1 capsule 24h 30 Active Symbicort 160-4.5 mcg/act Inhalation Twice a day 2 puffs 12h Active Oxygen 2 nasal hs Active Myrbetriq 50 mg Orally Once a day 1 tablet 24h 30 Active Ibuprofen 800 MG Orally Three times a day 1 tablet with food or milk 8h Active RESULTS Name Result Date Reference Range CMP 2017-05-12 Glucose, Serum 93 65-99 BUN 18 8-27 Creatinine, Serum 0.97 0.76-1.27 eGFR If NonAfricn Am 81 >59 eGFR If Africn Am 94 >59 BUN/Creatinine Ratio 19 10-24 Sodium, Serum 142 134-144 Potassium, Serum 4.3 3.5-5.2 Chloride, Serum 102 96-106 Carbon Dioxide, Total 25 18-29 Calcium, Serum 9.1 8.6-10.2 Protein, Total, Serum 6.6 6.0-8.5 Albumin, Serum 4.1 3.6-4.8 Globulin, Total 2.5 1.5-4.5 A/G Ratio 1.6 1.2-2.2 Bilirubin, Total 0.4 0.0-1.2 Alkaline Phosphatase, S 87 39-117 AST (SGOT) 15 0-40 ALT (SGPT) 15 0-44 CBC 2017-05-12 WBC 6.0 3.4-10.8 RBC 5.19 4.14-5.80 Hemoglobin 16.2 12.6-17.7 Hematocrit 46.7 37.5-51.0 MCV 90 79-97 MCH 31.2 26.6-33.0 MCHC 34.7 31.5-35.7 RDW 13.0 12.3-15.4 Platelets 192 150-379 Neutrophils 66 Not Estab. Lymphs 24 Not Estab. Monocytes 9 Not Estab. Eos 1 Not Estab. Basos 0 Not Estab. Neutrophils (Absolute) 4.0 1.4-7.0 Lymphs (Absolute) 1.4 0.7-3.1 Monocytes(Absolute) 0.6 0.1-0.9 Eos (Absolute) 0.1 0.0-0.4 Baso (Absolute) 0.0 0.0-0.2 Immature Granulocytes 0 Not Estab. Immature Grans (Abs) 0.0 0.0-0.1 TSH 2017-05-12 TSH 2.610 0.450-4.500 PROCEDURES Procedure Date Ordered Result Body Site [facility] May 12, 2017 VENIPUNCT, ROUTINE* May 12, 2017 [facility] VISIT ESTABLISHED PATIENT May 12, 2017 INSTRUCTIONS MEDICATIONS ADMINISTERED No Known Medications MEDICAL [...]
--- OUTSIDE RECORDS SUMMARY | 2018-07-08 10:20 | XMS REPORT ---
Author Author JAS SHAH [facility] Address [address] [place] [address] Care Team Providers Care Supervisor [employer] Name Role Phone JAS SHAH Unavailable PROBLEMS Type Condition ICD9-CM Code GAU72-KD Code Onset Dates Condition Status SNOMED Code Problem Essential hypertension I10 Active 89068395 Problem Non-ischemic cardiomyopathy I42.8 Active 49439068 Problem Chronic obstructive pulmonary disease, unspecified COPD type J44.9 Active 27570544 Problem Benign prostatic hyperplasia with lower urinary tract symptoms N40.1 Active 673777575 Problem Abnormal MRI of head R93.0 Active 417636525783437 Problem Nocturnal hypoxemia G47.34 Active 008881848 Problem 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 Active 34402283 Problem Non-rheumatic tricuspid valve insufficiency I36.1 Active 973466730 Problem Carotid disease, bilateral I77.9 Active 846683060 Problem Smoking greater than 40 pack years F17.210 Active 11200853 Problem Non-rheumatic mitral regurgitation I34.0 Active 291706613 Problem Obstructive sleep apnea syndrome G47.33 Active 70291835 Problem Obstructive sleep apnea G47.33 Active 17963098 Problem Mixed stress and urge urinary incontinence N39.46 Active 653186177 Problem Spinal stenosis in cervical region M48.02 Active 52116236 Problem Cyst on ear L72.9 Active 77791652 Problem Incontinence R32 Active 35311644 Problem Enlarged prostate with lower urinary tract symptoms N40.1 Active 524852561669034 Problem Cardiac arrhythmia, unspecified cardiac arrhythmia type I49.9 Active 96077910 Problem Elevated PSA R97.2 Active 054086405 Problem GERD without esophagitis K21.9 Active 875940369 ALLERGIES No Known Allergies ENCOUNTERS Encounter Location Date Diagnosis [facility] [address] [facility] [id number] [address] Aug, [facility] [id number] [place] [address] 63538- 1887 12 Aug, 2017 [place] [address] [id number] [place] [address] 10797- 0531 Jul, [facility] WALK [facility] [place] [address] [place] [id number] [place] [address] 29906 -1728 Jul, Other retention of urine R33.8 and Benign prostatic hyperplasia with lower urinary tract symptoms N40.1 [place] [address] [place] [id number] [place] [address] 35153- 1407 Jul, Enlarged prostate with lower urinary tract symptoms N40.1 [place] [address] [place] [id number] [place] [address] 94712- 4262 Jun, Dyspnea on exertion R06.09 ; Obstructive sleep apnea G47.33 ; Chronic obstructive pulmonary disease, unspecified COPD type J44.9 ; Non- rheumatic mitral regurgitation I34.0 and Non-rheumatic tricuspid valve insufficiency I36.1 [place] [address] [place] [id number] [place] [address] 98850- 0759 May, [place] [address] [place] [id number] [place] [address] 60541- 4802 May, [facility] [place] [address] [place] [id number] [place] [address] 63967 -2702 May, Chest wall contusion, right, initial encounter S20.211A [place] [address] [place] [id number] [place] [address] 40137- 4588 Apr, Fatigue, unspecified type R53.83 ; Obstructive sleep apnea G47.33 and Nocturnal hypoxemia G47.34 [facility] [address] [place] [address] 82814 -3518 Apr, [place] [id number] [place] [address] 28927- 5714 Apr, [place] [address] [place] [address] 93566- 2561 Mar, Medicare welcome exam Z00.00 ; Medicare annual wellness visit, initial Z00.00 ; Medicare annual wellness visit, subsequent Z00.00 ; Smoking greater than 40 pack years F17.210 and Encounter for immunization Z23 [place] [address] 20463- 9298 Feb, Acute bilateral low back pain without sciatica M54.[address] [address]- [address]30 Feb, Dyspnea on exertion R06.09 ; Obstructive sleep apnea G47.33 ; Chronic obstructive pulmonary disease, unspecified COPD type J44.9 ; Non- rheumatic mitral regurgitation I34.0 and Non-rheumatic tricuspid valve insufficiency I36.[address] [address]87- 6905 14 Dec, 2016 Dyspnea on exertion R06.09 ; Chronic obstructive pulmonary disease, unspecified COPD type J44.9 ; Non-rheumatic mitral regurgitation I34.0 ; Non-rheumatic tricuspid valve insufficiency I36.1 ; Obstructive sleep apnea G47.33 and Carotid disease, bilateral I77.9 [place] [address] [address]41- 7234 November, [address] 58239- 0058 November, Chronic obstructive pulmonary disease, unspecified COPD type J44.9 ; Non-ischemic cardiomyopathy I42.8 and Otitis media, unspecified, left ear H66.92 [place] [address] 03084- 3169 November, Chest discomfort R07.89 ; Non-ischemic cardiomyopathy I42.8 ; Shortness of breath R06.02 and History of tobacco use Z87.[address] 7[address]13- 9071 Oct, Chronic obstructive pulmonary disease, unspecified COPD type J44.9 ; Essential hypertension I10 and Acute diffuse otitis externa of left ear H60.[address] 55257- 5899 Oct, Chest discomfort R07.89 ; Obstructive sleep apnea G47.33 ; Essential hypertension I10 ; Eustachian tube dysfunction, bilateral H69.83 ; Dyshidrosis L30.1 ; Acute diffuse otitis externa of left ear H60.312 and Mixed stress and urge urinary incontinence N39.[address] 948064- 7584 Oct, [place] [address] [place] [address]81106- 2519 Oct, Essential hypertension I10 [place]776- 3052 Oct, Chest discomfort R07.89 ; Obstructive sleep apnea G47.33 ; Essential hypertension I10 ; Eustachian tube dysfunction, bilateral H69.83 and Bilateral impacted cerumen H61.[address] 81038- 4548 Oct, [place] [address] 59430- 9656 Sep, [place] [id number]- [address]33 Sep, [address] 90748- 1269 Aug, Noncompliance with medication regimen Z91.[address] 55169- 9610 Aug, Noncompliance with medication regimen Z91.[address] [address] Aug, [place]771- 1229 Jul, Spinal stenosis in cervical region M48.02 ; GERD without esophagitis K21.9 ; Enlarged prostate with lower urinary tract symptoms N40.1 and Incontinence R32 [id number] [place] [address] 86948- 8572 11 Jul, 2016 Neck pain M54.2 and Dizziness R42 [place] [address] 36118- 5526 Jun, Abnormal MRI of head R93.0 [place] [address] [place] [id number] [place] [address] 22958- 4430 14 Jun, 2016 Right ear impacted cerumen H61.21 ; Spinal stenosis in cervical region M48.02 ; Abnormal MRI of head R93.0 and Vertigo R42 [facility] WALK IN [place] [address] 0[address]13 -3935 07 Jun, 2016 Recurrent acute suppurative otitis media without spontaneous rupture of left tympanic membrane H66.005 [place] [address] [place] [id number] [place] [address] 84245- 2414 May, Dizziness R42 and Cardiac arrhythmia, unspecified cardiac arrhythmia type I49.9 [facility] WALK [place] [address] [place] [id number] [place] [address] 07931 -1046 May, Acute suppurative otitis media of left ear without spontaneous rupture of tympanic membrane, recurrence not specified H66.002 ; Dizziness R42 and Cardiac arrhythmia, unspecified cardiac arrhythmia type I49.9 [place] [address] [place] [id number] [place] [address] 32620- 3465 Mar, [place] [address] [place] [id number] [place] [address] 32922- 2483 Jan, Cervical spinal stenosis M48.02 and Cerebral cavernoma Q28.3 [place] [address] [place] [id number] [place] [address] 76926- 6975 Dec, Neck pain M54.2 ; Vertigo R42 and Family history of brain cancer Z80.8 [facility] WALK [place] [address] [place] [id number] [place] [address] 87474 -0387 Dec, Dizziness R42 [place] [address] 55603- 7246 Dec, [facility] [address] [place] [id number] [place] [address] 44268- 6855 Oct, [facility] [address] 10459- 3247 Oct, [facility] [address] 47785- 3948 Oct, [facility] [address] 79030- 1908 Oct, Sebaceous cyst L72.3 [place] [address] 05776- 4310 Sep, Obstructive sleep apnea G47.33 ; Incontinence R32 and Cyst on ear L72.9 [place] [address] 26988- 0301 Aug, Diarrhea R19.7 and Nausea & vomiting R11.2 [place] [address] [place] [id number] [place] [address] 26253- 9367 Jul, [facility] [address] 79251- 2224 Jun, [place] [address] [place] [id number] [place] [address] 43467- 0466 Jun, Obstructive sleep apnea G47.33 ; Hyperkalemia E87.5 ; Enlarged prostate with lower urinary tract symptoms N40.1 and Elevated PSA R97.2 [facility] [address] [place] [id number] [place] [address] 68725- 0553 Apr, Obstructive sleep apnea syndrome G47.33 [facility] [address] 91970- 9002 Apr, [facility] [address] [place] [id number] [place] [address] 40051- 3574 Mar, BPH (benign prostatic hyperplasia) 600.00 [place] [address] [place] [id number] [place] [address] 18683- 1326 Mar, Elevated PSA 790.93 and BPH (benign prostatic hyperplasia) 600.00 [facility] [address] [place] [id number] [place] [address] 94759- 2477 Feb, [facility] [address] [place] [id number] [place] [address] 03943- 2346 Feb, [facility] [address] [place] [id number] [place] [address] 53526- 9347 Feb, Dizziness 780.4 ; COPD (chronic obstructive pulmonary disease) 496 ; Nocturnal hypoxia 327.24 ; Rib pain on left side 786.50 ; BPH ( benign prostatic hyperplasia) 600.00 ; Elevated PSA 790.93 and Incontinence of urine 788.30 [facility] [address] [place] [id number] [place] [address] 63492- 4185 Dec, Upper respiratory infection 465.9 and Psoriasis 696.1 [facility] [address] [place] [id number] [place] [address] 33437- 0889 Oct, [facility] [address] [place] [id number] [place] [address] 56742- 9440 Oct, [facility] [address] [place] [id number] [place] [address] 55779- 1274 Sep, [facility] [address] [place] [address] 12882- 8014 Sep, [facility] [address] [place] [id number] [place] [address] [id number]- 0851 Aug, [facility] [address] [place] [address] 393827- 1196 Aug, [facility] [address] [place] [id number] [place] [address] 88368- 6258 May, [facility] [address] [address]- 0665 May, [facility] [address] [place] [address]- 0030 Dec, [facility] [place] [facility] [address] [id number] [place] [address]- 0107 Dec, [facility] [place] [facility] [address] [id number] [place] [address]- 8913 Dec, [facility] [place] [facility] [address] [id number] [place] [address]- 4561 Dec, [facility] [place] [facility] [address] [id number] [place] [address]- 8710 Dec, [facility] [place] [facility] [address] [id number] [place] [address]- 1357 Dec, [facility] [place] [facility] [address] [id number] [place] [address]- 5804 Dec, [facility] [place] [facility] [address] [id number] [place] [address]- 5398 November, [facility] [place] [facility] [address] [id number] [place] [address]- 4996 November, [facility] [place] [facility] [address] [id number] [place] [address]- 8128 November, [facility] [place] [facility] [address] [id number] [place] [address]- 7561 November, [facility] [place] [facility] [address] [id number] [place] [address]- 6993 November, [facility] [place] [facility] [address] [id number] [place] [address]- 7563 November, [facility] [place] [facility] [address] [id number] [place] [address]- 9475 November, [facility] [place] [facility] [address] [id number] [place] [address]- 4888 November, [facility] [place] [facility] [address] [id number] [place] [address]- 0188 November, [facility] [place] [facility] [address] [id number] [place] [address]- 7799 November, [facility] [place] [facility] [address] [id number] [place] [address]- 7768 November, [facility] [place] [facility] [address] [id number] [place] [address]- 4773 November, [facility] [place] [facility] [address] [id number] [place] [address]- 9108 November, [facility] [place] [facility] [address] [id number] [place] [address]- 1938 Sep, [facility] [place] [facility] [address] [id number] [place] [address]- 4566 Sep, [facility] [place] [facility] [address] [id number] [place] [address]- 5318 Sep, [facility] [place] [facility] [address] [id number] [place] [address]- 8377 Sep, [facility] [place] [facility] [address] [id number] [place] [address]- 9179 Sep, [facility] [place] [facility] [address] [id number] [place] [address]- 0270 Sep, [facility] [place] [facility] [address] [id number] [place] [address]- 3623 Jun, [facility] [place] [facility] [address] [id number] [place] [address]- 7567 Jun, [facility] [place] [facility] [address] [id number] [place] [address]- 1646 Jun, [facility] [place] [facility] [address] [id number] [place] [address]- 0275 May, [facility] [place] [facility] [address] [id number] [place] [address]- 2620 May, [facility] [place] [facility] [address] [id number] [place] [address]- 9813 05 Jan, 2013 [facility] [address] [id number] [place] [address]- 2633 Jan, [facility] [address] [id number] [place] [address]- 0105 Dec, [facility] [address] [facility] [id number] [place] [address]- 9831 17 Oct, 2012 [facility] [address] [id number] [place] [address]- 9802 16 Oct, 2012 [facility] [address] [id number] [place] [address]- 2225 Oct, [facility] [address] [facility] [id number] [place] [address]- 5986 Aug, [facility] [address] [facility] [id number] [place] [address]- 4393 Aug, [facility] [address] [facility] [id number] [place] [address]- 3536 Jul, [facility] [address] [facility] [id number] [place] [address]- 6724 Jul, [facility] [address] [facility] [id number] [place] [address]- 3262 Jul, [facility] [address] [facility] [id number] [place] [address]- 5413 Jun, [facility] [address] [id number] [place] [address]- 8366 Jun, [facility] [place] [facility] [address] [id number] [place] [address]- 2370 Jun, [facility] [place] [facility] [address] [facility] [id number] [place] [address]- 9086 Jun, [facility] [address] [facility] [id number] [place] [address]- 6874 Apr, [facility] [address] [facility] [id number] [place] [address]- 9410 Apr, [facility] [address] [facility] [id number] [place] [address]- 4927 Apr, IMMUNIZATIONS No Known Immunizations SOCIAL HISTORY Never Assessed REASON FOR VISIT 2 mo f/u PLAN OF CARE Activity Details Follow Up 4 Months Reason: VITAL SIGNS Height 70 in 2017-02-24 Weight 180 lbs 2017-02-24 Heart Rate 70 bpm 2017-02-24 Respiratory Rate 18 2017-02-24 Oximetry 98 % 2017-02-24 BMI 25.82 kg/m2 2017-02-24 Blood pressure systolic 114 mmHg 2017-02-24 Blood pressure diastolic 70 mmHg 2017-02-24 MEDICATIONS Medication Instructions Dosage Frequency Start Date End Date Duration Status Promethazine-Codeine 6.25-10 MG/5ML Orally every 8 hrs prn 5-10 ml as needed Active Triamcinolone Acetonide 0.5 % Externally Twice a day as needed 1 application to affected area Jul, Active Flomax 0.4 MG Orally Once a day 1 capsule 24h May, Active Ibuprofen 800 MG Orally Three times a day 1 tablet with food or milk 8h Active Omeprazole 40 mg Orally Once a [...] PRN for wheezing or cough Aug, Active Myrbetriq 50 mg Orally Once a day 1 tablet 24h Jul, 30 Active Oxygen 2 nasal hs Active RESULTS No Results PROCEDURES Procedure Date Ordered Result Body Site MEASURE BLOOD OXYGEN LEVEL Feb 24, 2017 [facility] VISIT ESTABLISHED PATIENT Feb 24, 2017 INSTRUCTIONS MEDICATIONS ADMINISTERED No Known Medications [...]
--- OUTSIDE RECORDS SUMMARY | 2018-07-08 10:21 | XMS REPORT ---
Author Author SHA MARTIN [facility] Address [address] [place] [address] Care Team Providers Care Tool And Die Supervisor Name Role Phone SHA MARTIN Unavailable PROBLEMS Type Condition ICD9-CM Code GBC68-AK Code Onset Dates Condition Status SNOMED Code Problem Essential hypertension I10 Active 05684853 Problem Non-ischemic cardiomyopathy I42.8 Active 54467690 Problem Chronic obstructive pulmonary disease, unspecified COPD type J44.9 Active 73928361 Problem Benign prostatic hyperplasia with lower urinary tract symptoms N40.1 Active 242962475 Problem Abnormal MRI of head R93.0 Active 093061843920675 Problem Nocturnal hypoxemia G47.34 Active 014966517 Problem 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 Active 61795728 Problem Non-rheumatic tricuspid valve insufficiency I36.1 Active 032093666 Problem Carotid disease, bilateral I77.9 Active 863116148 Problem Smoking greater than 40 pack years F17.210 Active 27952472 Problem Non-rheumatic mitral regurgitation I34.0 Active 361270870 Problem Obstructive sleep apnea syndrome G47.33 Active 43808734 Problem Obstructive sleep apnea G47.33 Active 72846617 Problem Mixed stress and urge urinary incontinence N39.46 Active 220304139 Problem Spinal stenosis in cervical region M48.02 Active 46927405 Problem Cyst on ear L72.9 Active 55374731 Problem Incontinence R32 Active 13208585 Problem Enlarged prostate with lower urinary tract symptoms N40.1 Active 805174129122005 Problem Cardiac arrhythmia, unspecified cardiac arrhythmia type I49.9 Active 55514282 Problem Elevated PSA R97.2 Active 737135207 Problem GERD without esophagitis K21.9 Active 471045009 ALLERGIES No Known Allergies ENCOUNTERS Encounter Location Date Diagnosis [facility] [address] [facility] [id number] [address] 19 Aug, 2017 [facility] [id number] [place] [address] 52361- 1643 12 Aug, 2017 [place] [address] [place] [id number] [place] [address] 68610- 4855 Jul, [facility] [place] [address] [id number] [place] [address] 34329 -5551 Jul, Other retention of urine R33.8 and Benign prostatic hyperplasia with lower urinary tract symptoms N40.1 [place] [address] [id number] [place] [address] 02476- 2834 Jul, Enlarged prostate with lower urinary tract symptoms N40.1 [place] [address] [address]30- 6491 Jun, Dyspnea on exertion R06.09 ; Obstructive sleep apnea G47.33 ; Chronic obstructive pulmonary disease, unspecified COPD type J44.9 ; Non- rheumatic mitral regurgitation I34.0 and Non-rheumatic tricuspid valve insufficiency I36.1 [place] [address] [place] [id number] [place] [address] 93773- 1951 May, [place] [address] [address] [id number] [place] [address] 99812- 4503 May, [facility] [place] [address] [id number] [place] [address] 02896 -7722 May, Chest wall contusion, right, initial encounter S20.211A [place] [address] [id number] [place] [address] 27702- 7226 Apr, Fatigue, unspecified type R53.83 ; Obstructive sleep apnea G47.33 and Nocturnal hypoxemia G47.34 [facility] [address] [place] [id number] [place] [address] 57341 -6581 Apr, [place] [address] [place] [id number] [place] [address] 58851- 3824 Apr, [place] [address] [id number] [place] [address] 24408- 3778 20 Sep, 2017 Medicare welcome exam Z00.00 ; Medicare annual wellness visit, initial Z00.00 ; Medicare annual wellness visit, subsequent Z00.00 ; Smoking greater than 40 pack years F17.210 and Encounter for immunization Z23 [place] [address] [id number] [place] [address] 11842- 0117 Feb, Acute bilateral low back pain without sciatica M54.[address] 89993- 2340 Feb, Dyspnea on exertion R06.09 ; Obstructive sleep apnea G47.33 ; Chronic obstructive pulmonary disease, unspecified COPD type J44.9 ; Non- rheumatic mitral regurgitation I34.0 and Non-rheumatic tricuspid valve insufficiency I36.1 [place] [id number] [place] [address] 98191- 3450 14 Dec, 2016 Dyspnea on exertion R06.09 ; Chronic obstructive pulmonary disease, unspecified COPD type J44.9 ; Non-rheumatic mitral regurgitation I34.0 ; Non-rheumatic tricuspid valve insufficiency I36.1 ; Obstructive sleep apnea G47.33 and Carotid disease, bilateral I77.9 [place] [id number] [place] [address] 15192- 8551 November, [place] [id number] [place] [address] 96436- 7490 November, Chronic obstructive pulmonary disease, unspecified COPD type J44.9 ; Non-ischemic cardiomyopathy I42.8 and Otitis media, unspecified, left ear H66.92 [place] [id number] [place] [address] 57411- 0933 November, Chest discomfort R07.89 ; Non-ischemic cardiomyopathy I42.8 ; Shortness of breath R06.02 and History of tobacco use Z87.891 [place] [address] [id number] [place] [address] 53231- 6993 Oct, Chronic obstructive pulmonary disease, unspecified COPD type J44.9 ; Essential hypertension I10 and Acute diffuse otitis externa of left ear H60.312 [place] [id number] [place] [address] 59503- 2192 Oct, Chest discomfort R07.89 ; Obstructive sleep apnea G47.33 ; Essential hypertension I10 ; Eustachian tube dysfunction, bilateral H69.83 ; Dyshidrosis L30.1 ; Acute diffuse otitis externa of left ear H60.312 and Mixed stress and urge urinary incontinence N39.[address] 70628- 6150 Oct, [address] 8[address]- 2002 Oct, Essential hypertension I10 [id number]- 5603 Oct, Chest discomfort R07.89 ; Obstructive sleep apnea G47.33 ; Essential hypertension I10 ; Eustachian tube dysfunction, bilateral H69.83 and Bilateral impacted cerumen H61.[address] 08519- 5008 Oct, [place] [address] 88747- 8934 Sep, [id number]- 5011 Sep, [place] [id number] [place] [address] 34295- 8749 Aug, Noncompliance with medication regimen Z91.14 [place] [address] [place] [id number] [place] [address] 53544- 5937 Aug, Noncompliance with medication regimen Z91.14 [place] [address] [place] [address] Aug, [place] [id number]- 4423 Jul, Spinal stenosis in cervical region M48.02 ; GERD without esophagitis K21.9 ; Enlarged prostate with lower urinary tract symptoms N40.1 and Incontinence R32 [place] [address] [place] [id number] [place] [address] 50341- 6859 Jul, Neck pain M54.2 and Dizziness R42 [place] [address] [place] [id number] [place] [address] 05854- 5668 Jun, Abnormal MRI of head R93.0 [place] [address] [place] [id number] [place] [address] 07634- 4448 14 Jun, 2016 Right ear impacted cerumen H61.21 ; Spinal stenosis in cervical region M48.02 ; Abnormal MRI of head R93.0 and Vertigo R42 [facility] [place] [address] 52711 -6130 07 Jun, 2016 Recurrent acute suppurative otitis media without spontaneous rupture of left tympanic membrane H66.005 [place] [address] [place] [id number] [place] [address] 90322- 0055 May, Dizziness R42 and Cardiac arrhythmia, unspecified cardiac arrhythmia type I49.9 [facility] [place] [address] [id number] [place] [address] 61624 -9916 May, Acute suppurative otitis media of left ear without spontaneous rupture of tympanic membrane, recurrence not specified H66.002 ; Dizziness R42 and Cardiac arrhythmia, unspecified cardiac arrhythmia type I49.9 [place] [address] [place] [id number] [place] [address] 29136- 9849 Mar, [place] [address] [place] [id number] [place] [address] 08980- 5894 Jan, Cervical spinal stenosis M48.02 and Cerebral cavernoma Q28.3 [place] [address] [place] [id number] [place] [address] 05204- 1129 Dec, Neck pain M54.2 ; Vertigo R42 and Family history of brain cancer Z80.8 [facility] [place] [address] [address] [id number] [place] [address] 57503 -9332 Dec, Dizziness R42 [place] [address] [place] [id number] [place] [address] 19576- 1599 Dec, [facility] [address] 47451- 6657 Oct, [facility] [address] [place] [id number] [place] [address] 71963- 4380 Oct, [facility] [address] 17690- 2329 Oct, [facility] [address] 15027- 8137 Oct, Sebaceous cyst L72.3 [place] [address] 81381- 8299 Sep, Obstructive sleep apnea G47.33 ; Incontinence R32 and Cyst on ear L72.9 [place] [address] 63970- 2198 Aug, Diarrhea R19.7 and Nausea & vomiting R11.2 [place] [address] [place] [id number] [place] [address] 19503- 3688 Jul, [place] [address] 24374- 7254 Jun, [facility] [address] [place] [id number] [place] [address] 07825- 0027 Jun, Obstructive sleep apnea G47.33 ; Hyperkalemia E87.5 ; Enlarged prostate with lower urinary tract symptoms N40.1 and Elevated PSA R97.2 [facility] [address] [place] [id number] [place] [address] 78917- 4832 Apr, Obstructive sleep apnea syndrome G47.33 [facility] [address] [place] [id number] [place] [address] 91732- 3315 Apr, [facility] [address] [place] [id number] [place] [address] 61890- 7131 Mar, BPH (benign prostatic hyperplasia) 600.00 [facility] [address] [place] [address] 54533- 0815 Mar, Elevated PSA 790.93 and BPH (benign prostatic hyperplasia) 600.00 [facility] [address] [place] [id number] [place] [address] 76040- 7541 Feb, [facility] [address] [place] [id number] [place] [address] 81312- 1542 Feb, [facility] [address] [place] [id number] [place] [address] 131061- 7449 Feb, Dizziness 780.4 ; COPD (chronic obstructive pulmonary disease) 496 ; Nocturnal hypoxia 327.24 ; Rib pain on left side 786.50 ; BPH ( benign prostatic hyperplasia) 600.00 ; Elevated PSA 790.93 and Incontinence of urine 788.30 [facility] [address] [place] [id number] [place] [address] 23277- 9851 Dec, Upper respiratory infection 465.9 and Psoriasis 696.1 [facility] [address] [place] [id number] [place] [address] 28362- 5790 Oct, [facility] [address] [place] [id number] [place] [address] 45352- 7636 Oct, [facility] [address] [id number] [address]- 4652 Sep, [facility] [address] [place] [id number] [place] [address] 88506- 5329 Sep, [facility] [address] [place] [id number] [place] [address] 46867- 1356 Aug, [facility] [address] [place] [id number] [place] [address] 43948- 6032 Aug, [facility] [address] [place] [id number] [place] [address] 664919- 6110 May, [facility] [address] [place] [id number] [place] [address] 072354- 4254 May, [facility] [place] [facility] [address] [id number] [place] [address]- 0694 Dec, [facility] [place] [facility] [address] [id number] [place] [address]- 8908 Dec, [facility] [place] [facility] [address] [id number] [place] [address]- 5344 Dec, [facility] [place] [facility] [address] [id number] [place] [address]- 2800 Dec, [facility] [place] [facility] [address] [id number] [place] [address]- 8656 Dec, [facility] [place] [facility] [address] [id number] [place] [address]- 7065 Dec, [facility] [place] [facility] [address] [id number] [place] [address]- 0838 Dec, [facility] [place] [facility] [address] [id number] [place] [address]- 5774 November, [facility] [place] [facility] [address] [id number] [place] [address]- 8989 November, [facility] [place] [facility] [address] [id number] [place] [address]- 4065 November, [facility] [place] [facility] [address] [id number] [place] [address]- 4455 November, [facility] [place] [facility] [address] [id number] [place] [address]- 6587 November, [facility] [place] [facility] [address] [id number] [place] [address]- 2452 November, [facility] [place] [facility] [address] [id number] [place] [address]- 8530 November, [facility] [place] [facility] [address] [id number] [place] [address]- 7230 November, [facility] [place] [facility] [address] [id number] [place] [address]- 2546 November, [facility] [place] [facility] [address] [id number] [place] [address]- 0310 November, [facility] [place] [facility] [address] [id number] [place] 9567 November, [facility] [place] [facility] [address] [id number] [place] [address]- 8766 November, [facility] [place] [facility] [address] [id number] [place] [address]- 1101 November, [facility] [place] [facility] [address] [id number] [place] [address]- 8996 Sep, [facility] [place] [facility] [address] [id number] [place] [address]- 8126 Sep, [facility] [place] [facility] [address] [id number] [place] [address]- 5108 Sep, [facility] [place] [facility] [address] [id number] [place] [address]- 7712 Sep, [facility] [place] [facility] [address] [id number] [place] [address]- 7212 Sep, [facility] [place] [facility] [address] [id number] [place] [address]- 2440 Sep, [facility] [place] [facility] [address] [id number] [place] [address]- 7419 Jun, [facility] [place] [facility] [address] [id number] [place] [address]- 4694 Jun, [facility] [place] [facility] [address] [id number] [place] [address]- 3874 Jun, [facility] [place] [facility] [address] [id number] [place] [address]- 1417 May, [facility] [place] [facility] [address] [id number] [place] 0373 May, [facility] [place] [facility] [address] [id number] [place] [address]- 2546 05 Jan, 2013 [facility] [address] [id number] [place] [address]- 0172 Jan, [facility] [address] [id number] [place] [address]- 2546 Dec, [facility] [address] [id number] [place] [address]- 9306 Oct, [facility] [address] [id number] [place] [address]- 2546 Oct, [facility] [address] [id number] [place] [address]- 5786 Oct, [facility] [address] [id number] [place] [address]- 5306 Aug, [facility] [address] [id number] [place] [address]- 2096 Aug, [facility] [address] [id number] [place] [address]- 3718 Jul, [facility] [address] [id number] [place] [address]- 6076 Jul, [facility] [address] [id number] [place] [address]- 2226 Jul, [facility] [address] [id number] [place] [address]- 0456 Jun, [facility] [address] [id number] [place] [address]- 8036 Jun, [facility] [place] [facility] [address] [id number] [place] [address]- 2546 Jun, [facility] [address] [id number] [place] [address]- 2546 Jun, [facility] [address] [id number] [place] [address]- 8525 Apr, [facility] [address] [facility] [id number] [place] 8115 Apr, [facility] [address] [facility] [id number] [place] [address]- 3942 Apr, IMMUNIZATIONS No Known Immunizations SOCIAL HISTORY Never Assessed REASON FOR VISIT Painful urination, unable to void but very small amounts started last night Nikita Diaz out of flomax but thinks he has a kidney stone it hurts so bad PLAN OF CARE Activity Details Follow Up 4 Weeks Reason: VITAL SIGNS Height 70 in 2017-08-14 Weight 184.6 lbs 2017-08-14 Temperature 98.4 degrees Fahrenheit 2017-08-14 Heart Rate 78 bpm 2017-08-14 Respiratory Rate 20 2017-08-14 BMI 26.48 kg/m2 2017-08-14 Blood pressure systolic 120 mmHg 2017-08-14 Blood pressure diastolic 80 mmHg 2017-08-14 MEDICATIONS Medication Instructions Dosage Frequency Start Date End Date Duration Status Myrbetriq 50 mg Orally Once a day 1 tablet 24h 30 Active Flomax 0.4 MG Orally Once a day TAKE ONE CAPSULE BY MOUTH ONCE DAILY 24h 30 Active Albuterol 108 (90 Base) mcg/act by inhalation route 4 times a day prn 2 puffs Active Meloxicam 7.5 MG TAKE ONE TABLET BY MOUTH TWICE DAILY WITH FOOD FOR PAIN 30 Active Triamcinolone Acetonide 0.5 % Externally Twice a day as needed 1 application to affected area Jul, Active Oxygen 2 nasal hs Active Meclizine HCl 12.5 MG Orally 2 times a day prn Take one tablet as needed Dec, 30 day(s) Not-Taking Albuterol Sulfate 2.5 mg /3 mL (0.083 %) 1 Each by Inhalation route every 4 hours for cough and wheeze PRN for wheezing or cough Aug, Active Symbicort 160-4.5 mcg/act Inhalation Twice a day 2 puffs 12h Active Ibuprofen 800 MG Orally Three times a day 1 tablet with food or milk 8h Not-Taking Omeprazole 40 mg Orally Once a day 1 capsule 24h 30 Active RESULTS No Results PROCEDURES Procedure Date Ordered Result Body Site [facility] VISIT ESTABLISHED PATIENT Aug 14, 2017 INSTRUCTIONS MEDICATIONS ADMINISTERED No Known Medications [...]
--- OUTSIDE RECORDS SUMMARY | 2018-07-08 10:21 | XMS REPORT ---
Author Author ANGEL LUIS OVALLE [facility] Address [address] [place] [address] Care Team Providers Care Kosher Dietary Service Supervisor Name Role Phone ANGEL LUIS OVALLE Unavailable PROBLEMS Type Condition ICD9-CM Code YQW63-LK Code Onset Dates Condition Status SNOMED Code Problem Essential hypertension I10 Active 53305784 Problem Non-ischemic cardiomyopathy I42.8 Active 41563690 Problem Chronic obstructive pulmonary disease, unspecified COPD type J44.9 Active 45618074 Problem Benign prostatic hyperplasia with lower urinary tract symptoms N40.1 Active 793182521 Problem Abnormal MRI of head R93.0 Active [id number] Problem Nocturnal hypoxemia G47.34 Active 039117190 Problem 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 Active 47606061 Problem Non-rheumatic tricuspid valve insufficiency I36.1 Active 491531323 Problem Carotid disease, bilateral I77.9 Active 317210971 Problem Smoking greater than 40 pack years F17.210 Active 88661457 Problem Non-rheumatic mitral regurgitation I34.0 Active 586135503 Problem Obstructive sleep apnea syndrome G47.33 Active 93316509 Problem Obstructive sleep apnea G47.33 Active 78095100 Problem Mixed stress and urge urinary incontinence N39.46 Active 258757048 Problem Spinal stenosis in cervical region M48.02 Active 74996912 Problem Cyst on ear L72.9 Active 00369155 Problem Incontinence R32 Active 04141976 Problem Enlarged prostate with lower urinary tract symptoms N40.1 Active 723126234893758 Problem Cardiac arrhythmia, unspecified cardiac arrhythmia type I49.9 Active 39706746 Problem Elevated PSA R97.2 Active 986382297 Problem GERD without esophagitis K21.9 Active 654753050 ALLERGIES No Information ENCOUNTERS Encounter Location Date Diagnosis [facility] [place] [address] [facility] [id number] [address] Aug, [facility] [place] [address] [place] [id number] [place] [address]122- 3533 12 Aug, 2017 [place] [address] [place] [id number] [place] [address] 09078- 6281 Jul, [facility] [place] [address] [place] [id number] [place] [address]758 -2770 Jul, Other retention of urine R33.8 and Benign prostatic hyperplasia with lower urinary tract symptoms N40.1 [place] [address] [address]- 4414 Jul, Enlarged prostate with lower urinary tract symptoms N40.1 [place] [address] [address]18- 9778 Jun, Dyspnea on exertion R06.09 ; Obstructive sleep apnea G47.33 ; Chronic obstructive pulmonary disease, unspecified COPD type J44.9 ; Non- rheumatic mitral regurgitation I34.0 and Non-rheumatic tricuspid valve insufficiency I36.1 [place] [address] [address]- 5274 May, [place] [address] [place] [id number] [place] [address] 09086- 4557 May, [facility] [place] [address] [place] [id number] [place] [address]2611 -3119 May, Chest wall contusion, right, initial encounter S20.211A [place] [address] [place] [id number] [place] [address] 47469- 1074 Apr, Fatigue, unspecified type R53.83 ; Obstructive sleep apnea G47.33 and Nocturnal hypoxemia G47.34 [facility] [address] [place] [id number] [place] [address] 42384 -4917 Apr, [place] [address] [place] [id number] [place] [address] 72160- 5570 Apr, [place] [address] [place] [id number] [place] [address] 60192- 6583 Mar, Medicare welcome exam Z00.00 ; Medicare annual wellness visit, initial Z00.00 ; Medicare annual wellness visit, subsequent Z00.00 ; Smoking greater than 40 pack years F17.210 and Encounter for immunization Z23 [place] [address] 25554- 3309 Feb, Acute bilateral low back pain without sciatica M54.[address] [address]- [address] Feb, Dyspnea on exertion R06.09 ; Obstructive sleep apnea G47.33 ; Chronic obstructive pulmonary disease, unspecified COPD type J44.9 ; Non- rheumatic mitral regurgitation I34.0 and Non-rheumatic tricuspid valve insufficiency I36.[address] [address]- [address]88 14 Dec, 2016 Dyspnea on exertion R06.09 ; Chronic obstructive pulmonary disease, unspecified COPD type J44.9 ; Non-rheumatic mitral regurgitation I34.0 ; Non-rheumatic tricuspid valve insufficiency I36.1 ; Obstructive sleep apnea G47.33 and Carotid disease, bilateral I77.[address] [address]- [address] November, [address] 6[address]- 9292 November, Chronic obstructive pulmonary disease, unspecified COPD type J44.9 ; Non-ischemic cardiomyopathy I42.8 and Otitis media, unspecified, left ear H66.[address] [address]- [address] November, Chest discomfort R07.89 ; Non-ischemic cardiomyopathy I42.8 ; Shortness of breath R06.02 and History of tobacco use Z87.[address] 9[address]25- 6258 Oct, Chronic obstructive pulmonary disease, unspecified COPD type J44.9 ; Essential hypertension I10 and Acute diffuse otitis externa of left ear H60.[address] [place] [address]- 2142 Oct, Chest discomfort R07.89 ; Obstructive sleep apnea G47.33 ; Essential hypertension I10 ; Eustachian tube dysfunction, bilateral H69.83 ; Dyshidrosis L30.1 ; Acute diffuse otitis externa of left ear H60.312 and Mixed stress and urge urinary incontinence N39.[address] 7[address]88- 5476 Oct, [place] [address] [place] [id number]- 2360 Oct, Essential hypertension I10 [place]6875- 7610 Oct, Chest discomfort R07.89 ; Obstructive sleep apnea G47.33 ; Essential hypertension I10 ; Eustachian tube dysfunction, bilateral H69.83 and Bilateral impacted cerumen H61.[address] [address]00- 3610 Oct, [place] [address] 81662- 2704 Sep, [place] [address]- [address]176 Sep, [address] [address]- 9823 Aug, Noncompliance with medication regimen Z91.[address] 6[address]28- 2309 Aug, Noncompliance with medication regimen Z91.[address] [address] Aug, [place] [address]- [address]227 Jul, Spinal stenosis in cervical region M48.02 ; GERD without esophagitis K21.9 ; Enlarged prostate with lower urinary tract symptoms N40.1 and Incontinence R32 [place] [address] [place] [id number] [place] [address] 10344- 5565 Jul, Neck pain M54.2 and Dizziness R42 [place] [address] 17889- 4969 Jun, Abnormal MRI of head R93.0 [place] [address] 19354- 9671 14 Jun, 2016 Right ear impacted cerumen H61.21 ; Spinal stenosis in cervical region M48.02 ; Abnormal MRI of head R93.0 and Vertigo R42 [facility] [place] [address] [address]98 [address] 07 Jun, 2016 Recurrent acute suppurative otitis media without spontaneous rupture of left tympanic membrane H66.005 [place] [address] [place] [id number] [place] [address]83- 1455 May, Dizziness R42 and Cardiac arrhythmia, unspecified cardiac arrhythmia type I49.9 [facility] [place] [address] [place] [id number] [place] [address]70 [address]2584 May, Acute suppurative otitis media of left ear without spontaneous rupture of tympanic membrane, recurrence not specified H66.002 ; Dizziness R42 and Cardiac arrhythmia, unspecified cardiac arrhythmia type I49.9 [place] [address] [place] [id number] [place] [address] 00643- 5526 Mar, [place] [address] [place] [id number] [place] [address] 36287- 4089 Jan, Cervical spinal stenosis M48.02 and Cerebral cavernoma Q28.3 [place] [address] [place] [id number] [place] [address] 40455- 5830 Dec, Neck pain M54.2 ; Vertigo R42 and Family history of brain cancer Z80.8 [facility] [place] [address] [place] [id number] [place] [address]6772 -3536 Dec, Dizziness R42 [place] [address] [place] [address] Dec, [facility] [place] [address] [place] [id number] [place] [address] 93752- 4033 Oct, [facility] [place] [address] 28795- 5273 Oct, [facility] [place] [address] 36491- 8338 Oct, [facility] [place] [address] 7[address]13- 8535 Oct, Sebaceous cyst L72.3 [place] [address] 77336- 0924 Sep, Obstructive sleep apnea G47.33 ; Incontinence R32 and Cyst on ear L72.9 [place] [address] 65036- 3449 Aug, Diarrhea R19.7 and Nausea & vomiting R11.2 [place] [address] [place] [id number] [place] [address] 49201- 7829 Jul, [facility] [place] [address] 8[address]35- 5062 Jun, [place] [address] [place] [id number] [place] [address] 98290- 9415 Jun, Obstructive sleep apnea G47.33 ; Hyperkalemia E87.5 ; Enlarged prostate with lower urinary tract symptoms N40.1 and Elevated PSA R97.2 [facility] [place] [address] [place] [id number] [place] [address] 96731- 3194 Apr, Obstructive sleep apnea syndrome G47.33 [place] [address] 86151- 0976 Apr, [facility] [place] [address] [place] [id number] [place] [address] 54871- 8389 Mar, BPH (benign prostatic hyperplasia) 600.00 [place] [address] [place] [id number] [place] [address] 71061- 6815 Mar, Elevated PSA 790.93 and BPH (benign prostatic hyperplasia) 600.00 [facility] [place] [address] [place] [id number] [place] [address] 14042- 0426 Feb, [facility] [place] [address] [place] [id number] [place] [address] 19583- 3019 Feb, [facility] [place] [address] [place] [id number] [place] [address] 99104- 1148 Feb, Dizziness 780.4 ; COPD (chronic obstructive pulmonary disease) 496 ; Nocturnal hypoxia 327.24 ; Rib pain on left side 786.50 ; BPH ( benign prostatic hyperplasia) 600.00 ; Elevated PSA 790.93 and Incontinence of urine 788.30 [facility] [place] [address] [place] [id number] [place] [address] 88235- 1471 Dec, Upper respiratory infection 465.9 and Psoriasis 696.1 [facility] [place] [address] [place] [id number] [place] [address] 87554- 3285 Oct, [facility] [place] [address] [place] [id number] [place] [address] 94418- 0590 Oct, [facility] [place] [address] [place] [id number] [place] [address] 92603- 5690 Sep, [facility] [place] [address] [place] [id number] [place] [address] 90328- 1003 Sep, [facility] [place] [address] [place] [id number] [place] [address] 91035- 0379 Aug, [facility] [place] [address] [place] [id number] [place] [address] 833597- 4896 Aug, [facility] [place] [address] [place] [id number] [place] [address] 125754- 1847 May, [facility] [place] [address] [place] [id number] [place] [address] 192098- 1882 May, [facility] [place] [facility] [address] [id number] [place] [address]- 5375 Dec, [facility] [place] [facility] [address] [id number] [place] [address]- 5425 Dec, [facility] [place] [facility] [address] [id number] [place] [address]- 9785 Dec, [facility] [place] [facility] [address] [id number] [place] [address]- 3221 Dec, [facility] [place] [facility] [address] [id number] [place] [address]- 3186 Dec, [facility] [place] [facility] [address] [id number] [place] [address]- 4290 Dec, [facility] [place] [facility] [address] [id number] [place] [address]- 7517 Dec, [facility] [place] [facility] [address] [id number] [place] [address]- 7657 November, [facility] [place] [facility] [address] [id number] [place] [address]- 8547 November, [facility] [place] [facility] [address] [id number] [place] [address]- 9492 November, [facility] [place] [facility] [address] [id number] [place] [address]- 4103 November, [facility] [place] [facility] [address] [id number] [place] [address]- 6441 November, [facility] [place] [facility] [address] [id number] [place] [address]- 6993 November, [facility] [place] [facility] [address] [id number] [place] [address]- 8866 November, [facility] [place] [facility] [address] [id number] [place] [address]- 4768 November, [facility] [place] [facility] [address] [id number] [place] [address]- 2809 November, [facility] [place] [facility] [address] [id number] [place] [address]- 1031 November, [facility] [place] [facility] [address] [id number] [place] [address]- 9123 November, [facility] [place] [facility] [address] [id number] [place] [address]- 0734 November, [facility] [place] [facility] [address] [id number] [place] [address]- 7604 November, [facility] [place] [facility] [address] [id number] [place] [address]- 3312 Sep, [facility] [place] [facility] [address] [id number] [place] [address]- 3214 Sep, [facility] [place] [facility] [address] [id number] [place] [address]- 2036 Sep, [facility] [place] [facility] [address] [id number] [place] [address]- 7141 Sep, [facility] [place] [facility] [address] [id number] [place] [address]- 1063 Sep, [facility] [place] [facility] [address] [id number] [place] [address]- 8562 Sep, [facility] [place] [facility] [address] [id number] [place] [address]- 1904 Jun, [facility] [place] [facility] [address] [id number] [place] [address]- 0687 Jun, [facility] [place] [facility] [address] [id number] [place] [address]- 4126 Jun, [facility] [place] [facility] [address] [id number] [place] [address]- 9148 May, [facility] [place] [facility] [address] [id number] [place] [address]- 4226 May, [facility] [place] [facility] [address] [id number] [place] [address]- 9070 05 Jan, 2013 [facility] [place] [facility] [address] [id number] [place] [address]- 8649 Jan, [facility] [place] [facility] [address] [id number] [place] [address]- 8193 05 Dec, 2012 [facility] [place] [facility] [address] [id number] [place] [address]- 5385 Oct, [facility] [place] [facility] [address] [id number] [place] [address]- 5588 16 Oct, 2012 [facility] [place] [facility] [address] [id number] [place] [address]- 5884 Oct, [facility] [place] [facility] [address] [id number] [place] [address]- 1530 Aug, [facility] [place] [facility] [address] [id number] [place] [address]- 0478 Aug, [facility] [place] [facility] [address] [id number] [place] [address]- 3555 Jul, [facility] [place] [facility] [address] [id number] [place] [address]- 9727 Jul, [facility] [place] [facility] [address] [id number] [place] [address]- 4647 Jul, [facility] [address] [id number] [place] [address]- 8600 Jun, [facility] [place] [facility] [address] [id number] [place] [address]- 3202 Jun, [facility] [place] [facility] [address] [id number] [place] [address]- 7970 Jun, [facility] [place] [facility] [address] [id number] [place] [address]- 5966 Jun, [facility] [place] [facility] [address] [id number] [place] [address]- 7516 Apr, [facility] [place] [address] [facility] [id number] [place] [address]- 5668 Apr, [facility] [place] [address] [facility] [id number] [place] [address]094 Apr, IMMUNIZATIONS No Known Immunizations SOCIAL HISTORY Never Assessed REASON FOR VISIT Medication refill request PLAN OF CARE VITAL SIGNS MEDICATIONS Medication Instructions Dosage Frequency Start Date End Date Duration Status Flomax 0.4 mg Orally Once a day 1 capsule 24h May, 30 days Active RESULTS No Results PROCEDURES No [...]
--- OUTSIDE RECORDS SUMMARY | 2018-07-08 10:22 | XMS REPORT ---
Author Author UMAIR Banuelos [facility] WALK IN [facility] Address [address] [place] [address] Care Team Providers Care Mysql Database Developer Name Role Phone UMAIR Banuelos Unavailable PROBLEMS Type Condition ICD9-CM Code [id number] Code Onset Dates Condition Status SNOMED Code Problem Essential hypertension I10 Active 90467718 Problem Non-ischemic cardiomyopathy I42.8 Active 22951599 Problem Chronic obstructive pulmonary disease, unspecified COPD type J44.9 Active 78832541 Problem Benign prostatic hyperplasia with lower urinary tract symptoms N40.1 Active 025858962 Problem Abnormal MRI of head R93.0 Active 124111698680360 Problem Nocturnal hypoxemia G47.34 Active 654766189 Problem 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 Active 67471389 Problem Non-rheumatic tricuspid valve insufficiency I36.1 Active 047061052 Problem Carotid disease, bilateral I77.9 Active 234669364 Problem Smoking greater than 40 pack years F17.210 Active 89335149 Problem Non-rheumatic mitral regurgitation I34.0 Active 537613972 Problem Obstructive sleep apnea syndrome G47.33 Active 62510691 Problem Obstructive sleep apnea G47.33 Active 25687989 Problem Mixed stress and urge urinary incontinence N39.46 Active 653064387 Problem Spinal stenosis in cervical region M48.02 Active 24245244 Problem Cyst on ear L72.9 Active 87225745 Problem Incontinence R32 Active 72130110 Problem Enlarged prostate with lower urinary tract symptoms N40.1 Active 894401216843456 Problem Cardiac arrhythmia, unspecified cardiac arrhythmia type I49.9 Active 04244904 Problem Elevated PSA R97.2 Active 409207174 Problem GERD without esophagitis K21.9 Active 992484175 ALLERGIES No Known Allergies ENCOUNTERS Encounter Location Date Diagnosis [facility] [address] [facility] [id number] [address] 19 Aug, 2017 [facility] [address] [place] [id number] [place] [address] 35510- 8643 12 Aug, 2017 [facility] [id number] [place] [address] 22295- 9673 Jul, [facility] WALK IN [place] [id number] [place] [address] 08035 -0397 Jul, Other retention of urine R33.8 and Benign prostatic hyperplasia with lower urinary tract symptoms N40.1 [place] [address] [id number] [place] [address] 05766- 4251 Jul, Enlarged prostate with lower urinary tract symptoms N40.1 [place] [address] [address]- 2604 Jun, Dyspnea on exertion R06.09 ; Obstructive sleep apnea G47.33 ; Chronic obstructive pulmonary disease, unspecified COPD type J44.9 ; Non- rheumatic mitral regurgitation I34.0 and Non-rheumatic tricuspid valve insufficiency I36.1 [place] [address] [place] [id number] [place] [address] 04993- 2931 May, [place] [address] [place] [id number] [place] [address] 12782- 4891 May, [facility] WALK IN [place] [address] [id number] [place] [address] 46581 -2957 May, Chest wall contusion, right, initial encounter S20.211A [place] [id number] [place] [address] 76435- 0257 Apr, Fatigue, unspecified type R53.83 ; Obstructive sleep apnea G47.33 and Nocturnal hypoxemia G47.34 [facility] [address] [place] [id number] [place] [address] 69889 -7746 Apr, [place] [address] 25567- 9255 Apr, [place] [address] [place] [id number] [place] [address] 44749- 4842 20 Sep, 2017 Medicare welcome exam Z00.00 ; Medicare annual wellness visit, initial Z00.00 ; Medicare annual wellness visit, subsequent Z00.00 ; Smoking greater than 40 pack years F17.210 and Encounter for immunization Z23 [place] [id number] [place] [address] 63758- 6310 Feb, Acute bilateral low back pain without sciatica M54.[address] [address]- 0187 Feb, Dyspnea on exertion R06.09 ; Obstructive sleep apnea G47.33 ; Chronic obstructive pulmonary disease, unspecified COPD type J44.9 ; Non- rheumatic mitral regurgitation I34.0 and Non-rheumatic tricuspid valve insufficiency I36.1 [place] [id number] [place] [address] 45087- 5711 14 Dec, 2016 Dyspnea on exertion R06.09 ; Chronic obstructive pulmonary disease, unspecified COPD type J44.9 ; Non-rheumatic mitral regurgitation I34.0 ; Non-rheumatic tricuspid valve insufficiency I36.1 ; Obstructive sleep apnea G47.33 and Carotid disease, bilateral I77.9 [place] [id number] [place] [address] 06325- 2907 November, [place] [id number] [place] [address] 96004- 3239 November, Chronic obstructive pulmonary disease, unspecified COPD type J44.9 ; Non-ischemic cardiomyopathy I42.8 and Otitis media, unspecified, left ear H66.92 [place] [id number] [place] [address] 07555- 3575 November, Chest discomfort R07.89 ; Non-ischemic cardiomyopathy I42.8 ; Shortness of breath R06.02 and History of tobacco use Z87.891 [place] [id number] [place] [address] 49480- 8242 Oct, Chronic obstructive pulmonary disease, unspecified COPD type J44.9 ; Essential hypertension I10 and Acute diffuse otitis externa of left ear H60.312 [place] [id number] [place] [address]- 9695 Oct, Chest discomfort R07.89 ; Obstructive sleep apnea G47.33 ; Essential hypertension I10 ; Eustachian tube dysfunction, bilateral H69.83 ; Dyshidrosis L30.1 ; Acute diffuse otitis externa of left ear H60.312 and Mixed stress and urge urinary incontinence N39.[address] 33564- 7148 Oct, [place] [address] 64480- 2742 Oct, Essential hypertension I10 [place]104- 4485 Oct, Chest discomfort R07.89 ; Obstructive sleep apnea G47.33 ; Essential hypertension I10 ; Eustachian tube dysfunction, bilateral H69.83 and Bilateral impacted cerumen H61.23 [place] [address] 72649- 0065 Oct, [place] [address] 03487- 9534 Sep, [place] [address] [place] [id number]- 3866 Sep, [place] [address] [id number] [place] [address] 24126- 6550 Aug, Noncompliance with medication regimen Z91.14 [place] [address] [address] [id number] [place] [address] 66444- 4911 Aug, Noncompliance with medication regimen Z91.14 [place] [address] [place] [address] Aug, [place] [id number]- 9102 Jul, Spinal stenosis in cervical region M48.02 ; GERD without esophagitis K21.9 ; Enlarged prostate with lower urinary tract symptoms N40.1 and Incontinence R32 [place] [address] [place] [id number] [place] [address] 67209- 7252 Jul, Neck pain M54.2 and Dizziness R42 [place] [address] [id number] [place] [address] 61111- 9035 Jun, Abnormal MRI of head R93.0 [place] [address] [id number] [place] [address] 65211- 0129 14 Jun, 2016 Right ear impacted cerumen H61.21 ; Spinal stenosis in cervical region M48.02 ; Abnormal MRI of head R93.0 and Vertigo R42 [facility] WALK IN [place] [address] 36755 -7352 07 Jun, 2016 Recurrent acute suppurative otitis media without spontaneous rupture of left tympanic membrane H66.005 [place] [address] [place] [id number] [place] [address] 33955- 6220 May, Dizziness R42 and Cardiac arrhythmia, unspecified cardiac arrhythmia type I49.9 [facility] WALK IN [place] [address] [id number] [place] [address] 38489 -4591 May, Acute suppurative otitis media of left ear without spontaneous rupture of tympanic membrane, recurrence not specified H66.002 ; Dizziness R42 and Cardiac arrhythmia, unspecified cardiac arrhythmia type I49.9 [place] [id number] [place] [address] 39898- 9825 Mar, [place] [address] 72067- 1580 Jan, Cervical spinal stenosis M48.02 and Cerebral cavernoma Q28.3 [place] [address] [place] [id number] [place] [address] 87829- 0038 Dec, Neck pain M54.2 ; Vertigo R42 and Family history of brain cancer Z80.8 [facility] WALK IN [facility] [id number] [place] [address] 65318 -1009 Dec, Dizziness R42 [place] [address] [place] [id number] [place] [address] 06835- 0227 Dec, [facility] [id number] [place] [address] 67894- 5603 Oct, [facility] [id number] [place] [address] 57621- 3266 Oct, [facility] [address] 35202- 3941 Oct, [facility] [address] 86954- 7999 Oct, Sebaceous cyst L72.3 [place] [address] 52521- 8072 Sep, Obstructive sleep apnea G47.33 ; Incontinence R32 and Cyst on ear L72.9 [place] [address] 60064- 7423 Aug, Diarrhea R19.7 and Nausea & vomiting R11.2 [place] [address] [place] [id number] [place] [address] 84347- 1475 Jul, [place] [address] 81222- 2096 Jun, [facility] [id number] [place] [address] 28326- 3676 Jun, Obstructive sleep apnea G47.33 ; Hyperkalemia E87.5 ; Enlarged prostate with lower urinary tract symptoms N40.1 and Elevated PSA R97.2 [facility] [address] [id number] [place] [address] 55343- 9672 Apr, Obstructive sleep apnea syndrome G47.33 [facility] [address] [place] [id number] [place] [address] 13595- 0078 Apr, [facility] [address] [id number] [place] [address] 45548- 9296 Mar, BPH (benign prostatic hyperplasia) 600.00 [facility] [id number] [place] [address] 47630- 8199 Mar, Elevated PSA 790.93 and BPH (benign prostatic hyperplasia) 600.00 [facility] [id number] [place] [address] 47286- 4804 Feb, [facility] [id number] [place] [address] 23335- 0201 Feb, [facility] [id number] [place] [address] 46642- 7682 Feb, Dizziness 780.4 ; COPD (chronic obstructive pulmonary disease) 496 ; Nocturnal hypoxia 327.24 ; Rib pain on left side 786.50 ; BPH ( benign prostatic hyperplasia) 600.00 ; Elevated PSA 790.93 and Incontinence of urine 788.30 [facility] [id number] [place] [address] 34721- 1079 Dec, Upper respiratory infection 465.9 and Psoriasis 696.1 [facility] [id number] [place] [address] 84537- 2339 Oct, [facility] [id number] [place] [address] 25588- 9410 Oct, [facility] [id number] [place] [address] 78163- 0265 Sep, [facility] [id number] [place] [address] 14542- 1054 Sep, [facility] [id number] [place] [address] 10410- 9029 Aug, [facility] [id number] [place] [address] 715351- 9727 Aug, [facility] [id number] [place] [address] 859607- 7253 May, [facility] [id number] [place] [address] 953762- 0078 May, [facility] [place] [facility] [address] [id number] [place] [address]- 4492 Dec, [facility] [place] [facility] [address] [id number] [place] [address]- 7492 Dec, [facility] [place] [facility] [address] [id number] [place] [address]- 1200 Dec, [facility] [place] [facility] [address] [id number] [place] [address]- 9833 Dec, [facility] [place] [facility] [address] [id number] [place] [address]- 6632 Dec, [facility] [place] [facility] [address] [id number] [place] [address]- 0991 Dec, [facility] [place] [facility] [address] [id number] [place] [address]- 3234 Dec, [facility] [place] [facility] [address] [id number] [place] [address]- 4815 November, [facility] [place] [facility] [address] [id number] [place] [address]- 6140 November, [facility] [place] [facility] [address] [id number] [place] [address]- 8465 November, [facility] [place] [facility] [address] [id number] [place] [address]- 8583 November, [facility] [place] [facility] [address] [id number] [place] [address]- 1496 November, [facility] [place] [facility] [address] [id number] [place] [address]- 0219 November, [facility] [place] [facility] [address] [id number] [place] [address]- 3434 November, [facility] [place] [facility] [address] [id number] [place] [address]- 5242 November, [facility] [place] [facility] [address] [id number] [place] [address]- 8976 November, [facility] [place] [facility] [address] [id number] [place] [address]- 8073 November, [facility] [place] [facility] [address] [id number] [place] 9677 November, [facility] [place] [facility] [address] [id number] [place] [address]- 0557 November, [facility] [place] [facility] [address] [id number] [place] [address]- 9391 November, [facility] [place] [facility] [address] [id number] [place] [address]- 6331 Sep, [facility] [place] [facility] [address] [id number] [place] [address]- 5855 Sep, [facility] [place] [facility] [address] [id number] [place] [address]- 3065 Sep, [facility] [place] [facility] [address] [id number] [place] [address]- 2936 Sep, [facility] [place] [facility] [address] [id number] [place] [address]- 0817 Sep, [facility] [place] [facility] [address] [id number] [place] [address]- 9007 Sep, [facility] [place] [facility] [address] [id number] [place] [address]- 6624 Jun, [facility] [place] [facility] [address] [id number] [place] [address]- 2609 Jun, [facility] [place] [facility] [address] [id number] [place] [address]- 7712 Jun, [facility] [place] [facility] [address] [id number] [place] [address]- 5863 May, [facility] [place] [facility] [address] [id number] [place] [address]- 6079 May, [facility] [place] [facility] [address] [id number] [place] [address] 2546 05 Jan, 2013 [facility] [address] [id number] [place] [address]- 5284 Jan, [facility] [address] [id number] [place] [address]- 0416 Dec, [facility] [address] [id number] [place] [address]- 2816 Oct, [facility] [address] [id number] [place] [address]- 2402 Oct, [facility] [address] [id number] [place] [address]- 3135 Oct, [facility] [address] [id number] [place] [address]- 5666 Aug, [facility] [address] [id number] [place] [address]- 1702 Aug, [facility] [address] [id number] [place] [address]- 2049 Jul, [facility] [address] [id number] [place] [address]- 9756 Jul, [facility] [address] [id number] [place] [address]- 1307 Jul, [facility] [address] [id number] [place] [address]- 4497 Jun, [facility] [address] [id number] [place] [address]- 5460 Jun, [facility] [address] [id number] [place] [address]- 6160 Jun, [facility] [address] [id number] [place] [address]- 2546 Jun, [facility] [address] [id number] [place] [address]- 2336 Apr, [facility] [address] [facility] [id number] [place] [address]- 4648 Apr, [facility] [address] [facility] [id number] [place] [address]- 9406 Apr, IMMUNIZATIONS No Known Immunizations SOCIAL HISTORY Never Assessed REASON FOR VISIT side pain-fell on wednesday evening on right side PLAN OF CARE Activity Details Follow Up prn Reason: VITAL SIGNS Height 70 in 2017-05-21 Weight 176 lbs 2017-05-21 Temperature 99.1 degrees Fahrenheit 2017-05-21 Heart Rate 82 bpm 2017-05-21 Respiratory Rate 18 2017-05-21 BMI 25.25 kg/m2 2017-05-21 Blood pressure systolic 126 mmHg 2017-05-21 Blood pressure diastolic 86 mmHg 2017-05-21 MEDICATIONS Medication Instructions Dosage Frequency Start Date End Date Duration Status Ibuprofen 800 MG Orally Three times a day 1 tablet with food or milk 8h Active Oxygen 2 nasal hs Active Symbicort 160-4.5 mcg/act Inhalation Twice a day 2 puffs 12h Active Albuterol Sulfate 2.5 mg /3 mL (0.083 %) 1 Each by Inhalation route every 4 hours for cough and wheeze PRN for wheezing or cough Aug, Active Albuterol 108 (90 Base) mcg/act by inhalation route 4 times a day prn 2 puffs Active Myrbetriq 50 mg Orally Once a day 1 tablet 24h 30 Active Triamcinolone Acetonide 0.5 % Externally Twice a day as needed 1 application to affected area Jul, Active Omeprazole 40 mg Orally Once a day 1 capsule 24h 30 Active Flomax 0.4 MG Orally Once a day 1 capsule 24h May, Active RESULTS No Results PROCEDURES Procedure Date Ordered Result Body Site [facility] VISIT ESTABLISHED PATIENT May 21, 2017 INSTRUCTIONS MEDICATIONS ADMINISTERED No Known Medications [...]
--- OUTSIDE RECORDS SUMMARY | 2018-07-08 10:22 | XMS REPORT ---
Author Author JAS SHAH [facility] Address [address] [place] [address] Care Team Providers Care Center Line Cutter Operator Name Role Phone JAS SHAH Unavailable PROBLEMS Type Condition ICD9-CM Code WYC54-DM Code Onset Dates Condition Status SNOMED Code Problem Essential hypertension I10 Active 67817925 Problem Non-ischemic cardiomyopathy I42.8 Active 39755435 Problem Chronic obstructive pulmonary disease, unspecified COPD type J44.9 Active 86896006 Problem Benign prostatic hyperplasia with lower urinary tract symptoms N40.1 Active 798447041 Problem Abnormal MRI of head R93.0 Active 073279964903757 Problem Nocturnal hypoxemia G47.34 Active 097628632 Problem 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 Active 13477704 Problem Non-rheumatic tricuspid valve insufficiency I36.1 Active 382336622 Problem Carotid disease, bilateral I77.9 Active 616199932 Problem Smoking greater than 40 pack years F17.210 Active 37696305 Problem Non-rheumatic mitral regurgitation I34.0 Active 468805688 Problem Obstructive sleep apnea syndrome G47.33 Active 44155925 Problem Obstructive sleep apnea G47.33 Active 20138432 Problem Mixed stress and urge urinary incontinence N39.46 Active 829685900 Problem Spinal stenosis in cervical region M48.02 Active 87229566 Problem Cyst on ear L72.9 Active 75547851 Problem Incontinence R32 Active 83763600 Problem Enlarged prostate with lower urinary tract symptoms N40.1 Active 202659279482316 Problem Cardiac arrhythmia, unspecified cardiac arrhythmia type I49.9 Active 96072464 Problem Elevated PSA R97.2 Active 521227636 Problem GERD without esophagitis K21.9 Active 329602453 ALLERGIES No Known Allergies ENCOUNTERS Encounter Location Date Diagnosis [facility] [place] [address] [facility] [id number] [address] 19 Aug, 2017 [facility] [place] [id number] [place] [address] 53716- 9436 12 Aug, 2017 [place] [id number] [place] [address] 73169- 7344 Jul, [facility] [place] [address] [place] [id number] [place] [address]30 -7030 Jul, Other retention of urine R33.8 and Benign prostatic hyperplasia with lower urinary tract symptoms N40.1 [place] [address] [place] [id number] [place] [address] 51447- 0752 Jul, Enlarged prostate with lower urinary tract symptoms N40.1 [place] [address] [place] [id number] [place] [address] 92085- 8044 Jun, Dyspnea on exertion R06.09 ; Obstructive sleep apnea G47.33 ; Chronic obstructive pulmonary disease, unspecified COPD type J44.9 ; Non- rheumatic mitral regurgitation I34.0 and Non-rheumatic tricuspid valve insufficiency I36.1 [place] [address] [place] [id number] [place] [address] 68723- 3860 May, [place] [address] [place] [id number] [place] [address] 09174- 5626 May, [facility] [place] [address] [place] [id number] [place] [address] 64232 -8539 May, Chest wall contusion, right, initial encounter S20.211A [place] [address] [place] [id number] [place] [address] 03050- 5793 Apr, Fatigue, unspecified type R53.83 ; Obstructive sleep apnea G47.33 and Nocturnal hypoxemia G47.34 [facility] [id number] [place] [address] 79848 -8540 Apr, [place] [id number] [place] [address] 52078- 8709 Apr, [place] [id number] [place] [address] 07456- 4360 Mar, Medicare welcome exam Z00.00 ; Medicare annual wellness visit, initial Z00.00 ; Medicare annual wellness visit, subsequent Z00.00 ; Smoking greater than 40 pack years F17.210 and Encounter for immunization Z23 [place] [address] 84073- 0960 Feb, Acute bilateral low back pain without sciatica M54.[address] 7[address]- 4[address] Feb, Dyspnea on exertion R06.09 ; Obstructive sleep apnea G47.33 ; Chronic obstructive pulmonary disease, unspecified COPD type J44.9 ; Non- rheumatic mitral regurgitation I34.0 and Non-rheumatic tricuspid valve insufficiency I36.[address] 46053- 1554 14 Dec, 2016 Dyspnea on exertion R06.09 ; Chronic obstructive pulmonary disease, unspecified COPD type J44.9 ; Non-rheumatic mitral regurgitation I34.0 ; Non-rheumatic tricuspid valve insufficiency I36.1 ; Obstructive sleep apnea G47.33 and Carotid disease, bilateral I77.9 [place] [address] 90762- 5883 November, [address] 11990- 0900 November, Chronic obstructive pulmonary disease, unspecified COPD type J44.9 ; Non-ischemic cardiomyopathy I42.8 and Otitis media, unspecified, left ear H66.92 [place] [address] 46696- 9137 November, Chest discomfort R07.89 ; Non-ischemic cardiomyopathy I42.8 ; Shortness of breath R06.02 and History of tobacco use Z87.[address] 98875- 9370 Oct, Chronic obstructive pulmonary disease, unspecified COPD type J44.9 ; Essential hypertension I10 and Acute diffuse otitis externa of left ear H60.[address] 95943- 7119 Oct, Chest discomfort R07.89 ; Obstructive sleep apnea G47.33 ; Essential hypertension I10 ; Eustachian tube dysfunction, bilateral H69.83 ; Dyshidrosis L30.1 ; Acute diffuse otitis externa of left ear H60.312 and Mixed stress and urge urinary incontinence N39.[address] 296513- 7583 Oct, [place] [address] [place] 758689- 3081 Oct, Essential hypertension I10 [place] 168527- 7815 Oct, Chest discomfort R07.89 ; Obstructive sleep apnea G47.33 ; Essential hypertension I10 ; Eustachian tube dysfunction, bilateral H69.83 and Bilateral impacted cerumen H61.[address] 10523- 2407 Oct, [place] [address] 65262- 8772 Sep, [place] [id number]- [address]054 Sep, [address] 84551- 3208 Aug, Noncompliance with medication regimen Z91.[address] 11282- 9552 Aug, Noncompliance with medication regimen Z91.[address] [address] Aug, [place] 168527- 5508 Jul, Spinal stenosis in cervical region M48.02 ; GERD without esophagitis K21.9 ; Enlarged prostate with lower urinary tract symptoms N40.1 and Incontinence R32 [id number] [place] [address] 63195- 5153 11 Jul, 2016 Neck pain M54.2 and Dizziness R42 [place] [address] 79795- 6016 Jun, Abnormal MRI of head R93.0 [place] [address] [place] [id number] [place] [address] 07092- 0933 14 Jun, 2016 Right ear impacted cerumen H61.21 ; Spinal stenosis in cervical region M48.02 ; Abnormal MRI of head R93.0 and Vertigo R42 [facility] [place] [address] 81319 -9875 07 Jun, 2016 Recurrent acute suppurative otitis media without spontaneous rupture of left tympanic membrane H66.005 [place] [address] [place] [id number] [place] [address] 10895- 6705 May, Dizziness R42 and Cardiac arrhythmia, unspecified cardiac arrhythmia type I49.9 [facility] [place] [address] [place] [id number] [place] [address] 85001 -1182 May, Acute suppurative otitis media of left ear without spontaneous rupture of tympanic membrane, recurrence not specified H66.002 ; Dizziness R42 and Cardiac arrhythmia, unspecified cardiac arrhythmia type I49.9 [place] [address] [place] [id number] [place] [address] 88234- 3793 Mar, [place] [address] [place] [id number] [place] [address] 71057- 3865 Jan, Cervical spinal stenosis M48.02 and Cerebral cavernoma Q28.3 [place] [address] [place] [id number] [place] [address] 53048- 9283 Dec, Neck pain M54.2 ; Vertigo R42 and Family history of brain cancer Z80.8 [facility] [place] [address] [place] [id number] [place] [address] 51815 -3058 Dec, Dizziness R42 [place] [address] 94432- 9931 Dec, [facility] [place] [address] [place] [id number] [place] [address] 08901- 1489 Oct, [facility] [place] [address] 19402- 7694 Oct, [facility] [place] [address] 96180- 4084 Oct, [facility] [place] [address] 99036- 5861 Oct, Sebaceous cyst L72.3 [place] [address] 70323- 8580 Sep, Obstructive sleep apnea G47.33 ; Incontinence R32 and Cyst on ear L72.9 [place] [address] 87680- 3814 Aug, Diarrhea R19.7 and Nausea & vomiting R11.2 [place] [address] [place] [id number] [place] [address] 70144- 1569 Jul, [facility] [place] [address] 17132- 4260 Jun, [place] [address] [place] [id number] [place] [address] 24646- 3849 Jun, Obstructive sleep apnea G47.33 ; Hyperkalemia E87.5 ; Enlarged prostate with lower urinary tract symptoms N40.1 and Elevated PSA R97.2 [facility] [place] [address] [place] [id number] [place] [address] 07755- 9414 Apr, Obstructive sleep apnea syndrome G47.33 [facility] [place] [address] 41727- 8398 Apr, [facility] [place] [address] [place] [id number] [place] [address] 31384- 3870 Mar, BPH (benign prostatic hyperplasia) 600.00 [place] [address] [place] [id number] [place] [address] 72405- 6963 Mar, Elevated PSA 790.93 and BPH (benign prostatic hyperplasia) 600.00 [facility] [place] [address] [place] [id number] [place] [address] 81983- 6266 Feb, [facility] [place] [address] [place] [id number] [place] [address] 48724- 0869 Feb, [facility] [place] [address] [place] [id number] [place] [address] 05386- 0067 Feb, Dizziness 780.4 ; COPD (chronic obstructive pulmonary disease) 496 ; Nocturnal hypoxia 327.24 ; Rib pain on left side 786.50 ; BPH ( benign prostatic hyperplasia) 600.00 ; Elevated PSA 790.93 and Incontinence of urine 788.30 [facility] [place] [address] [place] [id number] [place] [address] 00204- 5887 Dec, Upper respiratory infection 465.9 and Psoriasis 696.1 [facility] [place] [address] [place] [id number] [place] [address] 62632- 8452 Oct, [facility] [place] [address] [place] [id number] [place] [address] 51021- 8896 Oct, [facility] [place] [address] [place] [id number] [place] [address] 42548- 5357 Sep, [facility] [place] [address] [place] [address] 50044- 1226 Sep, [facility] [place] [address] [place] [id number] [place] [address] [id number]- 3184 Aug, [facility] [place] [address] [place] [address] 291654- 7909 Aug, [facility] [place] [address] [place] [id number] [place] [address] 48439- 9874 May, [facility] [place] [address] [address]- 8013 May, [facility] [place] [address] [place] [address]- 6809 Dec, [facility] [place] [facility] [address] [id number] [place] [address]- 0710 Dec, [facility] [place] [facility] [address] [id number] [place] [address]- 7994 Dec, [facility] [place] [facility] [address] [id number] [place] [address]- 1685 Dec, [facility] [place] [facility] [address] [id number] [place] [address]- 6622 Dec, [facility] [place] [facility] [address] [id number] [place] [address]- 1370 Dec, [facility] [place] [facility] [address] [id number] [place] [address]- 3696 Dec, [facility] [place] [facility] [address] [id number] [place] [address]- 0790 November, [facility] [place] [facility] [address] [id number] [place] [address]- 2467 November, [facility] [place] [facility] [address] [id number] [place] [address]- 8943 November, [facility] [place] [facility] [address] [id number] [place] [address]- 7519 November, [facility] [place] [facility] [address] [id number] [place] [address]- 3682 November, [facility] [place] [facility] [address] [id number] [place] [address]- 7622 November, [facility] [place] [facility] [address] [id number] [place] [address]- 0502 November, [facility] [place] [facility] [address] [id number] [place] [address]- 5523 November, [facility] [place] [facility] [address] [id number] [place] [address]- 7529 November, [facility] [place] [facility] [address] [id number] [place] [address]- 7907 November, [facility] [place] [facility] [address] [id number] [place] [address]- 7674 November, [facility] [place] [facility] [address] [id number] [place] [address]- 9884 November, [facility] [place] [facility] [address] [id number] [place] [address]- 8034 November, [facility] [place] [facility] [address] [id number] [place] [address]- 8285 Sep, [facility] [place] [facility] [address] [id number] [place] [address]- 0599 Sep, [facility] [place] [facility] [address] [id number] [place] [address]- 6328 Sep, [facility] [place] [facility] [address] [id number] [place] [address]- 0970 Sep, [facility] [place] [facility] [address] [id number] [place] [address]- 2960 Sep, [facility] [place] [facility] [address] [id number] [place] [address]- 3748 Sep, [facility] [place] [facility] [address] [id number] [place] [address]- 0819 Jun, [facility] [place] [facility] [address] [id number] [place] [address]- 6969 Jun, [facility] [place] [facility] [address] [id number] [place] [address]- 8183 Jun, [facility] [place] [facility] [address] [id number] [place] [address]- 7261 May, [facility] [place] [facility] [address] [id number] [place] [address]- 3442 May, [facility] [place] [facility] [address] [id number], [place] [address]- 3707 05 Jan, 2013 [facility] [address] [id number] [place] [address]- 5516 Jan, [facility] [address] [id number] [place] [address]- 5747 Dec, [facility] [address] [facility] [id number] [place] [address]- 7375 17 Oct, 2012 [facility] [address] [id number] [place] [address]- 4967 16 Oct, 2012 [facility] [address] [id number] [place] [address]- 7675 Oct, [facility] [address] [facility] [id number] [place] [address]- 0699 Aug, [facility] [address] [facility] [id number] [place] [address]- 1355 Aug, [facility] [address] [facility] [id number] [place] [address]- 7898 Jul, [facility] [address] [facility] [id number] [place] [address]- 5886 Jul, [facility] [address] [facility] [id number] [place] [address]- 1357 Jul, [facility] [address] [facility] [id number] [place] [address]- 2854 Jun, [facility] [address] [id number], [place] [address]- 3647 Jun, [facility] [place] [facility] [address] [id number] [place] [address]- 1316 Jun, [facility] [place] [facility] [address] [facility] [id number] [place] [address]- 7406 Jun, [facility] [address] [facility] [id number], [place] [address]- 4162 Apr, [facility] [place] [address] [facility] [id number] [place] [address]- 2117 Apr, [facility] [place] [address] [facility] [id number] [place] [address]- 1835 Apr, IMMUNIZATIONS No Known Immunizations SOCIAL HISTORY Never Assessed REASON FOR VISIT 4 mo f/u PLAN OF CARE Activity Details Follow Up 6 Months Reason: VITAL SIGNS Height 70 in 2017-06-30 Weight 176 lbs 2017-06-30 Heart Rate 78 bpm 2017-06-30 Respiratory Rate 20 2017-06-30 Oximetry 94 % 2017-06-30 BMI 25.25 kg/m2 2017-06-30 Blood pressure systolic 128 mmHg 2017-06-30 Blood pressure diastolic 70 mmHg 2017-06-30 MEDICATIONS Medication Instructions Dosage Frequency Start Date End Date Duration Status Triamcinolone Acetonide 0.5 % Externally Twice a day as needed 1 application to affected area Jul, Active Albuterol 108 (90 Base) mcg/act by inhalation route 4 times a day prn 2 puffs Active Flomax 0.4 MG Orally Once a day 1 capsule 24h May, Active Omeprazole 40 mg Orally Once a day 1 capsule 24h 30 Active Albuterol Sulfate 2.5 mg /3 mL (0.083 %) 1 Each by Inhalation route every 4 hours for cough and wheeze PRN for wheezing or cough Aug, Active Symbicort 160-4.5 mcg/act Inhalation Twice a day 2 puffs 12h Active Myrbetriq 50 mg Orally Once a day 1 tablet 24h 30 Active Ibuprofen 800 MG Orally Three times a day 1 tablet with food or milk 8h Not-Taking Oxygen 2 nasal hs Active Meloxicam 7.5 MG TAKE ONE TABLET BY MOUTH TWICE DAILY WITH FOOD FOR PAIN 30 Active Meclizine HCl 12.5 MG Orally 2 times a day prn Take one tablet as needed Dec, 30 day(s) Not-Taking RESULTS No Results PROCEDURES Procedure Date Ordered Result Body Site MEASURE BLOOD OXYGEN LEVEL Jun 30, 2017 [facility] VISIT ESTABLISHED PATIENT Jun 30, 2017 INSTRUCTIONS MEDICATIONS ADMINISTERED No Known Medications MEDICAL (GENERAL) HISTORY Type Description Date Medical History dysphagia, hoarseness- seen 2013 by ENT Medical History CT neck 10/2012 no mass Medical History cardiomyopathy Medical History emphysema Medical History Elevated PSA 03/[address] Ciarra Medical History BPH Medical History Psoriasis Medical [...]
--- OUTSIDE RECORDS SUMMARY | 2018-07-08 10:25 | XMS REPORT | Continuity of Care Document ---
Author Author [facility] Address Unknown Phone Unavailable Allergies Active Description Code Type Severity Reaction Onset Reported/Identified Relationship to Patient Clinical Status Yes NO KNOWN DRUG ALLERGIES UNKNOWN NO KNOWN DRUG ALLERG Yes No Known Drug Allergies [id number] Drug Allergy Mild N/A 11/05/2009 Medications Medication Packaging Start Date Stop Date Route Dosage Sig NORMAL SALINE 1000CC IV BAG INJ 0.9 % (NS 1000CC IV BAG) ml 08/17/2017 08/17/2017 ONCE&2023 Meropenem-0.9% sodium chloride IV piggyback 1 Gm GM 08/17/2017 08/17/2017 ONCE&2046 NORMAL SALINE 1000CC IV BAG INJ 0.9 % (NS 1000CC IV BAG) ml 08/17/2017 08/17/2017 ONCE&2250 LACTATED RINGERS 1000CC IV BAG INJ ml 08/30/2017 09/06/2017 CONTINUOUSEVERY 0 Hour CARBI/LEVO 25/100 CR TAB (SINEMET 25/100 CR) Dose(s) 08/30/2017 09/29/2017 TID&0800,1400,2000 ACETAMINOPHEN ORAL TABLET 325mg(Tylenol) MG 08/30/2017 09/29/2017 PRN EVERY 6 Hour LACTATED RINGERS 1000CC IV BAG INJ ml 08/30/2017 09/06/2017 CONTINUOUSEVERY 0 Hour IPRATROPIUM/ALBUTEROL INH SOLN (DUO-NEB INH SOLN) MLS 08/30/2017 09/06/2017 QID&0600,1100,1600,2100 CEFTRIAXONE PREMIX IV BAG IV 1 GM/50CC (ROCEPHIN PREMIX IV BAG) GM 08/30/2017 09/05/2017 Daily&2100 PANTOPAZOLE VIAL INJ 40 MG (PROTONIX IV) MG 08/30/2017 09/08/2017 Daily&2100 CYCLOBENZAPRINE TAB 10 MG (FLEXERIL) Dose(s) 08/30/2017 09/06/2017 PRN Q8H PHENAZOPYRIDINE TAB 100 MG (PYRIDIUM) MG 08/30/2017 08/30/2017 ONCE&2227 CEFEPIME PREMIX BAG IV 1 GM/50CC (MAXIPIME PREMIX BAG) GM 08/31/2017 09/06/2017 BID&0800,2000,2200 TAMSULOSIN CAP 0.4 MG (FLOMAX) MG 08/31/2017 09/06/2017 QPM&1800 MELOXICAM TAB 7.5 MG (MOBIC) MG 09/07/2017 BID&0800,2000 NORMAL SALINE 50CC IV BAG INJ (NS 50CC MINI-BAG) ml 08/31/2017 09/07/2017 BID&0800,2000 POTASSIUM CHLORIDE TAB 20 MEQ (K-DUR) MEQ 09/01/2017 09/02/2017 BID&2100 BUDESONIDE/FORMOTEROL INH 160 /4.5MCG (SYMBICORT) PUFF 09/03/2017 09/09/2017 BID&0800,2000 FLUTICASONE INHALER MDI 110 MCG (FLOVENT INHALER) PUFFS 09/03/2017 09/09/2017 BID&0900,2100 ALBUTEROL INHALER MDI 8 GM (VENTOLIN HFA) PUFF (S) 09/03/2017 09/13/2017 QID&0600,1100,1600,2100 CEFEPIME PREMIX BAG IV 1 GM/50CC (MAXIPIME PREMIX BAG) GM 09/03/2017 09/10/2017 BID&0800,2000 NORMAL SALINE 500CC IV BAG INJ 0.9 % (NS 500CC IV BAG) ml 11/24/2017 11/24/2017 ONCE&0950 KETOROLAC VIAL INJ 60 MG/2CC (TORADOL VIAL) MG 03/28/2018 03/28/2018 ONCE&1144 CARBI/LEVO 25/100 CR TAB (SINEMET 25/100 CR) tab 04/21/2018 05/21/2018 TID&0800,1400,2000 CYCLOBENZAPRINE TAB 10 MG (FLEXERIL) MG 04/21/2018 04/28/2018 PRN Q8H MELOXICAM TAB 7.5 MG (MOBIC) MG 10/201704/28/2018 BID&0800,2000 AZITHROMYCIN TAB 250 MG (ZITHROMAX) MG 05/17/2018 05/17/2018 ONCE&2205 KETOROLAC VIAL INJ 30 MG/CC (TORADOL VIAL) MG 07/05/2018 07/05/2018 ONCE&2226 NORMAL SALINE 500CC IV BAG INJ 0.9 % (NS 500CC IV BAG) ml 07/05/2018 07/05/2018 ONCE&2226 Problems Date Dx Coded Attending Type Code [...] 496 CHRONIC OBSTRUCTIVE PULMONARY DISEASE 10/11/2009 MARIE DO RUPERT K 696.1 PSORIASIS 10/11/2009 MARIE DO RUPERT K V76.44 visit for: screening exam malignant neoplasm prostate 10/11/2009 MADL AUTOMOTIVE SERVICE WRITER, ANGEL LUIS L 173.9 OTHER MALIGNANT NEOPLASM OF SKIN, SITE UNSPECIFIED 10/11/2009 MADL AUTOMOTIVE SERVICE WRITER, ANGEL LUIS L 496 CHRONIC OBSTRUCTIVE PULMONARY DISEASE 10/11/2009 MADL AUTOMOTIVE SERVICE WRITER, ANGEL LUIS L 696.1 PSORIASIS 10/11/2009 MADL AUTOMOTIVE SERVICE WRITER, ANGEL LUIS L V76.44 visit for: screening exam malignant neoplasm prostate 10/11/2009 MADL AUTOMOTIVE SERVICE WRITER, ANGEL LUIS L 173.9 OTHER MALIGNANT NEOPLASM OF SKIN, SITE UNSPECIFIED 10/11/2009 MADL AUTOMOTIVE SERVICE WRITER, ANGEL LUIS L 496 CHRONIC OBSTRUCTIVE PULMONARY DISEASE 10/11/2009 MADL AUTOMOTIVE SERVICE WRITER, ANGEL LUIS L 696.1 PSORIASIS 10/11/2009 MADL AUTOMOTIVE SERVICE WRITER, ANGEL LUIS L V76.44 visit for: screening exam malignant neoplasm prostate 10/11/2009 MADL AUTOMOTIVE SERVICE WRITER, ANGEL LUIS L 173.9 OTHER MALIGNANT NEOPLASM OF SKIN, SITE UNSPECIFIED 10/11/2009 MADL AUTOMOTIVE SERVICE WRITER, ANGEL LUIS L 496 CHRONIC OBSTRUCTIVE PULMONARY DISEASE 10/11/2009 MADL AUTOMOTIVE SERVICE WRITER, ANGEL LUIS L 696.1 PSORIASIS 10/11/2009 MADL AUTOMOTIVE SERVICE WRITER, ANGEL LUIS L V76.44 visit for: screening exam malignant neoplasm prostate 10/11/2009 MARIE DO, RUPERT K 173.9 OTHER MALIGNANT NEOPLASM OF SKIN, SITE UNSPECIFIED 10/11/2009 MARIE DO, RUPERT K 496 CHRONIC OBSTRUCTIVE PULMONARY DISEASE 10/11/2009 MARIE DO, RUPERT K 696.1 PSORIASIS 10/11/2009 MARIE DO, RUPERT K V76.44 visit for: screening exam malignant neoplasm prostate 10/11/2009 MARTINEZ AUTOMOTIVE SERVICE WRITER, MARTA R 173.9 OTHER MALIGNANT NEOPLASM OF SKIN, SITE UNSPECIFIED 10/11/2009 MARTINEZ AUTOMOTIVE SERVICE WRITER, MARTA R 496 CHRONIC OBSTRUCTIVE PULMONARY DISEASE 10/11/2009 MARTINEZ AUTOMOTIVE SERVICE WRITER, MARTA R 696.1 PSORIASIS 10/11/2009 MARTINEZ AUTOMOTIVE SERVICE WRITER, MARTA R V76.44 visit for: screening exam malignant neoplasm prostate 10/11/2009 MADL AUTOMOTIVE SERVICE WRITER, ANGEL LUIS L 173.9 OTHER MALIGNANT NEOPLASM OF SKIN, SITE UNSPECIFIED 10/11/2009 MADL AUTOMOTIVE SERVICE WRITER, ANGEL LUIS L 496 CHRONIC OBSTRUCTIVE PULMONARY DISEASE 10/11/2009 MADL AUTOMOTIVE SERVICE WRITER, ANGEL LUIS L 696.1 PSORIASIS 10/11/2009 MADL AUTOMOTIVE SERVICE WRITER, ANGEL LUIS L V76.44 visit for: screening [...] RUPERT K 380.4 IMPACTED CERUMEN 10/15/2009 MADL AUTOMOTIVE SERVICE WRITER, ANGEL LUIS L 380.4 IMPACTED CERUMEN 10/15/2009 MADL AUTOMOTIVE SERVICE WRITER, ANGEL LUIS L 380.4 IMPACTED CERUMEN 10/15/2009 MADL AUTOMOTIVE SERVICE WRITER, ANGEL LUIS L 380.4 IMPACTED CERUMEN 10/15/2009 MARIE DO, RUPERT K 380.4 IMPACTED CERUMEN 10/15/2009 MARTINEZ AUTOMOTIVE SERVICE WRITER, MARTA R 380.4 IMPACTED CERUMEN 10/15/2009 MADL AUTOMOTIVE SERVICE WRITER, ANGEL LUIS L 380.4 IMPACTED CERUMEN 10/15/2009 [...] DO, RUPERT K 425.4 CARDIOMYOPATHY 04/21/2012 MADL AUTOMOTIVE SERVICE WRITER, ANGEL LUIS L 272.4 HYPERLIPIDEMIA 04/21/2012 MADL AUTOMOTIVE SERVICE WRITER, ANGEL LUIS L 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 04/21/2012 MADL AUTOMOTIVE SERVICE WRITER, ANGEL LUIS L 425.4 CARDIOMYOPATHY 04/21/2012 MADL AUTOMOTIVE SERVICE WRITER, ANGEL LUIS L 272.4 HYPERLIPIDEMIA 04/21/2012 MADL AUTOMOTIVE SERVICE WRITER, ANGEL LUIS L 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 04/21/2012 MADL AUTOMOTIVE SERVICE WRITER, ANGEL LUIS L 425.4 CARDIOMYOPATHY 04/21/2012 MADL AUTOMOTIVE SERVICE WRITER, ANGEL LUIS L 272.4 HYPERLIPIDEMIA 04/21/2012 MADL AUTOMOTIVE SERVICE WRITER, ANGEL LUIS L 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 04/21/2012 MADL AUTOMOTIVE SERVICE WRITER, ANGEL LUIS L 425.4 CARDIOMYOPATHY 04/21/2012 MARIE DO, RUPERT K 272.4 HYPERLIPIDEMIA 04/21/2012 MARIE DO, RUPERT K 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 04/21/2012 MARIE DO, RUPERT K 425.4 CARDIOMYOPATHY 04/21/2012 MARTINEZ AUTOMOTIVE SERVICE WRITER, MARTA R 272.4 HYPERLIPIDEMIA 04/21/2012 MARTINEZ AUTOMOTIVE SERVICE WRITER, MARTA R 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 04/21/2012 MARTINEZ AUTOMOTIVE SERVICE WRITER, MARTA R 425.4 CARDIOMYOPATHY 04/21/2012 MADL AUTOMOTIVE SERVICE WRITER, ANGEL LUIS L 272.4 HYPERLIPIDEMIA 04/21/2012 MADL AUTOMOTIVE SERVICE WRITER, ANGEL LUIS L 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 04/21/2012 MADL AUTOMOTIVE SERVICE WRITER, ANGEL LUIS L 425.4 CARDIOMYOPATHY 04/21/2012 MARIE DO, RUPERT K 272.4 HYPERLIPIDEMIA 04/21/2012 MARIE DO, RUPERT K 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 04/21/2012 RUPERT MARIE [...] Antigen (PSA) Elevated 08/02/2012 RUPERT MARIE DO 784.42 hoarseness 08/02/2012 RUPERT MARIE DO K 790.93 Serology Prostate-specific Antigen (PSA) Elevated 08/02/2012 MADL AUTOMOTIVE SERVICE WRITER, ANGEL LUIS L 784.42 hoarseness 08/02/2012 MADL AUTOMOTIVE SERVICE WRITER, ANGEL LUIS L 790.93 Serology Prostate-specific Antigen (PSA) Elevated 08/02/2012 MADL AUTOMOTIVE SERVICE WRITER, ANGEL LUIS L 784.42 hoarseness 08/02/2012 MADL AUTOMOTIVE SERVICE WRITER, ANGEL LUIS L 790.93 Serology Prostate-specific Antigen (PSA) Elevated 08/02/2012 MADL AUTOMOTIVE SERVICE WRITER, ANGEL LUIS L 784.42 hoarseness 08/02/2012 MADL AUTOMOTIVE SERVICE WRITER, ANGEL LUIS L 790.93 Serology Prostate-specific Antigen (PSA) Elevated 08/02/2012 RUPERT MARIE DO 784.42 hoarseness 08/02/2012 MARIE DO, RUPERT K 790.93 Serology Prostate-specific Antigen (PSA) Elevated 08/02/2012 MARTINEZ AUTOMOTIVE SERVICE WRITER, MARTA R 784.42 hoarseness 08/02/2012 MARTINEZ AUTOMOTIVE SERVICE WRITER, MARTA R 790.93 Serology Prostate-specific Antigen (PSA) Elevated 08/02/2012 MADL AUTOMOTIVE SERVICE WRITER, ANGEL LUIS L 784.42 hoarseness 08/02/2012 MADL AUTOMOTIVE SERVICE WRITER, ANGEL LUIS L 790.93 Serology Prostate-specific Antigen (PSA) Elevated 08/02/2012 CYNTHIA DO RUPERT K 784.42 hoarseness 08/02/2012 MARIE DO RUPERT K 790.93 Serology Prostate-specific Antigen (PSA) [...] SO MD 470 DEVIATED NASAL SEPTUM 08/19/2012 AKI MARIE DOA K 250.80 DIABETIC FOOT ULCER 08/19/2012 CYNTHIA YATES RUPERT K 470 DEVIATED NASAL SEPTUM 08/19/2012 MADL AUTOMOTIVE SERVICE WRITER, ANGEL LUIS L 250.80 DIABETIC FOOT ULCER 08/19/2012 MADL AUTOMOTIVE SERVICE WRITER, ANGEL LUIS L 470 DEVIATED NASAL SEPTUM 08/19/2012 MADL AUTOMOTIVE SERVICE WRITER, ANGEL LUIS L 250.80 DIABETIC FOOT ULCER 08/19/2012 MADL AUTOMOTIVE SERVICE WRITER, ANGEL LUIS L 470 DEVIATED NASAL SEPTUM 08/19/2012 MADL AUTOMOTIVE SERVICE WRITER, ANGEL LUIS L 250.80 DIABETIC FOOT ULCER 08/19/2012 MADL AUTOMOTIVE SERVICE WRITER, ANGEL LUIS L 470 DEVIATED NASAL SEPTUM 08/19/2012 CYNTHIA YATES RUPERT K 250.80 DIABETIC FOOT ULCER 08/19/2012 CYNTHIA YATES, RUPETR K 470 DEVIATED NASAL SEPTUM 08/19/2012 MARTINEZ AUTOMOTIVE SERVICE WRITER, MARAT R 250.80 DIABETIC FOOT ULCER 08/19/2012 MARTINEZ AUTOMOTIVE SERVICE WRITER, MARTA R 470 DEVIATED NASAL SEPTUM 08/19/2012 MADL AUTOMOTIVE SERVICE WRITER, ANGEL LUIS L 250.80 DIABETIC FOOT ULCER 08/19/2012 MADL AUTOMOTIVE SERVICE WRITER, ANGEL LUIS L 470 DEVIATED NASAL SEPTUM 08/19/2012 MARIE DO, RUPERT K 250.80 DIABETIC FOOT ULCER 08/19/2012 MARIE DO, RUPERT K 470 DEVIATED NASAL SEPTUM 01/18/2013 600.00 BPH W/O OBSTRUCTUION 01/18/2013 SAVANAH MAIER, SUZIE Dale 600.00 BPH W/O OBSTRUCTUION 01/18/2013 GIORGI SO MD 600.00 BPH W/O OBSTRUCTUION 01/18/2013 RUPERT MARIE DO K 600.00 BPH W/O OBSTRUCTUION 01/18/2013 MADL AUTOMOTIVE SERVICE WRITER, ANGEL LUIS L 600.00 BPH W/O OBSTRUCTUION 01/18/2013 MADL AUTOMOTIVE SERVICE WRITER, ANGEL LUIS L 600.00 BPH W/O OBSTRUCTUION 01/18/2013 MADL AUTOMOTIVE SERVICE WRITER, ANGEL LUIS L 600.00 BPH W/O OBSTRUCTUION 01/18/2013 AKI MARIE DOA K 600.00 BPH W/O OBSTRUCTUION 01/18/2013 JUAN BOWDEN, MARTA R 600.00 BPH W/O OBSTRUCTUION 01/18/2013 MADL AUTOMOTIVE SERVICE WRITER, ANGEL LUIS L 600.00 BPH W/O OBSTRUCTUION 01/18/2013 AKI MARIE DOA K 600.00 BPH W/O OBSTRUCTUION 06/16/2013 SUZIE PAVON MD 786.50 UNSPECIFIED CHEST PAIN 06/16/2013 GIORGI SO MD 786.50 UNSPECIFIED CHEST PAIN 06/16/2013 RUPERT MARIE DO K 786.50 UNSPECIFIED CHEST PAIN 06/16/2013 MADL AUTOMOTIVE SERVICE WRITER, ANGEL LUIS L 786.50 UNSPECIFIED CHEST PAIN 06/16/2013 MADL AUTOMOTIVE SERVICE WRITER, ANGEL LUIS L 786.50 UNSPECIFIED CHEST PAIN 06/16/2013 MADL AUTOMOTIVE SERVICE WRITER, ANGEL LUIS L 786.50 UNSPECIFIED CHEST PAIN 06/16/2013 MARIE DO, RUPERT K 786.50 UNSPECIFIED CHEST PAIN 06/16/2013 MARTINEZ AUTOMOTIVE SERVICE WRITER, MARTA R 786.50 UNSPECIFIED CHEST PAIN 06/16/2013 SCOTTY OVALLE APRNA L 786.50 UNSPECIFIED CHEST PAIN 06/16/2013 MARIE DO, RUPERT K 786.50 UNSPECIFIED CHEST PAIN 06/18/2013 SARAY MAIER, GIORGI Alba Ot 272.4 HYPERLIPIDEMIA NEC/NOS 06/18/2013 GIORGI SO MD Ot 305.1 TOBACCO USE DISORDER 06/18/2013 GIORGI SO MD Ot 425.4 PRIM CARDIOMYOPATHY NEC 06/18/2013 GIORGI SO MD Ot 427.89 CARDIAC DYSRHYTHMIAS NEC 06/18/2013 GIORGI SO MD Ot 491.21 OBSTR CHRONIC BRONCHITIS, W (ACUTE) EXAC 06/18/2013 GIORGI SO MD Ot 786.50 CHEST PAIN NOS 12/06/2013 YAMILE BOWDEN, ANGEL LUIS L 723.1 CERVICALGIA 12/06/2013 YAMILE BAEZAN, ANGEL LUIS L 780.79 OTHER MALAISE AND FATIGUE 12/06/2013 MADL AUTOMOTIVE SERVICE WRITER, ANGEL LUIS L 783.21 LOSS OF WEIGHT 12/06/2013 MADL AUTOMOTIVE SERVICE WRITER, ANGEL LUIS L 723.1 CERVICALGIA 12/06/2013 MADL AUTOMOTIVE SERVICE WRITER, ANGEL LUIS L 780.79 OTHER MALAISE AND FATIGUE 12/06/2013 MADL AUTOMOTIVE SERVICE WRITER, ANGEL LUIS L 783.21 LOSS OF WEIGHT 12/06/2013 MADL AUTOMOTIVE SERVICE WRITER, ANGEL LUIS L 723.1 CERVICALGIA 12/06/2013 MADL AUTOMOTIVE SERVICE WRITER, ANGEL LUIS L 780.79 OTHER MALAISE AND FATIGUE 12/06/2013 MADL AUTOMOTIVE SERVICE WRITER, ANGEL LUIS L 783.21 LOSS OF WEIGHT 12/06/2013 MARIE DO, RUPERT K 723.1 CERVICALGIA 12/06/2013 MARIE DO, RUPERT K 780.79 OTHER MALAISE AND FATIGUE 12/06/2013 MARIE DO, RUPERT K 783.21 LOSS OF WEIGHT 12/06/2013 MARTINEZ AUTOMOTIVE SERVICE WRITER, MARTA R 723.1 CERVICALGIA 12/06/2013 JUAN BOWDEN MARTA R 780.79 OTHER MALAISE AND FATIGUE 12/06/2013 MARTA MARTINEZ APRN R 783.21 LOSS OF WEIGHT 12/06/2013 SUNGL AUTOMOTIVE SERVICE WRITEROTILIO MaryANGEL LUIS L 723.1 CERVICALGIA 12/06/2013 MADL AUTOMOTIVE SERVICE WRITER, ANGEL LUIS L 780.79 OTHER MALAISE AND FATIGUE 12/06/2013 MADL AUTOMOTIVE SERVICE WRITER, ANGEL LUIS L 783.21 LOSS OF WEIGHT 12/06/2013 MARIE DO, RUPERT K 723.1 CERVICALGIA 12/06/2013 MARIE DO, RUPERT K 780.79 OTHER MALAISE AND FATIGUE 12/06/2013 MARIE DO, RUPERT K 783.21 LOSS OF WEIGHT 12/13/2013 OTILIO OVALLE APRNWNYA L 919.4 INSECT BITE NONVENOMOUS OF OTHER MULTIPLE AND UNSPECIFIED SITES WITHOUT INFECTION 12/13/2013 MADL AUTOMOTIVE SERVICE WRITER, ANGEL LUIS L 919.4 INSECT BITE NONVENOMOUS OF OTHER MULTIPLE AND UNSPECIFIED SITES WITHOUT INFECTION 12/13/2013 MARIE DO, RUPERT K 919.4 INSECT BITE NONVENOMOUS OF OTHER MULTIPLE AND UNSPECIFIED SITES WITHOUT INFECTION 12/13/2013 JOVANA MARTINEZ APRNIA R 919.4 INSECT BITE NONVENOMOUS OF OTHER MULTIPLE AND UNSPECIFIED SITES WITHOUT INFECTION 12/13/2013 SUNGL AUTOMOTIVE SERVICE WRITER, ANGEL LUIS L 919.4 INSECT BITE NONVENOMOUS OF OTHER MULTIPLE AND UNSPECIFIED SITES WITHOUT INFECTION 12/13/2013 MARIE DO, RUPERT K 919.4 INSECT BITE NONVENOMOUS OF OTHER MULTIPLE AND UNSPECIFIED SITES WITHOUT INFECTION 12/28/2013 MARTA MARTINEZ APRN R 692.6 CONTACT DERMATITIS AND OTHER ECZEMA DUE TO PLANTS (EXCEPT FOOD) 12/28/2013 SUNGL AUTOMOTIVE SERVICE WRITER, ANGEL LUIS L 692.6 CONTACT DERMATITIS AND OTHER ECZEMA DUE TO PLANTS (EXCEPT FOOD) 12/28/2013 MARIE DO, RUPERT K 692.6 CONTACT DERMATITIS AND OTHER ECZEMA DUE TO PLANTS (EXCEPT FOOD) 05/22/2014 YAMILE BAEZASCOTTY MaryA L 465.9 UPPER RESPIRATORY INFECTION 05/22/2014 MARIE DO, RUPERT K 465.9 UPPER RESPIRATORY INFECTION 2014 MARIE DO, RUPERT K 327.26 SLEEP RELATED HYPOVENTILATION/HYPOXEMIA IN CONDITIONS CLASSIFIABLE [...] 10/31/2014 Ot 305.1 10/31/2014 Ot 496 11/18/2014 ISIDRA WILDE DO Ot 305.1 11/18/2014 ANDRY YATES ISIDRA Dale Ot 496 12/28/2014 ANDRY YATES ISIDRA Dale Ot 305.1 12/28/2014 ISIDRA WILDE DO Ot 496 01/23/2015 ISIDRA WILDE DO Ot 305.1 01/23/2015 FRANK WILDE DOCHU Dale Ot 496 04/02/2015 ANGEL LUIS OVALLE BRICKLAYER TENDER Ot 780.4 04/15/2015 ANGEL LUIS OVALLE BRICKLAYER TENDER Ot 780.4 05/08/2015 Ot 492.8 05/08/2015 Ot [...] DO Ot 496 05/08/2015 ANGEL LUIS OVALLE BRICKLAYER TENDER Ot 780.4 05/09/2015 ANGEL LUIS OVALLE BRICKLAYER TENDER Ot G47.33 OBSTRUCTIVE SLEEP APNEA (ADULT) (PEDIATR 05/09/2015 MADLOTILIOANGEL LUIS L BRICKLAYER TENDER Ot I10 ESSENTIAL (PRIMARY) HYPERTENSION 06/12/2015 MADLANGEL LUIS L BRICKLAYER TENDER Ot G47.33 OBSTRUCTIVE SLEEP APNEA (ADULT) (PEDIATR [...] Ot 496 CHR AIRWAY OBSTRUCT NEC 01/14/2016 YAMILE ANGEL LUIS L BRICKLAYER TENDER Ot 780.4 DIZZINESS AND GIDDINESS 01/14/2016 SCOTTY OVALLEA L BRICKLAYER TENDER Ot M54.2 CERVICALGIA 01/15/2016 MADLOTILIOANGEL LUIS L BRICKLAYER TENDER Ot 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 01/15/2016 MADLNEREIDAANEGL LUIS L BRICKLAYER TENDER Ot M47.812 SPONDYLOSIS W/O MYELOPATHY OR RADICULOPA 01/15/2016 MADLOTILIOANGEL LUIS L BRICKLAYER TENDER Ot M48.02 SPINAL STENOSIS, CERVICAL REGION 01/17/2016 MADLNEREIDAANGEL LUIS L BRICKLAYER TENDER Ot 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 01/17/2016 MADLSCOTTYA L BRICKLAYER TENDER Ot M47.812 SPONDYLOSIS W/O MYELOPATHY OR RADICULOPA 01/17/2016 MADL, ANGEL LUIS L BRICKLAYER TENDER Ot M48.02 SPINAL STENOSIS, CERVICAL REGION 02/06/2016 MADL, ANGEL LUIS L BRICKLAYER TENDER Ot 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 02/06/2016 MADL ANGEL LUIS L BRICKLAYER TENDER Ot M47.812 SPONDYLOSIS W/O MYELOPATHY OR RADICULOPA 02/06/2016 MADLSCOTTYA L BRICKLAYER TENDER Ot M48.02 SPINAL STENOSIS, CERVICAL REGION 02/14/2016 MADL, ANGEL LUIS L BRICKLAYER TENDER Ot 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 02/14/2016 MADL, ANGEL LUIS L BRICKLAYER TENDER Ot M47.812 SPONDYLOSIS W/O MYELOPATHY OR RADICULOPA 02/14/2016 MADL, ANGEL LUIS L BRICKLAYER TENDER Ot M48.02 SPINAL STENOSIS, CERVICAL REGION 07/06/2016 Ot 305.1 TOBACCO USE DISORDER 07/06/2016 Ot 496 CHR AIRWAY OBSTRUCT NEC 07/06/2016 ISIDRA WILDE DO Ot 305.1 TOBACCO USE DISORDER 07/06/2016 ISIDRA WIDLE DO Ot 496 CHR AIRWAY OBSTRUCT NEC 07/06/2016 MADL, ANGEL LUIS L BRICKLAYER TENDER Ot 780.4 DIZZINESS AND GIDDINESS 07/06/2016 MADL, ANGEL LUIS L BRICKLAYER TENDER Ot 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 07/06/2016 MADL, ANGEL LUIS L BRICKLAYER TENDER Ot M47.812 SPONDYLOSIS W/O MYELOPATHY OR RADICULOPA 07/06/2016 MADL, ANGEL LUIS L BRICKLAYER TENDER Ot M48.02 SPINAL STENOSIS, CERVICAL REGION 07/31/2016 MADL, ANGEL LUIS L BRICKLAYER TENDER Ot G93.9 DISORDER OF BRAIN, UNSPECIFIED 07/31/2016 MADL, ANGEL LUIS L BRICKLAYER TENDER Ot R93.0 ABNORMAL FINDINGS ON DX IMAGING OF SKULL 08/21/2016 Ot 305.1 TOBACCO USE DISORDER 08/21/2016 Ot 496 CHR AIRWAY OBSTRUCT NEC 08/21/2016 ISIDRA WILDE DO Ot 305.1 TOBACCO USE DISORDER 08/21/2016 ISIDRA WILDE DO Ot 496 CHR AIRWAY OBSTRUCT NEC 08/21/2016 MADL, ANGEL LUIS L BRICKLAYER TENDER Ot 780.4 DIZZINESS AND GIDDINESS 08/21/2016 MADL, ANGEL LUIS L BRICKLAYER TENDER Ot 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 08/21/2016 MADL, ANGEL LUIS L BRICKLAYER TENDER Ot M47.812 SPONDYLOSIS W/O MYELOPATHY OR RADICULOPA 08/21/2016 MADL, ANGEL LUIS L BRICKLAYER TENDER Ot M48.02 SPINAL STENOSIS, CERVICAL REGION 08/21/2016 MADL, ANGEL LUIS L BRICKLAYER TENDER Ot G93.9 DISORDER OF BRAIN, UNSPECIFIED 08/21/2016 MADLANGEL LUIS BRICKLAYER TENDER Ot R93.0 ABNORMAL FINDINGS ON DX IMAGING OF SKULL 08/21/2016 MARCO ANTONIO MAIER, KALLIE Rosenberg Ot M50.13 CERVICAL DISC DISORDER W RADICULOPATHY, 08/21/2016 KALLIE BERNARD MD Ot Z79.899 OTHER ONLINE CONTENT DEVELOPER (CURRENT) DRUG THERAPY 10/22/2016 MATHIEU DO YARITZA K Ot I10 ESSENTIAL (PRIMARY) HYPERTENSION 10/22/2016 MATHIEU DO YARITZA K Ot J44.9 CHRONIC OBSTRUCTIVE PULMONARY DISEASE, U 10/22/2016 MATHIEU DO, YARITZA K Ot R42 DIZZINESS AND GIDDINESS 10/22/2016 MATHIEU DO YARITZA K Ot Z79.82 ONLINE CONTENT DEVELOPER (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 10/22/2016 MATHIEU DO YARITZA K Ot Z79.899 OTHER ONLINE CONTENT DEVELOPER (CURRENT) DRUG THERAPY 10/22/2016 MATHIEU DO YARITZA K Ot Z87.891 PERSONAL HISTORY OF NICOTINE DEPENDENCE 10/22/2016 MATHIEU DO YARITZA K Ot I10 ESSENTIAL (PRIMARY) HYPERTENSION 10/22/2016 MATHIEU DO YARITZA K Ot J44.9 CHRONIC OBSTRUCTIVE PULMONARY DISEASE, U 10/22/2016 MATHIEU DO, YARITZA K Ot R42 DIZZINESS AND GIDDINESS 10/22/2016 MATHIEU DO YARITZA K Ot Z79.82 RESIDENTIAL (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 10/22/2016 MATHIEU DO YARITZA K Ot Z79.899 OTHER ONLINE CONTENT DEVELOPER (CURRENT) DRUG THERAPY 10/22/2016 MATHIEU DO YARITZA K Ot Z87.891 PERSONAL HISTORY OF NICOTINE DEPENDENCE 11/14/2016 MATHIEU DO YARITZA K Ot I10 ESSENTIAL (PRIMARY) HYPERTENSION 11/14/2016 MATHIEU DO YARITZA K Ot J44.9 CHRONIC OBSTRUCTIVE PULMONARY DISEASE, U 11/14/2016 MATHIEU DO YARITZA K Ot R42 DIZZINESS AND GIDDINESS 11/14/2016 MATHIEU DO YARITZA K Ot Z79.82 RESIDENTIAL (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 11/14/2016 MATHIEU DO YARITZA K Ot Z79.899 OTHER RESIDENTIAL (CURRENT) DRUG THERAPY 11/14/2016 MATHIEU DO YARITZA K Ot Z87.891 PERSONAL HISTORY OF NICOTINE DEPENDENCE 11/26/2016 Ot 305.1 TOBACCO USE DISORDER 11/26/2016 Ot 496 CHR AIRWAY OBSTRUCT NEC 11/26/2016 ISIDRA WILDE DO Ot 305.1 TOBACCO USE DISORDER 11/26/2016 ISIDRA WILDE DO Ot 496 CHR AIRWAY OBSTRUCT NEC 11/26/2016 MADL, ANGEL LUIS L BRICKLAYER TENDER Ot 780.4 DIZZINESS AND GIDDINESS 11/26/2016 MADL, ANGEL LUIS L BRICKLAYER TENDER Ot 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 11/26/2016 MADL, ANGEL LUIS L BRICKLAYER TENDER Ot M47.812 SPONDYLOSIS W/O MYELOPATHY OR RADICULOPA 11/26/2016 MADL, ANGEL LUIS L BRICKLAYER TENDER Ot M48.02 SPINAL STENOSIS, CERVICAL REGION 11/26/2016 MADL, ANGEL LUIS L BRICKLAYER TENDER Ot G93.9 DISORDER OF BRAIN, UNSPECIFIED 11/26/2016 MADL, ANGEL LUIS L BRICKLAYER TENDER Ot R93.0 ABNORMAL FINDINGS ON DX IMAGING OF SKULL 12/03/2016 Ot 305.1 TOBACCO USE DISORDER 12/03/2016 Ot 496 CHR AIRWAY OBSTRUCT NEC 12/03/2016 ISIDRA WILDE DO Ot 305.1 TOBACCO USE DISORDER 12/03/2016 ISIDRA WILDE DO Ot 496 CHR AIRWAY OBSTRUCT NEC 12/03/2016 MADL, ANGEL LUIS L BRICKLAYER TENDER Ot 780.4 DIZZINESS AND GIDDINESS 12/03/2016 MADL, ANGEL LUIS L BRICKLAYER TENDER Ot 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 12/03/2016 MADL, ANGEL LUIS L BRICKLAYER TENDER Ot M47.812 SPONDYLOSIS W/O MYELOPATHY OR RADICULOPA 12/03/2016 MADL, ANGEL LUIS L BRICKLAYER TENDER Ot M48.02 SPINAL STENOSIS, CERVICAL REGION 12/03/2016 MADL, ANGEL LUIS L BRICKLAYER TENDER Ot G93.9 DISORDER OF BRAIN, UNSPECIFIED 12/03/2016 MADL, ANGEL LUIS L BRICKLAYER TENDER Ot R93.0 ABNORMAL FINDINGS ON DX IMAGING OF SKULL 12/03/2016 MELISSA MAIER FACC, SHAWN WOLFF CCDS Ot R07.89 OTHER CHEST PAIN 12/10/2016 Ot 305.1 TOBACCO USE DISORDER 12/10/2016 Ot 496 CHR AIRWAY OBSTRUCT NEC 12/10/2016 ISIDRA WILDE DO Ot 305.1 TOBACCO USE DISORDER 12/10/2016 ISIDRA WILDE DO M Ot 496 CHR AIRWAY OBSTRUCT NEC 12/10/2016 MADL, ANGEL LUIS L BRICKLAYER TENDER Ot 780.4 DIZZINESS AND GIDDINESS 12/10/2016 MADL, ANGEL LUIS L BRICKLAYER TENDER Ot 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 12/10/2016 MADL, ANGEL LUIS L BRICKLAYER TENDER Ot M47.812 SPONDYLOSIS W/O MYELOPATHY OR RADICULOPA 12/10/2016 MADL, ANGEL LUIS L BRICKLAYER TENDER Ot M48.02 SPINAL STENOSIS, CERVICAL REGION 12/10/2016 MADL, ANGEL LUIS L BRICKLAYER TENDER Ot G93.9 DISORDER OF BRAIN, UNSPECIFIED 12/10/2016 MADL, ANGEL LUIS L BRICKLAYER TENDER Ot R93.0 ABNORMAL FINDINGS ON DX IMAGING OF SKULL 12/10/2016 MELISSA MAIER FACC, SHAWN FACP CCDS Ot R07.89 OTHER CHEST PAIN 12/11/2016 MELISSA MAIER FACC, ALI FACP CCDS [...] R07.89 OTHER CHEST PAIN 01/08/2017 MELISSA MAIER FACC, ALI FACP CCDS Ot I08.3 COMB RHEUMATIC DISORD OF MITRAL, AORTIC 01/08/2017 MELISSA MAIER FACC, ALI FACP CCDS Ot R07.89 OTHER CHEST PAIN 03/31/2017 RICH ADAMS APRN Ot F17.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, UNSPECIFIED, IN REM 03/31/2017 RICH ADAMS APRN Ot J43.9 EMPHYSEMA, UNSPECIFIED 04/08/2017 ANGEL LUIS OVALLE BRICKLAYER TENDER Ot 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 04/08/2017 SCOTTY OVALLEA L BRICKLAYER TENDER Ot I72.0 ANEURYSM OF CAROTID ARTERY 04/08/2017 BRYAN, RICH E AUTOMOTIVE SERVICE WRITER Ot G47.33 OBSTRUCTIVE SLEEP APNEA (ADULT) (PEDIATR 04/12/2017 MADLANGEL LUIS BRICKLAYER TENDER Ot I72.0 ANEURYSM OF CAROTID ARTERY 04/13/2017 MADLANGEL LUIS BRICKLAYER TENDER Ot F17.210 NICOTINE DEPENDENCE, CIGARETTES, UNCOMPL 04/20/2017 RICH ADAMS AUTOMOTIVE SERVICE WRITER Ot F17.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, UNSPECIFIED, IN REM 04/20/2017 RICH ADAMS APRN Ot J43.9 EMPHYSEMA, UNSPECIFIED 04/21/2017 RICH ADAMS AUTOMOTIVE SERVICE WRITER Ot G47.33 OBSTRUCTIVE SLEEP APNEA (ADULT) (PEDIATR 04/27/2017 MADLANGEL LUIS BRICKLAYER TENDER Ot F17.210 NICOTINE DEPENDENCE, CIGARETTES, UNCOMPL 04/30/2017 [...] W SUBSEQUENT 05/21/2017 MILY MAHAN Ot Z79.82 ONLINE CONTENT DEVELOPER (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 05/21/2017 MILY MAHAN [...] UNSPECIFIED 08/14/2017 ARMIN EASON APRN Ot Z79.82 ONLINE CONTENT DEVELOPER (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 08/14/2017 ARMIN EASON APRN Ot Z80.1 FAMILY HISTORY OF MALIG NEOPLASM OF TRAC 08/14/2017 ARMIN EASON APRN Ot Z80.8 FAMILY HISTORY OF MALIGNANT NEOPLASM OF 08/15/2017 MILY MAHAN Ot I10 ESSENTIAL (PRIMARY) HYPERTENSION 08/15/2017 MILY MAHAN Ot J44.9 CHRONIC OBSTRUCTIVE PULMONARY DISEASE, U 08/15/2017 MILY MAHAN Ot K21.9 GASTRO-ESOPHAGEAL REFLUX DISEASE WITHOUT 08/15/2017 MILY MAHAN Ot T83.098A [facility] COMPL OF OTHER URINARY CATHETER, IN 08/15/2017 MILY MAHAN Ot Z79.82 ONLINE CONTENT DEVELOPER (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 08/15/2017 MILY MAHAN [...] CHRONIC OBSTRUCTIVE PULMONARY DISEASE, U 08/17/2017 ARMIN ESAON APRN Ot K21.9 GASTRO-ESOPHAGEAL REFLUX DISEASE WITHOUT 08/17/2017 ARMIN EASON APRN Ot N32.0 BLADDER-NECK OBSTRUCTION 08/17/2017 ARMIN EASON APRN Ot R10.30 LOWER ABDOMINAL PAIN, UNSPECIFIED 08/17/2017 ARMIN EASON APRN Ot Z79.82 RESIDENTIAL (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 08/17/2017 ARMIN EASON APRN Ot Z80.1 FAMILY HISTORY OF MALIG NEOPLASM OF TRAC 08/17/2017 EASON, PETER J AUTOMOTIVE SERVICE WRITER Ot Z80.8 FAMILY HISTORY OF MALIGNANT NEOPLASM OF 08/17/2017 MATHIEU DO, YARITZA K Ot I10 ESSENTIAL (PRIMARY) HYPERTENSION 08/17/2017 MATHIEU DO YARITZA K Ot J44.9 CHRONIC OBSTRUCTIVE PULMONARY DISEASE, U 08/17/2017 MATHIEU DO YARITZA K Ot K21.9 GASTRO-ESOPHAGEAL REFLUX DISEASE WITHOUT 08/17/2017 MATHIEU DO, YARITZA K Ot K59.00 CONSTIPATION, UNSPECIFIED 08/17/2017 MATHIEU DO, YARITZA K Ot R10.30 LOWER ABDOMINAL PAIN, UNSPECIFIED 08/17/2017 MATHIEU DO, YARITZA K Ot T83.098A [facility] COMPL OF OTHER URINARY CATHETER, IN 08/17/2017 MATHIEU DO, YARITZA K Ot Z79.82 ONLINE CONTENT DEVELOPER (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 08/17/2017 MATHIEU DO, YARITZA K Ot Z80.1 FAMILY HISTORY OF MALIG NEOPLASM OF TRAC 08/17/2017 MATHIEU DO, YARITZA K Ot Z87.891 PERSONAL HISTORY OF NICOTINE DEPENDENCE 08/17/2017 MATHIEU DO, YARITZA K Ot Z90.49 ACQUIRED ABSENCE OF OTHER SPECIFIED PART 08/17/2017 MATHIEU DO, YARITZA K Ot Z96.0 PRESENCE OF UROGENITAL IMPLANTS 08/17/2017 MILY MAHAN Ot I10 ESSENTIAL (PRIMARY) HYPERTENSION 08/17/2017 MILY MAHAN Ot J44.9 CHRONIC OBSTRUCTIVE PULMONARY DISEASE, U 08/17/2017 MILY MAHAN Ot K21.9 GASTRO-ESOPHAGEAL REFLUX DISEASE WITHOUT 08/17/2017 MILY MAHAN Ot T83.098A [facility] COMPL OF OTHER URINARY CATHETER, IN 08/17/2017 MILY MAHAN Ot Z79.82 ONLINE CONTENT DEVELOPER (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 08/17/2017 MILY MAHAN Ot Z80.1 FAMILY HISTORY OF MALIG NEOPLASM OF TRAC 08/17/2017 MILY MAHAN Ot Z80.8 FAMILY HISTORY OF MALIGNANT NEOPLASM OF 08/17/2017 MILY MAHAN Ot Z87.891 PERSONAL HISTORY OF NICOTINE DEPENDENCE 08/17/2017 MILY MAHAN Ot Z90.49 ACQUIRED ABSENCE OF OTHER SPECIFIED PART 08/17/2017 MATHIEU DO, YARITZA K Ot K56.41 FECAL IMPACTION 08/17/2017 DIMITRIOS MURDOCK DOA Troy Ot K56.41 FECAL IMPACTION 08/17/2017 Alexander Beckford 276.51 08/17/2017 Alexander Beckford 288.6 ELEVATED WHITE BLOOD CELL COUNT 08/17/2017 Alexander Beckford 401.0 MALIGNANT ESSENTIAL HYPERTENSION 08/17/2017 Alexander Beckford 491.20 OBSTRUCTIVE CHRONIC BRONCHITIS, WITHOUT EXACERBATION 08/17/2017 Alexander Beckford 530.81 ESOPHAGEAL REFLUX 08/17/2017 Alexander Beckford 599.0 08/17/2017 Alexander Beckford 780.97 08/17/2017 Alexander Beckford 786.05 08/17/2017 Alexander Beckford 789.07 08/17/2017 Alexander Beckford D72.828 OTHER ELEVATED WHITE BLOOD CELL COUNT 08/17/2017 Alexander Beckford E86.0 DEHYDRATION 08/17/2017 Alexander Beckford I10 ESSENTIAL (PRIMARY) HYPERTENSION 08/17/2017 Alexander Beckford J44.9 CHRONIC OBSTRUCTIVE PULMONARY DISEASE, UNSPECIFIED 08/17/2017 Alexander Beckford K21.9 GASTRO-ESOPHAGEAL REFLUX DISEASE WITHOUT ESOPHAGITIS 08/17/2017 Alexander Beckford N39.0 URINARY TRACT INFECTION, SITE NOT SPECIFIED 08/17/2017 Alexander Beckford R06.02 SHORTNESS OF BREATH 08/17/2017 Alexander Beckford R10.84 GENERALIZED ABDOMINAL PAIN 08/17/2017 Alexander Beckford R41.82 ALTERED MENTAL STATUS, UNSPECIFIED 08/19/2017 MATHIEU YATES YARITZA Troy Ot I10 ESSENTIAL (PRIMARY) HYPERTENSION 08/19/2017 MATHIEU DO YARITZA K Ot J44.9 CHRONIC OBSTRUCTIVE PULMONARY DISEASE, U 08/19/2017 MATHIEU DO YARITZA K Ot K21.9 GASTRO-ESOPHAGEAL REFLUX DISEASE WITHOUT 08/19/2017 MATHIEU DO YARITZA K Ot K59.00 CONSTIPATION, UNSPECIFIED 08/19/2017 MATHIEU DO YARITZA K Ot R10.30 LOWER ABDOMINAL PAIN, UNSPECIFIED 08/19/2017 MATHIEU DO YARITZA K Ot T83.098A [facility] COMPL OF OTHER URINARY CATHETER, IN 08/19/2017 MATHIEU DO YARITZA K Ot Z79.82 RESIDENTIAL (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 08/19/2017 YARITZA MURDOCK DO Ot Z80.1 FAMILY HISTORY OF MALIG NEOPLASM OF TRAC 08/19/2017 YARITZA MURDOCK DO Ot Z87.891 PERSONAL HISTORY OF NICOTINE DEPENDENCE 08/19/2017 YARITZA MURDOCK DO Ot Z90.49 ACQUIRED ABSENCE OF OTHER SPECIFIED PART 08/19/2017 YARITZA MURDOCK DO Ot Z96.0 PRESENCE OF UROGENITAL IMPLANTS 08/23/2017 YARITZA MURDOCK DO Troy Ot K56.41 FECAL IMPACTION 08/30/2017 Jak, Yaritza W 799.02 HYPOXEMIA 08/30/2017 [facility], Yaritza W R09.02 HYPOXEMIA 08/30/2017 [facility], Yaritza W 288.60 LEUKOCYTOSIS, UNSPECIFIED 08/30/2017 [facility], Yaritza W 332.0 PARALYSIS AGITANS 08/30/2017 [facility], Yaritza W 799.02 HYPOXEMIA 08/30/2017 Jak, Yaritza W D72.829 ELEVATED WHITE BLOOD CELL COUNT, UNSPECIFIED 08/30/2017 [facility], Yaritza W G20 PARKINSON'S DISEASE 08/30/2017 [facility], Yaritza W R09.02 HYPOXEMIA 08/31/2017 [facility], Yaritza W 288.60 LEUKOCYTOSIS, UNSPECIFIED 08/31/2017 [facility], Yaritza W 332.0 PARALYSIS AGITANS 08/31/2017 [facility], Yaritza W 799.02 HYPOXEMIA 08/31/2017 [facility], Yaritza W D72.829 ELEVATED WHITE BLOOD CELL COUNT, UNSPECIFIED 08/31/2017 [facility], Yaritza W G20 PARKINSON'S DISEASE 08/31/2017 [facility], Yaritza W R09.02 HYPOXEMIA 09/04/2017 [facility], Yaritza W 276.8 HYPOPOTASSEMIA 09/04/2017 [facility], Yaritza W 288.60 LEUKOCYTOSIS, UNSPECIFIED 09/04/2017 [facility], Yaritza W 332.0 PARALYSIS AGITANS 09/04/2017 [facility], Yaritza W 486 09/04/2017 [facility], Yaritza A 491.22 09/04/2017 [facility], Yaritza W 596.54 09/04/2017 [facility], Yaritza W 600.21 09/04/2017 [facility], Yaritza W 788.29 09/04/2017 Yaritza Benedict W 799.02 HYPOXEMIA 09/04/2017 Yaritza Benedict D72.829 ELEVATED WHITE BLOOD CELL COUNT, UNSPECIFIED 09/04/2017 Yaritza Benedict Donny E87.6 HYPOKALEMIA 09/04/2017 Yaritza Benedict G20 PARKINSON'S DISEASE 09/04/2017 Yaritza Benedict Donny J18.9 PNEUMONIA, UNSPECIFIED ORGANISM 09/04/2017 Dimitrios Benedicta Eduardo J44.0 CHRONIC OBSTRUCTIVE PULMON DISEASE W ACUTE LOWER RESP INFCT 09/04/2017 Yaritza Benedict Donny N31.9 NEUROMUSCULAR DYSFUNCTION OF BLADDER, UNSPECIFIED 09/04/2017 Dimitrios Benedicteduardo Hines N40.1 BENIGN PROSTATIC HYPERPLASIA WITH LOWER URINARY TRACT SYMP 09/04/2017 Yaritza Benedict Donny R09.02 HYPOXEMIA 09/04/2017 Yaritza Benedict Donny R33.8 OTHER RETENTION OF URINE 09/06/2017 KELLE ALANIS 996.31 MECHANICAL COMPLICATION DUE TO URETHRAL [INDWELLING] CATHETER 09/06/2017 KELLE AALNIS T83.091A [facility] COMPL OF INDWELLING URETHRAL CATHETER, INIT 09/10/2017 Alexander Beckford 996.09 OTHER MECHANICAL COMPLICATION OF CARDIAC DEVICE, IMPLANT, AND GRAFT 09/10/2017 Alexander Beckford T83.038A LEAKAGE OF OTHER URINARY CATHETER, INITIAL ENCOUNTER 09/12/2017 MAHAD MOON 996.31 MECHANICAL COMPLICATION DUE TO URETHRAL [INDWELLING] CATHETER 09/12/2017 MAHAD MOON R33.9 RETENTION OF URINE, UNSPECIFIED 09/12/2017 MAHAD MOON T83.091A [facility] COMPL OF INDWELLING URETHRAL CATHETER, INIT 09/22/2017 DARLEEN MELO MD Ot N40.1 BENIGN PROSTATIC HYPERPLASIA WITH LOWER 09/22/2017 DARLEEN MELO MD Ot R33.9 RETENTION OF URINE, UNSPECIFIED 09/22/2017 DARLEEN MELO MD Ot Z01.818 ENCOUNTER FOR OTHER PREPROCEDURAL EXAMIN 09/22/2017 DARLEEN MELO MD Ot Z11.2 ENCOUNTER FOR SCREENING FOR OTHER BACTER 09/22/2017 DARLEEN MELO MD Ot N40.1 BENIGN PROSTATIC HYPERPLASIA WITH LOWER 09/22/2017 DARLEEN MELO MD Ot R33.9 RETENTION OF URINE, UNSPECIFIED 09/22/2017 DARLEEN MELO MD Ot Z01.818 ENCOUNTER FOR OTHER PREPROCEDURAL EXAMIN 09/22/2017 DARLEEN MELO MD, Ot Z11.2 ENCOUNTER FOR SCREENING FOR OTHER BACTER 09/23/2017 DARLEEN MELO MD Ot E78.00 PURE HYPERCHOLESTEROLEMIA, UNSPECIFIED 09/23/2017 DARLEEN MELO MD Ot E78.5 HYPERLIPIDEMIA, UNSPECIFIED 09/23/2017 DARLEEN MELO MD Ot G47.33 OBSTRUCTIVE SLEEP APNEA (ADULT) (PEDIATR 09/23/2017 DARLEEN MELO MD Ot J44.9 CHRONIC OBSTRUCTIVE PULMONARY DISEASE, U 09/23/2017 DARLEEN MELO MD Ot K21.9 GASTRO-ESOPHAGEAL REFLUX DISEASE WITHOUT 09/23/2017 DARLEEN MELO MD Ot L40.9 PSORIASIS, UNSPECIFIED 09/23/2017 DARLEEN MELO MD Ot N40.1 BENIGN PROSTATIC HYPERPLASIA WITH LOWER 09/23/2017 DARLEEN MELO MD Ot R33.9 RETENTION OF URINE, UNSPECIFIED 09/23/2017 DARLEEN MELO MD Ot Z79.899 OTHER ONLINE CONTENT DEVELOPER (CURRENT) DRUG THERAPY 09/23/2017 DARLEEN MELO MD Ot Z87.891 PERSONAL HISTORY OF NICOTINE DEPENDENCE 09/23/2017 DARLEEN MELO MD Ot E78.00 PURE HYPERCHOLESTEROLEMIA, UNSPECIFIED 09/23/2017 DARLEEN MELO MD Ot E78.5 HYPERLIPIDEMIA, UNSPECIFIED 09/23/2017 DARLEEN MELO MD Ot G47.33 OBSTRUCTIVE SLEEP APNEA (ADULT) (PEDIATR 09/23/2017 DARLEEN MELO MD Ot J44.9 CHRONIC OBSTRUCTIVE PULMONARY DISEASE, U 09/23/2017 DARLEEN MELO MD Ot K21.9 GASTRO-ESOPHAGEAL REFLUX DISEASE WITHOUT 09/23/2017 DARLEEN MELO MD Ot L40.9 PSORIASIS, UNSPECIFIED 09/23/2017 DARLEEN MELO MD Ot N40.1 BENIGN PROSTATIC HYPERPLASIA WITH LOWER 09/23/2017 DARLEEN MELO MD Ot R33.9 RETENTION OF URINE, UNSPECIFIED 09/23/2017 KAMERON MAIER, DARLEEN Garcia Ot Z79.899 OTHER ONLINE CONTENT DEVELOPER (CURRENT) DRUG THERAPY 09/23/2017 KAMERON MAIER, DARLEEN Garcia Ot Z87.891 PERSONAL HISTORY OF NICOTINE DEPENDENCE 11/24/2017 Beatriz Caruso W 466.0 ACUTE BRONCHITIS 11/24/2017 BroglennabBeatriz A 599.0 URINARY TRACT INFECTION, SITE NOT SPECIFIED 11/24/2017 Farrukhb, Beatriz W 780.97 ALTERED MENTAL STATUS 11/24/2017 Farrukhb, Beatriz W J20.9 ACUTE BRONCHITIS, UNSPECIFIED 11/24/2017 Brokob, Beatriz A N39.0 URINARY TRACT INFECTION, SITE NOT SPECIFIED 11/24/2017 Farrukhb, Beatriz W R41.0 DISORIENTATION, UNSPECIFIED 12/02/2017 Jak, Yaritza W 780.1 HALLUCINATIONS 12/02/2017 Jak, Yaritza W R44.3 HALLUCINATIONS, UNSPECIFIED 12/02/2017 Jak, Yaritza W 780.1 HALLUCINATIONS 12/02/2017 Jak, Yaritza W R44.3 HALLUCINATIONS, UNSPECIFIED 03/28/2018 Alexander Beckford 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 03/28/2018 Alexander Beckford M51.36 OTHER INTERVERTEBRAL DISC DEGENERATION, LUMBAR REGION 04/06/2018 Ot J44.9 CHRONIC OBSTRUCTIVE PULMONARY DISEASE, U 04/06/2018 Ot J18.9 PNEUMONIA, UNSPECIFIED ORGANISM 04/06/2018 Ot J44.9 CHRONIC OBSTRUCTIVE PULMONARY DISEASE, U 04/06/2018 Ot J98.11 ATELECTASIS 04/06/2018 Ot L13.8 OTHER SPECIFIED BULLOUS DISORDERS 04/06/2018 Ot R49.0 DYSPHONIA 04/12/2018 RICH ADAMS APRN Ot J44.9 CHRONIC OBSTRUCTIVE PULMONARY DISEASE, U 04/12/2018 RICH ADAMS APRN Ot R06.02 SHORTNESS OF BREATH 04/14/2018 RICH ADAMS APRN Ot J44.9 CHRONIC OBSTRUCTIVE PULMONARY DISEASE, U 04/14/2018 RICH ADAMS APRN Ot R06.02 SHORTNESS OF BREATH 04/15/2018 Ot J44.9 CHRONIC OBSTRUCTIVE PULMONARY DISEASE, U 04/15/2018 Ot J18.9 PNEUMONIA, UNSPECIFIED ORGANISM 04/15/2018 Ot J44.9 CHRONIC OBSTRUCTIVE PULMONARY DISEASE, U 04/15/2018 Ot J98.11 ATELECTASIS 04/15/2018 Ot L13.8 OTHER SPECIFIED BULLOUS DISORDERS 04/15/2018 Ot R49.0 DYSPHONIA 04/17/2018 RICH ADAMS APRN Ot J44.9 CHRONIC OBSTRUCTIVE PULMONARY DISEASE, U 04/17/2018 RICH ADAMS AUTOMOTIVE SERVICE WRITER Ot R06.02 SHORTNESS OF BREATH 04/20/2018 RICH ADAMS AUTOMOTIVE SERVICE WRITER Ot J44.9 CHRONIC OBSTRUCTIVE PULMONARY DISEASE, U 04/20/2018 RICH ADAMS AUTOMOTIVE SERVICE WRITER Ot R06.02 SHORTNESS OF BREATH 04/21/2018 Alexander Beckford 491.20 OBSTRUCTIVE CHRONIC BRONCHITIS, WITHOUT EXACERBATION 04/21/2018 Alexander Beckford 786.05 SHORTNESS OF BREATH 04/21/2018 Alexander Beckford J44.9 CHRONIC OBSTRUCTIVE PULMONARY DISEASE, UNSPECIFIED 04/21/2018 Alexadner Beckford W R06.02 SHORTNESS OF BREATH 04/21/2018 RICH ADAMS AUTOMOTIVE SERVICE WRITER Ot J44.9 CHRONIC OBSTRUCTIVE PULMONARY DISEASE, U 04/21/2018 RICH ADAMS AUTOMOTIVE SERVICE WRITER Ot R06.02 SHORTNESS OF BREATH 04/26/2018 RICH ADAMS AUTOMOTIVE SERVICE WRITER Ot J44.9 CHRONIC OBSTRUCTIVE PULMONARY DISEASE, U 04/26/2018 RICH ADAMS AUTOMOTIVE SERVICE WRITER Ot R06.02 SHORTNESS OF BREATH 04/28/2018 RICH ADAMS AUTOMOTIVE SERVICE WRITER Ot J44.9 CHRONIC OBSTRUCTIVE PULMONARY DISEASE, U 04/28/2018 RICH ADAMS AUTOMOTIVE SERVICE WRITER Ot R06.02 SHORTNESS OF BREATH 05/03/2018 RICH ADAMS AUTOMOTIVE SERVICE WRITER Ot J44.9 CHRONIC OBSTRUCTIVE PULMONARY DISEASE, U 05/03/2018 RICH ADAMS AUTOMOTIVE SERVICE WRITER Ot R06.02 SHORTNESS OF BREATH 05/05/2018 RICH ADAMS AUTOMOTIVE SERVICE WRITER Ot J44.9 CHRONIC OBSTRUCTIVE PULMONARY DISEASE, U 05/05/2018 RICH ADAMS AUTOMOTIVE SERVICE WRITER Ot R06.02 SHORTNESS OF BREATH 05/17/2018 Tabitha Mckeon A W 466.0 ACUTE BRONCHITIS 05/17/2018 Tabitha Mckeon A 491.22 OBSTRUCTIVE CHRONIC BRONCHITIS WITH ACUTE BRONCHITIS 05/17/2018 Tabitha Mckeon W 791.9 OTHER NONSPECIFIC FINDINGS ON EXAMINATION OF URINE 05/17/2018 Tabitha Mckeon W J20.8 ACUTE BRONCHITIS DUE TO OTHER SPECIFIED ORGANISMS 05/17/2018 Tabitha Mckeon A J44.0 CHRONIC OBSTRUCTIVE PULMON DISEASE W ACUTE LOWER RESP INFCT 05/17/2018 Tabitha Mckeon W R82.998 OTHER ABNORMAL FINDINGS IN URINE 05/19/2018 RICH ADAMS AUTOMOTIVE SERVICE WRITER Ot J44.9 CHRONIC OBSTRUCTIVE PULMONARY DISEASE, U 05/19/2018 RICH ADAMS AUTOMOTIVE SERVICE WRITER Ot R06.02 SHORTNESS OF BREATH 05/26/2018 RICH ADAMS AUTOMOTIVE SERVICE WRITER Ot J44.9 CHRONIC OBSTRUCTIVE PULMONARY DISEASE, U 05/26/2018 RICH ADAMS AUTOMOTIVE SERVICE WRITER Ot R06.02 SHORTNESS OF BREATH 06/07/2018 RICH ADAMS AUTOMOTIVE SERVICE WRITER Ot J44.9 CHRONIC OBSTRUCTIVE PULMONARY DISEASE, U 06/07/2018 RAQUEL ADAMSINE Opal AUTOMOTIVE SERVICE WRITER Ot R06.02 SHORTNESS OF BREATH 06/14/2018 RAQUEL ADAMSINE E AUTOMOTIVE SERVICE WRITER Ot J44.9 CHRONIC OBSTRUCTIVE PULMONARY DISEASE, U 06/14/2018 RAQUEL ADAMSINE E AUTOMOTIVE SERVICE WRITER Ot R06.02 SHORTNESS OF BREATH 06/21/2018 RICH ADAMS AUTOMOTIVE SERVICE WRITER Ot J44.9 CHRONIC OBSTRUCTIVE PULMONARY DISEASE, U 06/21/2018 RAQUEL ADAMSINE Opal AUTOMOTIVE SERVICE WRITER Ot R06.02 SHORTNESS OF BREATH 06/23/2018 RICH ADAMS AUTOMOTIVE SERVICE WRITER Ot J44.9 CHRONIC OBSTRUCTIVE PULMONARY DISEASE, U 06/23/2018 RAQUEL ADAMSINE Opal AUTOMOTIVE SERVICE WRITER Ot R06.02 SHORTNESS OF BREATH 06/24/2018 RAQUEL ADAMSINE Opal AUTOMOTIVE SERVICE WRITER Ot J44.9 CHRONIC OBSTRUCTIVE PULMONARY DISEASE, U 06/24/2018 RAQUEL ADAMSINE Opal AUTOMOTIVE SERVICE WRITER Ot R06.02 SHORTNESS OF BREATH 07/08/2018 KAMERON MAIER, DARLEEN Garcia Ot Z01.818 ENCOUNTER FOR OTHER PREPROCEDURAL EXAMIN Procedures Code Description [place] [address] ROUTINE VENIPUNCTURE 08/02/2012 06058 MEASURE BLOOD OXYGEN LEVEL 08/02/2012 Karlene Mtz 08/02/2012 Urology Elisa Maciel 08/02/2012 65916 A1C (IN-HOUSE) 08/02/2012 47273 CBC 08/02/2012 03247 CMP 08/02/2012 95137 LIPID PANEL 08/02/2012 13714 MAGNESIUM 08/02/2012 3991016 GFR CALC (RESULT ONLY) 08/02/2012 12395 PSA FREE AND TOTAL 08/03/2012 12248 ROUTINE VENIPUNCTURE 09/02/2012 66855 BMP 09/02/2012 2662121 GFR CALC (RESULT ONLY) 09/02/[address] NECK, SOFT TISSUE NECK W/ DYE 09/05/[address] CHEST W/DYE 09/05/2012 90373 OXIMETRY 09/05/2012 22379 ROUTINE VENIPUNCTURE 11/01/2012 15095 CMP 11/01/2012 95039 LIPID PANEL 11/01/2012 2311388 GFR CALC (RESULT ONLY) 11/01/2012 Darleen Ruiz 11/03/2012 22630 ROUTINE VENIPUNCTURE 01/18/2013 81076 CMP 01/18/2013 95741 MAGNESIUM 01/18/2013 2239930 GFR CALC (RESULT ONLY) 01/18/2013 39202 EKG, TRACING (IN-HOUSE) 06/16/2013 17980 ROUTINE VENIPUNCTURE 10/13/2013 58029 CMP 10/13/2013 34028 MAGNESIUM 10/13/2013 05526 CBC 10/13/2013 86902 ROUTINE VENIPUNCTURE 12/06/2013 38086 XRAY CHEST 2 VIEW 12/06/2013 08478 XRAY CERVICAL SPINE, 2 OR 3 VIEWS 12/06/2013 31794 CBC 12/06/2013 2687703 GFR CALC (RESULT ONLY) 12/06/2013 98765 CMP 12/06/2013 67170 CPK 12/06/2013 92078 TSH 12/06/2013 33810 VITAMIN D 25-HYDROXY (D2,D3 , TOTAL) 12/06/2013 61367 ROUTINE VENIPUNCTURE 12/13/2013 64715 LYME EIA W/WEST BLOT 12/13/2013 60854 EHRLICHIA ANTIBODY 12/13/2013 22094 TULAREMIA ANTIBODY 12/13/2013 31137 SAGRARIO MT SPOT FEVER 12/13/2013 05326 OXIMETRY 12/13/2013 75306 HEMOCCULT 12/15/2013 75843 HEMOCCULT 12/15/2013 J1040 DEPO MEDROL 80 MG INJ 12/28/2013 76539 THERAPUTIC INJ SQ/IM 12/28/2013 59561 OXIMETRY 05/22/2014 Results Test Result Range Comp. Metabolic Panel (14) - 06/15/16 10:45 Glucose, Serum 104 mg/dL 65-99 BUN 12 mg/dL 8-27 Creatinine, Serum 1.00 mg/dL 0.76-1.27 eGFR If NonAfricn Am 79 mL/min/1.73 >59 eGFR If Africn Am 91 mL/min/1.73 >59 BUN/Creatinine Ratio 12 10-22 Sodium, Serum 141 mmol/L 136-144 Potassium, Serum 4.9 mmol/L 3.5-5.2 Chloride, Serum 101 mmol/L 97-106 Carbon Dioxide, Total 28 mmol/L 18-29 Calcium, Serum 9.3 mg/dL 8.6-10.2 Protein, Total, Serum 6.7 g/dL 6.0-8.5 Albumin, Serum 4.2 g/dL 3.6-4.8 Globulin, Total 2.5 g/dL 1.5-4.5 A/G Ratio 1.7 1.1-2.5 Bilirubin, Total 0.4 mg/dL 0.0-1.2 Alkaline Phosphatase, S 98 IU/L 39-117 AST (SGOT) 19 IU/L 0-40 ALT (SGPT) 20 IU/L 0-44 CBC With Differential/Platelet - 08/26/16 10:50 WBC 7.7 x10E3/uL 3.4-10.8 RBC 5.06 x10E6/uL 4.14-5.80 Hemoglobin 15.8 g/dL 12.6-17.7 Hematocrit 46.2 % 37.5-51.0 MCV 91 fL 79-97 MCH 31.2 pg 26.6-33.0 MCHC 34.2 g/dL 31.5-35.7 RDW 13.3 % 12.3-15.4 Platelets 184 x10E3/uL 150-379 Neutrophils 69 % Lymphs 20 % Monocytes 10 % Eos 1 % Basos 0 % Neutrophils (Absolute) 5.3 x10E3/uL 1.4-7.0 Lymphs (Absolute) 1.5 x10E3/uL 0.7-3.1 Monocytes(Absolute) 0.8 x10E3/uL 0.1-0.9 Eos (Absolute) 0.1 x10E3/uL 0.0-0.4 Baso (Absolute) 0.0 x10E3/uL 0.0-0.2 Immature Granulocytes 0 % Immature Grans (Abs) 0.0 x10E3/uL 0.0-0.1 Comp. Metabolic Panel (14) - 08/26/16 10:50 Glucose, Serum 104 mg/dL 65-99 BUN 14 mg/dL 8-27 Creatinine, Serum 0.83 mg/dL 0.76-1.27 eGFR If NonAfricn Am 92 mL/min/1.73 >59 eGFR If Africn Am 107 mL/min/1.73 >59 BUN/Creatinine Ratio 17 10-22 Sodium, Serum 140 mmol/L 134-144 Potassium, Serum 4.0 mmol/L 3.5-5.2 Chloride, Serum 101 mmol/L 96-106 Carbon Dioxide, Total 27 mmol/L 18-29 Calcium, Serum 8.8 mg/dL 8.6-10.2 Protein, Total, Serum 6.3 g/dL 6.0-8.5 Albumin, Serum 4.1 g/dL 3.6-4.8 Globulin, Total 2.2 g/dL 1.5-4.5 A/G Ratio 1.9 1.1-2.5 Bilirubin, Total 0.5 mg/dL 0.0-1.2 Alkaline Phosphatase, S 97 IU/L 39-117 AST (SGOT) 19 IU/L 0-40 ALT (SGPT) 21 IU/L 0-44 CBC With Differential/Platelet - 10/21/16 11:45 WBC 7.2 x10E3/uL 3.4-10.8 RBC 5.33 x10E6/uL 4.14-5.80 Hemoglobin 16.7 g/dL 12.6-17.7 Hematocrit 48.4 % 37.5-51.0 MCV 91 fL 79-97 MCH 31.3 pg 26.6-33.0 MCHC 34.5 g/dL 31.5-35.7 RDW 12.6 % 12.3-15.4 Platelets 232 x10E3/uL 150-379 Neutrophils 67 % Lymphs 23 % Monocytes 9 % Eos 1 % Basos 0 % Neutrophils (Absolute) 4.8 x10E3/uL 1.4-7.0 Lymphs (Absolute) 1.6 x10E3/uL 0.7-3.1 Monocytes(Absolute) 0.7 x10E3/uL 0.1-0.9 Eos (Absolute) 0.1 x10E3/uL 0.0-0.4 Baso (Absolute) 0.0 x10E3/uL 0.0-0.2 Immature Granulocytes 0 % Immature Grans (Abs) 0.0 x10E3/uL 0.0-0.1 Comp. Metabolic Panel (14) - 10/21/16 11:45 Glucose, Serum 90 mg/dL 65-99 BUN 11 mg/dL 8-27 Creatinine, Serum 0.91 mg/dL 0.76-1.27 eGFR If NonAfricn Am 88 mL/min/1.73 >59 eGFR If Africn Am 101 mL/min/1.73 >59 BUN/Creatinine Ratio 12 10-24 Sodium, Serum 142 mmol/L 134-144 Potassium, Serum 4.6 mmol/L 3.5-5.2 Chloride, Serum 100 mmol/L 96-106 Carbon Dioxide, Total 25 mmol/L 18-29 Calcium, Serum 9.3 mg/dL 8.6-10.2 Protein, Total, Serum 7.0 g/dL 6.0-8.5 Albumin, Serum 4.5 g/dL 3.6-4.8 Globulin, Total 2.5 g/dL 1.5-4.5 A/G Ratio 1.8 1.2-2.2 Bilirubin, Total 0.6 mg/dL 0.0-1.2 Alkaline Phosphatase, S 103 IU/L 39-117 AST (SGOT) 15 IU/L 0-40 ALT (SGPT) 15 IU/L 0-44 Lipid Panel - 10/21/16 11:45 Cholesterol, Total 208 mg/dL 100-199 Triglycerides 68 mg/dL 0-149 HDL Cholesterol 60 mg/dL >39 VLDL Cholesterol Jake 14 mg/dL 5-40 LDL Cholesterol Calc 134 mg/dL 0-99 Magnesium, Serum - 10/21/16 11:45 Magnesium, Serum 2.1 mg/dL 1.6-2.3 PT panel in platelet poor plasma by [...] 10/21/16 23:05 BNP level 35.9 pg/mL <100.0 Upper Respiratory Culture - 12/09/16 08:56 Upper Respiratory Culture Note TSH - 05/12/17 08:50 TSH 2.610 uIU/mL 0.450-4.500 CBC With Differential/Platelet - 05/12/17 08:50 WBC 6.0 x10E3/uL 3.4-10.8 RBC 5.19 x10E6/uL 4.14-5.80 Hemoglobin 16.2 g/dL 12.6-17.7 Hematocrit 46.7 % 37.5-51.0 MCV 90 fL 79-97 MCH 31.2 pg 26.6-33.0 MCHC 34.7 g/dL 31.5-35.7 RDW 13.0 % 12.3-15.4 Platelets 192 x10E3/uL 150-379 Neutrophils 66 % Not Estab. Lymphs 24 % Not Estab. Monocytes 9 % Not Estab. Eos 1 % Not Estab. Basos 0 % Not Estab. Neutrophils (Absolute) 4.0 x10E3/uL 1.4-7.0 Lymphs (Absolute) 1.4 x10E3/uL 0.7-3.1 Monocytes(Absolute) 0.6 x10E3/uL 0.1-0.9 Eos (Absolute) 0.1 x10E3/uL 0.0-0.4 Baso (Absolute) 0.0 x10E3/uL 0.0-0.2 Immature Granulocytes 0 % Not Estab. Immature Grans (Abs) 0.0 x10E3/uL 0.0-0.1 Comp. Metabolic Panel (14) - 05/12/17 08:50 Glucose, Serum 93 mg/dL 65-99 BUN 18 mg/dL 8-27 Creatinine, Serum 0.97 mg/dL 0.76-1.27 eGFR If NonAfricn Am 81 mL/min/1.73 >59 eGFR If Africn Am 94 mL/min/1.73 >59 BUN/Creatinine Ratio 19 10-24 Sodium, Serum 142 mmol/L 134-144 Potassium, Serum 4.3 mmol/L 3.5-5.2 Chloride, Serum 102 mmol/L 96-106 Carbon Dioxide, Total 25 mmol/L 18-29 Calcium, Serum 9.1 mg/dL 8.6-10.2 Protein, Total, Serum 6.6 g/dL 6.0-8.5 Albumin, Serum 4.1 g/dL 3.6-4.8 Globulin, Total 2.5 g/dL 1.5-4.5 A/G Ratio 1.6 1.2-2.2 Bilirubin, Total 0.4 mg/dL 0.0-1.2 Alkaline Phosphatase, S 87 IU/L 39-117 AST (SGOT) 15 IU/L 0-40 ALT (SGPT) 15 IU/L 0-44 TSH - 05/12/17 08:50 TSH 2.610 uIU/mL 0.450-4.500 Complete blood count (CBC) with automated white [...] plasma albumin measurement (mass/volume) 4.0 g/dL 3.2-4.5 Troponin I - 08/17/17 18:15 Troponin <0.020 ng/mL 0.0-0.4 Comprehensive Metabolic Panel - 08/17/17 18:15 Albumin 4.1 g/dL 3.6-5.1 ALP 92 U/L 35-130 ALT 22 U/L 6-45 Anion Gap 18 6-14 AST 13 U/L 2-40 BUN 22 mg/dL 5-25 Calcium 9.7 mg/dL 8.3-10.4 Chloride 101 mmol/L 95-114 CO2 22 mEq/L 22-33 Creat 1.35 mg/dL 0.50-1.50 eGFR 53 mL/min/1.73m2 >59 Globulin 3.5 g/dL 2.3-3.5 Glucose 148 mg/dL 70-110 Osmo 289 280-295 Potassium 3.7 mmol/L 3.5-5.3 Sodium 137 mmol/L 134-148 TBil 2.4 mg/dL 0.2-1.2 TP 7.6 g/dL 6.0-8.3 EKG - 08/17/17 19:46 EKG Complete Lactic Acid - 08/17/17 20:05 Lactic Acid 27.4 mg/dL 4.5-19.8 Blood Culture - 08/17/17 20:05 PRELIM CULTURE RESULTS Blood Culture Negative, No Growth Day 1 FINAL CULTURE RESULTS Blood Culture Negative, No Growth Day 5 MEDIA PLATED Setup at 20:39 on 08/17/[id number] [employer] Position C47 CULTURE SOURCE drawn @ Left Hand Blood Culture - 08/17/17 20:10 PRELIM CULTURE RESULTS Blood Culture Negative, No Growth Day 1 FINAL CULTURE RESULTS Blood Culture Negative, No Growth Day 5 MEDIA PLATED Setup at 20:39 on 08/17/[id number] [employer] Position C41 CULTURE SOURCE drawn @ Right Hand Urinalysis - 08/17/17 21:10 Icotest Negative Negative Urine Volume Urine Volume Insufficient (<10mL) May Affect Microscopic Exam Urine-Appearance Cloudy Clear Urine-Bacteria 4+ Urine-Bilirubin 1+ Negative Urine-Blood 3+ Negative Urine-Color Yellow Colorless-Lt. Yellow Urine-Epithelial Cells 0-5/HPF Urine-Glucose Trace Negative Urine-Ketones 1+ Negative Urine-Leukocytes 1+ Negative Urine-Nitrite Positive Negative Urine-Other Culture to follow; cath urine specimen Urine-pH 5.5 5-8.5 Urine-Protein 2+ Negative Urine-RBC 10-20/HPF Urine-Specific [place] 1.025 1.000-1.030 Urine-WBC 10-20/HPF Urobilinogen 1.0 0.2-1.0 Mycoplasma - 08/30/17 18:43 Mycoplasma Negative Negative Arterial Blood Gas - 08/30/17 18:43 EKG - 08/30/17 18:44 EKG Complete Blood Culture - 08/30/17 18:45 PRELIM CULTURE RESULTS Blood Culture Negative, No Growth Day 1 FINAL CULTURE RESULTS Blood Culture Negative, No Growth Day 5 MEDIA PLATED Setup at 19:30 on 08/[id number] [employer] Position C48 CULTURE SOURCE arterial blood drawn from Right Wrist Blood Culture - 08/30/17 19:15 PRELIM CULTURE RESULTS Blood Culture Negative, No Growth Day 1 FINAL CULTURE RESULTS Blood Culture Negative, No Growth Day 5 MEDIA PLATED Setup at 19:30 on 08/30/[id number] [employer] Position C42 CULTURE SOURCE drawn @ Right arm Urinalysis - 08/30/17 19:15 Icotest N/A Negative Urine Crystals Amorphous material: few/HPF Urine Volume Urine Volume Sufficient (10mL) Urine-Appearance Clear Clear Urine-Bacteria Negative Urine-Bilirubin Negative Negative Urine-Blood Trace-intact Negative Urine-Color Yellow Colorless-Lt. Yellow Urine-Epithelial Cells 1-5/HPF Urine-Glucose Negative Negative Urine-Ketones Negative Negative Urine-Leukocytes Negative Negative Urine-Nitrite Negative Negative Urine-Other Urine Saved if Culture Needed (48hrs from time of collection) Urine-pH 7.0 5-8.5 Urine-Protein Negative Negative Urine-RBC 0-2/HPF Urine-Specific [place] 1.015 1.000-1.030 Urine-WBC 1-3/HPF Urobilinogen 0.2 0.2-1.0 Arterial Blood Gas - 08/30/17 19:18 Base -2.00 mmol/L 1.80-4.20 HCO3 22 mmol/L 20-31 O2 Sat 93 ROOM AIR % 95-100 pCO2 28 mm/Hg 35-45 pH 7.50 7.35-7.45 PO2 59 mm/Hg 80-95 Comprehensive Metabolic Panel - 08/31/17 06:57 Albumin 3.1 g/dL 3.6-5.1 ALP 102 U/L 35-130 ALT 16 U/L 6-45 Anion Gap 13 6-14 AST 38 U/L 2-40 BUN 7 mg/dL 5-25 Calcium 8.1 mg/dL 8.3-10.4 Chloride 104 mmol/L 95-114 CO2 26 mEq/L 22-33 Creat 0.78 mg/dL 0.50-1.50 eGFR 99 mL/min/1.73m2 >59 Globulin 2.9 g/dL 2.3-3.5 Glucose 98 mg/dL 70-110 Osmo 285 280-295 Potassium 3.6 mmol/L 3.5-5.3 Sodium 139 mmol/L 134-148 TBil 0.9 mg/dL 0.2-1.2 TP 6.0 g/dL 6.0-8.3 Urine Culture - 08/31/17 06:57 PRELIM CULTURE RESULTS No Growth 24 hours FINAL CULTURE RESULTS No Growth 48 hours MEDIA PLATED Setup at 08:52 on 08/31/2017 CULTURE SOURCE void CBC with Auto Diff - 08/31/17 06:57 Baso% 0.00 % 0.00-2.50 Eos 0.0 K/uL 0.0-0.7 Eos% 0.1 % 0.0-7.0 Hct 41.4 % 42.0-52.0 Hgb 13.5 g/dL 14.0-17.0 Lym 1.12 K/uL 0.60-3.40 Lym% 9.3 % 10.0-50.0 MCH 30.6 pg 27.0-31.2 MCHC 32.6 g/dL 32.0-36.0 MCV 93.9 fL 80.0-97.0 [place]% 4.8 % 0.0-12.0 MPV 9.4 fL 7.4-10.0 [place]% 85.8 % 37.0-80.0 Plt 485 K/uL 150-400 RBC 4.41 M/uL 4.20-5.40 RDW 13.5 % 11.6-14.8 WBC 12.01 K/uL 5.00-10.00 Taylor 10.30 K/uL 2.00-6.90 [place] 0.6 K/uL 0.0-0.9 Baso 0.0 K/uL 0.0-0.2 Urinalysis - 08/31/17 07:14 Icotest Negative Negative Urine Volume Urine Volume Sufficient (10mL) Urine-Appearance Cloudy Clear Urine-Bacteria Trace Urine-Bilirubin Negative Negative Urine-Blood 3+ Negative Urine-Color [place] Colorless-Lt. Yellow Urine-Glucose Negative Negative Urine-Ketones Negative Negative Urine-Leukocytes Negative Negative Urine-Nitrite Positive Negative Urine-Other Urine Saved if Culture Needed (48hrs from time of collection) Urine-pH 7.5 5-8.5 Urine-Protein 1+ Negative Urine-RBC TNTC Urine-Specific [place] 1.010 1.000-1.030 Urine-WBC Negative Urobilinogen 0.2 E.U./dL 0.2-1.0 Influenza - 08/31/17 07:57 Influenza NEGATIVE FOR A and B 0.00-0.00 Sputum Culture - 08/31/17 23:40 PRELIM CULTURE RESULTS Scant Gram Positive FINAL CULTURE RESULTS No Pathogens Isolated MEDIA PLATED Setup at 00:30 on 09/01/2017 BNP - 09/01/17 07:07 BNP 79.90 pg/ml 0.00-100.00 BMP - 09/02/17 07:00 Anion Gap 14 6-14 BUN 7 mg/dL 5-25 Calcium 8.5 mg/dL 8.3-10.4 Chloride 104 mmol/L 95-114 CO2 24 mEq/L 22-33 Creat 0.72 mg/dL 0.50-1.50 eGFR 109 mL/min/1.73m2 >59 Glucose 104 mg/dL 70-110 Osmo 284 280-295 Potassium 4.0 mmol/L 3.5-5.3 Sodium 138 mmol/L 134-148 Urine Culture - 09/12/17 22:22 PRELIM CULTURE RESULTS No Growth 24 hours FINAL CULTURE RESULTS No Growth 48 hours CULTURE SOURCE CATHETER Urinalysis - 09/12/17 22:52 Icotest N/A Negative Urine Volume Urine Volume Sufficient (10mL) Urine Yeast No Yeast present Urine-Appearance Slightly Cloudy Clear Urine-Bacteria Trace Urine-Bilirubin Negative Negative Urine-Blood 2+ Negative Urine-Color Yellow Colorless-Lt. Yellow Urine-Epithelial Cells 0-5/HPF Urine-Glucose Negative Negative Urine-Ketones Negative Negative Urine-Leukocytes Negative Negative Urine-Mucus 2+ Urine-Nitrite Negative Negative Urine-Other Culture to follow (Cath Sample) Urine-pH 6.0 5-8.5 Urine-Protein Negative Negative Urine-RBC 20-40/HPF Urine-Specific [place] >1.030 1.000-1.030 Urine-WBC Rare/HPF Urobilinogen 0.2 0.2-1.0 Methicillin resistant Staphylococcus aureus (MRSA) screening culture - 11:52 Methicillin resistant Staphylococcus aureus (MRSA) screening culture NEG NRG Blood type T Indirect antibody screen panel - 09/22/17 06:50 ABO+Rh group AP NRG Transfusion band number [id number] Blood group antibody screen NEGATIVE NRG Thyroid Stimulating Hormone - 11/24/17 09:31 TSH 1.87 mIU/mL 0.32-5.00 Urine Culture - 11/24/17 09:31 PRELIM CULTURE RESULTS No Growth 24 hours FINAL CULTURE RESULTS No Growth 48 hours MEDIA PLATED Setup at 09:56 on 11/24/2017 CULTURE SOURCE void Thyroid Stimulating Hormone - 12/02/17 09:26 TSH 1.37 mIU/mL 0.32-5.00 Urine Culture - 12/02/17 09:26 PRELIM CULTURE RESULTS <10,000 Gram [id number] Skin Contaminant FINAL CULTURE RESULTS <10,000 Gram Negative No Further Workup done MEDIA PLATED Setup at 09:58 on 12/02/2017 CULTURE SOURCE void Urinalysis - 03/28/18 11:35 Icotest N/A Negative Urine-Appearance Clear Clear Urine-Bacteria Trace Urine-Bilirubin Negative Negative Urine-Blood Negative Negative Urine-Color Yellow Colorless-Lt. Yellow Urine-Epithelial Cells 0-5/HPF Urine-Glucose Negative Negative Urine-Ketones Negative Negative Urine-Leukocytes Negative Negative Urine-Nitrite Negative Negative Urine-pH 6.0 5-8.5 Urine-Protein Negative Negative Urine-RBC Negative Urine-Specific [place] 1.015 1.000-1.030 Urine-WBC Negative Urobilinogen 0.2 E.U./dL 0.2-1.0 Other Culture - 04/01/18 14:57 PRELIM CULTURE RESULTS No Pathogen Isolated FINAL CULTURE RESULTS Scant Normal Skin Carline. No Pathogen Isolated at 48 hours. MEDIA PLATED Setup at 16:17 on 04/01/2018 BMP - 04/21/18 10:29 Anion Gap 11 6-14 BUN 14 mg/dL 5-25 Calcium 9.5 mg/dL 8.3-10.4 Chloride 109 mmol/L 95-114 CO2 23 mEq/L 22-33 Creat 0.81 mg/dL 0.50-1.50 eGFR 95 mL/min/1.73m2 >59 Glucose 98 mg/dL 70-110 Osmo 288 280-295 Potassium 3.8 mmol/L 3.5-5.3 Sodium 139 mmol/L 134-148 BNP - 05/17/18 21:04 BNP 26.70 pg/ml 0.00-100.00 EKG - 05/17/18 21:04 EKG Complete Urinalysis - 05/17/18 21:38 Icotest N/A Negative Urine Volume Urine Volume Sufficient (10mL) Urine Yeast No Yeast present Urine-Appearance Slightly Cloudy Clear Urine-Bacteria 1+ Urine-Bilirubin Negative Negative Urine-Blood Trace-lysed Negative Urine-Color Yellow Colorless-Lt. 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 Sales Engineer RAYMOND / ID to Follow MEDIA PLATED Setup at 21:51 on 05/17/2018 Sensi - 05/17/18 21:38 FINAL CULTURE RESULTS Enterobacter aerogenes (Isolate 1) Ampicillin/Sulbactam <=8/4 Ampicillin <=8 Amoxicillin/K Clavulanate <=8/4 Ceftriaxone <=8 Ciprofloxacin <=1 Nitrofurantoin 64 Gentamicin <=4 Levofloxacin <=2 Trimethoprim/ Sulfamethoxazole <=2/38 Tetracycline <=4 Amikacin <=16 Aztreonam <=8 Ceftazidime <=1 Ceftazidime/K Clavulanate <=0.25 Cephalothin >16 Cefotaxime <=2 Cefotaxime/K Clavulanate <=0.5 Cefoxitin >16 Cefazolin >16 Cefepime <=8 Cefuroxime <=4 Ertapenem <=1 Imipenem <=4 Meropenem <=4 Piperacillin/Tazobactam <=16 Piperacillin <=16 Tigecycline <=2 Tobramycin <=4 Urine Culture - 05/17/18 21:57 PRELIM CULTURE RESULTS 10,000-20,000 Gram Positive Mixed Carline [id number] Skin Contaminant FINAL CULTURE RESULTS 10,000-20,000 Gram Positive Mixed Carline [id number] Skin Contaminant [id number] Further Workup done MEDIA PLATED Setup at 22:08 on 05/17/2018 CULTURE SOURCE void Comprehensive Metabolic Panel - 07/05/18 22:05 Albumin 4.5 g/dL 3.6-5.1 ALP 95 U/L 35-130 ALT 15 U/L 6-45 Anion Gap 14 6-14 AST 17 U/L 2-40 BUN 19 mg/dL 5-25 Calcium 9.6 mg/dL 8.3-10.4 Chloride 105 mmol/L 95-114 CO2 26 mEq/L 22-33 Creat 1.33 mg/dL 0.50-1.50 eGFR 54 mL/min/1.73m2 >59 Globulin 3.4 g/dL 2.3-3.5 Glucose 94 mg/dL 70-110 Osmo 293 280-295 Potassium 3.9 mmol/L 3.5-5.3 Sodium 141 mmol/L 134-148 TBil 0.5 mg/dL 0.2-1.2 TP 7.9 g/dL 6.0-8.3 Urinalysis - 07/05/18 22:14 Icotest N/A Negative Urine Crystals Calcium oxalate crystal: few/HPF Urine Volume Urine Volume Sufficient (10mL) Urine-Appearance Clear Clear Urine-Bacteria Rare Urine-Bilirubin Negative Negative Urine-Blood 1+ Negative Urine-Color Yellow Colorless-Lt. Yellow Urine-Epithelial Cells 0-5/HPF Urine-Glucose Negative Negative Urine-Ketones Negative Negative Urine-Leukocytes Negative Negative Urine-Nitrite Negative Negative Urine-Other Urine Saved if Culture Needed (48hrs from time of collection) Urine-pH 5.5 5-8.5 Urine-Protein Negative Negative Urine-RBC 0-3/HPF Urine-Specific [place] >=1.030 1.000-1.030 Urine-WBC 2-5/HPF Urobilinogen 0.2 0.2-1.0 Encounters ACCT No. Visit Date/Time Discharge Status Pt. Type Provider Facility Loc./Unit Complaint [id number] 2014 10:29:00 2014 23:59:59 [facility] Outpatient RUPERT MARIE DO [id number] 05/22/2014 15:34:00 05/22/2014 23:59:59 [facility] Outpatient ANGEL LUIS OVALLE APRN [id number] 12/28/2013 13:18:00 12/28/2013 23:59:59 [facility] Outpatient MARTA MARTINEZ APRN [id number] 12/15/2013 11:19:00 12/15/2013 23:59:59 [facility] Outpatient ANGEL LUIS OVALLE APRN [id number] 12/13/2013 11:19:00 12/13/2013 23:59:59 [facility] Outpatient ANGEL LUIS OVALLE APRN [id number] 12/06/2013 14:53:00 12/06/2013 23:59:59 [facility] Outpatient RUPERT MARIE DO [id number] 12/06/2013 14:53:00 12/06/2013 23:59:59 [facility] Outpatient ANGEL LUIS OVALLE APRN [id number] 10/13/2013 09:30:00 10/13/2013 23:59:59 [facility] Outpatient RUPERT MARIE DO [id number] 07/13/2013 10:36:00 07/13/2013 23:59:59 CLS Outpatient GIORGI SO MD [id number] 06/16/2013 13:49:00 06/16/2013 23:59:59 [facility] Outpatient SUZIE PAVON MD [id number] 09/02/2012 09:47:00 09/02/2012 23:59:59 [facility] Outpatient [id number] 08/19/2012 08:12:00 08/19/2012 23:59:59 [facility] Outpatient [id number] 08/02/2012 11:14:00 08/02/2012 23:59:59 CLS Outpatient GIORGI SO MD [id number] 04/21/2012 16:12:00 04/21/2012 23:59:59 CLS Outpatient [id number] 01/18/2013 14:50:00 Document Registration [id number] 11/01/2012 09:32:00 Document Registration [id number] 11/01/2012 09:32:00 Document Registration [id number] 08/14/2017 10:00:00 08/14/2017 23:59:59 [facility] Out[facility] [id number] 05/12/2017 08:00:00 Document Registration [id number] 05/13/2017 08:40:00 Document Registration [id number] 04/21/2018 08:00:00 04/21/2018 23:59:59 CLS Outpatient RICH ADAMS APRN [facility] PULM COPD,SOB DYSPNEA [id number] 03/28/2018 07:38:00 04/17/2018 00:01:00 DIS Outpatient RICH ADAMS AUTOMOTIVE SERVICE WRITER [facility] PULM COPD,SOB DYSPNEA [id number] 03/16/2018 13:23:00 03/16/2018 23:59:59 CLS Preadmit RICH ADAMS APRN [facility] RAD J44.9 COPD [id number] 09/22/2017 06:06:00 09/23/2017 17:20:00 DIS Outpatient DARLEEN MELO MD Via [facility] BPH, RETENTION [id number] 09/21/2017 11:31:00 09/21/2017 12:00:00 DIS Outpatient DARLEEN MELO MD [facility] PREOP BPH, RETENTION [id number] 08/17/2017 04:50:00 08/17/2017 08:40:00 DIS Outpatient MATHIEU YARITZA YATES [facility] 4THo CONSTIPATION,RECTAL IMPACTION [id number] 08/17/2017 03:23:00 08/17/2017 05:02:00 DIS Emergency MATHIEU DO YARITZA K [facility] ER ABD PAIN [id number] 08/15/2017 11:38:00 08/15/2017 12:56:00 DIS Emergency MILY MAHAN [facility] ER CATHETER FELL OUT [id number] 08/14/2017 15:36:00 08/14/2017 17:56:00 DIS Emergency ARMIN EASON AUTOMOTIVE SERVICE WRITER [facility] ER STOMACH PAIN/GALLSTONES [id number] 05/21/2017 18:46:00 05/21/2017 21:55:00 DIS Emergency MILY MAHAN [facility] ER PT FELL,RT SIDED RIB PAIN [id number] 04/20/2017 20:24:00 04/21/2017 05:50:00 DIS Outpatient RICH ADAMS APRN [facility] SLEEP G47.33 [id number] 04/14/2017 16:20:00 04/14/2017 23:59:59 CLS Preadmit MADLSCOTTYA L BRICKLAYER TENDER [facility] RAD SMOKING > 40 PACK YEARS [id number] 04/13/2017 08:04:00 04/13/2017 23:59:59 CLS Outpatient MADL, ANGEL LUIS L BRICKLAYER TENDER [facility] RAD F17.210 [id number] 03/30/2017 09:34:00 03/30/2017 23:59:59 CLS Outpatient RICH ADAMS AUTOMOTIVE SERVICE WRITER [facility] RAD COPD [id number] 12/10/2016 09:42:00 12/10/2016 23:59:59 CLS Outpatient SHAWN TORRES MD, FACC, FACP CCDS [facility] CARD R07.89 [id number] 12/01/2016 11:55:00 12/01/2016 23:59:59 CLS Outpatient SHAWN TORRES MD, FACC, FACP CCDS [facility] CARD R07.89 [id number] 10/21/2016 22:50:00 10/22/2016 01:19:00 DIS Emergency YARITZA MURDOCK DO [facility] ER ELEVATED BLOOD PRESSURE [id number] 08/21/2016 09:06:00 08/21/2016 10:35:00 DIS Outpatient KALLIE BERNARD MD [facility] CARD DISC DISORDER [id number] 07/06/2016 15:30:00 07/06/2016 23:59:59 CLS Outpatient MADL, ANGEL LUIS L BRICKLAYER TENDER [facility] RAD ABNORMAL MRI OF HEAD [id number] 01/14/2016 09:19:00 01/14/2016 23:59:59 CLS Outpatient MADL, ANGEL LUIS L BRICKLAYER TENDER [facility] RAD NECK PAIN, VERTIGO, FAM HX OF BRAIN CANCER [id number] 06/11/2015 21:00:00 06/12/2015 05:40:00 DIS Outpatient MADL, ANGEL LUIS L BRICKLAYER TENDER [facility] SLEEP NOCTUNAL HYPOXIA, DIZZINESS [id number] 05/08/2015 20:00:00 05/09/2015 06:20:00 DIS Outpatient MADL, ANGEL LUIS L BRICKLAYER TENDER [facility] SLEEP CHOKING AND GASPING, HYPERSOMINIA [id number] 03/11/2015 13:19:00 03/11/2015 23:59:59 CLS Outpatient MADL, ANGEL LUIS L BRICKLAYER TENDER [facility] RAD VERTIGO [id number] 10/31/2014 11:59:00 10/31/2014 23:59:59 CLS Outpatient ISIDRA WILDE DO [facility] RAD COPD,TOBACCO USE [id number] 06/16/2013 16:00:00 06/18/2013 11:30:00 DIS Inpatient GIORGI SO MD [facility] 4TH COPD [id number] 02/21/2013 11:19:00 02/21/2013 23:59:59 CLS Outpatient [id number] 07/08/2018 10:14:00 ACT Outpatient DARLEEN MELO MD [facility] SDC RIGHT URETERAL STONE [id number] 07/07/2018 12:32:00 ACT Outpatient DARLEEN MELO MD [facility] PREOP RIGHT URETERAL STONE [id number] 03/02/2018 12:47:00 Document Registration [id number] 03/01/2018 08:40:00 Document Registration [id number] 09/07/2012 08:19:00 Document Registration [id number] 10/29/2010 09:31:00 Document Registration [id number] 09/17/2010 09:15:00 Document Registration [id number] 12/18/2009 05:37:00 Document Registration [id number] 12/17/2009 12:53:00 Document Registration [id number] 12/17/2009 07:58:00 Document Registration [id number] 12/12/2009 14:24:00 Document Registration [id number] 12/11/2009 07:27:00 Document Registration [id number] 12/09/2009 09:18:00 Document Registration [id number] 11/07/2009 05:44:00 Document Registration [id number] 11/05/2009 09:12:00 Document Registration [id number] 10/22/2016 11:11:00 Document Registration [id number] 07/05/2018 21:53:00 07/05/2018 23:39:00 DIS Outpatient Mike [facility] ER [id number] 05/17/2018 21:01:00 05/17/2018 22:10:00 DIS Outpatient Tabitha Mckeon [facility] ER [id number] 04/21/2018 10:06:00 04/21/2018 11:35:00 DIS Outpatient Analy [facility] ER [id number] 04/01/2018 14:57:00 04/01/2018 23:59:00 DIS Outpatient Yaritza Benedict [id number] 03/28/2018 10:59:00 03/28/2018 13:13:00 DIS Outpatient Analy [facility] ER [id number] 12/02/2017 09:22:00 12/02/2017 23:59:00 DIS Outpatient Yaritza Benedict [id number] 11/24/2017 09:02:00 11/24/2017 11:05:00 DIS Outpatient NatebrendaBeatriz [facility] ER [id number] 09/12/2017 22:03:00 09/12/2017 23:14:00 DIS Outpatient SARAI [facility] ER [id number] 09/10/2017 11:14:00 09/10/2017 12:17:00 [id number] 09/06/2017 05:13:00 09/06/2017 05:40:00 DIS Outpatient BERT ALANISSHUA [facility] ER [id number] 08/30/2017 18:10:00 09/04/2017 08:10:00 DIS Inpatient Yaritza Benedict [facility] MED-SURG [id number] 08/17/2017 18:16:00 08/17/2017 23:22:00 [place] [facility] [place] [id number] 08/17/2017 20:25:11 Document Registration [id number] 08/17/2017 18:16:00 Document Registration [id number] 08/27/2016 08:41:00 Document Registration [id number] 12/12/2016 13:05:00 Document Registration [id number] 06/16/2016 08:35:00 Document Registration
[2018-07-08] MEDS ORDERED: cefTRIAXone FOR IV USE 1,000 MG in NS (IVPB) 50 ML IV ONE (10:30)
[2018-07-08] MEDS ORDERED: FAMOTIDINE 20MG/2ML IV (PEPCID) ONE (10:58)
--- NOTE | 2018-07-08 11:07 | Diagnostic Imaging Report ---
INDICATION: Hernia. Right ureteral stone. COMPARISON: Radiographs of 07/06/2018. FINDINGS: The bowel gas pattern is unremarkable. A right hemipelvic calcification measuring 3 mm is unchanged. It is unclear if this is ureteral or vascular. No abnormal calcifications along the expected level of the renal shadows. IMPRESSION: Right pelvic calcification, indeterminate ureteral versus vascular, unchanged. No new abnormality. Dictated by: Dictated on workstation # [id number]
[2018-07-08 11:20] VITALS: BP 139/91
[2018-07-08] MEDS ORDERED: ONDANSETRON 4 MG/2 ML (SDV) Z0FRAN ONE (11:22)
[2018-07-08] MEDS ORDERED: LIDOCAINE PF 2% 5 ML (XYLOCAINE) VIAL ONE (11:22)
[2018-07-08] MEDS ORDERED: SEVOFLURANE (ULTANE) 15 ML INHAL SOLN ONE ×3 (11:22→12:55)
[2018-07-08] MEDS ORDERED: proPOfol 200 MG/20 ML (DIPRIVAN) VIAL IV ONE (11:22)
[2018-07-08] MEDS ORDERED: DEXAMETHASONE 10 MG/ML (DECADRON) 1 ML VIAL ONE (11:22)
[2018-07-08] MEDS ORDERED: MIDAZOLAM 2 MG/2 ML (VERSED) VIAL ONE (11:24)
[2018-07-08] MEDS ORDERED: fentaNYL INJECTION 100 MCG/2 ML AMP ONE ×2 (11:24→11:41)
[2018-07-08] MEDS ORDERED: LACTATED RINGERS 1,000 ML IV PRN (11:30)
[2018-07-08] MEDS ORDERED: FAMOTIDINE 20MG/2ML IV (PEPCID) IVP ONE (11:30)
[2018-07-08] MEDS ORDERED: fentaNYL INJECTION 100 MCG/2 ML AMP IV ONE (11:45)
[2018-07-08] MEDS ORDERED: fentaNYL INJECTION 100 MCG/2 ML AMP IVP ONE (11:45)
--- NOTE | 2018-07-08 12:17 | Progress Note-Post Operative ---
Post-Operative Progess Note Surgeon (s)/Advanced Manufacturing Consultant (s) Surgeon DARLEEN MELO MD Advanced Manufacturing Consultant: NONE Pre-Operative Diagnosis RT DISTAL URETERAL STONE Post-Operative Diagnosis SAME Procedure & Operative Findings Date of Procedure 07/08/18 Procedure Performed/Findings CYSTOSCOPY, RT URETEROSCOPY WITH STONE LITHOTRIPSY Anesthesia Type GENERAL Estimated Blood Loss Estimated blood loss (mL): NONE Specimens/Packing Specimens Removed NONE Packing: NONE DARLEEN MELO MD Jul 08, 2018 12:17
--- NOTE | 2018-07-08 12:19 | Discharge Inst-Urology ---
Discharge Inst-Urology Patient Instructions/Follow Up Plan Please make appointment to been seen in office in 4 weeks. Increase oral fluids for 48 hours and then as needed. Diet and Activity as tolerated. If questions or concerns contact your physician Or seek help at emergency department. DARLEEN MELO MD Jul 08, 2018 12:19
[2018-07-08] MEDS ORDERED: ROCURONIUM 10 MG/ML 5 ML SYRINGE IV ONE (12:28)
[2018-07-08] MEDS ORDERED: PHENYLEPHRINE 100 MCG/ML 10 ML (ANESTHESIA) SYR ONE (12:30)
[2018-07-08] MEDS ORDERED: FUROSEMIDE 40 MG/4 ML INJ (LASIX) ONE (12:50)
[2018-07-08] MEDS ORDERED: GLYCOPYRROLATE 0.2 MG/ML (ROBINUL) 2 ML VIAL ONE (12:50)
[2018-07-08] MEDS ORDERED: NEOSTIGMINE 1 MG/ML 5 ML SYRINGE ONE (12:50)
[2018-07-08] MEDS ORDERED: KETOROLAC 30 MG/ML VIAL ONE (12:50)
[2018-07-08] MEDS ORDERED: HYDROmorphone 2 MG/ML VIAL (DILAUDID) ONE (13:09)
[2018-07-08] MEDS ORDERED: HYDROmorphone 2 MG/ML VIAL (DILAUDID) IV ONE (13:15)
[2018-07-08] MEDS ORDERED: ONDANSETRON 4 MG/2 ML (SDV) Z0FRAN IVP PRN (13:15)
[2018-07-08 14:00] VITALS: BP 134/95
[2018-07-08 14:30] VITALS: BP 154/101
[2018-07-08 15:00] VITALS: BP 144/100
[2018-07-08 15:20] VITALS: BP 144/100
--- NOTE | 2018-07-08 23:29 | OPERATIVE REPORT ---
DATE OF SERVICE: 07/08/2018 PREOPERATIVE DIAGNOSIS: Right distal ureteral stone. POSTOPERATIVE DIAGNOSIS: Right distal ureteral stone. OPERATION PERFORMED: Right ureteroscopy with stone lithotripsy. SURGEON: Landen Melo MD ANESTHESIA: General. COMPLICATIONS: None. DESCRIPTION OF PROCEDURE: Under satisfactory general anesthesia, the patient in lithotomy position, genitalia were prepped and draped in usual sterile fashion. Cystoscope was introduced under vision. The anterior urethra was normal. The prostate was nonobstructing. Bladder neck was opened. There was no foreign body, bladder tumor or stone visualized. Ureteric orifices normal with clear efflux and sluggish on the right side. Using the foroblique lens, I dilated the right ureteral orifice intramural portion to accommodate a 6.9-Kazakh semirigid ureteroscope. During this process, I felt that I was disimpacted the stone from the wall of the ureter. I visualized the stone, which was now free and I fragmented it with LithoClast starting at the power of 5 in order not to use the stone proximally and then increasing it to 12 with complete fragmentation of the stone. There were no further fragments proximally or distally. I removed the ureteroscope. There was no need for a stent. I reinserted the cystoscope just to empty the bladder. The patient tolerated the procedure and anesthesia well and was sent to recovery room in stable condition. He received 30 mg of Toradol and 40 mg of Lasix at the end of the procedure. Job ID: [id number] DocumentID: [id number] Dictated Date: 07/08/2018 13:06:31 Install Technician Date: 07/08/2018 23:29:04 Dictated By: LANDEN MELO MD
== END 2018-07-08 15:20 | disposition home or self-care (01) ==
LOC: SDC 10:14
PROVIDERS: ATTEND Urology
DX: N20.1 Calculus of ureter (principal); J44.9 Chronic obstructive pulmonary disease, unspecified; K21.9 Gastro-esophageal reflux disease without esophagitis; Z79.899 Other long term (current) drug therapy; Z87.891 Personal history of nicotine dependence
CPT/HCPCS: 74018; 87081

== ENCOUNTER → 2019-02-01 | Outpatient (CLI) | payer MEDICARE, MEDICAID ==
[~2019-02-01] MED LIST changes: -PENT400T9 PO; +PNT400TCR PO
--- NOTE | 2019-02-01 11:01 | Diagnostic Imaging Report ---
PROCEDURE: US carotid duplex, bilateral. TECHNIQUE: Multiple Real-time grayscale images were obtained over the carotid arteries in various projections bilaterally. Additional spectral analysis and color Doppler duplex images were also obtained. INDICATION: Carotid artery disease. FINDINGS: Mild plaque is identified in both common carotid arteries as well as the bifurcations and proximal internal and external carotid arteries. Velocities are normal bilaterally, however. No velocity elevation is seen. No carotid stenosis is identified. Both vertebral arteries demonstrate antegrade flow. IMPRESSION: Bilateral carotid plaque. There is no evidence of a hemodynamically significant stenosis. Parameters based on the consensus panel Blackmon-Scale and Doppler ultrasound criteria published May 2003, Radiology, Volume 229. DOPPLER (peak systolic velocity M/S Right Left CCA 41.7 49.9 ICA Proximal 45.8 42 ICA Mid 53.3 48.9 ICA Distal 41.7 50.8 RATIO 1.28 1.02 ECA 56.1 50.8 VERT 33.6 43.3 Dictated by: Dictated on workstation # [id number]
== END ==
LOC: CARD 07:38
PROVIDERS: ATTEND Internal Medicine Interventional Cardiology
DX: I65.23 Occlusion and stenosis of bilateral carotid arteries (principal)
CPT/HCPCS: 93306; 93880

== ENCOUNTER → 2019-02-16 | Outpatient (CLI) | payer MEDICARE, MEDICAID ==
[~2019-02-16] VITALS: Ht 177.8 cm; Wt 72.1 kg
[~2019-02-16] MED LIST changes: +CATHETER FLUSH 10 ML SYR IV PRN; +REGADENOSON 0.4 MG/5 ML SYR (LEXISCAN) IV ONE
[2019-02-16 09:15] VITALS: BP 140/90
[2019-02-16 09:20] VITALS: BP 134/71
--- NOTE | 2019-02-17 13:01 | Cardiology Stress Test Report ---
Stress Test Report Type of NM Stress Test: Test Type: LEXISCAN 0.4MG/5ML Date of Procedure/Referring: Date of Procedure: Feb 16, 2019 PCP Chito Andrea MD Admitting Physician Yaritza Benedict MD Indications: Chest pain Baseline Heart Rate: 56 Baseline Blood Pressure: Blood Pressure Systolic: 134 Blood Pressure Diastolic: 71 Baseline EKG: Baseline EKG: sinus rhythm Summary & Conclusion: Summary: The patient was brought to the stress lab after informed consent was taken. Str ess test was performed according to the Lexiscan protocol. 0.4 mg of IV Lexiscan was given. Low-grade exercise was performed. Baseline EKG showed sinus rhythm at 56 BPM. Initial blood pressure was 143/88 mmHg. Maximum heart rate was 78 bpm and blood pressure 134/73 mmHg. Patient did not have any chest pain, arrhythmias or ST segment changes during the stress test. 10.9 to mCi of Myoview were given for rest imaging and 30.7 mCi of Myoview given for stress imaging. Transient ischemic dilatation score 1.07, EF 45 percent. Normal wall motion. Normal myocardial perfusion imaging during rest and stress. Conclusion: Pharmacological stress test was negative for ischemia. Mildly reduce LV function with no wall motion abnormalities. Normal myocardial perfusion imaging during rest and stress. Chito ANDREA MD Feb 17, 2019 13:01
== END ==
LOC: CARD 07:40
PROVIDERS: ATTEND Internal Medicine Interventional Cardiology
DX: J44.9 Chronic obstructive pulmonary disease, unspecified (principal); I65.23 Occlusion and stenosis of bilateral carotid arteries; Z72.0 Tobacco use
CPT/HCPCS: 78452; 93017

== ENCOUNTER → 2020-06-27 | Outpatient (CLI) | payer MEDICARE, MEDICAID ==
[~2020-06-27] MED LIST changes: -CATHETER FLUSH 10 ML SYR IV PRN; -MECL-106 PO; +MECL-149 PO; +OMEP40CA27 PO; -OMEP40CA36 PO; -REGADENOSON 0.4 MG/5 ML SYR (LEXISCAN) IV ONE; -TRAM50TA2 PO; +TRM50T PO
--- NOTE | 2020-06-27 15:44 | Diagnostic Imaging Report ---
CT CHEST SCREENING WO TECHNIQUE: Low-dose unenhanced CT of the chest was performed according to the screening protocol. Coronal MIP and sagittal MPR reformats are created. Automatic exposure controls were utilized to keep dose as low as reasonably achievable. INDICATION: 96-asio-arpc history of smoking. Quit smoking 5 years ago. COMPARISON: Low-dose CT chest of 04/07/2019. FINDINGS: Pulmonary findings: There are some retained secretions in the distal trachea. Severe centrilobular and paraseptal emphysema in the upper lobes. There is associated architectural distortion in the upper lobes due to the emphysema that is unchanged. No pulmonary mass or consolidation has developed. There are a few benign micronodules along the major fissures due to benign intrapulmonary lymph nodes. Extrapulmonary findings: No axillary lymphadenopathy or pleural effusions. No supraclavicular and no intrathoracic lymphadenopathy. Heart is normal in size without pleural effusion. Moderate coronary artery calcifications are unchanged. Limited assessment of the upper abdomen is unremarkable. IMPRESSION: 1. No change to indicate clinically active lung cancer. 2. Severe emphysema. Lung-RADS category: 1 - Negative Recommendations: Continued annual screening with low-dose CT in 12 months. Dictated by: Dictated on workstation # [id number]
== END ==
LOC: RAD 13:45
PROVIDERS: ATTEND Nurse Practitioner Family
DX: J43.9 Emphysema, unspecified (principal); Z87.891 Personal history of nicotine dependence

== ENCOUNTER → 2020-08-16 | Outpatient (CLI) | payer MEDICARE, MEDICAID ==
--- NOTE | 2020-08-16 14:20 | Diagnostic Imaging Report ---
INDICATION: Palpable lump right inguinal canal. Sonographic interrogation of the right inguinal canal was performed. There is an area of heterogeneity measuring 3.1 x 1.5 x 2.6 cm. This does appear to move with Valsalva and may represent herniated fat. No bowel signature is identified. IMPRESSION: Findings most suggestive of a fat-containing right inguinal hernia. Dictated by: Dictated on workstation # [id number]
== END ==
LOC: RAD 13:14
PROVIDERS: ATTEND Surgery
DX: R19.09 Other intra-abdominal and pelvic swelling, mass and lump (principal); R10.30 Lower abdominal pain, unspecified
CPT/HCPCS: 76881

== ENCOUNTER 2021-02-05 03:59 | Emergency (ER) | payer MEDICARE, MEDICAID ==
[~2021-02-05] VITALS: Ht 180 cm; Wt 74.8 kg
[~2021-02-05 03:59] MED LIST changes: +CARB-275 PO; -CARB1TAB6 PO; -OMEP40CA27 PO; +OMEP40CA6 PO
[2021-02-05 05:28] LABS: BILIRUBIN,URINE NEGATIVE (NEGATIVE); CLARITY,URINE SL CLOUDY; COLOR,URINE YELLOW; GLUCOSE, URINE (UA) NEGATIVE (NEGATIVE); KETONES,URINE NEGATIVE (NEGATIVE); LEUKOCYTE ESTERASE ,URINE NEGATIVE (NEGATIVE); NITRITE,URINE NEGATIVE (NEGATIVE); PROTEIN,URINE NEGATIVE (NEGATIVE)
[2021-02-05 05:34] LABS: AMORPHOUS SEDIMENT,UR FEW AMOR URATES /LPF; BACTERIA,URINE TRACE /HPF; SQUAMOUS EPITHELIAL CELL,UR 0-2 /HPF; WBC,URINE 0-2 /HPF
--- NOTE | 2021-02-05 05:44 | ED Fall/Injury ---
General Chief Complaint: Trauma-Non Activation Stated Complaint: FALL Nursing Triage Note: TO ED VIA [facility] TO ROOM 3 FROM [facility] AFTER FALL. PT STATES DID NOT HIT HEAD, NO LOC. C/O RIGHT BUTTOCK PAIN. Source: patient Exam Limitations: no limitations History of Present Illness Date Seen by Provider: Feb 05, 2021 Time Seen by Provider: 04:01 Initial Comments This 70-year-old gentleman presents to the emergency room via EMS from the [facility] where he experienced a fall. Staff was notified by a medical alert call. Patient does not know exactly what caused his fall but he did not have loss of consciousness or any prodrome. He denies injuring his head or neck. He reports occasional falls due to unsteady gait. He has a longstanding leg length discrepancy. He complains of pain in the right buttock region but was ambulatory at the nursing facility. He is alert and oriented. He has history of Parkinson's. Allergies and Home Medications Allergies Coded Allergies: No Known Drug Allergies (Unverified , 11/05/09) Home Medications Albuterol Sulfate 1 Puff Puff, 2 PUFF IH QID PRN for SHORTNESS OF BREATH, (Reported) 1 PUFF = 90 MCG Budesonide/Formoterol Fumarate 10.2 Gm Hfa.aer.ad, 2 PUFF IH BID, (Reported) Carbidopa/Levodopa 1 Each Tablet.er, 1 TAB PO TID, (Reported) LAST FILLED #90 18 Cholecalciferol (Vitamin D3) 5,000 Unit Tablet, 5,000 UNIT PO DAILY, (Reported) Cyclobenzaprine HCl 10 Mg Tablet, 10 MG PO TID PRN for MUSCLE SPASMS, (Reported) [place] 3 Polyunsat Fatty Acids 1,000 Mg Cap, 1,000 MG PO DAILY, (Reported) Omeprazole 40 Mg Capsule.dr, 40 MG PO DAILY, (Reported) LAST FILLED #30 18 Pentoxifylline 400 Mg Tablet.er, 400 MG PO TID, (Reported) Vitamin E Mixed 400 Unit Tablet, 800 UNIT PO DAILY, (Reported) TAKE 2 (400MG) TABS Patient Home Medication List Home Medication List Reviewed: Yes Review of Systems Review of Systems Constitutional: no symptoms reported Eyes: No Symptoms Reported Ears, Nose, Mouth, Throat: no symptoms reported Respiratory: no symptoms reported Cardiovascular: no symptoms reported Gastrointestinal: no symptoms reported Genitourinary: no symptoms reported Musculoskeletal: see HPI Skin: no symptoms reported Psychiatric/Neurological: No Symptoms Reported Past Icsygcy-Jsrpwh-Wbulty Hx Patient Social History Tobacco Use?: No Smoking Status: Former Smoker Substance use?: No Pt feels they are or have been: No Immunizations Up To Date Tetanus Booster (TDap): More than 5yrs First/Initial COVID19 Vaccinat: UNKNOWN Seasonal Allergies Seasonal Allergies: No Past Medical History Surgeries: Yes (LEFT EYE REMOVED, HEMORRHOIDECTOMY, UMB HERNIA) Appendectomy, Eye Surgery, Orthopedic Respiratory: Yes Sleep Apnea, COPD Currently Using CPAP: Yes Cardiac: Yes High Cholesterol Neurological: Yes (HX OF VERTIGO) Parkinson's Disease, Vertigo Reproductive Disorders: No Sexually Transmitted Disease: No Genitourinary: Yes Prostate Problems Gastrointestinal: Yes Gastroesophageal Reflux Musculoskeletal: Yes (CHRONIC NECK PAIN, leg length discrepancy) Arthritis Endocrine: No 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 0.0oz. [id number]; 23.00 BMI Method:Stated General Appearance: WD/WN, no apparent distress HEENT: normal ENT inspection, pharynx normal Neck: non-tender, normal inspection Cardiovascular: regular rate, rhythm, no edema, no murmur Respiratory: lungs clear, normal breath sounds, no respiratory distress Gastrointestinal: non tender, soft Extremities: other (Right leg shorter than left. 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, no motor/sensory deficits, alert, normal mood/affect, oriented x 3 Skin: normal color, warm/dry [place] Coma Score Best Eye Response: (4) Open Spontaneously Best Verbal Response: (5) Oriented Best Motor Response: (6) Obeys Commands [place] Total: 15 Progress/Results/Core Measures Results/Orders Lab Results Laboratory Tests Test 02/05/21 04:50 Range/Units Urine Color YELLOW Urine Clarity SL CLOUDY Urine pH 7.0 5-9 Urine Specific [place] 1.025 H 1.016-1.022 Urine Protein NEGATIVE NEGATIVE Urine Glucose (UA) NEGATIVE NEGATIVE Urine Ketones NEGATIVE NEGATIVE Urine Nitrite NEGATIVE NEGATIVE Urine Bilirubin NEGATIVE NEGATIVE Urine Urobilinogen 0.2 < = 1.0 MG/DL Urine Leukocyte Esterase NEGATIVE NEGATIVE Urine RBC (Auto) NEGATIVE NEGATIVE Urine RBC NONE /HPF Urine WBC 0-2 /HPF Urine Squamous Epithelial Cells 0-2 /HPF Urine Crystals PRESENT H /LPF Urine Amorphous Sediment FEW GHISLAINE URATES H /LPF Urine Bacteria TRACE /HPF Urine Casts NONE /LPF Urine Mucus SMALL H /LPF Urine Culture Indicated NO My Orders Orders - KELLE HENDRIX MD Ua Culture If Indicated (02/05/21 04:08) Pelvis With Right Hip 2-3views (02/05/21 04:08) Vital Signs/I&O 02/05/21 02/05/21 04:00 05:51 Temp 36.9 36.9 Pulse 65 63 Resp 16 16 B/P (MAP) 157/107 (124) 158/95 (124) Pulse Ox 96 O2 Delivery Room Air Room Air Blood Pressure Mean: 124 Progress Progress Note : Progress Note X-ray of the right hip and pelvis unremarkable. UA unremarkable. Patient was discharged into the care of his family. Diagnostic Imaging Diagonstic Imaging: Xray Plain Films/CT/US/NM/MRI: pelvis, hip Comments Right hip and pelvis x-rays viewed by me. Report not yet available. No acute injury identified. Departure Impression Primary Impression: Fall on same level Qualified Codes: W18.30XA - Fall on same level, unspecified, initial encounter Additional Impression: Right hip pain Disposition: 01 HOME, SELF-CARE Condition: Stable Departure-Patient Inst. Decision time for Depature: 05:42 Referrals: TOM KHAN MD (PCP/Family) Primary Care Physician Patient Instructions: Preventing Falls Add. Discharge Instructions: You may take Tylenol for pain or other prescribed medications as previously directed. Call your doctor if you are not recovering as expected from this fall. Call the ER with questions or concerns. Return to care if you have worsening symptoms. All discharge instructions reviewed with patient and/or family. Voiced understanding. KELLE HENDRIX MD Feb 05, 2021 05:43
[2021-02-05 05:51] VITALS: BP 158/95
--- NOTE | 2021-02-05 06:50 | Diagnostic Imaging Report ---
INDICATION: Fall, right hip pain 3 views of the pelvis and right hip shows no fracture, dislocation or other acute abnormality. IMPRESSION: No acute abnormality is seen. Dictated by: Dictated on workstation # [id number]
== END 2021-02-05 06:09 | disposition home or self-care (01) ==
LOC: EDUNIT# 03:59 → ER 04:01
DX: M25.551 Pain in right hip (principal); J44.9 Chronic obstructive pulmonary disease, unspecified; G47.30 Sleep apnea, unspecified; G20 Parkinson's disease; K21.9 Gastro-esophageal reflux disease without esophagitis; Z87.891 Personal history of nicotine dependence; Z79.899 Other long term (current) drug therapy
CPT/HCPCS: 81000

== ENCOUNTER 2021-02-09 18:01 | Emergency (ER) | payer MEDICARE, MEDICAID ==
[~2021-02-09] VITALS: Ht 180 cm; Wt 85.0 kg
[2021-02-09] MEDS ORDERED: fentaNYL INJ 100 MCG/2 ML AMP IVP STA (19:08)
[2021-02-09] MEDS ORDERED: LACTATED RINGERS 1,000 ML IV ONE (19:15)
[2021-02-09 19:21] LABS: BILIRUBIN,URINE NEGATIVE (NEGATIVE); CLARITY,URINE CLEAR; COLOR,URINE YELLOW; GLUCOSE, URINE (UA) NEGATIVE (NEGATIVE); KETONES,URINE NEGATIVE (NEGATIVE); LEUKOCYTE ESTERASE ,URINE TRACE (NEGATIVE); NITRITE,URINE NEGATIVE (NEGATIVE); PROTEIN,URINE NEGATIVE (NEGATIVE)
[2021-02-09 19:32] LABS: BACTERIA,URINE NEGATIVE /HPF; RBC,URINE 0-2 /HPF; SQUAMOUS EPITHELIAL CELL,UR 0-2 /HPF
[2021-02-09 19:38] LABS: BASOPHILS % (AUTO) 1 % (0-10); EOSINOPHILS # (AUTO) 0.1 10^3/uL (0.0-0.3); EOSINOPHILS % (AUTO) 2 % (0-10); HEMATOCRIT 44 % (40-54); HEMOGLOBIN 14.6 g/dL (13.3-17.7); LYMPHOCYTES # (AUTO) 1.5 10^3/uL (1.0-4.0); LYMPHOCYTES % (AUTO) 23 % (12-44); MEAN CORPUSCULAR HEMOGLOBIN 32 pg (25-34); MEAN CORPUSCULAR HGB CONC 33 g/dL (32-36); MEAN CORPUSCULAR VOLUME 95 fL (80-99); MEAN PLATELET VOLUME 9.8 fL (9.0-12.2); MONOCYTES # (AUTO) 0.7 10^3/uL (0.0-1.0); MONOCYTES % (AUTO) 11 % (0-12); NEUTROPHILS # (AUTO) 4.2 10^3/uL (1.8-7.8); NEUTROPHILS % (AUTO) 64 % (42-75); PLATELET COUNT 206 10^3/uL (130-400); WHITE BLOOD COUNT 6.6 10^3/uL (4.3-11.0)
--- NOTE | 2021-02-09 19:47 | ED Abdominal Pain ---
General Chief Complaint: Abdominal/GI Problems Stated Complaint: HERNIA PAIN Nursing Triage Note: Pt here with a known abdominal hernia with a scheduled surgery on the with Gabriel; pt had onset of worsening pain this morning; denies n/v/d. Source of Information: Patient History of Present Illness Date Seen by Provider: Feb 09, 2021 Time Seen by Provider: 19:05 Initial Comments PT ARRIVES VIA POV FROM HOME/ ASSISTED LIVING AT [facility] C/O SEVERE MID ABDOMINAL / PERIUMBILICAL PAIN SINCE THIS MORNING PT HAS KNOWN RIGHT INGUINAL HERNIA, AND IS SCHEDULED TO HAVE THAT REPAIRED 02/16 03/[address] GIBSON DOES HAVE A LITTLE BIT OF PAIN IN RIGHT INGUINAL AREA, BUT SEVERE PAIN TODAY IS PERIUMBILICAL/MID ABDOMEN PT HAS HAD 3 PRIOR VENTRAL/PERIUMBILICAL HERNIA REPAIRS IN THE PAST WITH MESH NO NAUSEA/VOMITING/DIARRHEA. HAD NORMAL BM THIS AM NO FEVER/SWEATS/CHILLS NO PROBLEMS URINATING PT HAS NOT TAKEN ANYTHING FOR PAIN PT WAS SEEN HERE 02/05/21 FOR A FALL--FELL ON BUTTOCKS AND RIGHT HIP--DID NOT HIT ABDOMEN XRAYS WERE NORMAL AND PT IS NOT COMPLAINING OF PAIN TO THOSE AREAS TODAY PT WITH PARKINSON'S, LEG LENGTH DISCREPANCY, WITH GAIT DISTURBANCE AND OCCASIONAL FALLS PT HAS HAD 1 COVID VACCINE, BUT NOT HAD SECOND ONE YET PT DENIES ANY SICK CONTACTS PCP: DR. KHAN SURGEON: DR. GIBSON Allergies and Home Medications Allergies Coded Allergies: No Known Drug Allergies (Unverified , 11/05/09) Home Medications Albuterol Sulfate 1 Puff Puff, 2 PUFF IH QID PRN for SHORTNESS OF BREATH, (Reported) 1 PUFF = 90 MCG Budesonide/Formoterol Fumarate 10.2 Gm Hfa.aer.ad, 2 PUFF IH BID, (Reported) Carbidopa/Levodopa 1 Each Tablet.er, 1 TAB PO TID, (Reported) LAST FILLED #90 18 Cholecalciferol (Vitamin D3) 5,000 Unit Tablet, 5,000 UNIT PO DAILY, (Reported) Cyclobenzaprine HCl 10 Mg Tablet, 10 MG PO TID PRN for MUSCLE SPASMS, (Reported) Hyoscyamine Sulfate 0.125 Mg Tab.subl, 0.25 MG SL Q4H Prescribed by: TOM MURDOCK on 02/09/212108 [place] 3 Polyunsat Fatty Acids 1,000 Mg Cap, 1,000 MG PO DAILY, (Reported) Omeprazole 40 Mg Capsule.dr, 40 MG PO DAILY, (Reported) LAST FILLED #30 08-02-17 Pentoxifylline 400 Mg Tablet.er, 400 MG PO TID, (Reported) Vitamin E Mixed 400 Unit Tablet, 800 UNIT PO DAILY, (Reported) TAKE 2 (400MG) TABS Review of Systems Review of Systems Constitutional: no symptoms reported Respiratory: No Symptoms Reported Cardiovascular: No Symptoms Reported Gastrointestinal: See HPI, Abdominal Pain Genitourinary: No Symptoms Reported Musculoskeletal: no symptoms reported Skin: no symptoms reported Psychiatric/Neurological: No Symptoms Reported Endocrine: No Symptoms Reported Hematologic/Lymphatic: No Symptoms Reported Past Fltcxch-Pddmkd-Cyluac Hx Immunizations Up To Date Tetanus Booster (TDap): More than 5yrs Seasonal Allergies Seasonal Allergies: No Past Medical History Surgery/Hospitalization HX: VENTRAL/UMBILICAL HERNIA REPAIR X 3 WITH MESH Surgeries: Yes (LEFT EYE REMOVED, HEMORRHOIDECTOMY, UMB HERNIA) Appendectomy, Eye Surgery, Orthopedic Respiratory: Yes Sleep Apnea, COPD Currently Using CPAP: Yes Cardiac: Yes High Cholesterol Neurological: Yes (HX OF VERTIGO;) Parkinson's Disease, Vertigo Reproductive Disorders: No Sexually Transmitted Disease: No Genitourinary: Yes Prostate Problems Gastrointestinal: Yes (VENTRAL/PERIUMBILICAL HERNIA REPAIR X3; KNOWN RIGHT INGUINAL HERNIA-NO SURG) Abdominal Hernia, Gastroesophageal Reflux Musculoskeletal: Yes (CHRONIC NECK PAIN, leg length discrepancy;FALLS/GAIT DISTURBANCE) Arthritis Endocrine: No HEENT: Yes (LEFT EYE REMOVED/FALSE LEFT EYE) Loss of Vision: Left Cancer: No Psychosocial: No Integumentary: Yes Psoriasis Blood Disorders: No Adverse Reaction/Blood Tranf: No Family Medical History Abdominal aortic aneurysm 03 FATHER, Onset:60 years & older Cancer 03 FATHER (NECK) 03 MOTHER (LUNGS) History of drug abuse DAUGHTERS (DAUGHTER) No Pertinent Family Hx Physical Exam Vital Signs Vital Signs - First Documented 02/09/21 19:20 Temp 37.2 Pulse 74 Resp 18 B/P (MAP) 145/100 (115) Pulse Ox 97 O2 Delivery Room Air Capillary Refill : Less Than 3 Seconds Height/Weight/BMI Height: 5'10.00" Weight: 159lbs. 0.0oz. 72.947968cj; 26.00 BMI Method:Stated General Appearance: WD/WN, no apparent distress, thin, other (SLOW SHUFFLING GAIT) Neck: normal inspection Respiratory: normal breath sounds, no respiratory distress, no accessory muscle use Cardiovascular: regular rate, rhythm, no murmur Gastrointestinal: abnormal bowel sounds, other (RIGHT INGUINAL HERNIA, SOFT, VERY MILDLY TENDER, NON-REDUCIBLE; FIRM/DISTENDED MID ABDOMEN/PERIUMBILICAL AREA AND VERY TENDER. 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, no motor/sensory deficits, alert, normal mood/affect, oriented x 3 Skin: normal color, warm/dry Progress/Results/Core Measures Results/Orders Lab Results Laboratory Tests Test 02/09/21 19:16 02/09/21 19:31 Range/Units Urine Color YELLOW Urine Clarity CLEAR Urine pH 6.0 5-9 Urine Specific [place] 1.020 1.016-1.022 Urine Protein NEGATIVE NEGATIVE Urine Glucose (UA) NEGATIVE NEGATIVE Urine Ketones NEGATIVE NEGATIVE Urine Nitrite NEGATIVE NEGATIVE Urine Bilirubin NEGATIVE NEGATIVE Urine Urobilinogen 2.0 < = 1.0 MG/DL Urine Leukocyte Esterase TRACE H NEGATIVE Urine RBC (Auto) NEGATIVE NEGATIVE Urine RBC 0-2 /HPF Urine WBC 2-5 /HPF Urine Squamous Epithelial Cells 0-2 /HPF Urine Renal Epithelial Cells NONE /HPF Urine Crystals NONE /LPF Urine Bacteria NEGATIVE /HPF Urine Casts NONE /LPF Urine Mucus NEGATIVE /LPF Urine Culture Indicated NO White Blood Count 6.6 4.3-11.0 10^3/uL Red Blood Count 4.64 4.30-5.52 10^6/uL Hemoglobin 14.6 13.3-17.7 g/dL Hematocrit 44 40-54 % Mean Corpuscular Volume 95 80-99 fL Mean Corpuscular Hemoglobin 32 25-34 pg Mean Corpuscular Hemoglobin Concent 33 32-36 g/dL Red Cell Distribution Width 12.8 10.0-14.5 % Platelet Count 206 130-400 10^3/uL Mean Platelet Volume 9.8 9.0-12.2 fL Immature Granulocyte % (Auto) 0 % Neutrophils (%) (Auto) 64 42-75 % Lymphocytes (%) (Auto) 23 12-44 % Monocytes (%) (Auto) 11 0-12 % Eosinophils (%) (Auto) 2 0-10 % Basophils (%) (Auto) 1 0-10 % Neutrophils # (Auto) 4.2 1.8-7.8 10^3/uL Lymphocytes # (Auto) 1.5 1.0-4.0 10^3/uL Monocytes # (Auto) 0.7 0.0-1.0 10^3/uL Eosinophils # (Auto) 0.1 0.0-0.3 10^3/uL Basophils # (Auto) 0.0 0.0-0.1 10^3/uL Immature Granulocyte # (Auto) 0.0 0.0-0.1 10^3/uL Sodium Level 139 135-145 MMOL/L Potassium Level 3.7 3.6-5.0 MMOL/L Chloride Level 106 98-107 MMOL/L Carbon Dioxide Level 25 21-32 MMOL/L Anion Gap 8 5-14 MMOL/L Blood Urea Nitrogen 12 7-18 MG/DL Creatinine 0.91 0.60-1.30 MG/DL Estimat Glomerular Filtration Rate 82 BUN/Creatinine Ratio 13 Glucose Level 116 H 70-105 MG/DL Calcium Level 8.4 L 8.5-10.1 MG/DL Corrected Calcium 8.7 8.5-10.1 MG/DL Total Bilirubin 0.5 0.1-1.0 MG/DL Aspartate Amino Transf (AST/SGOT) 18 5-34 U/L Alanine Aminotransferase (ALT/SGPT) 22 0-55 U/L Alkaline Phosphatase 68 40-136 U/L Total Protein 6.4 6.4-8.2 GM/DL Albumin 3.6 3.2-4.5 GM/DL Amylase Level 36 25-125 U/L Lipase 20 8-78 U/L My Orders Orders - TOM MURDOCK DO Ed Iv/Invasive Line Start (02/09/21 19:08) Amylase (02/09/21 19:08) Cbc With Automated Diff (02/09/21 19:08) Comprehensive Metabolic Panel (02/09/21 19:08) Lipase (02/09/21 19:08) Ua Culture If Indicated (02/09/21 19:08) Ed Iv/Invasive Line Start (02/09/21 19:08) Lactated Ringers (Lr 1000 Ml Iv Solution (02/09/21 19:15) Fentanyl Inj (Sublimaze Injection) (02/09/21 19:08) Ct Abdomen/Pelvis W (02/09/21 20:00) Acute Abd Series (02/09/21 20:00) Iohexol Injection (Omnipaque 350 Mg/Ml 1 (02/09/21 20:15) Received Contrast (Hold Metformin- Contr (02/09/21 20:15) Ns (Ivpb) (Sodium Chloride 0.9% Ivpb Bag (02/09/21 20:15) Hyoscyamine Sl Tablet (Levsin Sl Tablet) (02/09/21 21:15) Medications Given in ED Current Medications Medications Dose Ordered Sig/Irma Route Start Time Stop Time Status Last Admin Dose Admin Iohexol 100 ml ONCE ONCE IV 02/09/21 20:15 02/09/21 20:16 DC 02/09/21 20:36 100 ML Lactated Ringer's 1,000 ml @ 0 mls/hr Q0M ONCE IV 02/09/21 19:15 02/09/21 19:16 DC 02/09/21 19:26 1,000 MLS/HR Sodium Chloride 100 ml ONCE ONCE IV 02/09/21 20:15 02/09/21 20:16 DC 02/09/21 20:36 80 ML Vital Signs/I&O 02/09/21 19:20 Temp 37.2 Pulse 74 Resp 18 B/P (MAP) 145/100 (115) Pulse Ox 97 O2 Delivery Room Air Blood Pressure Mean: 115 Departure Impression Primary Impression: Abdominal pain Additional Impression: Right inguinal hernia Disposition: HOME, SELF-CARE Condition: Stable Departure-Patient Inst. Decision time for Depature: 21:05 Referrals: MERLY GIBSON MD, LISA A MD (PCP/Family) Primary Care Physician Patient Instructions: Severe Abdominal Pain, Adult (DC), Inguinal and Femoral (Groin) Hernias Add. Discharge Instructions: INCREASE YOUR FLUID INTAKE TAKE MIRALAX DAILY TYLENOL NEEDED FOR PAIN TAKE YOUR MEDICATIONS PRESCRIBED FOLLOW UP WITH DR. GIBSON FOR FURTHER CARE All discharge instructions reviewed with patient and/or family. Voiced understanding. Scripts Hyoscyamine Sulfate (Levsin-Sl) 0.125 Mg Tab.subl 0.25 MG SL Q4H, #10 TAB Prov: TOM MURDOCK DO 02/09/21 TOM MURDOCK DO Feb 09, 2021 19:47
[2021-02-09 19:58] LABS: ALBUMIN 3.6 GM/DL (3.2-4.5); BILIRUBIN,TOTAL 0.5 MG/DL (0.1-1.0); CALCIUM 8.4 MG/DL (8.5-10.1); CREATININE SERUM 0.91 MG/DL (0.60-1.30); POTASSIUM 3.7 MMOL/L (3.6-5.0); TOTAL PROTEIN 6.4 GM/DL (6.4-8.2)
[2021-02-09] MEDS ORDERED: HOLD METFORMIN - RECEIVED CONTRAST 20 ML VIAL IV SCH (20:15)
[2021-02-09] MEDS ORDERED: NS 100 ML (IVPB) BAG IV ONE (20:15)
[2021-02-09] MEDS ORDERED: IOHEXOL 350 MG/ML 100 ML (OMNIPAQUE 350) VIAL IV ONE (20:15)
--- NOTE | 2021-02-09 20:59 | Diagnostic Imaging Report ---
PROCEDURE: CT abdomen and pelvis with contrast. TECHNIQUE: Multiple contiguous axial images were obtained through the abdomen and pelvis after administration of intravenous contrast. Auto Exposure Controls were utilized during the CT exam to meet ALARA standards for radiation dose reduction. All CT scans use one or more of the following dose optimizing techniques: automated exposure control, MA and/or KvP adjustment based on patient size and exam type or iterative reconstruction. DATE: February 09, 2021. COMPARISON: Abdominal radiographs February 09, 2021. CT abdomen and pelvis August 14, 2017. INDICATION: 70-year-old male, umbilical pain. FINDINGS: There are mild linear opacities in the right and left lower lobes likely reflecting scarring and/or atelectasis. The heart is not enlarged. There is no pericardial effusion. The liver is unremarkable in size and contour. There is no identified focal liver lesion. The main, right, and left portal veins are patent. The gallbladder is unremarkable. There is no biliary ductal dilation. The main pancreatic duct is not abnormally dilated. Unremarkable appearance of the pancreatic parenchyma. The spleen is normal in size. The adrenal glands are unremarkable. There is a low-attenuation left renal lesion on axial image 32 which measures 2.0 cm in size with internal attenuation diagnostic for benign cyst. There is no identified renal or ureteral stone. The urinary bladder is unremarkable in appearance. There is a right inguinal hernia which does contain a segment of small bowel without associated obstruction or other complication. The intestinal tract is not distended. There is no free intraperitoneal air. There is no drainable fluid collection. There is no free pelvic fluid. There are atherosclerotic calcifications. There is no identified acute bony abnormality. There are degenerative changes of the spine. IMPRESSION: CT ABDOMEN AND PELVIS. 1. Right inguinal hernia containing a segment of small bowel without associated obstruction or other complication. 2. No identified acute abnormality in the abdomen or pelvis. Dictated by: Dictated on workstation # [id number]
--- NOTE | 2021-02-09 21:00 | Diagnostic Imaging Report ---
EXAMINATION: Abdominal radiographs, acute series. DATE: February 09, 2021. CLINICAL INDICATION: 70-year-old male, abdominal pain. COMPARISON: July 08, 2018. COMMENTS: Heart size and mediastinal contours are unremarkable. There is no identified pneumothorax. There is no large pleural effusion. There is no identified focal airspace consolidation. There is no identified free intraperitoneal air. Gas-filled segments of bowel which are not grossly distended. There is no identified pneumatosis or portal venous gas. IMPRESSION: 1. No identified acute abdominal radiographic abnormality. Dictated by: Dictated on workstation # [id number]
[2021-02-09] MEDS ORDERED: HYOS0.1283 SL (21:09)
[2021-02-09] MEDS ORDERED: HYOSCYAMINE 0.125 MG (LEVSIN) TAB PO ONE (21:15)
[2021-02-09 21:22] VITALS: BP 138/98
== END 2021-02-09 21:22 | disposition home or self-care (01) ==
LOC: EDUNIT# 18:01 → ER 18:03
DX: K40.90 Unilateral inguinal hernia, without obstruction or gangrene, not specified as recurrent (principal); J44.9 Chronic obstructive pulmonary disease, unspecified; G47.30 Sleep apnea, unspecified; G20 Parkinson's disease; K21.9 Gastro-esophageal reflux disease without esophagitis; Z79.899 Other long term (current) drug therapy
CPT/HCPCS: 36415; 74022; 74177; 80053; 81000; 82150; 83690; 85025

== ENCOUNTER 2022-01-31 20:14 | Emergency (ER) | payer MEDICARE, MEDICAID ==
[~2022-01-31] VITALS: Ht 180.3 cm; Wt 78.1 kg
[~2022-01-31 20:14] MED LIST changes: +CYCL10TA25 PO; -CYCL10TA9 PO; +HYOS0.1283 SL; +SCOP1PAT10 TD; -SCOP1PAT11 TD
--- NOTE | 2022-01-31 20:38 | ED Fall/Injury ---
General Chief Complaint: Trauma-Non Activation Stated Complaint: FALL Source: patient (TALKS IN WHISPER--DIFFICULT TO HEAR PT. ), EMS History of Present Illness Date Seen by Provider: Jan 31, 2022 Time Seen by Provider: 20:17 Initial Comments PT ARRIVES VIA EMS FROM [facility], WITH C-COLLAR IN PLACE PT HAD A WITNESSED FALL AT THE FACILITY, JUST PRIOR TO ARRIVAL PT WAS WALKING AND HE WAS WEARING LOOSE SLIPPERS AND LOST HIS BALANCE AND FELL--PT STATES HE HIT HIS HEAD ON THE DOOR FRAME--RIGHT SIDE OF HEAD NO LOSS OF CONSCIOUSNESS DENIES NECK OR BACK PAIN DENIES ANY EXTREMITY PAIN NO DIZZINESS NO NAUSEA/VOMITING NO NUMBNESS/ TINGLING ANYWHERE PT IS ON 81 MG ASPIRIN, NO OTHER BLOOD THINNERS PT WITH HISTORY OF PARKINSON'S AND DEMENTIA PT IS ORIENTED TO PERSON, PLACE, SITUATION--ABLE TO RECALL EVENTS. PT IS NOT CONFUSED AT THIS TIME. PT IS ABLE TO GIVE BASIC INFORMATION, KNOWS HIS HEIGHT/WEIGHT ABLE TO STATE THAT HE HAS HAD 4 COVID VACCINES, AND BELIEVES THEY WERE ALL PFIZER, AND WAS ABLE TO STATE THAT HE GOT THEM IN [place]. PT WAS RECENTLY ADMITTED TO [facility] ON 01/07/22--NEW RESIDENT THERE PCP: DR. KHAN Allergies and Home Medications Allergies Coded Allergies: No Known Drug Allergies (Unverified , 11/05/09) Patient Home Medication List Home Medication List Reviewed: Yes Albuterol Sulfate (Ventolin Hfa) 1 Puff Puff, 2 PUFF IH QID PRN for SHORTNESS OF BREATH, (Reported) Entered as Reported by: MELLISA JAMISON on 09/21/17 1307 Budesonide/Formoterol Fumarate (Symbicort 160-4.5 Mcg Inhaler) 10.2 Gm Hfa.aer.ad, 2 PUFF IH BID, (Reported) Entered as Reported by: MELLISA JAMISON on 09/21/17 1307 Carbidopa/Levodopa (Carbidopa-Levo ER 25-100 Tab) 1 Each Tablet.er, 1 TAB PO T ID, (Reported) Entered as Reported by: CAROL RO on 09/22/17 1351 Cefuroxime Axetil (Cefuroxime) 500 Mg Tablet, 500 MG PO BID Prescribed by: TOM MURDOCK on 01/31/222102 Cholecalciferol (Vitamin D3) (Vitamin D3) 5,000 Unit Tablet, 5,000 UNIT PO DAILY, (Reported) Entered as Reported by: MELLISA JAMISON on 09/21/17 130 Cyclobenzaprine HCl (Cyclobenzaprine HCl) 10 Mg Tablet, 10 MG PO TID PRN for MUSCLE SPASMS, (Reported) Entered as Reported by: ELIS MURPHY on 05/21/171905 Fluticasone Propionate (Flonase Allergy Relief) 50 Mcg/Actuation [place].susp, 2 SPRAY NS DAILY Prescribed by: TOM MURDOCK on 01/31/222102 Hyoscyamine Sulfate (Levsin-Sl) 0.125 Mg Tab.subl, 0.25 MG SL Q4H Prescribed by: TOM MURDOCK on 02/09/212108 Meloxicam (Meloxicam) 7.5 Mg Tablet, 7.5 MG PO, (Reported) Entered as Reported by: ELIS MURPHY on 05/21/171905 [place] 3 Polyunsat Fatty Acids (Fish Oil 1,000 mg Capsule) 1,000 Mg Cap, 1,000 MG PO DAILY, (Reported) Entered as Reported by: MELLISA JAMISON on 09/21/171306 Omeprazole (Omeprazole) 40 Mg Capsule.dr, 40 MG PO DAILY, (Reported) Entered as Reported by: ELIS MURPHY on 05/21/171905 Pentoxifylline (Pentoxifylline) 400 Mg Tablet.er, 400 MG PO TID, (Reported) Entered as Reported by: ELIS MURPHY on 05/21/171905 Vitamin E Mixed (Vitamin E) 400 Unit Tablet, 800 UNIT PO DAILY, (Reported) Entered as Reported by: MELLISA JAMISON on 09/21/17 130 Review of Systems Review of Systems Constitutional: no symptoms reported Eyes: No Symptoms Reported (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) Ears, Nose, Mouth, Throat: no symptoms reported Respiratory: no symptoms reported Cardiovascular: no symptoms reported Gastrointestinal: no symptoms reported Genitourinary: no symptoms reported Musculoskeletal: no symptoms reported Skin: other (ABRASION TO LEFT ELBOW) Psychiatric/Neurological: See HPI; Denies Numbness, Denies Paresthesia, Denies Seizure, Denies Tingling; Tremors (PT WITH PARKINSON'S); Denies Weakness Past Hudmdiv-Cyuatt-Wnltzv Hx Patient Social History Tobacco Use?: Yes Tobacco type used: Cigarettes Smoking Status: Former Smoker Substance use?: No Alcohol Use?: No Immunizations Up To Date Tetanus Booster (TDap): More than 5yrs Seasonal Allergies Seasonal Allergies: No Past Medical History Surgery/Hospitalization HX: LEFT EYE REMOVED HEMORRHOIDECTOMY VENTRAL/UMBILICAL HERNIA REPAIR X 3 WITH MESH TURP 09/2017 ESWL 06/2018 CARDIAC CATH 12/[address] [id number] DISEASE; EF 35%, NON-ISCHEMIC CARDIOMYOPATHY. NO INTERVENTION STRESS TEST 02/[address] BARRY: EF 45 percent. Normal wall motion. Normal myocardial perfusion imaging during rest and stress. Conclusion: Pharmacological stress test was negative for ischemia. Mildly reduce LV function with no wall motion abnormalities. Normal myocardial perfusion imaging during rest and stress. Surgeries: Yes (LEFT EYE REMOVED, HEMORRHOIDECTOMY, UMB HERNIA) Abdominal, Appendectomy, Cardiac, Eye Surgery, Orthopedic, Rectal, Renal Respiratory: Yes Sleep Apnea, COPD Currently Using CPAP: Yes Cardiac: Yes Cardiomyopathy, High Cholesterol, Hypertension Neurological: Yes (HX OF VERTIGO; ) Parkinson's Disease, Vertigo Reproductive Disorders: No Sexually Transmitted Disease: No Genitourinary: Yes Prostate Problems, Kidney Stones Gastrointestinal: Yes (VENTRAL/PERIUMBILICAL HERNIA REPAIR X3; KNOWN RIGHT INGUINAL HERNIA-NO SURG) Abdominal Hernia, Gastroesophageal Reflux, Hemorrhoids Musculoskeletal: Yes (CHRONIC NECK PAIN, leg length discrepancy;FALLS/GAIT DISTURBANCE) Arthritis Endocrine: No HEENT: Yes (LEFT EYE REMOVED/FALSE LEFT EYE) Loss of Vision: Left Cancer: No Psychosocial: No Integumentary: Yes Psoriasis Blood Disorders: No Adverse Reaction/Blood Tranf: No Family Medical History Abdominal aortic aneurysm 03 FATHER, Onset:60 years & older Cancer 03 FATHER (NECK) 03 MOTHER (LUNGS) History of drug abuse DAUGHTERS (DAUGHTER) No Pertinent Family Hx SMOKED 2 PPD, QUIT 2014 DENIES ALCOHOL OR DRUG USE Physical Exam Vital Signs Vital Signs - First Documented Capillary Refill : Height, Weight, BMI Height: 5'10.00" Weight: 159lbs. 0.0oz. 72.060591ui; 26.00 BMI Method:Stated General Appearance: WD/WN, no apparent distress, thin, other (VOICE IS A WHISPER--DIFFICULT TO HEAR PT AT TIMES) HEENT: normal ENT inspection, TMs normal, pharynx normal, other (RIGHT EYE IS SLIGLTY BLOODSHOT, BUT OTHERWISE NORMAL; LEFT EYE IS FALSE; TENERNESS TO RIGHT PARIETAL AREA, BUT NO EXTERNAL EVIDENCE OF TRAUMA) Neck: non-tender, other (IN CERVICAL COLLAR) Cardiovascular: regular rate, rhythm, no murmur Respiratory: chest non-tender, normal breath sounds, no respiratory distress, no accessory muscle use Peripheral Pulses: 2+ Dorsalis Pedis (R), 2+ Left Dors-Pedis (L), 2+ Radial Pulses (R), 2+ Radial Pulses (L) Gastrointestinal: non tender, soft Back: normal inspection, no CVA tenderness Extremities: normal range of motion, non-tender, no pedal edema, no calf tenderness, normal capillary refill, other (ABRASION TO LEFT ELBOW . NO BLEEDING. DRESSING IN PLACE) Neurologic/Psychiatric: no motor/sensory deficits, alert, other (DOES APPEAR TO HAVE SOME LONG AND SHORT TERM MEMORY IMPAIRMENT AT TIMES DURING CONVERSATIONS, BUT IS ORIENTED NOTED ABOVE. FLAT AFFECT. ) Skin: normal color, warm/dry; No ecchymosis [place] Coma Score Best Eye Response: (4) Open Spontaneously Best Verbal Response: (5) Oriented Best Motor Response: (6) Obeys Commands [place] Total: 15 Progress/Results/Core Measures Results/Orders My Orders Orders - TOM MURDOCK DO Ct Head/Cervical Spine Wo (01/31/22 20:15) Pelvis (01/31/22 20:24) Dipht,Pertuss(Acell),Tet Adult (Boostrix (01/31/22 21:15) Dipht,Pertuss(Acell),Tet Adult (Boostrix (01/31/22 21:13) Medications Given in ED Current Medications Medications Dose Ordered Sig/Irma Route Start Time Stop Time Status Last Admin Dose Admin Diphtheria/ Tetanus/Acell Pertussis 0.5 ml ONCE ONCE IM 01/31/22 21:15 01/31/22 21:16 DC 01/31/22 21:17 0.5 ML Vital Signs/I&O 01/31/22 01/31/22 01/31/22 20:17 20:17 21:19 Temp 36.8 36.8 36.8 Pulse 70 70 66 Resp 20 20 16 B/P (MAP) 150/91 (110) 150/91 (110) 170/97 Pulse Ox 95 95 96 O2 Delivery Room Air Room Air Room Air Progress Progress Note : Progress Note UNEVENTFUL ER STAY DISCUSSED TEST RESULTS, AND RX'S AND NEED FOR FOLLOW UP WITH NURSE BRANDY AT [facility] Diagnostic Imaging Comments CT HEAD/CERVICAL SPINE--PER RADIOLOGIST REPORT AT 2057 COMPARISON: 05/21/2017. FINDINGS: CT head: No large acute territorial ischemia, mass, or hemorrhage. No midline shift or mass effect. Stable area of faint increased attenuation is seen in the left frontal lobe near the vertex. Decreased attenuation is seen in the periventricular and subcortical white matter. The ventricles and cortical sulci are prominent. The basilar cisterns are patent and unremarkable. The calvarium is intact. Retained secretions are seen in the bilateral sphenoid sinuses. Left-sided mastoid effusion is present. Left globe prosthesis is noted. CT cervical spine: No acute fracture or dislocation is seen in the cervical spine. No focal osseous lesions. Vertebral body heights are well-maintained. The craniocervical junction is well-maintained. Mild degenerative changes are seen in the cervical spine with disc osteophyte complexes and uncovertebral arthropathy. Soft tissues of the neck are unremarkable. Centrilobular emphysema is seen in the lung apices. IMPRESSION: 1. No hemorrhage or focal intra-axial mass. No CT evidence of large acute territorial ischemia. 2. No acute fracture or dislocation in the cervical spine. 3. Sinusitis involving the bilateral sphenoid sinuses. Small left-sided mastoid effusion is present. 4. Stable area of faint increased attenuation in the left frontal lobe near the vertex, most consistent with a cavernous hemangioma. PELVIS XRAY--PER RADIOLOGIST REPORT AT 2057 FINDINGS: There is no acute fracture or dislocation of the pelvis and bilateral hips. Alignment is anatomic. The imaged joint spaces are preserved. No focal osseous lesion. IMPRESSION: No acute fracture or dislocation in the pelvis or bilateral hips. Reviewed: Reviewed by Me Departure Impression Primary Impression: WITNESSED FALL FROM STANDING Additional Impressions: Minor head injury without loss of consciousness Sinusitis Sqtocfuett-izwiplhmd-uitcpis (DPT) vaccination administered at current visit Abrasion of left elbow Disposition: [facility] Condition: Stable Departure-Patient Inst. Decision time for Depature: 21:00 Referrals: TOM KHAN MD (PCP/Family) Primary Care Physician Patient Instructions: Diphtheria and Tetanus Toxoids, and Acellular Pertussis Vaccine, Minor Head Injury, Preventing Falls in Older Adults, Sinusitis, Adult ED Add. Discharge Instructions: TYLENOL NEEDED FOR PAIN CONTINUE YOUR REGULAR MEDICATIONS PRESCRIBED FOLLOW UP WITH DR. KHAN NEXT WEEK FOR FURTHER CARE All discharge instructions reviewed with patient and/or family. Voiced understanding. Scripts Fluticasone Propionate (Flonase Allergy Relief) 50 Mcg/Actuation [place].susp 2 SPRAY NS DAILY, #1 EACH 2 SPRAYS PER NOSTRIL DAILY X 2 DAYS THEN 1 SPRAY DAILY Prov: TOM MURDOCK DO 01/31/22 Cefuroxime Axetil (Cefuroxime) 500 Mg Tablet 500 MG PO BID, #20 TAB Prov: TOM MURDOCK DO 01/31/22 TOM MURDOCK DO Jan 31, 2022 20:38
--- NOTE | 2022-01-31 20:52 | Diagnostic Imaging Report ---
PROCEDURE: CT head and CT cervical spine without contrast. TECHNIQUE: Multiple contiguous axial images were obtained through the brain and cervical spine without the use of intravenous contrast. Sagittal and coronal reformations through the cervical spine were then performed. Auto Exposure Controls were utilized during the CT exam to meet ALARA standards for radiation dose reduction. INDICATION: Fall. Hit right side of the head. Head and neck pain. COMPARISON: 05/21/2017. FINDINGS: CT head: No large acute territorial ischemia, mass, or hemorrhage. No midline shift or mass effect. Stable area of faint increased attenuation is seen in the left frontal lobe near the vertex. Decreased attenuation is seen in the periventricular and subcortical white matter. The ventricles and cortical sulci are prominent. The basilar cisterns are patent and unremarkable. The calvarium is intact. Retained secretions are seen in the bilateral sphenoid sinuses. Left-sided mastoid effusion is present. Left globe prosthesis is noted. CT cervical spine: No acute fracture or dislocation is seen in the cervical spine. No focal osseous lesions. Vertebral body heights are well-maintained. The craniocervical junction is well-maintained. Mild degenerative changes are seen in the cervical spine with disc osteophyte complexes and uncovertebral arthropathy. Soft tissues of the neck are unremarkable. Centrilobular emphysema is seen in the lung apices. IMPRESSION: 1. No hemorrhage or focal intra-axial mass. No CT evidence of large acute territorial ischemia. 2. No acute fracture or dislocation in the cervical spine. 3. Sinusitis involving the bilateral sphenoid sinuses. Small left-sided mastoid effusion is present. 4. Stable area of faint increased attenuation in the left frontal lobe near the vertex, most consistent with a cavernous hemangioma. Dictated by: Dictated on workstation # [id number]
--- NOTE | 2022-01-31 20:53 | Diagnostic Imaging Report ---
CLINICAL HISTORY: Fall. Pelvic pain. COMPARISON: 02/05/2021. TECHNIQUE: Single AP view of the pelvis was obtained. FINDINGS: There is no acute fracture or dislocation of the pelvis and bilateral hips. Alignment is anatomic. The imaged joint spaces are preserved. No focal osseous lesion. IMPRESSION: No acute fracture or dislocation in the pelvis or bilateral hips. Dictated by: Dictated on workstation # [id number]
[2022-01-31] MEDS ORDERED: FLUT9.9S NS (21:03)
[2022-01-31] MEDS ORDERED: CEFU500T63 PO (21:03)
[2022-01-31] MEDS ORDERED: TETANUS,DIPTH,PERTUSS P/F (BOOSTRIX) 0.5 ML VIAL IM ONE ×2 (21:13→21:15)
[2022-01-31 21:19] VITALS: BP 170/97
== END 2022-01-31 21:19 ==
LOC: EDUNIT# 20:14 → ER 20:15
DX: S50.312A Abrasion of left elbow, initial encounter (principal); S09.90XA Unspecified injury of head, initial encounter; J32.9 Chronic sinusitis, unspecified; G47.30 Sleep apnea, unspecified; F17.210 Nicotine dependence, cigarettes, uncomplicated; Z99.89 Dependence on other enabling machines and devices; Z23 Encounter for immunization; Z79.82 Long term (current) use of aspirin; W01.198A Fall on same level from slipping, tripping and stumbling with subsequent striking against other object, initial encounter; Y93.01 Activity, walking, marching and hiking
CPT/HCPCS: 70450; 72125; 72170; 90715

== ENCOUNTER 2022-06-03 17:11 | Emergency (ER) | payer MEDICARE, MEDICAID ==
[~2022-06-03] VITALS: Ht 180 cm; Wt 73.0 kg
[~2022-06-03 17:11] MED LIST changes: +ALBU8.5H6 IH; +CEFU500T63 PO; +FLUT9.9S NS
--- NOTE | 2022-06-03 18:07 | Diagnostic Imaging Report ---
EXAMINATION: CT head and CT cervical spine without contrast. TECHNIQUE: Multiple contiguous axial images were obtained through the brain and cervical spine without the use of intravenous contrast. Sagittal and coronal reformations through the cervical spine were then performed. All CT scans use one or more of the following dose optimizing techniques: automated exposure control, MA and/or KvP adjustment based on patient size and exam type or iterative reconstruction. HISTORY: Head and neck injury. COMPARISON: 01/31/2022. FINDINGS: The cochran-white matter differentiation is normal. No mass effect or midline shift. The ventricles are normal in size and configuration. Basilar cisterns are patent. There are no intra- or extra-axial fluid collections. There is no intracranial hemorrhage. There is an unchanged small focal high attenuation in the posterior left frontal lobe, likely a cavernoma. There is a left orbital prosthesis. Paranasal sinuses are normal. Mastoid air cells are clear. No soft tissue abnormality is seen. No osseous lesions or fractures are seen. The alignment of the cervical spine is normal. No fracture is seen. Vertebral body heights are normal. The craniocervical junction is normal. There is moderate degenerative disease in the cervical spine. There is no spinal canal stenosis. No soft tissue abnormality is seen in the neck. Limited views of the superior thorax are normal. IMPRESSION: 1. No acute intracranial abnormality. 2. No cervical spine fracture. Dictated by: Dictated on workstation # [id number]
--- NOTE | 2022-06-03 18:44 | ED Fall/Injury ---
General Chief Complaint: Trauma-Non Activation Stated Complaint: FALL-HIT HEAD Nursing Triage Note: [facility] STAFF STATES HE BECAME DIZZY AND FELL. DENIES LOC. ARRIVED IN A C-COLLAR Source: patient Exam Limitations: no limitations (ISIDRA SANTIZO APRN) History of Present Illness Date Seen by Provider: Jun 03, 2022 Time Seen by Provider: 17:15 Initial Comments Patient is a 71-year-old male who presents to the emergency department via EMS for evaluation after a mechanical fall causing him to strike the right posterior aspect of his head against a doorknob. Patient currently resides at a rehab facility. He states he slipped on the floor causing a fall. States he has had several falls in the past. He denies any pain outside of a mild ache in his right occiput. States he did not lose consciousness and remembers the entirety of the event. Patient was placed in a c-collar by first responders. He denies any neck pain at the time of this exam. Patient states he was able to get up from the floor under his own power after he fell and was ambulatory without issue. The fall was witnessed by facility staff. (ISIDRA SANTIZO APRN) Allergies and Home Medications Allergies Coded Allergies: No Known Drug Allergies (Unverified , 11/05/09) Patient Home Medication List Home Medication List Reviewed: Yes (ISIDRA SANTIZO APRN) Albuterol Sulfate (Ventolin Hfa) 1 Puff Puff, 2 PUFF IH QID PRN for SHORTNESS OF BREATH, (Reported) Entered as Reported by: MELLISA JAMISON on 09/21/17 1307 Budesonide/Formoterol Fumarate (Symbicort 160-4.5 Mcg Inhaler) 10.2 Gm Hfa.aer.ad, 2 PUFF IH BID, (Reported) Entered as Reported by: MELLISA JAMISON on 09/21/17 1307 Carbidopa/Levodopa (Carbidopa-Levo ER 25-100 Tab) 1 Each Tablet.er, 1 TAB PO TID, (Reported) Entered as Reported by: CAROL RO on 09/22/17 1351 Cefuroxime Axetil (Cefuroxime) 500 Mg Tablet, 500 MG PO BID Prescribed by: TOM MURDOCK on 7/16/22 2103 Cholecalciferol (Vitamin D3) (Vitamin D3) 5,000 Unit Tablet, 5,000 UNIT PO DAILY, (Reported) Entered as Reported by: MELLISA JAMISON on 09/21/17 130 Cyclobenzaprine HCl (Cyclobenzaprine HCl) 10 Mg Tablet, 10 MG PO TID PRN for MUSCLE SPASMS, (Reported) Entered as Reported by: ELIS MURPHY on 05/21/171905 Fluticasone Propionate (Flonase Allergy Relief) 50 Mcg/Actuation [place].susp, 2 SPRAY NS DAILY Prescribed by: TOM MURDOCK on 01/31/222102 Hyoscyamine Sulfate (Levsin-Sl) 0.125 Mg Tab.subl, 0.25 MG SL Q4H Prescribed by: TOM MURDOCK on 02/09/212108 Meloxicam (Meloxicam) 7.5 Mg Tablet, 7.5 MG PO, (Reported) Entered as Reported by: ELIS MURPHY on 05/21/171905 [place] 3 Polyunsat Fatty Acids (Fish Oil 1,000 mg Capsule) 1,000 Mg Cap, 1,000 MG PO DAILY, (Reported) Entered as Reported by: MELLISA JAMISON on 09/21/171306 Omeprazole (Omeprazole) 40 Mg Capsule.dr, 40 MG PO DAILY, (Reported) Entered as Reported by: ELIS MURPHY on 05/21/171905 Pentoxifylline (Pentoxifylline) 400 Mg Tablet.er, 400 MG PO TID, (Reported) Entered as Reported by: ELIS MURPHY on 05/21/171905 Vitamin E Mixed (Vitamin E) 400 Unit Tablet, 800 UNIT PO DAILY, (Reported) Entered as Reported by: MELLISA JAMISON on 09/21/17 130 Review of Systems Review of Systems Constitutional: no symptoms reported Eyes: No Symptoms Reported Ears, Nose, Mouth, Throat: no symptoms reported Respiratory: no symptoms reported Cardiovascular: no symptoms reported Gastrointestinal: no symptoms reported Genitourinary: no symptoms reported Musculoskeletal: no symptoms reported Skin: no symptoms reported (ISIDRA SANTIZO APRN) Past Kkmvbcu-Erlbzl-Dvjszj Hx Patient Social History Smoking Status: Former Smoker Substance use?: No Alcohol Use?: No (ISIDRA SANTIZO APRN) Immunizations Up To Date Tetanus Booster (TDap): More than 5yrs First/Initial COVID19 Vaccinat: UNKNOWN Second COVID19 Vaccination [place]: UNKNOWN Third COVID19 Vaccination Date: UNKNOWN 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 [id number] DISEASE; EF 35%, NON-ISCHEMIC CARDIOMYOPATHY. NO INTERVENTION STRESS TEST 02/[address] BARRY: EF 45 percent. Normal wall motion. Normal myocardial perfusion imaging during rest and stress. Conclusion: Pharmacological stress test was negative for ischemia. Mildly reduce LV function with no wall motion abnormalities. Normal myocardial perfusion imaging during rest and stress. Surgeries: Yes (LEFT EYE REMOVED, HEMORRHOIDECTOMY, UMB HERNIA) Abdominal, Appendectomy, Cardiac, Eye Surgery, Orthopedic, Rectal, Renal Respiratory: Yes Sleep Apnea, COPD Currently Using CPAP: Yes Cardiac: Yes Cardiomyopathy, High Cholesterol, Hypertension Neurological: Yes (HX OF VERTIGO; ) Parkinson's Disease, Vertigo Reproductive Disorders: No Sexually Transmitted Disease: No Genitourinary: Yes Prostate Problems, Kidney Stones Gastrointestinal: Yes (VENTRAL/PERIUMBILICAL HERNIA REPAIR X3; KNOWN RIGHT INGUINAL HERNIA-NO SURG) Abdominal Hernia, Gastroesophageal Reflux, Hemorrhoids Musculoskeletal: Yes (CHRONIC NECK PAIN, leg length discrepancy;FALLS/GAIT DISTURBANCE) Arthritis Endocrine: No HEENT: Yes (LEFT EYE REMOVED/FALSE LEFT EYE) Loss of Vision: Left Cancer: No Psychosocial: No Integumentary: Yes Psoriasis Blood Disorders: No Adverse Reaction/Blood Tranf: No (ISIDRA SANTIZO APRN) Family Medical History Abdominal aortic aneurysm 03 FATHER, Onset:60 years & older Cancer 03 FATHER (NECK) 03 MOTHER (LUNGS) History of drug abuse DAUGHTERS (DAUGHTER) No Pertinent Family Hx SMOKED 2 PPD, QUIT 2014 DENIES ALCOHOL OR DRUG USE (ISIDRA SANTIZO APRN) Physical Exam Vital Signs Vital Signs - First Documented 06/03/22 17:11 Temp 36.3 Pulse 83 Resp 16 B/P (MAP) 129/99 (109) Pulse Ox 95 O2 Delivery Room Air (KELLE HENDRIX MD) Vital Signs Capillary Refill : (ISIDRA SANTIZO APRN) Height, Weight, BMI Height: 5'10.00" Weight: 159lbs. 0.0oz. 72.072082cs; 22.00 BMI Method:Stated General Appearance: WD/WN, no apparent distress HEENT: PERRL/EOMI, normal ENT inspection, TMs normal, pharynx normal Neck: non-tender, full range of motion Cardiovascular: regular rate, rhythm Respiratory: chest non-tender, lungs clear, normal breath sounds, no respiratory distress, no accessory muscle use Gastrointestinal: normal bowel sounds, non tender, soft Back: normal inspection, no vertebral tenderness Extremities: normal range of motion, non-tender, normal inspection Neurologic/Psychiatric: no motor/sensory deficits, alert, normal mood/affect, oriented x 3 Skin: normal color, warm/dry (ISIDRA SANTIZO APRN) Progress/Results/Core Measures Results/Orders My Orders Orders - KELLE HENDRIX MD Ct Head/Cervical Spine Wo (06/03/22 17:14) (KELLE HENDRIX MD) Vital Signs/I&O 06/03/22 17:11 Temp 36.3 Pulse 83 Resp 16 B/P (MAP) 129/99 (109) Pulse Ox 95 O2 Delivery Room Air (KELLE HENDRIX MD) Blood Pressure Mean: 109 Progress Progress Note : Progress Note Patient is nontoxic and well-hydrated on exam. No focal neurologic deficits appreciated. No hematoma, step-off, abrasion, or laceration noted to the scalp. CT of the head and C-spine are both acutely negative. Patient is awake alert and answers all questions appropriately. C-collar was cleared. Vital signs of remained reassuring. Will discharge back to his facility. Return precautions for urgent symptomology discussed. Patient verbalized understanding. (ISIDRA SANTIZO APRN) Departure Impression Primary Impression: Closed head injury Qualified Codes: S09.90XA - Unspecified injury of head, initial encounter Disposition: 01 HOME, SELF-CARE Condition: Stable Departure-Patient Inst. Decision time for Depature: 18:45 (ISIDRA SANTIZO APRN) Referrals: TOM KHAN MD (PCP/Family) Primary Care Physician Patient Instructions: Minor Head Injury (DC) ATTENDING PHYSICIAN NOTE: I was physically present as attending physician in the emergency department during the care of this patient, but I was not directly involved in the decision making or delivery of care for this patient. (KELLE HENDRIX MD) ISIDRA SANTIZO APRN Jun 03, 2022 18:44 KELLE HENDRIX MD Jun 03, 2022 20:32
--- NOTE | 2022-06-03 19:06 | Diagnostic Imaging Report ---
EXAMINATION: Right foot two view. HISTORY: Foot injury. COMPARISON: None available. FINDINGS: Alignment is normal. No fracture is seen. Joint spaces are normal. IMPRESSION: No fracture. Dictated by: Dictated on workstation # [id number]
[2022-06-03 19:53] VITALS: BP 155/91
== END 2022-06-03 19:53 | disposition home or self-care (01) ==
LOC: EDUNIT# 17:11 → ER 17:12
DX: S09.90XA Unspecified injury of head, initial encounter (principal); Z87.891 Personal history of nicotine dependence; W01.198A Fall on same level from slipping, tripping and stumbling with subsequent striking against other object, initial encounter
CPT/HCPCS: 70450; 72125; 73620

== ENCOUNTER 2022-06-06 16:37 | Emergency (ER) | payer MEDICARE, MEDICAID ==
[~2022-06-06] VITALS: Ht 180.3 cm; Wt 73.5 kg
--- NOTE | 2022-06-06 16:50 | ED Fall/Injury ---
General Chief Complaint: Trauma-Non Activation Stated Complaint: FALL Nursing Triage Note: PT BROUGHT IN BY [facility]. STATES FELL OUT OF WHEELCHAIR. DENIES DIZZINESS. WAS HERE WEDNESDAY FOR FALLING OUT OF WHEELCHAIR. Source: patient, EMS Exam Limitations: no limitations History of Present Illness Date Seen by Provider: Jun 06, 2022 Time Seen by Provider: 16:35 Initial Comments Patient is a 71-year-old male who presents to the emergency department via EMS for evaluation after a [place] [facility] [place]. He reportedly fell from a chair. States he hit his head. Currently endorses pain in his right hip, right lower leg, and right elbow. Patient was placed in a c-collar by EMS. He denies any neck pain at this time. States he is unsure of why he fell. Patient has a history of several falls in the past. Patient was seen here in this emergency department earlier this week after a fall. Occurred: just prior to arrival Allergies and Home Medications Allergies Coded Allergies: No Known Drug Allergies (Unverified , 11/05/09) Patient Home Medication List Home Medication List Reviewed: Yes Albuterol Sulfate (Ventolin Hfa) 1 Puff Puff, 2 PUFF IH QID PRN for SHORTNESS OF BREATH, (Reported) Entered as Reported by: MELLISA JAMISON on 09/21/17 1307 Budesonide/Formoterol Fumarate (Symbicort 160-4.5 Mcg Inhaler) 10.2 Gm Hfa.aer.ad, 2 PUFF IH BID, (Reported) Entered as Reported by: MELLISA JAMISON on 09/21/17 1307 Carbidopa/Levodopa (Carbidopa-Levo ER 25-100 Tab) 1 Each Tablet.er, 1 TAB PO TID, (Reported) Entered as Reported by: CAROL RO on 09/22/17 1351 Cefuroxime Axetil (Cefuroxime) 500 Mg Tablet, 500 MG PO BID Prescribed by: TOM MURDOCK on 01/31/222102 Cholecalciferol (Vitamin D3) (Vitamin D3) 5,000 Unit Tablet, 5,000 UNIT PO DAILY, (Reported) Entered as Reported by: MELLISA JAMISON on 09/21/17 1307 Cyclobenzaprine HCl (Cyclobenzaprine HCl) 10 Mg Tablet, 10 MG PO TID PRN for MUSCLE SPASMS, (Reported) Entered as Reported by: ELIS MURPHY on 05/21/171905 Fluticasone Propionate (Flonase Allergy Relief) 50 Mcg/Actuation [place].susp, 2 SPRAY NS DAILY Prescribed by: TOM MURDOCK on 01/31/222102 Hyoscyamine Sulfate (Levsin-Sl) 0.125 Mg Tab.subl, 0.25 MG SL Q4H Prescribed by: OTM MURDOCK on 02/09/212108 Meloxicam (Meloxicam) 7.5 Mg Tablet, 7.5 MG PO, (Reported) Entered as Reported by: ELIS MURPHY on 05/21/171905 [place] 3 Polyunsat Fatty Acids (Fish Oil 1,000 mg Capsule) 1,000 Mg Cap, 1,000 MG PO DAILY, (Reported) Entered as Reported by: MELLISA JAMISON on 09/21/17 130 Omeprazole (Omeprazole) 40 Mg Capsule.dr, 40 MG PO DAILY, (Reported) Entered as Reported by: ELIS MURPHY on 05/21/171905 Pentoxifylline (Pentoxifylline) 400 Mg Tablet.er, 400 MG PO TID, (Reported) Entered as Reported by: ELIS MURPHY on 05/21/171905 Vitamin E Mixed (Vitamin E) 400 Unit Tablet, 800 UNIT PO DAILY, (Reported) Entered as Reported by: MELLISA JAMISON on 09/21/17 130 Review of Systems Review of Systems Constitutional: no symptoms reported Eyes: No Symptoms Reported Ears, Nose, Mouth, Throat: no symptoms reported Respiratory: no symptoms reported Cardiovascular: no symptoms reported Gastrointestinal: no symptoms reported Genitourinary: no symptoms reported Musculoskeletal: joint pain Past Uednhbv-Libgku-Wwvcjy Hx Patient Social History Tobacco Use?: Yes Tobacco type used: Cigarettes Smoking Status: Former Smoker Use of E-Cig and/or Vaping dev: No Substance use?: No Alcohol Use?: No Pt feels they are or have been: No Immunizations Up To Date Tetanus Booster (TDap): More than 5yrs First/Initial COVID19 Vaccinat: YES Second COVID19 Vaccination [place]: YES Third COVID19 Vaccination Date: UNKNOWN Seasonal Allergies Seasonal Allergies: No Past Medical History Surgery/Hospitalization HX: LEFT EYE REMOVED HEMORRHOIDECTOMY VENTRAL/UMBILICAL HERNIA REPAIR X 3 WITH MESH TURP 09/2017 ESWL 06/2018 CARDIAC CATH 12/[address] [id number] DISEASE; EF 35%, NON-ISCHEMIC CARDIOMYOPATHY. NO INTERVENTION STRESS TEST 02/[address] BARRY: EF 45 percent. Normal wall motion. Normal myocardial perfusion imaging during rest and stress. Conclusion: Pharmacological stress test was negative for ischemia. Mildly reduce LV function with no wall motion abnormalities. Normal myocardial perfusion imaging during rest and stress. Surgeries: Yes (LEFT EYE REMOVED, HEMORRHOIDECTOMY, UMB HERNIA) Abdominal, Appendectomy, Cardiac, Eye Surgery, Orthopedic, Rectal, Renal Respiratory: Yes Sleep Apnea, COPD Currently Using CPAP: Yes Cardiac: Yes Cardiomyopathy, High Cholesterol, Hypertension Neurological: Yes (HX OF VERTIGO; ) Parkinson's Disease, Vertigo Reproductive Disorders: No Sexually Transmitted Disease: No Genitourinary: Yes Prostate Problems, Kidney Stones Gastrointestinal: Yes (VENTRAL/PERIUMBILICAL HERNIA REPAIR X3; KNOWN RIGHT INGUINAL HERNIA-NO SURG) Abdominal Hernia, Gastroesophageal Reflux, Hemorrhoids Musculoskeletal: Yes (CHRONIC NECK PAIN, leg length discrepancy;FALLS/GAIT DISTURBANCE) Arthritis Endocrine: No HEENT: Yes (LEFT EYE REMOVED/FALSE LEFT EYE) Loss of Vision: Left Cancer: No Psychosocial: No Integumentary: Yes Psoriasis Blood Disorders: No Adverse Reaction/Blood Tranf: No Family Medical History Abdominal aortic aneurysm 03 FATHER, Onset:60 years & older Cancer 03 FATHER (NECK) 03 MOTHER (LUNGS) History of drug abuse DAUGHTERS (DAUGHTER) No Pertinent Family Hx SMOKED 2 PPD, QUIT 2014 DENIES ALCOHOL OR DRUG USE Physical Exam Vital Signs Vital Signs - First Documented 06/06/22 16:37 Temp 36.0 Pulse 81 Resp 16 B/P (MAP) 142/91 (108) Pulse Ox 97 O2 Delivery Room Air Capillary Refill : Less Than 3 Seconds Height, Weight, BMI Height: 5'10.00" Weight: 159lbs. 0.0oz. 72.132993pl; 22.00 BMI Method:Stated General Appearance: WD/WN, no apparent distress HEENT: PERRL/EOMI, normal ENT inspection, TMs normal, pharynx normal Neck: non-tender, full range of motion, supple, normal inspection Cardiovascular: regular rate, rhythm Respiratory: chest non-tender, lungs clear, normal breath sounds, no respiratory distress, no accessory muscle use Gastrointestinal: normal bowel sounds, non tender, soft Neurologic/Psychiatric: no motor/sensory deficits, alert, normal mood/affect, oriented x 3 Skin: normal color, warm/dry Mild tenderness to palpation noted to the anterior and lateral aspects of the right hip; tenderness to palpation noted to the anterior portion of the right lower leg overlying the tibia; no deformity noted to the right lower leg; patient also endorses tenderness to palpation over the extensor aspect of the left elbow but there is no deformity or crepitus noted [place] Coma Score Best Eye Response: (4) Open Spontaneously Best Verbal Response: (5) Oriented Best Motor Response: (6) Obeys Commands [place] Total: 15 Progress/Results/Core Measures Results/Orders My Orders Orders - ISIDRA SANTIZO FRAUD MANAGER Pelvis With Right Hip 2-3views (06/06/22 16:50) Tibia/Fibula, Right, 2 Views (06/06/22 16:50) Elbow, Left, 3 Views (06/06/22 16:50) Ct Head/Cervical Spine Wo (06/06/22 16:50) Vital Signs/I&O 06/06/22 16:37 Temp 36.0 Pulse 81 Resp 16 B/P (MAP) 142/91 (108) Pulse Ox 97 O2 Delivery Room Air Blood Pressure Mean: 108 Progress Progress Note : Progress Note Patient is nontoxic and well-hydrated on exam. He is awake alert and answering questions. Does have some mild tenderness to palpation in the right hip, right lower leg, and left elbow. Denies any pain with palpation of the head or cervical spine. CT of the head and neck are acutely negative. C-collar was removed. No provocation of radicular symptomology with movement of the head/neck. Plain films of the right hip, right tibia/fibula, and left elbow are all acutely negative for osseous injury. No indication for further work-up at this time. Will discharge home with recommendations for supportive care and follow-up with PCP. Return precautions for urgent symptomology discussed. Teresa ient verbalized understanding. Departure Impression Primary Impression: Fall Qualified Codes: W19.XXXA - Unspecified fall, initial encounter Additional Impressions: Contusion of right hip Qualified Codes: S70.01XA - Contusion of right hip, initial encounter Left elbow pain Pain of right lower leg Disposition: HOME, SELF-CARE Condition: Stable Departure-Patient Inst. Referrals: TOM KHAN MD (PCP/Family) Primary Care Physician Patient Instructions: Preventing Falls ED, Contusion (DC) ISIDRA SANTIZO FRAUD MANAGER Jun 06, 2022 16:50
--- NOTE | 2022-06-06 17:22 | Diagnostic Imaging Report ---
PROCEDURE: CT head and CT cervical spine without contrast. TECHNIQUE: Multiple contiguous axial images were obtained through the brain and cervical spine without the use of intravenous contrast. Sagittal and coronal reformations through the cervical spine were then performed. Auto Exposure Controls were utilized during the CT exam to meet ALARA standards for radiation dose reduction. INDICATION: Fall. Head and neck pain. COMPARISON: 06/03/2022. FINDINGS: CT HEAD: No large acute territorial ischemia, mass, or hemorrhage. No midline shift or mass effect. The ventricles, cortical sulci and basilar cisterns are patent and unremarkable. The calvarium is intact. The visualized paranasal sinuses are clear. Left-sided mastoid effusion is present. Left globe prosthesis is noted. CT CERVICAL SPINE: No acute fracture or dislocation is seen in the cervical spine. No focal osseous lesions. Vertebral body heights are well-maintained. The craniocervical junction is well-maintained. Mild degenerative changes are seen in the cervical spine with disc osteophyte complexes and uncovertebral arthropathy. Soft tissues of the neck are unremarkable. Centrilobular emphysema is seen in the lung apices. IMPRESSION: 1. No hemorrhage or focal intra-axial mass. No CT evidence of large acute territorial ischemia. 2. No acute fracture or dislocation in the cervical spine. Dictated by: Dictated on workstation # [id number]
--- NOTE | 2022-06-06 17:27 | Diagnostic Imaging Report ---
CLINICAL HISTORY: Fall. Left elbow pain. COMPARISON: None. TECHNIQUE: 3 views of the left elbow. FINDINGS: There is no acute fracture or dislocation of the left elbow. Alignment is anatomic. The imaged joint spaces are preserved. No joint effusion is seen in the left elbow. IMPRESSION: No acute fracture or dislocation in the left elbow. Dictated by: Dictated on workstation # [id number]
--- NOTE | 2022-06-06 17:27 | Diagnostic Imaging Report ---
CLINICAL HISTORY: Fall. Pelvic and right hip pain. COMPARISON: 01/31/2022. TECHNIQUE: 3 views of the pelvis and right hip. FINDINGS: There is no acute fracture or dislocation of the pelvis and right hip. Alignment is anatomic. The imaged joint spaces are preserved. IMPRESSION: No acute fracture or dislocation in the pelvis or right hip. Dictated by: Dictated on workstation # [id number]
--- NOTE | 2022-06-06 17:27 | Diagnostic Imaging Report ---
CLINICAL HISTORY: Fall. Right leg pain. COMPARISON: None. TECHNIQUE: 4 views of the right tibia and fibula. FINDINGS: There is no acute fracture or dislocation of the right tibia and fibula. Alignment is anatomic. The imaged joint spaces are preserved. IMPRESSION: No acute fracture or dislocation in the right tibia and fibula. Dictated by: Dictated on workstation # [id number]
[2022-06-06] MEDS ORDERED: ACETAMINOPHEN 325 MG TABLET PO ONE (17:45)
[2022-06-06 19:17] VITALS: BP 138/89
== END 2022-06-06 19:17 | disposition home or self-care (01) ==
LOC: EDUNIT# 16:37 → ER 16:39
DX: S70.01XA Contusion of right hip, initial encounter (principal); M25.522 Pain in left elbow; M79.661 Pain in right lower leg; G47.30 Sleep apnea, unspecified; Z99.89 Dependence on other enabling machines and devices; Z87.891 Personal history of nicotine dependence; W05.0XXA Fall from non-moving wheelchair, initial encounter; Y92.129 Unspecified place in nursing home as the place of occurrence of the external cause
CPT/HCPCS: 70450; 72125; 73080; 73590

== ENCOUNTER 2022-06-26 20:57 | Emergency (ER) | payer MEDICARE, MEDICAID ==
--- NOTE | 2022-06-26 21:34 | ED Fall/Injury ---
General Chief Complaint: Trauma-Non Activation Stated Complaint: FALL Source: patient, family Exam Limitations: no limitations (ISIDRA SANTIZO APRN) History of Present Illness Date Seen by Provider: Jun 26, 2022 Time Seen by Provider: 21:00 Initial Comments Patient is a 71-year-old male who presents to the emergency department via EMS for evaluation after a fall from his wheelchair. EMS state patient sustained an abrasion to his forehead and a skin tear to his left hand. They state patient was also endorsing some hip pain. Patient denies any pain or discomfort at the time of my exam. The fall was not witnessed although there was camera footage that was able to be reviewed. One of his primary caregivers from his [facility] presented to the ER to give further details. She states that the video footage showed the patient purposely flinging himself back in his wheelchair causing the fall. The caregiver states patient has a history of seemingly int entional falls. (ISIDRA SANTIZO APRN) Allergies and Home Medications Allergies Coded Allergies: No Known Drug Allergies (Unverified , 11/05/09) Patient Home Medication List Home Medication List Reviewed: Yes (ISIDRA SANTIZO APRN) Albuterol Sulfate (Ventolin Hfa) 1 Puff Puff, 2 PUFF IH QID PRN for SHORTNESS OF BREATH, (Reported) Entered as Reported by: MELLISA JAMISON on 09/21/17 1307 Budesonide/Formoterol Fumarate (Symbicort 160-4.5 Mcg Inhaler) 10.2 Gm Hfa.aer.ad, 2 PUFF IH BID, (Reported) Entered as Reported by: MELLISA JAMISON on 09/21/17 1307 Carbidopa/Levodopa (Carbidopa-Levo ER 25-100 Tab) 1 Each Tablet.er, 1 TAB PO TID, (Reported) Entered as Reported by: CAROL RO on 09/22/17 1351 Cefuroxime Axetil (Cefuroxime) 500 Mg Tablet, 500 MG PO BID Prescribed by: TOM MURDOCK on 01/31/22 210 Cholecalciferol (Vitamin D3) (Vitamin D3) 5,000 Unit Tablet, 5,000 UNIT PO D DARREN, (Reported) Entered as Reported by: MELLISA JAMISON on 09/21/17 1307 Cyclobenzaprine HCl (Cyclobenzaprine HCl) 10 Mg Tablet, 10 MG PO TID PRN for MUSCLE SPASMS, (Reported) Entered as Reported by: ELIS MURPHY on 05/21/171905 Fluticasone Propionate (Flonase Allergy Relief) 50 Mcg/Actuation [place].susp, 2 S PRAY NS DAILY Prescribed by: TOM MURDOCK on 01/31/222102 Hyoscyamine Sulfate (Levsin-Sl) 0.125 Mg Tab.subl, 0.25 MG SL Q4H Prescribed by: TOM MURDOCK on 02/09/212108 Meloxicam (Meloxicam) 7.5 Mg Tablet, 7.5 MG PO, (Reported) Entered as Reported by: ELIS MURPHY on 05/21/171905 [place] 3 Polyunsat Fatty Acids (Fish Oil 1,000 mg Capsule) 1,000 Mg Cap, 1,000 MG PO DAILY, (Reported) Entered as Reported by: MELLISA JAMISON on 09/21/171306 Omeprazole (Omeprazole) 40 Mg Capsule.dr, 40 MG PO DAILY, (Reported) Entered as Reported by: ELIS MURPHY on 05/21/171905 Pentoxifylline (Pentoxifylline) 400 Mg Tablet.er, 400 MG PO TID, (Reported) Entered as Reported by: ELIS MURPHY on 05/21/171905 Vitamin E Mixed (Vitamin E) 400 Unit Tablet, 800 UNIT PO DAILY, (Reported) Entered as Reported by: MELLISA JAMISON on 09/21/17 130 Review of Systems Review of Systems Constitutional: no symptoms reported Eyes: No Symptoms Reported Ears, Nose, Mouth, Throat: no symptoms reported Respiratory: no symptoms reported Cardiovascular: no symptoms reported Gastrointestinal: no symptoms reported Genitourinary: no symptoms reported Musculoskeletal: see HPI, joint pain Skin: see HPI (ISIDRA SANTIZO APRN) Past Hfjehnl-Oeqyzp-Xidggk Hx Patient Social History Smoking Status: Former Smoker (ISIDRA SANTIZO APRN) Immunizations Up To Date Tetanus Booster (TDap): More than 5yrs First/Initial COVID19 Vaccinat: YES Second COVID19 Vaccination [place]: YES Third COVID19 Vaccination Date: YES (ISIDRA SANTIZO APRN) Seasonal Allergies Seasonal Allergies: No (ISIDRA SANTIZO APRN) Past Medical History Surgery/Hospitalization HX: LEFT EYE REMOVED HEMORRHOIDECTOMY VENTRAL/UMBILICAL HERNIA REPAIR X 3 WITH MESH TURP 09/2017 ESWL 06/2018 CARDIAC CATH 12/[address] [id number] DISEASE; EF 35%, NON-ISCHEMIC CARDIOMYOPATHY. NO INTERVENTION STRESS TEST 02/[address] BARRY: EF 45 percent. Normal wall motion. Normal myocardial perfusion imaging during rest and stress. Conclusion: Pharmacological stress test was negative for ischemia. Mildly reduce LV function with no wall motion abnormalities. Normal myocardial perfusion imaging during rest and stress. Surgeries: Yes (LEFT EYE REMOVED, HEMORRHOIDECTOMY, UMB HERNIA) Abdominal, Appendectomy, Cardiac, Eye Surgery, Orthopedic, Rectal, Renal Respiratory: Yes Sleep Apnea, COPD Currently Using CPAP: Yes Cardiac: Yes Cardiomyopathy, High Cholesterol, Hypertension Neurological: Yes (HX OF VERTIGO; ) Parkinson's Disease, Vertigo Reproductive Disorders: No Sexually Transmitted Disease: No Genitourinary: Yes Prostate Problems, Kidney Stones Gastrointestinal: Yes (VENTRAL/PERIUMBILICAL HERNIA REPAIR X3; KNOWN RIGHT INGUINAL HERNIA-NO SURG) Abdominal Hernia, Gastroesophageal Reflux, Hemorrhoids Musculoskeletal: Yes (CHRONIC NECK PAIN, leg length discrepancy;FALLS/GAIT DISTURBANCE) Arthritis Endocrine: No HEENT: Yes (LEFT EYE REMOVED/FALSE LEFT EYE) Loss of Vision: Left Cancer: No Psychosocial: No Integumentary: Yes Psoriasis Blood Disorders: No Adverse Reaction/Blood Tranf: No (ISIDRA SANTIZO APRN) Family Medical History Abdominal aortic aneurysm 03 FATHER, Onset:60 years & older Cancer 03 FATHER (NECK) 03 MOTHER (LUNGS) History of drug abuse DAUGHTERS (DAUGHTER) No Pertinent Family Hx SMOKED 2 PPD, QUIT 2014 DENIES ALCOHOL OR DRUG USE (ISIDRA SANTIZO APRN) Physical Exam Vital Signs Vital Signs - First Documented 06/26/22 20:57 Temp 37.2 Pulse 88 Resp 16 B/P (MAP) 128/92 (104) Pulse Ox 98 O2 Delivery Room Air (KELLE HENDRIX MD) Vital Signs Capillary Refill : (ISIDRA SANTIZO APRN) Height, Weight, BMI Height: 5'10.00" Weight: 159lbs. 0.0oz. 72.093212ck; 22.00 BMI Method:Stated General Appearance: WD/WN, no apparent distress HEENT: PERRL/EOMI, normal ENT inspection, TMs normal, pharynx normal Neck: non-tender, full range of motion, supple, normal inspection Cardiovascular: regular rate, rhythm Respiratory: chest non-tender, lungs clear, normal breath sounds, no respiratory distress, no accessory muscle use Gastrointestinal: normal bowel sounds, non tender, soft Extremities: normal range of motion, non-tender Neurologic/Psychiatric: no motor/sensory deficits, alert, normal mood/affect, oriented x 3 Skin: normal color, warm/dry Superficial abrasion noted to the right forehead; skin tear noted to the dorsum of the left hand (ISIDRA SANTIZO APRN) [place] Coma Score Best Eye Response: (4) Open Spontaneously Best Verbal Response: (5) Oriented Best Motor Response: (6) Obeys Commands [place] Total: 15 (ISIDRA SANTIZO APRN) Progress/Results/Core Measures Results/Orders Vital Signs/I&O 06/26/22 06/26/22 20:57 22:14 Temp 37.2 37.2 Pulse 88 84 Resp 16 16 B/P (MAP) 128/92 (104) 125/89 Pulse Ox 98 99 O2 Delivery Room Air Room Air (KELLE HENDRIX MD) Progress Progress Note : Progress Note Patient is nontoxic and well-hydrated on exam. No focal neurologic deficits appreciated. Vital signs are reassuring. Superficial abrasion noted to the left forehead and a 2 cm skin tear noted to the dorsum of the left hand. Primary and secondary surveys are otherwise unremarkable. Patient was placed in a c-collar by EMS. CT of the head and C-spine are acutely negative. There is a very small area of possible intraparenchymal hemorrhage that is actually improv ed from his last scan. This does not appear to be acute. X-rays of the bilateral hips and left hand are also acutely negative for osseous injury. C- spine precautions were successfully cleared and c-collar was removed. Will discharge home with recommendations for supportive care and follow-up with PCP. Return precautions for urgent symptomology discussed. Patient's caregiver v erbalized understanding. (ISIDRA SANTIZO APRN) Departure Impression Primary Impression: Fall Qualified Codes: W19.XXXA - Unspecified fall, initial encounter Additional Impressions: Forehead abrasion Qualified Codes: S00.81XA - Abrasion of other part of head, initial encounter Skin tear of left hand without complication Qualified Codes: S61.412A - Laceration without foreign body of left hand, initial encounter Disposition: 01 HOME, SELF-CARE Condition: Stable Departure-Patient Inst. Decision time for Depature: 22:00 (ISIDRA SANTIZO APRN) Referrals: TOM KHAN MD (PCP/Family) Primary Care Physician Patient Instructions: Abrasions ED, Preventing Falls ED ATTENDING PHYSICIAN NOTE: I was physically present as attending physician in the emergency department during the care of this patient, but I was not directly involved in the decision making or delivery of care for this patient. (KELLE HENDRIX MD) ISIDRA SANTIZO APRN Jun 26, 2022 21:33 KELLE HENDRIX MD Jun 27, 2022 07:36
--- NOTE | 2022-06-26 21:49 | Diagnostic Imaging Report ---
INDICATION: Fall with pain. EXAMINATION: Three views were obtained. FINDINGS: The alignment is normal. There are mild degenerative changes. There is no fracture or dislocation. Soft tissues are unremarkable. IMPRESSION: Mild degenerative changes; however, no acute fracture or dislocation. Dictated by: Dictated on workstation # [id number]
--- NOTE | 2022-06-26 21:50 | Diagnostic Imaging Report ---
INDICATION: Fall. EXAMINATION: Five views were obtained. FINDINGS: The bony pelvis is intact. Both femurs are intact. There is no fracture or dislocation. Soft tissues are unremarkable. IMPRESSION: No acute fracture or dislocation. Dictated by: Dictated on workstation # [id number]
--- NOTE | 2022-06-26 21:54 | Diagnostic Imaging Report ---
PROCEDURE: CT head and CT cervical spine without contrast. TECHNIQUE: Multiple contiguous axial images were obtained through the brain and cervical spine without the use of intravenous contrast. Sagittal and coronal reformations through the cervical spine were then performed. Auto Exposure Controls were utilized during the CT exam to meet ALARA standards for radiation dose reduction. INDICATION: Head and neck pain after fall. COMPARISON: Prior examination of 06/06/2022. FINDINGS: There is prominence of the ventricles and sulci. There is no mild chronic microvascular ischemic disease. There may be a small intraparenchymal hemorrhage in the high left frontal lobe. This is less prominent than on the prior examination. There is no mass. There is no other acute hemorrhage. There is no extra-axial fluid collection. 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 There is moderately severe right maxillary sinus disease. The mastoid air cells are clear. There is straightening of the normal cervical lordosis. The vertebral body heights are well-maintained. There is multilevel degenerative disc disease. There is some posterior facet arthropathy. There is no fracture or traumatic subluxation. The odontoid is intact and lateral masses are well aligned. The prevertebral soft tissues are within normal limits. IMPRESSION: 1. Atrophy and some chronic microvascular ischemic disease. There is very tiny focal area of increased density in the high left frontal region possibly reflecting small residual intraparenchymal hemorrhage. There is no other acute intracranial abnormality. 2. Right maxillary sinus disease. 3. Moderate cervical spondylosis and multilevel degenerative disc disease without acute fracture or traumatic subluxation. Dictated by: Dictated on workstation # [id number]
[2022-06-26 22:14] VITALS: BP 125/89
== END 2022-06-26 22:14 | disposition home or self-care (01) ==
LOC: EDUNIT# 20:57 → ER 20:59
DX: S61.412A Laceration without foreign body of left hand, initial encounter (principal); S00.81XA Abrasion of other part of head, initial encounter; F17.210 Nicotine dependence, cigarettes, uncomplicated; W05.0XXA Fall from non-moving wheelchair, initial encounter
CPT/HCPCS: 70450; 72125; 73120; 73522

== ENCOUNTER 2022-06-30 17:15 | Emergency (ER) | payer MEDICARE, MEDICAID ==
[~2022-06-30] VITALS: Ht 187 cm; Wt 73.5 kg
[2022-06-30 18:19] LABS: BASOPHILS % (AUTO) 0 % (0-10); EOSINOPHILS % (AUTO) 0 % (0-10); HEMATOCRIT 44 % (40-54); HEMOGLOBIN 14.8 g/dL (13.3-17.7); LYMPHOCYTES % (AUTO) 8 % (12-44); MEAN CORPUSCULAR HEMOGLOBIN 31 pg (25-34); MEAN CORPUSCULAR HGB CONC 34 g/dL (32-36); MEAN CORPUSCULAR VOLUME 93 fL (80-99); MEAN PLATELET VOLUME 9.9 fL (9.0-12.2); MONOCYTES % (AUTO) 8 % (0-12); NEUTROPHILS # (AUTO) 10.4 10^3/uL (1.8-7.8); NEUTROPHILS % (AUTO) 83 % (42-75); PLATELET COUNT 234 10^3/uL (130-400); WHITE BLOOD COUNT 12.5 10^3/uL (4.3-11.0)
[2022-06-30 18:26] LABS: CLARITY,URINE CLEAR; COLOR,URINE DARK YELLOW; GLUCOSE, URINE (UA) NEGATIVE (NEGATIVE); KETONES,URINE 2+ (NEGATIVE); LEUKOCYTE ESTERASE ,URINE NEGATIVE (NEGATIVE); NITRITE,URINE NEGATIVE (NEGATIVE); PROTEIN,URINE TRACE (NEGATIVE)
[2022-06-30 18:38] LABS: BACTERIA,URINE TRACE /HPF; BILIRUBIN,URINE 1+ (NEGATIVE); SQUAMOUS EPITHELIAL CELL,UR RARE /HPF; WBC,URINE RARE /HPF
[2022-06-30 18:48] LABS: ALANINE AMINOTRANSFERASE 29 U/L (0-55); ALBUMIN 3.7 GM/DL (3.2-4.5); ALKALINE PHOSPHATASE 94 U/L (40-136); BILIRUBIN,TOTAL 1.3 MG/DL (0.1-1.0); BUN/CREATININE RATIO 19; CARBON DIOXIDE 25 MMOL/L (21-32); CHLORIDE 107 MMOL/L (98-107); CREATININE SERUM 0.78 MG/DL (0.60-1.30); GFR ESTIMATED 95; GLUCOSE 101 MG/DL (70-105); POTASSIUM 3.9 MMOL/L (3.6-5.0); SALICYLATE < 5.0 MG/DL (5.0-20.0); SODIUM 144 MMOL/L (135-145); TOTAL PROTEIN 6.9 GM/DL (6.4-8.2)
[2022-06-30 19:05] LABS: AMPHETAMINE SCREEN, URINE NEGATIVE (NEGATIVE); BARBITURATE SCREEN URINE NEGATIVE (NEGATIVE); BENZODIAZEPINES SCREEN URINE NEGATIVE (NEGATIVE); CANNABINOID SCREEN, URINE NEGATIVE (NEGATIVE); COCAINE SCREEN URINE NEGATIVE (NEGATIVE); METHADONE STAT NEGATIVE (NEGATIVE); OPIATE SCREEN URINE NEGATIVE (NEGATIVE); OXYCODONE STAT NEGATIVE (NEGATIVE); PROPOXYPHENE STAT NEGATIVE (NEGATIVE); TRICYCLIC ANTIDEPRESSANTS SCRE NEGATIVE (NEGATIVE)
[2022-06-30 19:12] LABS: ACETAMINOPHEN < 10 UG/ML (10-30)
[2022-06-30 19:14] LABS: LYMPHOCYTES % (MANUAL) 4 %; MONOCYTES % (MANUAL) 6 %; NEUTROPHILS % (MANUAL) 90 %; RBC MORPH NORMAL
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
[2022-06-30] MEDS ORDERED: RX-LORAZEPAM (ATIVAN) 0.5 MG TAB PPK#4 PO STA (21:00)
[2022-06-30 21:03] VITALS: BP 123/87
== END 2022-06-30 21:03 | disposition home or self-care (01) ==
LOC: EDUNIT# 17:15 → ER 17:16
DX: F03.918 Unspecified dementia, unspecified severity, with other behavioral disturbance (principal); G47.30 Sleep apnea, unspecified; Z99.89 Dependence on other enabling machines and devices; Z87.891 Personal history of nicotine dependence; Z20.822 Contact with and (suspected) exposure to COVID-19
CPT/HCPCS: 80053; 80306; 81000; 85007; 85027; 87636; 93005; 99283; G0480 ×3; 36415; 80320; 80329

== ENCOUNTER 2022-07-26 15:50 | Emergency (ER) | payer MEDICARE, MEDICAID ==
[~2022-07-26] VITALS: Ht 187 cm; Wt 75.0 kg
--- NOTE | 2022-07-26 15:54 | ED Head Injury ---
General Chief Complaint: Trauma-Non Activation Stated Complaint: FALL Source: patient, EMS Exam Limitations: no limitations History of Present Illness Date Seen by Provider: Jul 26, 2022 Time Seen by Provider: 15:45 Initial Comments History is obtained from patient and EMS. Patient is a 71-year-old male who presents to the emergency department via EMS for evaluation after a fall from his wheelchair that occurred just prior to arrival. The fall was witnessed by staff at the nursing home facility where he lives. Patient states he was attempting to pick something up off the ground and leaned too far forward causing him to fall forward from his wheelchair and strike his head on the ground. Patient denies any loss of consciousness. EMS personnel state patient was stable in route. They state the staff at the facility stated patient did not lose consciousness and is at baseline. Patient has not had any vomiting since the injury occurred. Patient has an extensive history of similar falls for which she has been evaluated multiple times in this ER. Patient is not currently on blood thinners. Patient denies any pain or injury outside of some mild pain in his forehead about the area that struck the floor. Allergies and Home Medications Allergies Coded Allergies: No Known Drug Allergies (Unverified , 11/05/09) Patient Home Medication List Home Medication List Reviewed: Yes Albuterol Sulfate (Ventolin Hfa) 1 Puff Puff, 2 PUFF IH QID PRN for SHORTNESS OF BREATH, (Reported) Entered as Reported by: MELLISA JAMISON on 09/21/17 1307 Budesonide/Formoterol Fumarate (Symbicort 160-4.5 Mcg Inhaler) 10.2 Gm Hfa.aer.ad, 2 PUFF IH BID, (Reported) Entered as Reported by: MELLISA JAMISON on 09/21/17 1307 Carbidopa/Levodopa (Carbidopa-Levo ER 25-100 Tab) 1 Each Tablet.er, 1 TAB PO TID, (Reported) Entered as Reported by: CAROL RO on 09/22/17 1351 Cefuroxime Axetil (Cefuroxime) 500 Mg Tablet, 500 MG PO BID Prescribed by: TOM MURDOCK on 01/31/22 210 Cholecalciferol (Vitamin D3) (Vitamin D3) 5,000 Unit Tablet, 5,000 UNIT PO DAILY, (Reported) Entered as Reported by: MELLISA JAMISON on 09/21/17 130 Cyclobenzaprine HCl (Cyclobenzaprine HCl) 10 Mg Tablet, 10 MG PO TID PRN for MUSCLE SPASMS, (Reported) Entered as Reported by: ELIS MURPHY on 05/21/171905 Fluticasone Propionate (Flonase Allergy Relief) 50 Mcg/Actuation Means.susp, 2 SPRAY NS DAILY Prescribed by: TOM MURDOCK on 01/31/222102 Hyoscyamine Sulfate (Levsin-Sl) 0.125 Mg Tab.subl, 0.25 MG SL Q4H Prescribed by: TOM MURDOCK on 02/09/212108 Meloxicam (Meloxicam) 7.5 Mg Tablet, 7.5 MG PO, (Reported) Entered as Reported by: ELIS MURPHY on 05/21/171905 [place] 3 Polyunsat Fatty Acids (Fish Oil 1,000 mg Capsule) 1,000 Mg Cap, 1,000 MG PO DAILY, (Reported) Entered as Reported by: MELLISA JAMISON on 09/21/171306 Omeprazole (Omeprazole) 40 Mg Capsule.dr, 40 MG PO DAILY, (Reported) Entered as Reported by: ELIS MURPHY on 05/21/171905 Pentoxifylline (Pentoxifylline) 400 Mg Tablet.er, 400 MG PO TID, (Reported) Entered as Reported by: ELIS MURPHY on 05/21/171905 Vitamin E Mixed (Vitamin E) 400 Unit Tablet, 800 UNIT PO DAILY, (Reported) Entered as Reported by: MELLISA JAMISON on 09/21/17 130 Review of Systems Review of Systems Constitutional: no symptoms reported Eyes: No Symptoms Reported Ears, Nose, Mouth, Throat: no symptoms reported Respiratory: no symptoms reported Cardiovascular: no symptoms reported Gastrointestinal: no symptoms reported Genitourinary: no symptoms reported Musculoskeletal: no symptoms reported Skin: no symptoms reported Psychiatric/Neurological: See HPI, Headache Endocrine: No Symptoms Reported Hematologic/Lymphatic: No Symptoms Reported Past Qvteicv-Ttghvi-Qcniep Hx Immunizations Up To Date Tetanus Booster (TDap): More than 5yrs First/Initial COVID19 Vaccinat: YES Second COVID19 Vaccination [place]: YES Third COVID19 Vaccination Date: YES Seasonal Allergies Seasonal Allergies: No Past Medical History Surgery/Hospitalization HX: LEFT EYE REMOVED,HEMORRHOIDECTOMY, VENTRAL/UMBILICAL HERNIA REPAIR X 3 WITH [facility] 09/2017[facility] 06/2018CARDIAC CATH 12/[address] [id number] DISEASE; EF 35%,NON-ISCHEMIC CARDIOMYOPATHY. NO INTERVENTION STRESS TEST 02/[address] BARRY:EF 45 percent. Normal wall motion. Normal myocardial perfusion imaging during rest and stress. Conclusion: Pharmacological stress test was negative for ischemia.Mildly reduce LV function with no wall motion abnormalities.Normal myocardial perfusion imaging during rest and stress. DEMENTIA, BEHAVIORAL ISSUES, PARKINSONS, Surgeries: Yes (LEFT EYE REMOVED, HEMORRHOIDECTOMY, UMB HERNIA) Abdominal, Appendectomy, Cardiac, Eye Surgery, Orthopedic, Rectal, Renal Respiratory: Yes Sleep Apnea, COPD Currently Using CPAP: Yes Cardiac: Yes Cardiomyopathy, High Cholesterol, Hypertension Neurological: Yes (HX OF VERTIGO; ) Parkinson's Disease, Vertigo Reproductive Disorders: No Sexually Transmitted Disease: No Genitourinary: Yes Prostate Problems, Kidney Stones Gastrointestinal: Yes (VENTRAL/PERIUMBILICAL HERNIA REPAIR X3; KNOWN RIGHT INGUINAL HERNIA-NO SURG) Abdominal Hernia, Gastroesophageal Reflux, Hemorrhoids Musculoskeletal: Yes (CHRONIC NECK PAIN, leg length discrepancy;FALLS/GAIT DISTURBANCE) Arthritis Endocrine: No HEENT: Yes (LEFT EYE REMOVED/FALSE LEFT EYE) Loss of Vision: Left Cancer: No Psychosocial: No Integumentary: Yes Psoriasis Blood Disorders: No Adverse Reaction/Blood Tranf: No Family Medical History Abdominal aortic aneurysm 03 FATHER, Onset:60 years & older Cancer 03 FATHER (NECK) 03 MOTHER (LUNGS) History of drug abuse DAUGHTERS (DAUGHTER) No Pertinent Family Hx SMOKED 2 PPD, QUIT 2014 DENIES ALCOHOL OR DRUG USE Physical Exam Vital Signs Vital Signs - First Documented Capillary Refill : Height, Weight, BMI Height: 5'10.00" Weight: 159lbs. 0.0oz. 72.773933mr; 21.00 BMI Method:Stated General Appearance: WD/WN, no apparent distress HEENT: PERRL/EOMI, normal ENT inspection, TMs normal, pharynx normal Neck: non-tender, full range of motion, supple, normal inspection Cardiovascular: regular rate, rhythm Respiratory: chest non-tender, lungs clear, normal breath sounds, no respiratory distress, no accessory muscle use Gastrointestinal: normal bowel sounds, non tender, soft, no organomegaly, no pulsatile mass Extremities: normal range of motion, non-tender, normal inspection, no pedal edema, no calf tenderness Skin: normal color, warm/dry [place] Coma Score Best Eye Response: (4) Open Spontaneously Best Verbal Response: (5) Oriented Best Motor Response: (6) Obeys Commands [place] Total: 15 Progress/Results/Core Measures Results/Orders My Orders Orders - ISIDRA SANTIZO APRN Ct Head Wo (07/26/22 15:52) Vital Signs/I&O Progress Progress Note : Progress Note Review of the last several ER visits reveal patient has presented multiple times for evaluation after falls from his wheelchair. Patient has had several head CTs at multiple of these visits that have all been acutely negative. Patient is nontoxic and well-hydrated on exam. No focal neurologic deficits appreciated. Patient answers all questions. No obvious injury noted on primary or secondary surveys outside of a small contusion to the left forehead. There is no appreciable laceration, contusion, bogginess, bony step-off, or abrasion noted to the scalp. Patient has full range of motion of the neck and there is no midline cervical tenderness to palpation. Will obtain head CT without contrast for evaluation of any possible intracranial injury. Differential diagnoses include forehead contusion, skull fracture, intracranial bleed. Head CT revealed no obvious intracranial bleed on my wet read. Formal radiology read showed no acute findings. A hyperdensity in the frontal lobe noted that has been stable on previous head CT's. Will discharge back to his nursing home facility. A nurse from the nursing home facility is present at bedside at the time of my discharge. She states there and acting increased fall prevention precautions to attempt to prevent this happening as the patient has had so many falls in the recent past. Return precautions for urgent symptomology discussed. Patient and nurse verbalized understanding. Departure Impression Primary Impression: Fall Qualified Codes: W19.XXXA - Unspecified fall, initial encounter Additional Impression: Minor head injury Qualified Codes: S09.90XA - Unspecified injury of head, initial encounter Disposition: 01 HOME, SELF-CARE Condition: Stable Departure-Patient Inst. Decision time for Depature: 16:35 Referrals: TOM KHAN MD (PCP/Family) Primary Care Physician Patient Instructions: Minor Head Injury, Adult ED ISIDRA SANTIZO APRN Jul 26, 2022 15:54
--- NOTE | 2022-07-26 16:28 | Diagnostic Imaging Report ---
PROCEDURE: CT head without contrast. TECHNIQUE: Multiple contiguous axial images were obtained through the brain without the use of intravenous contrast. Auto Exposure Controls were utilized during the CT exam to meet ALARA standards for radiation dose reduction. INDICATION: Fall. Head pain. Head injury. COMPARISON: 06/26/2022. FINDINGS: There is a subtle area of hyperdensity demonstrated associated with the cortex of the left frontal lobe on image 55 of series 2. This is unchanged from the prior 06/26/2022 examination and likely reflects a small region of calcification. No other evidence to suggest hemorrhage is demonstrated. There is no intracranial mass effect or shift. There is no hydrocephalus. There is no abnormal extra-axial fluid collection. There are no findings of territorial loss of cochran-white differentiation. There are no findings of vasogenic edema. There is no acute calvarial abnormality. There is partial opacification of the left mastoids. The right are clear. No fluid level evident in the paranasal sinuses. There are prior surgical changes involving the left orbit which are stable from previous exam. IMPRESSION: 1. Tiny focus of hyperdensity in the left frontal lobe is unchanged from prior examination and likely reflects a small region of cortical calcification given its chronicity. There are no findings of new hyperdensity or acute hemorrhage. 2. No mass effect, hydrocephalus or loss of cochran-white differentiation. 3. No calvarial fracture. Dictated by: Dictated on workstation # [id number]
[2022-07-26 16:40] VITALS: BP 124/72
== END 2022-07-26 16:40 | disposition home or self-care (01) ==
LOC: EDUNIT# 15:50 → ER 15:51
DX: S09.90XA Unspecified injury of head, initial encounter (principal); S00.83XA Contusion of other part of head, initial encounter; G47.30 Sleep apnea, unspecified; Z87.891 Personal history of nicotine dependence; Z99.89 Dependence on other enabling machines and devices; W05.0XXA Fall from non-moving wheelchair, initial encounter
CPT/HCPCS: 70450